=== PATIENT | male | born 1985 | race Caucasian/White ===

== ENCOUNTER 2023-03-02 11:20 | Emergency (ER) | payer OTHER ==
--- OUTSIDE RECORDS SUMMARY | 2023-03-02 11:34 | XMS REPORT | Continuity of Care Document ---
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 00:00: 00 prednisone 2022-0 No 1mg 20 mg 7-02 tablet 00:00: 00 methocarbam 2022-0 No 12mg ol 500 mg 7-02 tablet 00:00: 00 naproxen 2022-0 No 1mg 500 mg 7-02 tablet 00:00: 00 prednisone 2022-0 No 1mg 20 mg 7-02 tablet 00:00: 00 methocarbam 2022-0 No 12mg ol 500 mg 7-02 tablet 00:00: 00 naproxen 2022-0 No 1mg 500 mg 7-02 tablet 00:00: 00 bupropion 2022-0 No 1mg HCl SR 150 5-12 mg 00:00: tablet,12 00 hr sustained-r elease escitalopra 2022-0 No 1mg m 20 mg 5-12 tablet 00:00: 00 propranolol 2022-0 No 1mg 10 mg 5-12 tablet 00:00: 00 doxycycline 2022-0 No 1mg hyclate 100 5-12 mg capsule 00:00: 00 prazosin 2 2022-0 No 1mg mg capsule 5-12 00:00: 00 Dose 2022-0 No Unknown 5-12 00:00: 00 Dose 2022-0 No Unknown 5-12 00:00: 00 bupropion 2022-0 No 1mg HCl SR 150 5-12 mg 00:00: tablet,12 00 hr sustained-r elease escitalopra 2-0 No 1mg m 20 mg 5-12 tablet 00:00: 00 propranolol 2022-0 No 1mg 10 mg 5-12 tablet 00:00: 00 doxycycline 2022-0 No 1mg hyclate 100 5-12 mg capsule 00:00: 00 prazosin 2 2-0 No 1mg mg capsule 5-12 00:00: 00 Dose 2-0 No Unknown 5-12 00:00: 00 Dose 2-0 No Unknown 5-12 00:00: 00 bupropion 2022-0 No 1mg HCl SR 150 5-12 mg 00:00: tablet,12 00 hr sustained-r elease Dose 2-0 No Unknown 5-12 00:00: 00 Dose 2022-0 No Unknown 5-12 00:00: 00 doxycycline 2-0 No 1mg hyclate 100 5-12 mg capsule 00:00: 00 Dose 2022-0 No Unknown 5-12 00:00: 00 Dose 2-0 No Unknown 5-12 00:00: 00 Dose 2-0 No Unknown 5-12 00:00: 00 bupropion 2022-0 No 1mg HCl SR 150 5-12 mg 00:00: tablet,12 00 hr sustained-r elease Dose 2-0 No Unknown 5-12 00:00: 00 Dose 2022-0 No Unknown 5-12 00:00: 00 doxycycline 2022-0 No 1mg hyclate 100 5-12 mg capsule 00:00: 00 Dose 2022-0 No Unknown 5-12 00:00: 00 Dose 2022-0 No Unknown 5-12 00:00: 00 Dose 2022-0 No Unknown 5-12 00:00: 00 bupropion 2022-0 No 1mg HCl SR 150 5-12 mg 00:00: tablet,12 00 hr sustained-r elease escitalopra 2-0 No 1mg m 20 mg 5-12 tablet 00:00: 00 propranolol 2022-0 No 1mg 10 mg 5-12 tablet 00:00: 00 doxycycline 2022-0 No 1mg hyclate 100 5-12 mg capsule 00:00: 00 prazosin 2 2022-0 No 1mg mg capsule 5-12 00:00: 00 Dose 2022-0 No Unknown 5-12 00:00: 00 Dose 2022-0 No Unknown 5-12 00:00: 00 bupropion 2022-0 No 1mg HCl SR 150 5-12 mg 00:00: tablet,12 00 hr sustained-r elease escitalopra 2022-0 No 1mg m 20 mg 5-12 tablet 00:00: 00 propranolol 2022-0 No 1mg 10 mg 5-12 tablet 00:00: 00 doxycycline 2022-0 No 1mg hyclate 100 5-12 mg capsule 00:00: 00 prazosin 2 2022-0 No 1mg mg capsule 5-12 00:00: 00 Dose 2022-0 No Unknown 5-12 00:00: 00 Dose 2022-0 No Unknown 5-12 00:00: 00 bupropion 2022-0 No 1mg HCl SR 150 5-12 mg 00:00: tablet,12 00 hr sustained-r elease escitalopra 2022-0 No 1mg m 20 mg 5-12 tablet 00:00: 00 propranolol 2022-0 No 1mg 10 mg 5-12 tablet 00:00: 00 doxycycline 2022-0 No 1mg hyclate 100 5-12 mg capsule 00:00: 00 prazosin 2 2022-0 No 1mg mg capsule 5-12 00:00: 00 Dose 2022-0 No Unknown 5-12 00:00: 00 Dose 2022-0 No Unknown 5-12 00:00: 00 bupropion 2022-0 No 1mg HCl SR 150 5-12 mg 00:00: tablet,12 00 hr sustained-r elease escitalopra 2022-0 No 1mg m 20 mg 5-12 tablet 00:00: 00 propranolol 2022-0 No 1mg 10 mg 5-12 tablet 00:00: 00 doxycycline 2022-0 No 1mg hyclate 100 5-12 mg capsule 00:00: 00 prazosin 2 2022-0 No 1mg mg capsule 5-12 00:00: 00 Dose 2022-0 No Unknown 5-12 00:00: 00 Dose 2022-0 No Unknown 5-12 00:00: 00 bupropion 2022-0 No 1mg HCl SR 150 5-12 mg 00:00: tablet,12 00 hr sustained-r elease escitalopra 2022-0 No 1mg m 20 mg 5-12 tablet 00:00: 00 propranolol 2022-0 No 1mg 10 mg 5-12 tablet 00:00: 00 doxycycline 2022-0 No 1mg hyclate 100 5-12 mg capsule 00:00: 00 prazosin 2 2022-0 No 1mg mg capsule 5-12 00:00: 00 Dose 2022-0 No Unknown 5-12 00:00: 00 Dose 2022-0 No Unknown 5-12 00:00: 00 bupropion 2022-0 No 1mg HCl SR 150 5-12 mg 00:00: tablet,12 00 hr sustained-r elease escitalopra 2022-0 No 1mg m 20 mg 5-12 tablet 00:00: 00 propranolol 2022-0 No 1mg 10 mg 5-12 tablet 00:00: 00 doxycycline 2022-0 No 1mg hyclate 100 5-12 mg capsule 00:00: 00 prazosin 2 2022-0 No 1mg mg capsule 5-12 00:00: 00 Dose 2022-0 No Unknown 5-12 00:00: 00 Dose 2022-0 No Unknown 5-12 00:00: 00 bupropion 2022-0 No 1mg HCl SR 150 5-12 mg 00:00: tablet,12 00 hr sustained-r elease escitalopra 2022-0 No 1mg m 20 mg 5-12 tablet 00:00: 00 propranolol 2022-0 No 1mg 10 mg 5-12 tablet 00:00: 00 doxycycline 2022-0 No 1mg hyclate 100 5-12 mg capsule 00:00: 00 prazosin 2 2022-0 No 1mg mg capsule 5-12 00:00: 00 Dose 2022-0 No Unknown 5-12 00:00: 00 Dose 2022-0 No Unknown 5-12 00:00: 00 amoxicillin 2022-0 No mg 875 mg 5-09 tablet 00:00: 00 doxycycline 2022-0 No mg hyclate 100 5-09 mg tablet 00:00: 00 amoxicillin 2022-0 No mg 875 mg 5-09 tablet 00:00: 00 doxycycline 2022-0 No mg hyclate 100 5-09 mg tablet 00:00: 00 amoxicillin 2022-0 No mg 875 mg 5-09 tablet 00:00: 00 doxycycline 2022-0 No mg hyclate 100 5-09 mg tablet 00:00: 00 amoxicillin 2022-0 No mg 875 mg 5-09 tablet 00:00: 00 doxycycline 2022-0 No mg hyclate 100 5-09 mg tablet 00:00: 00 amoxicillin 2022-0 No mg 875 mg 5-09 tablet 00:00: 00 doxycycline 2022-0 No mg hyclate 100 5-09 mg tablet 00:00: 00 amoxicillin 2022-0 No mg 875 mg 5-09 tablet 00:00: 00 doxycycline 2022-0 No mg hyclate 100 5-09 mg tablet 00:00: 00 amoxicillin 2022-0 No mg 875 mg 5-09 tablet 00:00: 00 amoxicillin 2022-0 No mg 875 mg 5-09 tablet 00:00: 00 doxycycline 2022-0 No mg hyclate 100 5-09 mg tablet 00:00: 00 doxycycline 2022-0 No mg hyclate 100 5-09 mg tablet 00:00: 00 amoxicillin 2022-0 No mg 875 mg 5-09 tablet 00:00: 00 doxycycline 2022-0 No mg hyclate 100 5-09 mg tablet 00:00: 00 amoxicillin 2022-0 No mg 875 mg 5-09 tablet 00:00: 00 doxycycline 2022-0 No mg hyclate 100 5-09 mg tablet 00:00: 00 amoxicillin 2022-0 No mg 875 mg 5-09 tablet 00:00: 00 doxycycline 2022-0 No mg hyclate 100 5-09 mg tablet 00:00: 00 Dose 2022-0 No Unknown 5-02 00:00: 00 Dose 2022-0 No Unknown 5-02 00:00: 00 Dose 2022-0 No Unknown 5-02 00:00: 00 Dose 2022-0 No Unknown 5-02 00:00: 00 Dose 2022-0 No Unknown 5-02 00:00: 00 Dose 2022-0 No Unknown 5-02 00:00: 00 Dose 2022-0 No Unknown 5-02 00:00: 00 Dose 2022-0 No Unknown 5-02 00:00: 00 Dose 2022-0 No Unknown 5-02 00:00: 00 Dose 2022-0 No Unknown 5-02 00:00: 00 Dose 2022-0 No Unknown 5-02 00:00: 00 Dose 2022-0 No Unknown 5-02 00:00: 00 Dose 2022-0 No Unknown 5-02 00:00: 00 Dose 2022-0 No Unknown 5-02 00:00: 00 Dose 2022-0 No Unknown 5-02 00:00: 00 Dose 2022-0 No Unknown 5-02 00:00: 00 Dose 2022-0 No Unknown 5-02 00:00: 00 Dose 2022-0 No Unknown 5-02 00:00: 00 Dose 2022-0 No Unknown 5-02 00:00: 00 Dose 2022-0 No Unknown 5-02 00:00: 00 Dose 2022-0 No Unknown 5-02 00:00: 00 Dose 2022-0 No Unknown 5-02 00:00: 00 Dose 2022-0 No Unknown 5-01 00:00: 00 Dose 2022-0 No Unknown 5-01 00:00: 00 Dose 2022-0 No Unknown 5-01 00:00: 00 Dose 2022-0 No Unknown 5-01 00:00: 00 Dose 2022-0 No Unknown 5-01 00:00: 00 Dose 2022-0 No Unknown 5-01 00:00: 00 Dose 2022-0 No Unknown 5- 00:00: 00 Dose 2022-0 No Unknown 5-01 00:00: 00 Dose 2022-0 No Unknown 5-01 00:00: 00 Dose 2022-0 No Unknown 5-01 00:00: 00 Dose 2022-0 No Unknown 5-01 00:00: 00 Dose 2022-0 No Unknown 5-01 00:00: 00 Dose 2022-0 No Unknown 5-01 00:00: 00 Dose 2022-0 No Unknown 5-01 00:00: 00 Dose 2022-0 No Unknown 5-01 00:00: 00 Dose 2022-0 No Unknown 5- 00:00: 00 Dose 2022-0 No Unknown 5- 00:00: 00 Dose 2022-0 No Unknown 5-01 00:00: 00 Dose 2022-0 No Unknown 5-01 00:00: 00 Dose 2022-0 No Unknown 5-01 00:00: 00 Dose 2022-0 No Unknown 5-01 00:00: 00 Dose 2022-0 No Unknown 5-01 00:00: 00 Dose 2022-0 No Unknown 5-01 00:00: 00 Dose 2022-0 No Unknown 5- 00:00: 00 Dose 2022-0 No Unknown 5-01 00:00: 00 Dose 2022-0 No Unknown 5-01 00:00: 00 Dose 2022-0 No Unknown 5-01 00:00: 00 Dose 2022-0 No Unknown 5-01 00:00: 00 Dose 2022-0 No Unknown 5-01 00:00: 00 Dose 2022-0 No Unknown 5-01 00:00: 00 Dose 2022-0 No Unknown 5-01 00:00: 00 Dose 2022-0 No Unknown 5- 00:00: 00 Dose 2022-0 No Unknown 5-01 00:00: 00 Dose 2022-0 No Unknown 5-01 00:00: 00 Dose 2022-0 No Unknown 5-01 00:00: 00 Dose 2022-0 No Unknown 5-01 00:00: 00 Dose 2022-0 No Unknown 5-01 00:00: 00 Dose 2022-0 No Unknown 5-01 00:00: 00 Dose 2022-0 No Unknown 5-01 00:00: 00 Dose 2022-0 No Unknown 5- 00:00: 00 Dose 2022-0 No Unknown 5-01 00:00: 00 Dose 2022-0 No Unknown 5-01 00:00: 00 Dose 2022-0 No Unknown 5-01 00:00: 00 Dose 2022-0 No Unknown 5- 00:00: 00 Dose 2022-0 No Unknown 4- 00:00: 00 Dose 2022-0 No Unknown 4-29 00:00: 00 Dose 2022-0 No Unknown 4-29 00:00: 00 Dose 2022-0 No Unknown 4-29 00:00: 00 Dose 2022-0 No Unknown 4-29 00:00: 00 Dose 2022-0 No Unknown 4-29 00:00: 00 Dose 2022-0 No Unknown 4-29 00:00: 00 Dose 2022-0 No Unknown 4-29 00:00: 00 Dose 2022-0 No Unknown 4- 00:00: 00 Dose 2022-0 No Unknown 4- 00:00: 00 Dose 2022-0 No Unknown 4- 00:00: 00 Dose 2022-0 No Unknown 4- 00:00: 00 Dose 2022-0 No Unknown 4- 00:00: 00 Dose 2022-0 No Unknown 4- 00:00: 00 Dose 2022-0 No Unknown 4- 00:00: 00 Dose 2022-0 No Unknown 4- 00:00: 00 Dose 2022-0 No Unknown 4- 00:00: 00 Dose 2022-0 No Unknown 4- 00:00: 00 Dose 2022-0 No Unknown 4- 00:00: 00 Dose 2022-0 No Unknown 4- 00:00: 00 Dose 2022-0 No Unknown 4- 00:00: 00 Dose 2022-0 No Unknown 4- 00:00: 00 Dose 2022-0 No Unknown 4- 00:00: 00 Dose 2022-0 No Unknown 4- 00:00: 00 Dose 2022-0 No Unknown 4- 00:00: 00 Dose 2022-0 No Unknown 4- 00:00: 00 Dose 2022-0 No Unknown 4- 00:00: 00 Dose 2022-0 No Unknown 4- 00:00: 00 Dose 2022-0 No Unknown 4- 00:00: 00 Dose 2022-0 No Unknown 4- 00:00: 00 Dose 2022-0 No Unknown 4- 00:00: 00 Dose 2022-0 No Unknown 4- 00:00: 00 Dose 2022-0 No Unknown 4- 00:00: 00 Dose 2022-0 No Unknown 4- 00:00: 00 Dose 2022-0 No Unknown 4- 00:00: 00 Dose 2022-0 No Unknown 4-29 00:00: 00 Dose 2022-0 No Unknown 4- 00:00: 00 Dose 2022-0 No Unknown 4- 00:00: 00 Dose 2022-0 No Unknown 4- 00:00: 00 Dose 2022-0 No Unknown 4-29 00:00: 00 Dose 2022-0 No Unknown 4-29 00:00: 00 Dose 2022-0 No Unknown 4- 00:00: 00 Dose 2022-0 No Unknown 4- 00:00: 00 Dose 2022-0 No Unknown 4- 00:00: 00 Dose 2022-0 No Unknown 4- 00:00: 00 Dose 2022-0 No Unknown 4- 00:00: 00 Dose 2022-0 No Unknown 4- 00:00: 00 Dose 2022-0 No Unknown 4- 00:00: 00 Dose 2022-0 No Unknown 4- 00:00: 00 Dose 2022-0 No Unknown 4- 00:00: 00 Dose 2022-0 No Unknown 4- 00:00: 00 Dose 2022-0 No Unknown 4- 00:00: 00 Dose 2022-0 No Unknown 4- 00:00: 00 Dose 2022-0 No Unknown 4- 00:00: 00 Dose 2022-0 No Unknown 4- 00:00: 00 Bactrim DS 2022-0 No 1mg 800 mg-160 4-28 mg tablet 00:00: 00 Bactrim DS 2022-0 No 1mg 800 mg-160 4-28 mg tablet 00:00: 00 Bactrim DS 2022-0 No 1mg 800 mg-160 4-28 mg tablet 00:00: 00 Bactrim DS 2022-0 No 1mg 800 mg-160 4-28 mg tablet 00:00: 00 Bactrim DS 2022-0 No 1mg 800 mg-160 4-28 mg tablet 00:00: 00 Bactrim DS 2022-0 No 1mg 800 mg-160 4-28 mg tablet 00:00: 00 Bactrim DS 2022-0 No 1mg 800 mg-160 4-28 mg tablet 00:00: 00 Bactrim DS 2022-0 No 1mg 800 mg-160 4-28 mg tablet 00:00: 00 Bactrim DS 2022-0 No 1mg 800 mg-160 4-28 mg tablet 00:00: 00 Bactrim DS 2022-0 No 1mg 800 mg-160 4-28 mg tablet 00:00: 00 Bactrim DS 2022-0 No 1mg 800 mg-160 4-28 mg tablet 00:00: 00 Edurant 25 2022-0 No 1mg mg tablet 3-25 00:00: 00 Dose 2022-0 No Unknown 3-25 00:00: 00 Dose 2022-0 No Unknown 3-25 00:00: 00 Edurant 25 2022-0 No 1mg mg tablet 3-25 00:00: 00 Dose 2022-0 No Unknown 3-25 00:00: 00 Dose 2022-0 No Unknown 3-25 00:00: 00 Edurant 25 2022-0 No 1mg mg tablet 3-25 00:00: 00 Dose 2022-0 No Unknown 3-25 00:00: 00 Dose 2022-0 No Unknown 3-25 00:00: 00 Edurant 25 2022-0 No 1mg mg tablet 3-25 00:00: 00 Dose 2022-0 No Unknown 3-25 00:00: 00 Dose 2022-0 No Unknown 3-25 00:00: 00 Edurant 25 2022-0 No 1mg mg tablet 3-25 00:00: 00 Dose 2022-0 No Unknown 3-25 00:00: 00 Dose 2022-0 No Unknown 3-25 00:00: 00 Edurant 25 2022-0 No 1mg mg tablet 3-25 00:00: 00 Dose 2022-0 No Unknown 3-25 00:00: 00 Dose 2022-0 No Unknown 3-25 00:00: 00 Edurant 25 2022-0 No 1mg mg tablet 3-25 00:00: 00 Dose 2022-0 No Unknown 3-25 00:00: 00 Dose 2022-0 No Unknown 3-25 00:00: 00 Edurant 25 2022-0 No 1mg mg tablet 3-25 00:00: 00 Dose 2022-0 No Unknown 3-25 00:00: 00 Dose 2022-0 No Unknown 3-25 00:00: 00 Edurant 25 2022-0 No 1mg mg tablet 3-25 00:00: 00 Dose 2022-0 No Unknown 3-25 00:00: 00 Dose 2022-0 No Unknown 3-25 00:00: 00 Edurant 25 2022-0 No 1mg mg tablet 3-25 00:00: 00 Dose 2022-0 No Unknown 3-25 00:00: 00 Dose 2022-0 No Unknown 3-25 00:00: 00 Edurant 25 2022-0 No 1mg mg tablet 3-25 00:00: 00 Dose 2022-0 No Unknown 3-25 00:00: 00 Dose 2022-0 No Unknown 3-25 00:00: 00 TAKE 1 2022-0 No TABLET BY 3-24 MOUTH DAILY 00:00: 00 TAKE 1 2022-0 No TABLET BY 3-24 MOUTH DAILY 00:00: 00 Dose 2022-0 No Unknown 3-24 00:00: 00 Dose 2022-0 No Unknown 3-24 00:00: 00 Triumeq 600 2022-0 No 1mg mg-50 3-24 mg-300 mg 00:00: tablet 00 Triumeq 600 2022-0 No 1mg mg-50 3-24 mg-300 mg 00:00: tablet 00 Triumeq 600 2022-0 No 1mg mg-50 3-24 mg-300 mg 00:00: tablet 00 Triumeq 600 2022-0 No 1mg mg-50 3-24 mg-300 mg 00:00: tablet 00 Triumeq 600 2022-0 No 1mg mg-50 3-24 mg-300 mg 00:00: tablet 00 Triumeq 600 2022-0 No 1mg mg-50 3-24 mg-300 mg 00:00: tablet 00 TAKE 1 2022-0 No TABLET BY 3-24 MOUTH DAILY 00:00: 00 Dose 2022-0 No Unknown 3-04 00:00: 00 Dose 2022-0 No Unknown 3-04 00:00: 00 Dose 2022-0 No Unknown 3-04 00:00: 00 Dose 2022-0 No Unknown 3-04 00:00: 00 Dose 2022-0 No Unknown 3-04 00:00: 00 Dose 2022-0 No Unknown 3-04 00:00: 00 Dose 2022-0 No Unknown 3-04 00:00: 00 Dose 2022-0 No Unknown 3-04 00:00: 00 Dose 2022-0 No Unknown 3-04 00:00: 00 Dose 2022-0 No Unknown 3-04 00:00: 00 Dose 2022-0 No Unknown 3-04 00:00: 00 Dose 2022-0 No Unknown 3-04 00:00: 00 Dose 2022-0 No Unknown 3-04 00:00: 00 Dose 2022-0 No Unknown 3-04 00:00: 00 Dose 2022-0 No Unknown 3-04 00:00: 00 Dose 2022-0 No Unknown 3-04 00:00: 00 Dose 2022-0 No Unknown 3-04 00:00: 00 Dose 2022-0 No Unknown 3-04 00:00: 00 Dose 2022-0 No Unknown 3-04 00:00: 00 Dose 2022-0 No Unknown 3-04 00:00: 00 Dose 2022-0 No Unknown 3-04 00:00: 00 Dose 2022-0 No Unknown 3-04 00:00: 00 Dose 2022-0 No Unknown 3-04 00:00: 00 Dose 2022-0 No Unknown 3-04 00:00: 00 Dose 2022-0 No Unknown 3-04 00:00: 00 Dose 2022-0 No Unknown 3-04 00:00: 00 Dose 2022-0 No Unknown 3-04 00:00: 00 Dose 2022-0 No Unknown 3-04 00:00: 00 Dose 2022-0 No Unknown 3-04 00:00: 00 Dose 2022-0 No Unknown 3-04 00:00: 00 Dose 2022-0 No Unknown 3-04 00:00: 00 Dose 2022-0 No Unknown 3-04 00:00: 00 Dose 2022-0 No Unknown 3-04 00:00: 00 Dose 2022-0 No Unknown 3-04 00:00: 00 Dose 2022-0 No Unknown 3-04 00:00: 00 Dose 2022-0 No Unknown 3-04 00:00: 00 Dose 2022-0 No Unknown 3-04 00:00: 00 Dose 2022-0 No Unknown 3-04 00:00: 00 Dose 2022-0 No Unknown 3-04 00:00: 00 Dose 2022-0 No Unknown 3-04 00:00: 00 Dose 2022-0 No Unknown 3-04 00:00: 00 Dose 2022-0 No Unknown 3-04 00:00: 00 Dose 2022-0 No Unknown 3-04 00:00: 00 Dose 2022-0 No Unknown 3-04 00:00: 00 Dose 2021-1 No Unknown 2-15 00:00: 00 Dose 2021-1 No Unknown 2-15 00:00: 00 Dose 2021-1 No Unknown 2-15 00:00: 00 Dose 2021-1 No Unknown 2-15 00:00: 00 Dose 2020- No Unknown 2-15 00:00: 00 Dose 2020- No Unknown 2-15 00:00: 00 Dose 2020- No Unknown 2-15 00:00: 00 Dose 2020- No Unknown 2-15 00:00: 00 Dose 2020- No Unknown 2-15 00:00: 00 Dose 2020- No Unknown 2-15 00:00: 00 Dose 2020- No Unknown 2-15 00:00: 00 Dose 2020- No Unknown 1-29 00:00: 00 Dose 2020- No Unknown 1-29 00:00: 00 Dose 2020- No Unknown 1-29 00:00: 00 Dose 2020- No Unknown 1-29 00:00: 00 Dose 2020- No Unknown 1-29 00:00: 00 Dose 2020-07 No Unknown 1-29 00:00: 00 Dose 2020- No Unknown 1-29 00:00: 00 Dose 2020- No Unknown 1-29 00:00: 00 Dose 2020- No Unknown 1-29 00:00: 00 Dose 2020- No Unknown 1-29 00:00: 00 Dose 2020- No Unknown 1-29 00:00: 00 Dose 2020- No Unknown 1-29 00:00: 00 Dose 2020- No Unknown 1-29 00:00: 00 Dose 2020- No Unknown 1-29 00:00: 00 Dose 2020- No Unknown 1-29 00:00: 00 Dose 2020- No Unknown 1-29 00:00: 00 Dose 2020- No Unknown 1-29 00:00: 00 Dose 2020- No Unknown 1-29 00:00: 00 Dose 2020- No Unknown 1-29 00:00: 00 Dose 2020- No Unknown 1-29 00:00: 00 Dose 2020- No Unknown 1-29 00:00: 00 Dose 2020-07 No Unknown 1-29 00:00: 00 TRIUMEQ 2020-07 Yes Camila TAKE ONE [facility] (ABACAVIR-D 1-08 Earnest [place] TABLET BY Adult OLUTEGRAVIR 00:00: MOUTH Medic in -LAMIVUD) 00 EVERY DAY e 600-50-300 MG TABS Dose 2020- No Unknown 0-25 00:00: 00 Dose 2020-1 No Unknown 0-25 00:00: 00 Triumeq 600 2020-1 No 1mg mg-50 0-25 mg-300 mg 00:00: tablet 00 Dose 2020- No Unknown 0-25 00:00: 00 Dose 2020- No Unknown 0-25 00:00: 00 Dose 2020- No Unknown 0-25 00:00: 00 Dose 2020- No Unknown 0-25 00:00: 00 Dose 2020- No Unknown 0-25 00:00: 00 Triumeq 600 2020- No 1mg mg-50 0-25 mg-300 mg 00:00: tablet 00 Dose 2020- No Unknown 0-25 00:00: 00 Dose 2020- No Unknown 0-25 00:00: 00 Dose 2020- No Unknown 0-25 00:00: 00 Dose 2020- No Unknown 0-25 00:00: 00 Dose 2020- No Unknown 0-25 00:00: 00 Triumeq 600 2020- No 1mg mg-50 0-25 mg-300 mg 00:00: tablet 00 Dose 2020- No Unknown 0-25 00:00: 00 Dose 2020- No Unknown 0-25 00:00: 00 Dose 2020- No Unknown 0-25 00:00: 00 Dose 2020- No Unknown 0-25 00:00: 00 Dose 2020- No Unknown 0-25 00:00: 00 Dose 2020- No Unknown 0-25 00:00: 00 Triumeq 600 2020- No 1mg mg-50 0-25 mg-300 mg 00:00: tablet 00 Dose 2020- No Unknown 0-25 00:00: 00 Dose 2020- No Unknown 0-25 00:00: 00 Dose 2020-1 No Unknown 0-25 00:00: 00 Dose 2020- No Unknown 0-25 00:00: 00 Triumeq 600 2020- No 1mg mg-50 0-25 mg-300 mg 00:00: tablet 00 Dose 2020- No Unknown 0-25 00:00: 00 Dose 2020- No Unknown 0-25 00:00: 00 Dose 2020-1 No Unknown 0-25 00:00: 00 Dose 2020-1 No Unknown 0-25 00:00: 00 Triumeq 600 2020-1 No 1mg mg-50 0-25 mg-300 mg 00:00: tablet 00 Dose 2020-1 No Unknown 0-25 00:00: 00 Dose 2020-1 No Unknown 0-25 00:00: 00 Dose 2020-1 No Unknown 0-25 00:00: 00 Dose 2020-1 No Unknown 0-25 00:00: 00 Dose 2020-1 No Unknown 0-25 00:00: 00 Dose 2020-1 No Unknown 0-25 00:00: 00 Triumeq 600 2020-1 No 1mg mg-50 0-25 mg-300 mg 00:00: tablet 00 Dose 2020- No Unknown 0-25 00:00: 00 Dose 2020- No Unknown 0-25 00:00: 00 Dose 2020-1 No Unknown 0-25 00:00: 00 Dose 2020-1 No Unknown 0-25 00:00: 00 Dose 2020-1 No Unknown 0-25 00:00: 00 Triumeq 600 2020-1 No 1mg mg-50 0-25 mg-300 mg 00:00: tablet 00 Dose 2020-1 No Unknown 0-25 00:00: 00 Dose 2020-1 No Unknown 0-25 00:00: 00 Dose 2020-1 No Unknown 0-25 00:00: 00 Dose 2020-1 No Unknown 0-25 00:00: 00 Dose 2020-1 No Unknown 0-25 00:00: 00 Triumeq 600 2020-1 No 1mg mg-50 0-25 mg-300 mg 00:00: tablet 00 Dose 2020-1 No Unknown 0-25 00:00: 00 Dose 2020-1 No Unknown 0-25 00:00: 00 Dose 2020-1 No Unknown 0-25 00:00: 00 Dose 2020-1 No Unknown 0-25 00:00: 00 Dose 2020-1 No Unknown 0-25 00:00: 00 Triumeq 600 2020-1 No 1mg mg-50 0-25 mg-300 mg 00:00: tablet 00 Dose 2020-1 No Unknown 0-25 00:00: 00 Dose 2021-1 No Unknown 0-25 00:00: 00 Dose 2020-1 No Unknown 0-25 00:00: 00 Dose 2020-1 No Unknown 0-25 00:00: 00 Dose 2020-1 No Unknown 0-25 00:00: 00 Triumeq 600 1-1 No 1mg mg-50 0-25 mg-300 mg 00:00: tablet 00 Dose 1-1 No Unknown 0-25 00:00: 00 Dose 1-1 No Unknown 0-25 00:00: 00 Dose 1-1 No Unknown 0-25 00:00: 00 Bromfed DM 2020-1 No 10mg/5 2 mg-30 0-11 mL mg-10 mg/5 00:00: mL oral 00 syrup Bromfed DM 2020-1 No 10mg/5 2 mg-30 0-11 mL mg-10 mg/5 00:00: mL oral 00 syrup Bromfed DM 2020-1 No 10mg/5 2 mg-30 0-11 mL mg-10 mg/5 00:00: mL oral 00 syrup Bromfed DM 2020-1 No 10mg/5 2 mg-30 0-11 mL mg-10 mg/5 00:00: mL oral 00 syrup Bromfed DM 2020-1 No 10mg/5 2 mg-30 0-11 mL mg-10 mg/5 00:00: mL oral 00 syrup Bromfed DM 1-1 No 10mg/5 2 mg-30 0-11 mL mg-10 mg/5 00:00: mL oral 00 syrup Bromfed DM 1-1 No 10mg/5 2 mg-30 0-11 mL mg-10 mg/5 00:00: mL oral 00 syrup Bromfed DM 2020-1 No 10mg/5 2 mg-30 0-11 mL mg-10 mg/5 00:00: mL oral 00 syrup Bromfed DM 2020-1 No 10mg/5 2 mg-30 0-11 mL mg-10 mg/5 00:00: mL oral 00 syrup Bromfed DM 1-1 No 10mg/5 2 mg-30 0-11 mL mg-10 mg/5 00:00: mL oral 00 syrup Bromfed DM 1-1 No 10mg/5 2 mg-30 0-11 mL mg-10 mg/5 00:00: mL oral 00 syrup (ATORVASTAT 2020-1 Yes Camila TAKE ONE [facility] IN CALCIUM) 0-06 Earnest [place] TABLET BY Adult 20 MG TABS 00:00: MOUTH AT Med icin 00 BEDTIME e quetiapine 1-0 No 12mg 25 mg 8-18 tablet 00:00: 00 Dose 2021-0 No Unknown 03-15 00:00: 00 quetiapine 1-0 No 12mg 25 mg 8-18 tablet 00:00: 00 quetiapine 2021-0 No 12mg 25 mg 8-18 tablet 00:00: 00 Dose 2021-0 No Unknown 03-15 00:00: 00 Dose 1-0 No Unknown 03-15 00:00: 00 quetiapine 1-0 No 12mg 25 mg 8-18 tablet 00:00: 00 Dose 2021-0 No Unknown 03-15 00:00: 00 quetiapine 2021-0 No 12mg 25 mg 8-18 tablet 00:00: 00 Dose 2021-0 No Unknown 03-15 00:00: 00 quetiapine 2021-0 No 12mg 25 mg 8-18 tablet 00:00: 00 Dose 2021-0 No Unknown 03-15 00:00: 00 quetiapine 1-0 No 12mg 25 mg 8-18 tablet 00:00: 00 Dose 2021-0 No Unknown 03-15 00:00: 00 quetiapine 2021-0 No 12mg 25 mg 8-18 tablet 00:00: 00 Dose 2021-0 No Unknown 03-15 00:00: 00 quetiapine 1-0 No 12mg 25 mg 8-18 tablet 00:00: 00 Dose 2021-0 No Unknown 03-15 00:00: 00 quetiapine 2021-0 No 12mg 25 mg 8-18 tablet 00:00: 00 Dose 2021-0 No Unknown 03-15 00:00: 00 quetiapine 1-0 No 12mg 25 mg 8-18 tablet 00:00: 00 Dose 2021-0 No Unknown 03-15 00:00: 00 prazosin 2 1-0 No 1mg mg capsule 03-08 00:00: 00 escitalopra 1-0 No 1mg m 20 mg 8-11 tablet 00:00: 00 hydroxyzine 2021-0 No 12mg HCl 25 mg 8-11 tablet 00:00: 00 prazosin 2 2021-0 No 1mg mg capsule 03-08 00:00: 00 escitalopra 2021-0 No 1mg m 20 mg 8-11 tablet 00:00: 00 hydroxyzine 2021-0 No 12mg HCl 25 mg 8-11 tablet 00:00: 00 prazosin 2 2021-0 No 1mg mg capsule 03-08 00:00: 00 escitalopra 2021-0 No 1mg m 20 mg 8-11 tablet 00:00: 00 hydroxyzine 2021-0 No 12mg HCl 25 mg 8-11 tablet 00:00: 00 prazosin 2 1-0 No 1mg mg capsule 03-08 00:00: 00 escitalopra 2021-0 No 1mg m 20 mg 8-11 tablet 00:00: 00 hydroxyzine 2021-0 No 12mg HCl 25 mg 8-11 tablet 00:00: 00 prazosin 2 1-0 No 1mg mg capsule 03-08 00:00: 00 escitalopra 1-0 No 1mg m 20 mg 8-11 tablet 00:00: 00 hydroxyzine 1-0 No 12mg HCl 25 mg 8-11 tablet 00:00: 00 prazosin 2 1-0 No 1mg mg capsule 03-08 00:00: 00 escitalopra 2021-0 No 1mg m 20 mg 8-11 tablet 00:00: 00 hydroxyzine 2021-0 No 12mg HCl 25 mg 8-11 tablet 00:00: 00 prazosin 2 2021-0 No 1mg mg capsule 03-08 00:00: 00 escitalopra 2021-0 No 1mg m 20 mg 8-11 tablet 00:00: 00 hydroxyzine 2021-0 No 12mg HCl 25 mg 8-11 tablet 00:00: 00 prazosin 2 2021-0 No 1mg mg capsule 03-08 00:00: 00 escitalopra 2021-0 No 1mg m 20 mg 8-11 tablet 00:00: 00 hydroxyzine 2021-0 No 12mg HCl 25 mg 8-11 tablet 00:00: 00 prazosin 2 2021-0 No 1mg mg capsule 03-08 00:00: 00 escitalopra 2021-0 No 1mg m 20 mg 8-11 tablet 00:00: 00 hydroxyzine 1-0 No 12mg HCl 25 mg 8-11 tablet 00:00: 00 prazosin 2 1-0 No 1mg mg capsule 8-11 00:00: 00 escitalopra 1-0 No 1mg m 20 mg 8-11 tablet 00:00: 00 escitalopra 1-0 No 1mg m 20 mg 8-11 tablet 00:00: 00 hydroxyzine 1-0 No 12mg HCl 25 mg 8-11 tablet 00:00: 00 prazosin 2 1-0 No 1mg mg capsule 8-11 00:00: 00 hydroxyzine 1-0 No 12mg HCl 25 mg 8-11 tablet 00:00: 00 escitalopra 1-0 No 1mg m 10 mg 7-20 tablet 00:00: 00 hydroxyzine 1-0 No 1mg HCl 25 mg 7-20 tablet 00:00: 00 prazosin 1 1-0 No 1mg mg capsule 7-20 00:00: 00 escitalopra 1-0 No 1mg m 10 mg 7-20 tablet 00:00: 00 hydroxyzine 1-0 No 1mg HCl 25 mg 7-20 tablet 00:00: 00 prazosin 1 1-0 No 1mg mg capsule 7-20 00:00: 00 escitalopra 1-0 No 1mg m 10 mg 7-20 tablet 00:00: 00 hydroxyzine 1-0 No 1mg HCl 25 mg 7-20 tablet 00:00: 00 prazosin 1 1-0 No 1mg mg capsule 7-20 00:00: 00 escitalopra 1-0 No 1mg m 10 mg 7-20 tablet 00:00: 00 hydroxyzine 2021-0 No 1mg HCl 25 mg 7-20 tablet 00:00: 00 prazosin 1 1-0 No 1mg mg capsule 7-20 00:00: 00 escitalopra 2021-0 No 1mg m 10 mg 7-20 tablet 00:00: 00 hydroxyzine 2021-0 No 1mg HCl 25 mg 7-20 tablet 00:00: 00 prazosin 1 1-0 No 1mg mg capsule 7-20 00:00: 00 escitalopra 2021-0 No 1mg m 10 mg 7-20 tablet 00:00: 00 hydroxyzine 2021-0 No 1mg HCl 25 mg 7-20 tablet 00:00: 00 prazosin 1 1-0 No 1mg mg capsule 7-20 00:00: 00 escitalopra 2021-0 No 1mg m 10 mg 7-20 tablet 00:00: 00 hydroxyzine 2021-0 No 1mg HCl 25 mg 7-20 tablet 00:00: 00 prazosin 1 1-0 No 1mg mg capsule 7-20 00:00: 00 escitalopra 2021-0 No 1mg m 10 mg 7-20 tablet 00:00: 00 escitalopra 2021-0 No 1mg m 10 mg 7-20 tablet 00:00: 00 hydroxyzine 1-0 No 1mg HCl 25 mg 7-20 tablet 00:00: 00 prazosin 1 1-0 No 1mg mg capsule 7-20 00:00: 00 hydroxyzine 1-0 No 1mg HCl 25 mg 7-20 tablet 00:00: 00 escitalopra 1-0 No 1mg m 10 mg 7-20 tablet 00:00: 00 hydroxyzine 1-0 No 1mg HCl 25 mg 7-20 tablet 00:00: 00 prazosin 1 1-0 No 1mg mg capsule 7-20 00:00: 00 prazosin 1 1-0 No 1mg mg capsule 720 00:00: 00 escitalopra 1-0 No 1mg m 10 mg 7-20 tablet 00:00: 00 hydroxyzine 1-0 No 1mg HCl 25 mg 7-20 tablet 00:00: 00 prazosin 1 1-0 No 1mg mg capsule 7-20 00:00: 00 prazosin 1 1-0 No 1mg mg capsule 7 00:00: 00 escitalopra 2021-0 No 1mg m 10 mg 7-08 tablet 00:00: 00 prazosin 1 1-0 No 1mg mg capsule 02-02 00:00: 00 escitalopra 2021-0 No 1mg m 10 mg 7-08 tablet 00:00: 00 prazosin 1 1-0 No 1mg mg capsule 7 00:00: 00 escitalopra 2021-0 No 1mg m 10 mg 7-08 tablet 00:00: 00 prazosin 1 2020-0 No 1mg mg capsule 02-02 00:00: 00 escitalopra 2020-0 No 1mg m 10 mg 7-08 tablet 00:00: 00 prazosin 1 2020-0 No 1mg mg capsule 02-02 00:00: 00 escitalopra 2020-0 No 1mg m 10 mg 7-08 tablet 00:00: 00 prazosin 1 2020-0 No 1mg mg capsule 02-02 00:00: 00 escitalopra 2020-0 No 1mg m 10 mg 7-08 tablet 00:00: 00 escitalopra 2020-0 No 1mg m 10 mg 7-08 tablet 00:00: 00 prazosin 1 2020-0 No 1mg mg capsule 02-02 00:00: 00 prazosin 1 2020-0 No 1mg mg capsule 02-02 00:00: 00 escitalopra 2020-0 No 1mg m 10 mg 7-08 tablet 00:00: 00 prazosin 1 2020-0 No 1mg mg capsule 02-02 00:00: 00 escitalopra 2020-0 No 1mg m 10 mg 7-08 tablet 00:00: 00 prazosin 1 2020-0 No 1mg mg capsule 02-02 00:00: 00 escitalopra 2020-0 No 1mg m 10 mg 7-08 tablet 00:00: 00 prazosin 1 2020-0 No 1mg mg capsule 02-02 00:00: 00 escitalopra 1-0 No 1mg m 10 mg 7-08 tablet 00:00: 00 VIAGRA 2020-0 Yes Camila 1 By Mouth LM C (SILDENAFIL 11-11 Earnest [place] 30 mins A dult CITRATE) 50 00:00: prior to Me dicin MG TABS 00 sexual e activity. Do not exceed this dose in 24 hour period. LIPITOR 2020-0 2020- No Camila 1 1xD 1 tablet LM C (ATORVASTAT 11-11 Earnest by mouth Ad ult IN CALCIUM) 00:00: 00:00 at bedtime Medicin 20 MG TABS 00 :00 e VENTOLIN 2019- Yes Camila 1-2 puffs L MC HFA 08-13 Earnest [place] every 4-6 Adult (ALBUTEROL 00:00: hours Medici n SULFATE) 00 every 8 e 108 (90 hours Base) MCG/ACT AERS TRIUMEQ 2019-07- No Camila 1{Table 1xD 1 By Mouth [facility] (ABACAVIR-D 08-13 Earnest t} Every Day A dult OLUTEGRAVIR 00:00: 00:00 Medic in -LAMIVUD) 00 :00 e 600-50-300 MG TABS Immunizations Ordered Immunization Filled Immunization Date Status Commen ts Source Name Name Lanny (Smallpox, 2023-02-02 Completed [facility] Monkeypox) Subcut 13:54:00 Health Vaccine Inj 0.5 mL influenza, seasonal 2022-06-11 Completed vaccine, 00:00:00 quadrivalent, adjuvanted, .5mL dose, preservative-free influenza, seasonal 2022-06-11 Completed vaccine, 00:00:00 quadrivalent, adjuvanted, .5mL dose, preservative-free influenza, seasonal 2022-06-11 Completed vaccine, 00:00:00 quadrivalent, adjuvanted, .5mL dose, preservative-free MMR 2021 Completed 00:00:00 MMR 2021 Completed 00:00:00 MMR 2021 Completed 00:00:00 MMR 2021 Completed 00:00:00 MMR 2021 Completed 00:00:00 MMR 2021 Completed 00:00:00 MMR 2021 Completed 00:00:00 MMR 2021 Completed 00:00:00 MMR 2021 Completed 00:00:00 MMR 2021 Completed 00:00:00 MMR 2021 Completed 00:00:00 Pneumovax 23 IM/SQ 2020-06-13 Completed [facility]-[id number] 09:56:00 Health Menactra IM RIC 2020-06-13 Completed [facility] [id number] 09:55:00 Health Fluzone Quadrivalent 2020-06-13 Completed [facility] IM Prefilled Syringe 09:55:00 Heal th 0.5 mL (PF) [id number] Vital Signs Vital Name Observation Time Observation Value Comments Source temperature E&M 2023-02-02 12:43:56 98 [degF] [facility] Di[facility] blood 2023-02-02 12:43:56 81 mm[Hg] [facility] pressure Health Systolic blood 2023-02-02 12:43:56 129 mm[Hg] [facility] pressure Health respiratory rate E&M 2023-02-02 12:43:56 18 /min Counts Include [facility] pulse rate 2023-02-02 12:43:56 83 /min Counts include [facility] BMI (body mass 2023-02-02 12:43:56 n/a [facility] index) percentile Health Body Mass Index 2023-02-02 12:43:56 26.29 kg/m2 [facility] (Ratio[facility] Health weight E&M 2023-02-02 12:43:56 177.38 [lb_av] Counts Include [facility] weight in kilograms 2023-02-02 12:43:56 [facility] 2023-02-02 12:43:56 oral Lega [facility] height in 2023-02-02 12:43:56 175.26 cm [facility] centimeters [facility] BP Systolic 2022-08-16 17:33:00 BP Diastolic 2022-08-16 17:33:00 Weight Measured 2022-08-16 17:33:00 179.00 pounds Height Measured 2022-08-16 17:33:00 70.00 inches Body Temperature 2022-08-16 17:33:00 Heart Rate 2022-08-16 17:33:00 Respiratory Rate 2022-08-16 17:33:00 BP Systolic 2022-08-03 09:51:00 134 mm[Hg] BP Diastolic 2022-08-03 09:51:00 77 mm[Hg] Weight Measured 2022-08-03 09:51:00 179.00 pounds Height Measured 2022-08-03 09:51:00 70.00 inches Body Temperature 2022-08-03 09:51:00 97.90 degrees Heart Rate 2022-08-03 09:51:00 90.00 /min Respiratory Rate 2022-08-03 09:51:00 16.00 /min BP Systolic 2022-06-14 08:03:00 124 mm[Hg] BP Diastolic 2022-06-14 08:03:00 78 mm[Hg] Weight Measured 2022-06-14 08:03:00 179.80 pounds Height Measured 2022-06-14 08:03:00 70.00 inches Body Temperature 2022-06-14 08:03:00 98.40 degrees Heart Rate 2022-06-14 08:03:00 76.00 /min Respiratory Rate 2022-06-14 08:03:00 BP Systolic 2022-05-10 08:38:00 121 mm[Hg] BP Diastolic 2022-05-10 08:38:00 85 mm[Hg] Weight Measured 2022-05-10 08:38:00 177.00 pounds Height Measured 2022-05-10 08:38:00 70.00 inches Body Temperature 2022-05-10 08:38:00 98.70 degrees Heart Rate 2022-05-10 08:38:00 95.00 /min Respiratory Rate 2022-05-10 08:38:00 18.00 /min BP Systolic 2022-04-24 17:43:00 124 mm[Hg] BP Diastolic 2022-04-24 17:43:00 86 mm[Hg] Weight Measured 2022-04-24 17:43:00 176.00 pounds Height Measured 2022-04-24 17:43:00 70.00 inches Body Temperature 2022-04-24 17:43:00 98.90 degrees Heart Rate 2022-04-24 17:43:00 74.00 /min Respiratory Rate 2022-04-24 17:43:00 BP Systolic 2022-04-10 08:01:00 130 mm[Hg] BP Diastolic 2022-04-10 08:01:00 81 mm[Hg] Weight Measured 2022-04-10 08:01:00 178.60 pounds Height Measured 2022-04-10 08:01:00 70.00 inches Body Temperature 2022-04-10 08:01:00 Heart Rate 2022-04-10 08:01:00 79.00 /min Respiratory Rate 2022-04-10 08:01:00 BP Systolic 2022-02-27 16:37:00 146 mm[Hg] BP Diastolic 2022-02-27 16:37:00 73 mm[Hg] Weight Measured 2022-02-27 16:37:00 177.00 pounds Height Measured 2022-02-27 16:37:00 70.00 inches Body Temperature 2022-02-27 16:37:00 Heart Rate 2022-02-27 16:37:00 77.00 /min Respiratory Rate 2022-02-27 16:37:00 BP Systolic 2022-02-12 09:41:00 BP Diastolic 2022-02-12 09:41:00 Weight Measured 2022-02-12 09:41:00 175.00 pounds Height Measured 2022-02-12 09:41:00 70.00 inches Body Temperature 2022-02-12 09:41:00 Heart Rate 2022-02-12 09:41:00 Respiratory Rate 2022-02-12 09:41:00 BP Systolic 2022-02-01 11:31:00 142 mm[Hg] BP Diastolic 2022-02-01 11:31:00 95 mm[Hg] Weight Measured 2022-02-01 11:31:00 175.00 pounds Height Measured 2022-02-01 11:31:00 70.00 inches Body Temperature 2022-02-01 11:31:00 98.50 degrees Heart Rate 2022-02-01 11:31:00 74.00 /min Respiratory Rate 2022-02-01 11:31:00 BP Systolic 2021-12-14 11:21:00 133 mm[Hg] BP Diastolic 2021-12-14 11:21:00 88 mm[Hg] Weight Measured 2021-12-14 11:21:00 174.60 pounds Height Measured 2021-12-14 11:21:00 6.29 inches Body Temperature 2021-12-14 11:21:00 Heart Rate 2021-12-14 11:21:00 76.00 /min Respiratory Rate 2021-12-14 11:21:00 BP Systolic 2021-12-07 14:08:00 133 mm[Hg] BP Diastolic 2021-12-07 14:08:00 85 mm[Hg] Weight Measured 2021-12-07 14:08:00 175.40 pounds Height Measured 2021-12-07 14:08:00 62.29 inches Body Temperature 2021-12-07 14:08:00 98.10 degrees Heart Rate 2021-12-07 14:08:00 79.00 /min Respiratory Rate 2021-12-07 14:08:00 Height Measured 2021-12-07 08:03:00 62.29 inches Body Temperature 2021-12-07 08:03:00 98.60 degrees Heart Rate 2021-12-07 08:03:00 74.00 /min Respiratory Rate 2021-12-07 08:03:00 17.00 /min BP Systolic 2021-12-07 08:03:00 131 mm[Hg] BP Diastolic 2021-12-07 08:03:00 85 mm[Hg] Weight Measured 2021-12-07 08:03:00 174.80 pounds BP Systolic 2021-12-04 13:19:00 133 mm[Hg] BP Diastolic 2021-12-04 13:19:00 77 mm[Hg] Weight Measured 2021-12-04 13:19:00 178.90 pounds Height Measured 2021-12-04 13:19:00 62.29 inches Body Temperature 2021-12-04 13:19:00 Heart Rate 2021-12-04 13:19:00 98.00 /min Respiratory Rate 2021-12-04 13:19:00 BP Systolic 2021-11-24 08:07:00 BP Diastolic 2021-11-24 08:07:00 Weight Measured 2021-11-24 08:07:00 Height Measured 2021-11-24 08:07:00 Body Temperature 2021-11-24 08:07:00 Heart Rate 2021-11-24 08:07:00 Respiratory Rate 2021-11-24 08:07:00 BP Systolic 2021-11-22 18:00:00 123 mm[Hg] BP Diastolic 2021-11-22 18:00:00 82 mm[Hg] Weight Measured 2021-11-22 18:00:00 177.40 pounds Height Measured 2021-11-22 18:00:00 62.29 inches Body Temperature 2021-11-22 18:00:00 Heart Rate 2021-11-22 18:00:00 72.00 /min Respiratory Rate 2021-11-22 18:00:00 BP Systolic 2021-11-02 17:10:00 127 mm[Hg] BP Diastolic 2021-11-02 17:10:00 85 mm[Hg] Weight Measured 2021-11-02 17:10:00 180.20 pounds Height Measured 2021-11-02 17:10:00 62.29 inches Body Temperature 2021-11-02 17:10:00 97.90 degrees Heart Rate 2021-11-02 17:10:00 77.00 /min Respiratory Rate 2021-11-02 17:10:00 17.00 /min BP Systolic 2021-10-20 15:17:00 118 mm[Hg] BP Diastolic 2021-10-20 15:17:00 78 mm[Hg] Weight Measured 2021-10-20 15:17:00 Height Measured 2021-10-20 15:17:00 62.29 inches Body Temperature 2021-10-20 15:17:00 98.60 degrees Heart Rate 2021-10-20 15:17:00 71.00 /min Respiratory Rate 2021-10-20 15:17:00 16.00 /min BP Systolic 2021-08-01 17:31:00 139 mm[Hg] BP Diastolic 2021-08-01 17:31:00 76 mm[Hg] Weight Measured 2021-08-01 17:31:00 175.20 pounds Height Measured 2021-08-01 17:31:00 69.29 inches Body Temperature 2021-08-01 17:31:00 97.80 degrees Heart Rate 2021-08-01 17:31:00 73.00 /min Respiratory Rate 2021-08-01 17:31:00 17.00 /min height in 2020-11-11 15:18:22 175.26 cm [facility] centimeters [facility] blood pressure, 2020-06-13 08:25:54 82 mm[Hg] [facility] diastolic Health blood pressure, 2020-06-13 08:25:54 128 mm[Hg] [facility] systolic Health pulse rate 2020-06-13 08:25:54 76 /min [facility] Health oxygen saturation, 2020-06-13 08:25:54 98 /min Le lucas [facility] oximetry Health temperature E&M 2020-06-13 08:25:54 98.7 [degF] [facility] Health weight E&M 2020-06-13 08:25:54 166 [lb_av] [facility] weight in kilograms 2020-06-13 08:25:54 75.45 kg L [facility] height E&M 2020-06-13 08:25:54 69 [in_i] [facility] temperature site 2020-06-13 08:25:54 oral Lega [facility] Health BMI (body mass 2020-06-13 08:25:54 n/a [facility] index) [facility] Health Body Mass Index 2020-06-13 08:25:54 24.60 kg/m2 [facility] (Ratio) [facility] temperature site 2020-06-13 08:25:54 oral Lega [facility] Procedures Procedure Date / Time Performing Clinician Source Performed First Ix admin via ID IM 2023-02-02 13:54:17 [facility] or jet injects with Health counseling by physician for adult Jynneos Subcutaneous 2023-02-02 13:54:17 [facility] Suspension 0.5 ML Health Vaccines Ordered - Print 2023-02-02 13:19:55 [facility] Consent/Declination Health Forms 16140 Ekg W/ At Least 12 2021-12-07 00:00:00 Leads W/ I r [id number] 2021-11-27 00:00:00 FLOAD [facility] 13103 Incision drainage 2021-11-22 00:00:00 Abscess Complicated/multiple Behavioral Health - 2020-07-12 11:51:51 [facility] Psych[facility] Health IB Assessment - 2020-07-12 11:51:18 Jovanni Martinez [facility] [employer] [employer] Health Diagnostic evaluation 2020-07-12 11:49:49 Jovanni Martinez [facility] (no medical) - [id number] Health Addl Vx - Ix admin via 2020-06-13 09:55:06 Earnest, Camila [facility] ID IM or jet injects Health without counseling by physician Pneumovax 23 Injection 2020-06-13 09:55:06 Camila Tinoco [facility] Injectable 25 MCG/0.5ML Health Menactra Intramuscular 2020-06-13 09:55:06 Camila Tinoco [facility] Injectable Health First Vx - Ix admin via 2020-06-13 09:55:06 Camila Tinoco [facility] ID IM or jet injects Health without counseling by physician Fluzone Quadrivalent IM 2020-06-13 09:51:47 Camila Tinoco [facility] Prefilled Syringe 0.5 mL Health (PF) Integrated Behavioral 2020-06-13 09:43:49 Camila Tinoco [facility] Health Assessment (IBH) Health Vaccines Ordered - Print 2020-06-13 09:38:33 Camila Tinoco [facility] Consent/Declination Health Forms Health 2020-05-10 11:54:01 Provider, [facility] Zane blood Education/Supportive Health Services Health Counseling Venipuncture 2020-05-10 11:53:08 Camila Tinocou [facility] Health Plan of Care Planned Activity Planned Date Details Comments Source Goal Plan of Care Note [code = 64065-5] Goal Plan of Care Note [code = 40470-8] Goal Plan of Care Note [code = 92399-6] Goal Plan of Care Note [code = 99798-8] Goal Plan of Care Note [code = 01522-4] Goal Plan of Care Note [code = 72073-5] Goal Plan of Care Note [code = 63608-2] Goal Plan of Care Note [code = 59638-1] Goal Plan of Care Note [code = 24481-6] Goal Plan of Care Note [code = 42367-4] Goal Plan of Care Note [code = 12865-2] Goal Plan of Care Note [code = 49068-9] Goal Plan of Care Note [code = 69939-2] Goal Plan of Care Note [code = 89345-2] Goal Plan of Care Note [code = 87663-9] Goal Plan of Care Note [code = 72980-6] Goal Plan of Care Note [code = 86736-7] Goal Plan of Care Note [code = 03335-7] Goal Plan of Care Note [code = 47906-5] Goal Plan of Care Note [code = 28180-2] Goal Plan of Care Note [code = 11115-1] Goal Plan of Care Note [code = 72408-5] Goal Plan of Care Note [code = 84386-7] Goal Plan of Care Note [code = 95718-6] Goal Plan of Care Note [code = 53995-9] Goal Plan of Care Note [code = 61309-4] Goal Plan of Care Note [code = 98529-7] Goal Plan of Care Note [code = 04282-5] Goal Plan of Care Note [code = 65924-0] Goal Plan of Care Note [code = 62031-4] Goal Plan of Care Note [code = 90058-7] Goal Plan of Care Note [code = 74668-4] Goal Plan of Care Note [code = 90744-5] Goal Plan of Care Note [code = 27481-9] Goal Plan of Care Note [code = 15372-0] Goal Plan of Care Note [code = 96897-9] Goal Plan of Care Note [code = 95797-4] Goal Plan of Care Note [code = 91929-8] Goal Plan of Care Note [code = 26642-1] Goal Plan of Care Note [code = 36733-8] Goal Plan of Care Note [code = 10531-9] Goal Plan of Care Note [code = 16025-4] Goal Plan of Care Note [code = 89697-5] Goal Plan of Care Note [code = 14462-3] Goal Plan of Care Note [code = 28838-9] Goal Plan of Care Note [code = 30614-5] Goal Plan of Care Note [code = 05301-4] Goal Plan of Care Note [code = 20667-2] Goal Plan of Care Note [code = 17746-0] Goal Plan of Care Note [code = 62652-1] Goal Plan of Care Note [code = 17604-8] Goal Plan of Care Note [code = 94473-4] Goal Plan of Care Note [code = 85519-8] Goal Plan of Care Note [code = 54730-9] Goal Plan of Care Note [code = 03922-2] Goal Plan of Care Note [code = 59951-9] Goal Plan of Care Note [code = 27557-6] Goal Plan of Care Note [code = 93201-1] Goal Plan of Care Note [code = 67470-3] Goal Plan of Care Note [code = 53340-4] Goal Plan of Care Note [code = 10145-8] Goal Plan of Care Note [code = 23376-1] Goal Plan of Care Note [code = 10989-6] Goal Plan of Care Note [code = 37551-6] Goal Plan of Care Note [code = 03106-6] Goal Plan of Care Note [code = 19369-4] Goal Plan of Care Note [code = 34645-3] Goal Plan of Care Note [code = 04678-3] Goal Plan of Care Note [code = 64777-0] Goal Plan of Care Note [code = 33714-7] Goal Plan of Care Note [code = 80735-1] Goal Plan of Care Note [code = 05281-8] Goal Plan of Care Note [code = 57128-3] Goal Plan of Care Note [code = 86817-9] Goal Plan of Care Note [code = 48639-9] Goal Plan of Care Note [code = 35420-8] Goal Plan of Care Note [code = 93657-4] Goal Plan of Care Note [code = 33223-1] Goal Plan of Care Note [code = 67114-1] Goal Plan of Care Note [code = 03889-1] Goal Plan of Care Note [code = 20994-4] Goal Plan of Care Note [code = 28553-1] Goal Plan of Care Note [code = 87172-5] Goal Plan of Care Note [code = 84334-3] Goal Plan of Care Note [code = 34401-1] Goal Plan of Care Note [code = 70209-7] Goal Plan of Care Note [code = 64347-9] Goal Plan of Care Note [code = 30684-5] Goal Plan of Care Note [code = 31265-2] Goal Plan of Care Note [code = 95034-1] Goal Plan of Care Note [code = 45916-1] Goal Plan of Care Note [code = 16670-0] Goal Plan of Care Note [code = 97746-2] Goal Plan of Care Note [code = 43434-2] Goal Plan of Care Note [code = 47414-6] Goal Plan of Care Note [code = 64689-0] Goal Plan of Care Note [code = 64464-0] Goal Plan of Care Note [code = 20462-9] Goal Plan of Care Note [code = 39596-1] Goal Plan of Care Note [code = 26984-1] Goal Plan of Care Note [code = 24808-4] Goal Plan of Care Note [code = 03799-5] Goal Plan of Care Note [code = 36004-5] Goal Plan of Care Note [code = 28731-4] Goal Plan of Care Note [code = 18920-7] Goal Plan of Care Note [code = 89384-0] Goal Plan of Care Note [code = 36548-3] Goal Plan of Care Note [code = 34689-4] Goal Plan of Care Note [code = 79672-2] Goal Plan of Care Note [code = 07677-7] Goal Plan of Care Note [code = 39293-2] Goal Plan of Care Note [code = 85383-3] Goal Plan of Care Note [code = 41502-8] Goal Plan of Care Note [code = 95349-3] Goal Plan of Care Note [code = 94153-9] Goal Plan of Care Note [code = 35694-7] Goal Plan of Care Note [code = 99539-8] Goal Plan of Care Note [code = 91221-1] Goal Plan of Care Note [code = 37367-8] Goal Plan of Care Note [code = 45260-1] Goal Plan of Care Note [code = 41444-4] Goal Plan of Care Note [code = 30012-6] Goal Plan of Care Note [code = 02198-9] Goal Plan of Care Note [code = 22444-4] Goal Plan of Care Note [code = 26269-7] Goal Plan of Care Note [code = 68541-0] Goal Plan of Care Note [code = 78833-0] Goal Plan of Care Note [code = 72822-5] Goal Plan of Care Note [code = 76413-3] Goal Plan of Care Note [code = 74227-0] Goal Plan of Care Note [code = 06196-3] Goal Plan of Care Note [code = 22028-5] Goal Plan of Care Note [code = 08649-7] Goal Plan of Care Note [code = 99508-1] Goal Plan of Care Note [code = 77438-1] Goal Plan of Care Note [code = 42189-7] Goal Plan of Care Note [code = 71623-5] Goal Plan of Care Note [code = 46083-2] Goal Plan of Care Note [code = 15247-3] Goal Plan of Care Note [code = 04246-3] Goal Plan of Care Note [code = 00875-1] Goal Plan of Care Note [code = 78465-9] Goal Plan of Care Note [code = 85550-2] Goal Plan of Care Note [code = 87303-8] Goal Plan of Care Note [code = 47704-3] Goal Plan of Care Note [code = 57418-3] Goal Plan of Care Note [code = 16781-7] Goal Plan of Care Note [code = 93883-2] Goal Plan of Care Note [code = 99771-6] Goal Plan of Care Note [code = 69489-6] Goal Plan of Care Note [code = 57850-4] Goal Plan of Care Note [code = 69075-4] Goal Plan of Care Note [code = 00757-7] Goal Plan of Care Note [code = 06106-0] Goal Plan of Care Note [code = 19005-6] Goal Plan of Care Note [code = 17363-1] Goal Plan of Care Note [code = 95833-5] Goal Plan of Care Note [code = 17702-4] Goal Plan of Care Note [code = 33345-9] Goal Plan of Care Note [code = 57816-4] Goal Plan of Care Note [code = 25307-5] Goal Plan of Care Note [code = 40557-9] Goal Plan of Care Note [code = 23092-2] Goal Plan of Care Note [code = 00216-5] Goal Plan of Care Note [code = 55068-5] Goal Plan of Care Note [code = 65690-9] Goal Plan of Care Note [code = 53861-3] Goal Plan of Care Note [code = 71459-8] Goal Plan of Care Note [code = 47163-8] Goal Plan of Care Note [code = 93461-2] Goal Plan of Care Note [code = 22197-1] Goal Plan of Care Note [code = 22150-8] Goal Plan of Care Note [code = 51521-1] Goal Plan of Care Note [code = 57589-5] Goal Plan of Care Note [code = 24474-4] Goal Plan of Care Note [code = 69720-4] Goal Plan of Care Note [code = 42033-0] Goal Plan of Care Note [code = 99363-7] Goal Plan of Care Note [code = 19876-5] Goal Plan of Care Note [code = 05271-2] Goal Plan of Care Note [code = 41495-8] Goal Plan of Care Note [code = 40159-2] Goal Plan of Care Note [code = 83151-7] Goal Plan of Care Note [code = 36428-6] Goal Plan of Care Note [code = 70851-8] Goal Plan of Care Note [code = 50335-1] Goal Plan of Care Note [code = 88280-0] Goal Plan of Care Note [code = 19049-1] Goal Plan of Care Note [code = 86034-4] Goal Plan of Care Note [code = 67591-3] Goal Plan of Care Note [code = 61582-4] Goal Plan of Care Note [code = 25677-6] Goal Plan of Care Note [code = 18975-1] Goal Plan of Care Note [code = 43488-7] Goal Plan of Care Note [code = 06253-8] Goal Plan of Care Note [code = 91576-5] Goal Plan of Care Note [code = 80942-0] Goal Plan of Care Note [code = 09695-3] Goal Plan of Care Note [code = 50984-8] Goal Plan of Care Note [code = 58645-6] Goal Plan of Care Note [code = 32023-9] Goal Plan of Care Note [code = 68561-0] Goal Plan of Care Note [code = 99884-3] Goal Plan of Care Note [code = 36038-0] Goal Plan of Care Note [code = 85624-8] Goal Plan of Care Note [code = 30967-2] Goal Plan of Care Note [code = 71722-2] Goal Plan of Care Note [code = 22449-3] Goal Plan of Care Note [code = 51859-3] Goal Plan of Care Note [code = 33298-8] Goal Plan of Care Note [code = 31625-9] Goal Plan of Care Note [code = 41644-6] Goal Plan of Care Note [code = 01074-0] Goal Plan of Care Note [code = 15876-4] Goal Plan of Care Note [code = 45685-2] Goal Plan of Care Note [code = 63386-4] Goal Plan of Care Note [code = 25867-4] Goal Plan of Care Note [code = 19662-0] Goal Plan of Care Note [code = 68684-5] Goal Plan of Care Note [code = 85587-5] Goal Plan of Care Note [code = 70200-2] Goal Plan of Care Note [code = 34912-1] Goal Plan of Care Note [code = 08203-2] Goal Plan of Care Note [code = 15472-6] Goal Plan of Care Note [code = 09218-9] Goal Plan of Care Note [code = 49540-6] Goal Plan of Care Note [code = 97366-9] Goal Plan of Care Note [code = 05528-6] Goal Plan of Care Note [code = 85765-8] Goal Plan of Care Note [code = 96578-7] Encounters Start End Encounter Admission Attending Care Care Encounter Source Date/Time Date/Time Type Type Clinicians Facility Department ID 2023-03-01 Outpatient [email or web address] [facility] [id number] [facility] 20:07:39 [id number] [facility] 2023-02-27 Outpatient lckyle [facility] [id number] [facility] 14:07:02 [id number] [facility] 2023-01-31 Outpatient tres [facility] [id number] [facility] 09:31:03 [id number] [facility] 2021-05-14 Outpatient [facility] [id number] [facility] 12:00:13 [id number] [facility] 2021-05-11 Outpatient [facility] [id number] [facility] 21:16:14 [id number] [facility] 2021-05-11 Outpatient [facility] [id number] [facility] 19:49:31 [id number] [facility] 2023-02-06 2023-02-06 Outpatient [facility] [id number] [facility] 10:19:23 10:19:23 [id number] Tal Dorsey 2023-02-02 2023-02-03 In-person Quyen Segura [facility] A dult [id number] Legacy 00:00:00 00:00:00 encounter Mariola Robledo Medicine [address] [facility] 2023-02-02 2023-02-03 In-person Quyen Segura [facility] A dult Encounter/ Legacy 00:00:00 00:00:00 encounter Mariola Robledo Medicine [id number] [facility] 224363 [facility] 2023-02-01 2023-02-01 Emergency Eduardo Rodriguez HCAPM YO LA00 [id number] [facility] 13:21:00 17:35:00 10 [facility] 2023-01-28 2023-01-28 Outpatient SFA SFA [id number]- 202 Ramakrishna 17:03:09 17:03:09 [id number] [facility] [place] 2023-01-15 2023-01-15 Outpatient Georges Gorman HCACL LABO G00 [id number] [facility] 23:49:00 23:49:00 61 [facility] 2023-01-15 2023-01-15 Emergency Georges Thompson HCAPM YO LA00 [id number] [facility] 18:29:00 21:29:00 05 [facility] 2023-01-15 2023-01-15 Outpatient SFA SFA [id number]- 202 Ramakrishna 16:24:27 16:24:27 18233 [place] 2023-01-10 2023-01-10 Outpatient SFA SFA [id number]- 202 Ramakrishna 16:18:45 16:18:45 43549 [facility] [place] 2022-12-06 2022-12-06 Outpatient SFA SFA [id number]- 202 Ramakrishna 15:58:21 15:58:21 12605 [facility] [place] 2022-12-02 2022-12-03 Inpatient EM JAY GodoyPM MEDI.01 [id number] [facility] 20:18:00 13:47:00 Musaddiq 54 [facility] 2022-12-02 2022-12-02 Outpatient Jayne HCACL LABO [id number] [facility] 23:23:00 23:23:00 Musaddiq 61 [facility] 2022-10-09 2022-10-09 Outpatient SFA SFA [id number]- 202 Ram[facility]rishna 13:45:45 13:45:45 80866 F [place] 2022-08-27 2022-08-27 Outpatient SFA SFA [id number]- 202 Ram[facility]rishna 14:16:08 14:16:08 11427 [facility] [place] 2022-08-16 2022-08-16 Outpatient SFA SFA 193826- 202 Ram[facility]na 17:33:02 17:33:02 07630 F [place] 2022-08-16 2022-08-16 Outpatient i108ztp3- [id number] f3 25fol5-4 00:00:00 00:00:00 Visit 4adb-48be adb-48be-b -x81j-339 70d-3173be 3el5zi78y 7fb57f 2022-08-03 2022-08-03 Outpatient SFA SFA [id number]- 202 Ram[facility]na 09:36:45 09:36:45 18566 [facility] [place] 2022-08-03 2022-08-03 Outpatient m00b8drm- [id number] c0 5a1tcg-3 00:00:00 00:00:00 Visit 3f52-60ek t04-77zr-6 -5hy8-q8e ea1-f3a7e6 6l0s136bc b936fa 2022-06-14 2022-06-14 Outpatient SFA SFA [id number]- 202 Ram[facility]na 08:02:53 08:02:53 61502 [facility] [place] 2022-06-14 2022-06-14 Outpatient y794wwsw- [id number] f9 70fcba-4 00:00:00 00:00:00 Visit 9gy2-7248 bc8-4550-8 -26s9-y7c 5v7-i2bk69 h830s8g1w 2c0f6a 2022-05-10 2022-05-10 Outpatient SFA SFA [id number]- 202 Ramakrishna 08:34:29 08:34:29 81829 F [place] 2022-05-10 2022-05-10 Outpatient g927r9zj- [id number] d3 93u6pf-1 00:00:00 00:00:00 Visit 20w9-46sx 8q1-07jb-7 -938e-d9a 38e-y2w631 21039x2l2 46d8a5 2022-04-24 2022-04-24 Outpatient 81i91z3g- [id number] k55p3m-0 00:00:00 00:00:00 Visit 1344-489c 344-489c-8 -2y3s-4ki x0h-7ql6fc 5rs56629v 83775x 2022-04-10 2022-04-10 Outpatient wmda6lc9- [id number] fd dt3un7-j 00:00:00 00:00:00 Visit q5qv-82k3 5fe-42d2-9 -9006-3c3 006-2l4228 707n2n5xz e6a6af 2022-02-27 2022-02-27 Outpatient 2809oxm3- [id number] 69uzd6-g 00:00:00 00:00:00 Visit c102-446u 990-486a-a -xq11-v6c d90-b0n522 196m37vy2 e09fd9 2022-02-12 2022-02-12 Outpatient 60u4yj6b- [id number] m8ww6q-f 00:00:00 00:00:00 Visit i23v-5610 87f-4646-8 -2g31-7t3 y79-0v6380 4133i41go 0c42de 2022-02-07 2022-02-07 Outpatient 2oh0t5k6- [id number] 6b u4r0r3-2 00:00:00 00:00:00 Visit 8424-462f 424-462f-b -f3xv-5fk 0ba-9caf89 y811i2p65 0d3e45 2022-02-01 2022-02-01 Outpatient 8666r2d5- [id number] 22 54y0i8-1 00:00:00 00:00:00 Visit 2491-43b5 491-43b5-a -a2j5-21g 1z7-14g0zb 6cslsan0w ecff6e 2022-01-27 2022-01-27 Outpatient 2289a3r9- [id number] 97f7v9-7 00:00:00 00:00:00 Visit 8efd-4e16 efd-4e16-b -e88d-a9d 94d-a3e66e 15o62ym65 71ad26 2021-11-28 2021-11-28 Emergency EM Jadyn, HCAPM YO [id number] [facility] 00:25:00 02:32:00 Ravindra 43 [facility] 2021-11-28 2021-11-28 Emergency EM Jadyn, HCAPM HCAPM [id number]- 20 [facility] 00:25:00 02:32:00 Ravindra [id number] [facility] 2021-11-25 2021-11-27 Inpatient EM Manuela, HCAPM TELE [id number] [facility] 16:52:00 18:37:00 Shaji [id number] [facility] 2021-11-24 2021-11-27 Inpatient EM Manuela, HCAPM TELE [id number] [facility] 09:53:00 18:37:00 Shaji 20 [facility] 2021-11-24 2021-11-24 Outpatient Georges Gorman HCACL LABO G00 [id number] [facility] 11:47:00 11:47:00 26 [facility] 2020-11-11 2020-11-11 Office Camila Tinoco [facility] Enc ounter/ Legacy 00:00:00 00:00:00 Visit Nayla Cunningham [id number] Communi [id number] [facility] 2020-11-11 2020-11-11 In-person Camila Tinoco [facility] Adult [id number] Legacy 00:00:00 00:00:00 encounter Quyen Segura [facility] 54471 CommunNayla Miles [facility] 2020-09-16 2020-09-16 Office Stewart [facility] Encount er/ Legacy 00:00:00 00:00:00 Visit Daisy [id number] Com joao [id number] [facility] 2020-08-24 2020-08-24 [facility] / Legacy 00:00:00 00:00:00 Visit Ronnie [id number] Com joao [id number] [facility] 2020-07-31 2020-08-05 Inpatient E FITCH, MHSE MED 7505 MH 01:29[facility]00 [facility] 2020-08-02 2020-08-02 Office FRANCIE Tinoco Encounter/ Legacy 00:00:00 00:00:00 Visit Camila [id number] Com joao [id number] [facility] 2020-07-12 2020-07-12 Emergency E JEIMYElizabethNATALIE, MHSE MHSE 7504 MH 12:46:00 16:05:[address] 2020-07-12 2020-07-12 Office Jovanni Martinez [facility] Enco unter/ Legacy 00:00:00 00:00:00 Visit Jackeline Bernstein [id number] Communi 419123 Health 2020-07-12 2020-07-12 In-person Jovanni Martinez [facility] [id number] Legacy 00:00:00 00:00:00 encounter Jackeline Bernstein [facility] 012 15 [facility] 2020-07-11 2020-07-11 Emergency E BLANKA, MHSE MHSE 7503 MH 18:10:00 22:38:[address] 2020-06-13 2020-06-13 Office FRANCIE Tinoco [facility] Encounter/ Legacy 00:00:00 00:00:00 Visit Camila [id number] Com joao [id number] Health 2020-06-13 2020-06-13 Office FRANCIE Tinoco Encounter/ Legacy 00:00:00 00:00:00 Visit Camila [id number] Com joao [id number] Health 2020-06-13 2020-06-13 Office Camila Tinoco Inez [facility] Enc ounter/ Legacy 00:00:00 00:00:00 Visit Coleen Thakkar 1923 [id number] Mariola Sonw 160652 ty Piyush Knight [facility] 2020-06-13 2020-06-13 Office FRANCIE Tinoco Encounter/ Legacy 00:00:00 00:00:00 Visit Camila [id number] Com joao [id number] Health 2020-06-13 2020-06-13 In-person Camila Tinoco [facility] Adult [id number] Legacy 00:00:00 00:00:00 encounter Alexandrusarahjulio césarinezQuyen 36414 Communi Coleen Thakkar Mariola Phillips [facility] Piyush Knight 2020-05-19 2020-05-19 Office Earnest [facility] Encounter/ Legacy 00:00:00 00:00:00 Visit Camila [id number] Com joao [id number] [facility] 2020-05-10 2020-05-10 Office Provider, [facility] Encounter/ Legacy 00:00:00 00:00:00 Visit Eduard Doshi [id number] Communi 824351 [facility] 2020-05-10 2020-05-10 Office Camila Tinoco [facility] Enc ounter/ Legacy 00:00:00 00:00:00 Visit Fernando, Sherry [id number] Communi 089199 [facility] 2020-05-10 2020-05-10 Office Earnest [facility] Encounter/ Legacy 00:00:00 00:00:00 Visit Camila [id number] Com joao [id number] Health 2020-05-09 2020-05-09 Office Charlie [facility] Encounter/ Legacy 00:00:00 00:00:00 Visit Stephanie [id number] Co mmuni [id number] Health 2020-04-17 2020-04-21 Inpatient E TAMMI, MHSE MED 7501 MH 18:15:00 17:00:[address] [facility] 2020-04-13 2020-04-13 Emergency E BLANKA SE MHSE 7500 MH 09:50:00 12:58:[address] [facility] Results Test Description Test Time Test Comments Results Result [facility] e Comments - CT ABD PELVIS 2023-02-01 W/CONT 17:02:00 [facility] 1985 Sex: M Name: MIHIR HURD : 1985 Age/S: 37 / M [address] Unit #: [id number] Loc: [place] [address] Phys: LashayNayla lariosP Acct: [id number] Dis Date: Status: REG ER PHONE #: [phone] Exam Date: 02/01/2023 1621 FAX #: Reason: diarrhea EXAMS: CPT: [id number] CT ABD PELVIS W/CONT 33576 Location Code: S17 EXAMINATION: - CT ABD PELVIS W/CONT CLINICAL INDICATION: Male, 37 years old with diarrhea TECHNIQUE: Thin section axial post-contrast contiguous images were obtained through the abdomen and pelvis followed by coronal and sagittal multiplanar reformations. One or more of the following dose reduction techniques were used: Automated exposure control, adjustment of the mA and/or kV according to patient size, and/or iterative reconstruction. Unless otherwise specified, incidental findings do not require dedicated imaging follow-up. COMPARISON: None FINDINGS: Lower Chest: Probable bibasilar atelectasis. Liver: Normal in size and contour. No focal lesions. Bile ducts are of normal caliber. Gallbladder: No radiodense gallstones. Pancreas: No evidence of focal pancreatic mass or peripancreatic fluid collection. Spleen: Normal in size and contour. Adrenals: Normal configuration. Kidneys and ureters: No evidence of obstructive uropathy. Contrast is present within the collecting systems, portions of the ureter, and urinary bladder. Subcentimeter left renal hypodensity is too small to accurately characterize but probably represents a cyst. Bladder/Reproductive Organs: Unremarkable urinary bladder. Prostate is not enlarged. Bowel: No evidence of bowel obstruction. Normal appendix. No evidence PAGE 1 Signed Report (CONTINUED) Name: MIHIR HURD : 1985 Age/S: 37 / M [id number] Unit #: [id number] Loc: [place] [address] Phys: Nayla Metz Acct: [id number] Dis Date: Status: REG ER PHONE #: [phone] Exam Date: 02/01/2023 1621 FAX #: Reason: diarrhea EXAMS: CPT: [id number] CT ABD PELVIS W/CONT 25486 (Continued) of free air or fluid. Lymph nodes: There are no pathologically enlarged abdominopelvic lymph nodes. Retroperitoneum: No mass or hemorrhage. Normal caliber abdominal aorta. Abdominal wall: No hernia or mass. Bones: No evidence of acute osseous abnormality. Vacuum disc changes at L4-5 and L5-S1. IMPRESSION: No evidence of acute intra-abdominal process. at 1702 Reported and signed by: Niall Allen M.D. CC: Eduardo Smith MD; Nayla Metz; Carol Reyes MD Technologist:Melanie Glasgow, RT(R) CTDI: DLP: Trnscb Date/Time: 02/01/2023 (1701) [email or web address] Orig Print D/T: S: 02/01/2023 (0175) PAGE 2 Signed Report - CT MAXIFAC 2023-02-01 W/CONTRAST 16:49:00 [facility] 1985 Sex: M Name: MIHIR HURD [facility] : 1985 Age/S: 37 / M [id number] [address] Unit #: [id number] Loc: [place] [address] Phys: Nayla Metz Acct: [id number] Dis Date: Status: REG ER PHONE #: [phone] Exam Date: 02/01/2023 1616 FAX #: Reason: left jaw abscess EXAMS: CPT: [id number] CT MAXIFAC W/CONTRAST 61641 Dictation location: U19. CT FACE WITH IV CONTRAST; CORONAL AND SAGITTAL REFORMATTED VIEWS HISTORY:Left jaw abscess COMPARISON:CT face 01/15/23 TECHNIQUE: Axial CT images of the face were obtained with coronal and sagittal reformatted views. Automated exposure control, iterative reconstruction technique, and/or adjustment of mA and/or kV according to patient's size was utilized for radiation dose reduction. IV CONTRAST: 100 mL Isovue-300 FINDINGS: Subcutaneous stranding and skin thickening seen along the left submandibular region. No fluid collection. The packing material is foreign body in the left submandibular region has been removed. The orbits appear intact. No retrobulbar hemorrhage or mass. No CT evidence of extraocular The frontal sinuses are hypoplastic. Mild thickening of the ethmoid sinuses. Kacie bullosa along the right middle nasal terminate. The mastoid air cells are clear. No facial fracture. The mandible is intact. The temporomandibular joints are maintained. IMPRESSION: Left submandibular cellulitis without evidence of abscess, slightly improved since 01/15/23 at 1649 Reported and signed by: Marlee Simmons M.D. CC: Eduardo Smith MD; Nayla Metz; Carol Reyes MD Technologist:RT Tobias(R) CTDI: DLP: Trnscb Date/Time: 02/01/2023 (1649) [email or web address] Orig Print D/T: S: 02/01/2023 (9774) PAGE 1 Signed Report BASIC METABOLIC PANEL 2023-02-01 15:40:00 Test Item Value Reference Range Interpretation Comme nts SODIUM (test code = NA) 136 mmol/L 134-147 N POTASSIUM (test code = 4.0 mmol/L 3.4-5.0 N K) CHLORIDE (test code = 107 mmol/L 100-108 N CL) CARBON DIOXIDE (test 26 mmol/L 21-32 N code = CO2) ANION GAP (test code = 3.0 GAP calc 4.0-15.0 L GAP) GLUCOSE (test code = 90 MG/DL 70-110 N GLU) BLOOD UREA NITROGEN 13 MG/DL 7-18 N (test code = BUN) GLOMERULAR FILTRATION >=60 max estimate >60 T he Glomerular Filtration RATE (test code = GFR) estGFR Rate is a calculated parameterbased on serum Creatinine, pat ient age and sex. GFR values less than 60 mL/min/1.73 squ are meters are indicative ofChronic Kidney Disease. Values less than 15 mL/min/ 1.73square meters indicate Kidney failure. The ca lculation forGFR is based on the CKD-EPI (2020) calculation. This formulais race indifferent and is the recommended for feroz for GFRby the [facility] Kidney Foundation for Adults.The GFR will not ca lculate if the sex is unkn own or if thepatient's ag e is <18 years. CREATININE (test code = 0.7 MG/DL 0.8-1.3 L CREAT) CALCIUM (test code = CA) 9.2 MG/DL 8.5-10.1 N HEPATIC FUNCTION [id number] 15:40:00 Test Item Value Reference Range Interpretation Comments TOTAL PROTEIN (test code = PROT) 8.1 G/DL 6.4-8.2 N ALBUMIN (test code = ALB) 3.8 G/DL 3.4-5.0 N BILIRUBIN TOTAL (test code = 0.70 MG/DL 0.2-1.2 N BILT) BILIRUBIN DIRECT (test code = < 0.10 MG/DL 0.00-0.30 N BILD) BILIRUBIN INDIRECT (test code = 0.60 MG/DL 0.2-1.2 N BILIND) SGOT/AST (test code = AST) 25 Unit/L 15-37 N SGPT/ALT (test code = ALT) 28 Unit/L 12-78 N ALKALINE PHOSPHATASE TOTAL (test 86 Unit/L 50-136 N code = ALKP) [id number] 15:40:00 Test Item Value Reference Range Interpretation Comments LIPASE (test code = LIP) 113 Unit/L 114-286 L CBC W/AUTO [id number] 14:58:00 Test Item Value Reference Range Interpretation Comments WHITE BLOOD CELL (test code = 7.5 K/mm3 3.5-11.0 N WBC) RED BLOOD CELL (test code = 4.44 M/mm3 4.70-6.10 L RBC) HEMOGLOBIN (test code = HGB) 14.0 G/DL 12.3-15.9 N HEMATOCRIT (test code = HCT) 40.7 % 35.8-46.7 N MEAN CELL VOLUME (test code = 91.7 Fl 86.3-98.9 N MCV) MEAN CELL HGB (test code = MCH) 31.5 pg 28.9-34.4 N MEAN CELL HGB CONCETRATION 34.4 G/DL 32.1-34.5 N (test code = MCHC) RED CELL DISTRIBUTION WIDTH 13.7 SD 11.5-14.5 N (test code = RDW) PLATELET COUNT (test code = 319 K/mm3 150-450 N PLT) MEAN PLATELET VOLUME (test code 10.00 fL 7.0-9.6 H = MPV) NEUTROPHIL % (test code = NT%) 67.1 % 40-76 N IMMATURE GRANULOCYTE % (test 0.4 % 0.0-5.0 N code = IG%) LYMPHOCYTE % (test code = LY%) 21.7 % 20.5-51.1 N MONOCYTE % (test code = MO%) 7.2 % 1.7-9.3 N EOSINOPHIL % (test code = EO%) 2.9 % 0.0-6.0 N BASOPHIL % (test code = BA%) 0.7 % 0.0-2.0 N NUCLEATED RBC % (test code = 0.0 /100WBC% 0.0-1.0 N NRBC%) NEUTROPHIL # (test code = NT#) 5.0 K/mm3 1.8-7.6 N IMMATURE GRANULOCYTE # (test 0.03 x10 3/uL 0.00-0.03 N code = IG#) LYMPHOCYTE # (test code = LY#) 1.6 K/mm3 0.6-3.0 N MONOCYTE # (test code = MO#) 0.5 K/mm3 0.2-1.5 N EOSINOPHIL # (test code = EO#) 0.2 K/mm3 0.0-0.4 N BASOPHIL # (test code = BA#) 0.1 K/mm3 0.0-0.2 N NUCLEATED RBC # (test code = 0.0 K/mm3 0.00-0.01 N NRBC#) MANUAL DIFF REQUIRED (test code NO DIFF/SCN CRITERIA = MDIFF) UA RFLX MICR CULT IF [id number] 14:54:00 Test Item Value Reference Range Interpretation Comments UA COLOR (test code = COLU) STRAW discript YEL/STRAW UA APPEARANCE (test code = CLEAR discript CLEAR APPU) UA GLUCOSE DIPSTICK (test NEGATIVE mg/dL NEG code = DGLUU) UA BILIRUBIN DIPSTICK (test NEGATIVE mg/dL NEG code = BILU) UA KETONE DIPSTICK (test NEGATIVE mg/dL NEG code = KETU) UA SPECIFIC GRAVITY (test 1.010 SG 1.005-1.030 code = SGU) UA BLOOD DIPSTICK (test NEGATIVE mg/DL NEG code = ROBYN) UA PH DIPSTICK (test code = 7.0 pH UNITS 5.0-7.0 JUAN DAVID) UA PROTEIN DIPSTICK (test NEGATIVE mg/dL NEG code = PROU) UA UROBILINIOGEN DIPSTICK 0.2 mg/dL <2.0 (test code = URO) UA NITRITE DIPSTICK (test NEGATIVE SCREEN NEG code = ELIOT) UA LEUKOCYTE ESTERASE NEGATIVE Leuk/mcL NEGATIVE DIPSTICK (test code = LEUU) Indication for culture: RiskForSepsis-no oth srcSOURCE OF URINE: CLEAN CATCH- CT MAXIFAC [id number] 21:03:00 [facility] 1985 Sex: M Name: Aria JOEMIHIR ANDRADE [facility] : 1985 Age/S: 37 / M [address] Unit #: [id number] Loc: [place] [address] Phys: Daylin Alvarado Acct: [id number] Dis Date: Status: REG ER PHONE #: [phone] Exam Date: 01/15/20232024 FAX #: Reason: left mandibular (SQ) abscess EXAMS: CPT: [id number] MAXIFAC W/CONTRAST 33733 LOCATION: B2 EXAM: - CT MAXIFAC W/CONTRAST HISTORY: left mandibular(SQ) abscess TECHNIQUE: Axial images were obtained through the facial bones and orbits after intravenous contrast. Sagittal and coronal reconstructions were created from the data. One or more of the following dose reduction techniques were used: Automated exposure control, adjustment of the mA and/or kV according to patient size, and/or iterative reconstruction. COMPARISON: None FINDINGS: A 1.3 mm focal area of subcutaneous fat stranding is noted in the left mandibular region. Multiple bilateral submandibular lymph nodes measure up to 1.3 cm. The facial bones, including the mandible, are within normal limits. Specifically, there is no evidence of fracture, dislocation, or aggressive osseous lesions. The globes are normal in size, contour, and position. The course and caliber of the optic nerve sheath complex is within normal limits. The extraocular muscles, intraconal fat, and extraconal fat are within normal limits. The lacrimal glands appear normal. The orbital chi and optic canals are normal. The visualized intracranial structures appear normal. No lesion of the visualized skull base or calvarium is present. The paranasal sinuses and tympanomastoid cavities are unopacified. IMPRESSION: Small subcutaneous phlegmon in the left submandibular region. Reactive lymphadenopathy. at 2103 Reported and signed by: Jer aMlone M.D. PAGE 1 Signed Report (CONTINUED) Name: MIHIR HURD : 1985 Age/S: 37 / M [address] Unit #: [id number] Loc: [place] [address] Phys: Daylin Alvarado Acct: [id number] Dis Date: Status: REG ER PHONE #: [phone] Exam Date: 01/15/20232024 FAX #: Reason: leftmandibular (SQ) abscess EXAMS: CPT: [id number] CT MAXIFAC W/CONTRAST 61297 (Continued) CC: Daylin RICHARDSON; Georges Gorman DO; Carol Reyes MD Technologist:Terry Casillas, RT(R) CTDI: DLP: Trnscb Date/Time: 01/15/2023 (2102) [email or web address] Orig Print D/T: S: 01/15/2023 (2105) PAGE 2 Signed ReportCBC W/AUTO [id number] 20:35:00 Test Item Value Reference Range Interpretation Comments WHITE BLOOD CELL (test code = 8.6 K/mm3 3.5-11.0 N WBC) RED BLOOD CELL (test code = 4.35 M/mm3 4.70-6.10 L RBC) HEMOGLOBIN (test code = HGB) 13.9 G/DL 12.3-15.9 N HEMATOCRIT (test code = HCT) 40.8 % 35.8-46.7 N MEAN CELL VOLUME (test code = 93.8 Fl 86.3-98.9 N MCV) MEAN CELL HGB (test code = MCH) 32.0 pg 28.9-34.4 N MEAN CELL HGB CONCETRATION 34.1 G/DL 32.1-34.5 N (test code = MCHC) RED CELL DISTRIBUTION WIDTH 13.4 SD 11.5-14.5 N (test code = RDW) PLATELET COUNT (test code = 342 K/mm3 150-450 N PLT) MEAN PLATELET VOLUME (test code 9.90 fL 7.0-9.6 H = MPV) NEUTROPHIL % (test code = NT%) 60.6 % 40-76 N IMMATURE GRANULOCYTE % (test 0.6 % 0.0-5.0 N code = IG%) LYMPHOCYTE % (test code = LY%) 26.1 % 20.5-51.1 N MONOCYTE % (test code = MO%) 8.2 % 1.7-9.3 N EOSINOPHIL % (test code = EO%) 3.9 % 0.0-6.0 N BASOPHIL % (test code = BA%) 0.6 % 0.0-2.0 N NUCLEATED RBC % (test code = 0.0 /100WBC% 0.0-1.0 N NRBC%) NEUTROPHIL # (test code = NT#) 5.2 K/mm3 1.8-7.6 N IMMATURE GRANULOCYTE # (test 0.05 x10 3/uL 0.00-0.03 H code = IG#) LYMPHOCYTE # (test code = LY#) 2.2 K/mm3 0.6-3.0 N MONOCYTE # (test code = MO#) 0.7 K/mm3 0.2-1.5 N EOSINOPHIL # (test code = EO#) 0.3 K/mm3 0.0-0.4 N BASOPHIL # (test code = BA#) 0.1 K/mm3 0.0-0.2 N NUCLEATED RBC # (test code = 0.0 K/mm3 0.00-0.01 N NRBC#) MANUAL DIFF REQUIRED (test code NO DIFF/SCN CRITERIA = MDIFF) COMPREHENSIVE METABOLIC [id number] 20:31:00 Test Item Value Reference Range Interpretation Comments SODIUM (test code 140 mmol/L 134-147 N = NA) POTASSIUM (test 4.0 mmol/L 3.4-5.0 N code = K) CHLORIDE (test 109 mmol/L 100-108 H code = CL) CARBON DIOXIDE 25 mmol/L 21-32 N (test code = CO2) ANION GAP (test 6.0 GAP calc 4.0-15.0 N code = GAP) GLUCOSE (test code 95 MG/DL 70-110 N = GLU) BLOOD UREA 16 MG/DL 7-18 N NITROGEN (test code = BUN) GLOMERULAR >=60 max >60 The Glomerular FILTRATION RATE estimate estGFR Filtratio n Rate is a (test code = GFR) calculated parameterbased on serum Creatinin e, patient age and sex. GFR valuesless than 60 mL/min/1.73 square meters are jean paul cative ofChronic Kidne y Disease. Values less than 15 mL/min/1.73squa re meters indicate Kidney failure. The calculation for GFR is based on the CK D-EPI (2020) calculat ion. This formulais race indifferent and is the recommended formula for GFR by the National Kidney Foundation for Adults.The GFR will not calculate i f the sex is unknown or if thepatient's ag e is <18 years. CREATININE (test 0.9 MG/DL 0.8-1.3 N code = CREAT) TOTAL PROTEIN 7.5 G/DL 6.4-8.2 N (test code = PROT) ALBUMIN (test code 3.5 G/DL 3.4-5.0 N = ALB) GLOBULIN (test 4.0 GM/dL code = GLOB) ALBUMIN/GLOBULIN 0.9 RATIO 1.2-2.2 L RATIO (test code = A/G) CALCIUM (test code 8.9 MG/DL 8.5-10.1 N = CA) BILIRUBIN TOTAL 0.40 MG/DL 0.2-1.2 N (test code = BILT) SGOT/AST (test 15 Unit/L 15-37 N code = AST) SGPT/ALT (test 24 Unit/L 12-78 N code = ALT) ALKALINE 78 Unit/L 50-136 N PHOSPHATASE TOTAL (test code = ALKP) CD4 HELPER T-CELL [id number] 15:14:00 Test Item Value Reference Range Interpretation Comments NEUTROPHIL % (test 1.0 % Not Estab. code = NT%) NEUTROPHIL # (test 0.1 x10E3/uL 0.0-0.1 Performed At: HD code = NT#) [facility] [address] [id number] Sachin Hernandez MD Ph:[phone] WBC (test code = 7.8 x10E3/uL 3.4-10.8 WBCLC) RBC (test code = 4.00 x10E6/uL 4.14-5.80 A RBCLC) HGB (test code = 10.2 g/dL 13.0-17.7 A HGBLC) HCT (test code = 32.7 % 37.5-51.0 A HCTLC) MCV (test code = 82 fL 79-97 MCVLC) MCH (test code = 25.5 pg 26.6-33.0 A MCHLC) MCHC (test code = 31.2 g/dL 31.5-35.7 A MCHCLC) RDW (test code = 15.9 % 11.6-15.4 A RDWLC) PLT (test code = 219 x10E3/uL 150-450 PLTLC) NEUT % (test code = 62 % Not Estab. NT%LC) LYMPH % (test code = 20 % Not Estab. LY%LC) MONO % (test code = 12 % Not Estab. MO%LC) EOS % (test code = 4 % Not Estab. EO%LC) BASO % (test code = 1 % Not Estab. BA%LC) NEUT # (test code = 4.9 x10E3/uL 1.4-7.0 NT#LC) LYMPH # (test code = 1.5 x10E3/uL 0.7-3.1 LY#LC) MONO # (test code = 0.9 x10E3/uL 0.1-0.9 MO#LC) EOS # (test code = 0.3 x10E3/uL 0.0-0.4 EO#LC) BASO # (test code = 0.1 x10E3/uL 0.0-0.2 BA#LC) PERCENT CD4 HELPER 19.7 % 30.8-58.5 A CELLS (test code = CD4P) ABSOLUTE CD4+ CELLS 296 /uL [phone] A (test code = CD4A) COMPREHENSIVE METABOLIC [id number] 07:47:00 Test Item Value Reference Range Interpretation Comments SODIUM (test code 138 mmol/L 134-147 N = NA) POTASSIUM (test 3.4 mmol/L 3.4-5.0 N code = K) CHLORIDE (test 110 mmol/L 100-108 H code = CL) CARBON DIOXIDE 25 mmol/L 21-32 N (test code = CO2) ANION GAP (test 3.0 GAP calc 4.0-15.0 L code = GAP) GLUCOSE (test code 103 MG/DL 70-110 N = GLU) BLOOD UREA 14 MG/DL 7-18 N NITROGEN (test code = BUN) GLOMERULAR >=60 max >60 The Glomerular FILTRATION RATE estimate estGFR Filtratio n Rate is a (test code = GFR) calculated parameterbased on serum Creatinin e, patient age and sex. GFR valuesless than 60 mL/min/1.73 square meters are jean paul cative ofChronic Kidne y Disease. Values less than 15 mL/min/1.73squa re meters indicate Kidney failure. The calculation for GFR is based on the CK D-EPI (2020) calculat ion. This formulais race indifferent and is the recommended formula for GFR by the National Kidney Foundation for Adults.The GFR will not calculate i f the sex is unknown or if thepatient's ag e is <18 years. CREATININE (test 0.7 MG/DL 0.8-1.3 L code = CREAT) TOTAL PROTEIN 6.7 G/DL 6.4-8.2 N (test code = PROT) ALBUMIN (test code 3.0 G/DL 3.4-5.0 L = ALB) GLOBULIN (test 3.7 GM/dL code = GLOB) ALBUMIN/GLOBULIN 0.8 RATIO 1.2-2.2 L RATIO (test code = A/G) CALCIUM (test code 8.4 MG/DL 8.5-10.1 L = CA) BILIRUBIN TOTAL 0.60 MG/DL 0.2-1.2 N (test code = BILT) SGOT/AST (test 17 Unit/L 15-37 N code = AST) SGPT/ALT (test 24 Unit/L 12-78 N code = ALT) ALKALINE 74 Unit/L 50-136 N PHOSPHATASE TOTAL (test code = ALKP) LIPID PROFILE (CORONARY RISK)2022-12-03 07:47:00 Test Item Value Reference Range Interpretation Comments TRIGLYCERIDES (test 140 MG/DL 0-150 N code = TRIG) CHOLESTEROL (test 146 MG/DL 133-200 N code = CHOL) CHOLESTEROL/HDL 5.21 RATIO See_Comment RISK ASSOCIA JOHN WITH RATIO (test code = CHOL/HDL RATIOS: RISK CHOLHDL) MALE FEMALE1/2 AVERAGE 3.43 3.27AVERAG E 4.97 4.442X AVERAGE 9.55 7.053X AVERAGE 23.39 11.04 NOTE THAT THE REFERENCE VALUE IS RELATED TO RISK LEVELS ASRECOMMENDED B Y THE [facility] . [Automated mess age] The system which ge nerated this result tra nsmitted reference range : 0-. The reference range was not used to interpr et this result as normal/abnormal . HDL CHOLESTEROL 28 MG/DL 40-59 L (test code = HDL) NON-HDL CHOLESTEROL 118 mg/dL <130 (test code = NHDL) LIPOPROTEIN LDL 103 MG/DL 0-129 N <100 OPTIMAL 100 - 129 (test code = LDL) NEAR OPTIM AL/ABOVE [id number] - 15 9 [id number] - 189 HIGH>OR= 190 VE RY HIGHNOTE THAT G UIDELINES ARE PROVIDED BY NATIONAL CHOLESTEROLEDUC ATION PROGRAM ADULT T REATMENT PANEL III LDL/HDL (test code 3.67 Ratio See_Comment H [Automat ed message] The = LDL/HDL) system which ge nerated this result tra nsmitted reference range : 1.48-3.22 Avg. The reference range was not used to interpr et this result as normal/abnormal . [id number] 07:47:00 Test Item Value Reference Range Interpretation Comments MAGNESIUM (test code = MAG) 2.1 MG/DL 1.8-2.4 N PROTHROMBIN [id number] 06:26:00 Test Item Value Reference Range Interpretation Comments PT PATIENT (test 12.7 SECONDS 9.3-12.9 N code = PTP) INTERNATIONAL NORMAL 1.14 INR Unit 0.8-1.2 N TARGE T INR BY RATIO (test code = INDICATIO N Indication INR) INR1. Prophylax is of venous thrombos is 2.0 - 3.0 (orthoped ic surgery), Proph ylaxis of venous throm bosis (other than hig h-risk surgery), Treat ment of Deep Vein Thrombosis/Pulm onary Embolism, Preve ntion of systemic emb olism - Tissue heart va lves, Acute Myocardia l Infarction (to prevent systemic emboli sm), Valvular heart disease, Acute Myocardial Infa rction (to prevent sys temic embolism), Valv ular heart disease, Atrial Fibrillation, Bileaflet mecha nical valve in aortic position.2. Mec hanical prosthetic valv es (high risk), 2. 5 - 3.5 Presence of Cat pus Anticoagulant o r Antiphospholipi d Antibodies, Pre vention of systemic emb olism - Acute Myocardia l Infarction (to prevent recurrent infar ct). THROMBOPLASTIN TIME [id number] 06:26:00 Test Item Value Reference Range Interpretation Comments THROMBOPLASTIN TIME PARTIAL 28.6 SECONDS 26-35 N (test code = PTT) [id number] 06:26:00 Test Item Value Reference Range Interpretation Comments FIBRINOGEN (test code = FIB) 386 mg/dL 185-453 N PLATELET COUNT W/ [id number] 06:20:00 Test Item Value Reference Range Interpretation Comments PLATELET COUNT (test code = PLT) 268 K/mm3 150-450 N MEAN PLATELET VOLUME (test code = 10.30 fL 7.0-9.6 H MPV) CBC W/AUTO [id number] 06:20:00 Test Item Value Reference Range Interpretation Comments WHITE BLOOD CELL (test code = 5.5 K/mm3 3.5-11.0 N WBC) RED BLOOD CELL (test code = 4.18 M/mm3 4.70-6.10 L RBC) HEMOGLOBIN (test code = HGB) 13.5 G/DL 12.3-15.9 N HEMATOCRIT (test code = HCT) 38.7 % 35.8-46.7 N MEAN CELL VOLUME (test code = 92.6 Fl 86.3-98.9 N MCV) MEAN CELL HGB (test code = MCH) 32.3 pg 28.9-34.4 N MEAN CELL HGB CONCETRATION 34.9 G/DL 32.1-34.5 H (test code = MCHC) RED CELL DISTRIBUTION WIDTH 12.4 SD 11.5-14.5 N (test code = RDW) PLATELET COUNT (test code = 265 K/mm3 150-450 N PLT) MEAN PLATELET VOLUME (test code 10.20 fL 7.0-9.6 H = MPV) NEUTROPHIL % (test code = NT%) 57.9 % 40-76 N IMMATURE GRANULOCYTE % (test 0.2 % 0.0-5.0 N code = IG%) LYMPHOCYTE % (test code = LY%) 22.4 % 20.5-51.1 N MONOCYTE % (test code = MO%) 12.6 % 1.7-9.3 H EOSINOPHIL % (test code = EO%) 6.2 % 0.0-6.0 H BASOPHIL % (test code = BA%) 0.7 % 0.0-2.0 N NUCLEATED RBC % (test code = 0.0 /100WBC% 0.0-1.0 N NRBC%) NEUTROPHIL # (test code = NT#) 3.2 K/mm3 1.8-7.6 N IMMATURE GRANULOCYTE # (test 0.01 x10 3/uL 0.00-0.03 N code = IG#) LYMPHOCYTE # (test code = LY#) 1.2 K/mm3 0.6-3.0 N MONOCYTE # (test code = MO#) 0.7 K/mm3 0.2-1.5 N EOSINOPHIL # (test code = EO#) 0.3 K/mm3 0.0-0.4 N BASOPHIL # (test code = BA#) 0.0 K/mm3 0.0-0.2 N NUCLEATED RBC # (test code = 0.0 K/mm3 0.00-0.01 N NRBC#) MANUAL DIFF REQUIRED (test code NO DIFF/SCN CRITERIA = MDIFF) BASIC METABOLIC [id number] 22:19:00 Test Item Value Reference Range Interpretation Comments SODIUM (test code 135 mmol/L 134-147 N = NA) POTASSIUM (test 3.0 mmol/L 3.4-5.0 L code = K) CHLORIDE (test 102 mmol/L 100-108 N code = CL) CARBON DIOXIDE 27 mmol/L 21-32 N (test code = CO2) ANION GAP (test 6.0 GAP calc 4.0-15.0 N code = GAP) GLUCOSE (test code 113 MG/DL 70-110 H = GLU) BLOOD UREA 21 MG/DL 7-18 H NITROGEN (test code = BUN) GLOMERULAR >=60 max >60 The Glomerular FILTRATION RATE estimate estGFR Filtratio n Rate is a (test code = GFR) calculated parameterbased on serum Creatinin e, patient age and sex. GFR valuesless than 60 mL/min/1.73 square meters are jean paul cative ofChronic Kidne y Disease. Values less than 15 mL/min/1.73squa re meters indicate Kidney failure. The calculation for GFR is based on the CK D-EPI (2020) calculat ion. This formulais race indifferent and is the recommended formula for GFR by the National Kidney Foundation for Adults.The GFR will not calculate i f the sex is unknown or if thepatient's ag e is <18 years. CREATININE (test 0.9 MG/DL 0.8-1.3 N code = CREAT) CALCIUM (test code 9.0 MG/DL 8.5-10.1 N = CA) Completed by Nursing: NOHEPATIC FUNCTION [id number] 22:19:00 Test Item Value Reference Range Interpretation Comments TOTAL PROTEIN (test code = PROT) 7.8 G/DL 6.4-8.2 N ALBUMIN (test code = ALB) 3.4 G/DL 3.4-5.0 N BILIRUBIN TOTAL (test code = BILT) 0.40 MG/DL 0.2-1.2 N BILIRUBIN DIRECT (test code = 0.10 MG/DL 0.00-0.30 N BILD) BILIRUBIN INDIRECT (test code = 0.30 MG/DL 0.2-1.2 N BILIND) SGOT/AST (test code = AST) 25 Unit/L 15-37 N SGPT/ALT (test code = ALT) 34 Unit/L 12-78 N ALKALINE PHOSPHATASE TOTAL (test 96 Unit/L 50-136 N code = ALKP) Completed by Nursing: NOTROP-I HIGH [id number] 22:19:00 Test Item Value Reference Range Interpretation Comments TROP-I HIGH < 3.0 ng/L 0-78 N CAUTION: Units of the SENSITIVITY (test current te st methodology code = TROPIHS) (ng/L) diffe rfrom the prior test meth odology (ng/mL) by a fa ctor of 1000. 9 9th Percentile Uppe r Reference Limit (URL):Females: 54 ng/LMales: 79 n g/L In order to distin guish acute elevation s of high sensitivitytrop onin from other clinical conditions, the FourthUniversal Definition of M yocardial Infarction stressesclinica l assessment and the demonstration o f a rise and/orfall in s erial troponin result s above the URL. Result s from different metho dologies should not be c omparedto one another as quantitative re sults and URLs may varyby method. Completed by Nursing: NOLACTIC [id number] 22:19:00 Test Item Value Reference Range Interpretation Comments LACTIC ACID (test code = LACT) 1.4 mmol/L 0.4-2.0 N CBC W/AUTO [id number] 22:02:00 Test Item Value Reference Range Interpretation Comments WHITE BLOOD CELL (test code = 8.3 K/mm3 3.5-11.0 N WBC) RED BLOOD CELL (test code = 4.44 M/mm3 4.70-6.10 L RBC) HEMOGLOBIN (test code = HGB) 14.6 G/DL 12.3-15.9 N HEMATOCRIT (test code = HCT) 42.2 % 35.8-46.7 N MEAN CELL VOLUME (test code = 95.0 Fl 86.3-98.9 N MCV) MEAN CELL HGB (test code = MCH) 32.9 pg 28.9-34.4 N MEAN CELL HGB CONCETRATION 34.6 G/DL 32.1-34.5 H (test code = MCHC) RED CELL DISTRIBUTION WIDTH 12.3 SD 11.5-14.5 N (test code = RDW) PLATELET COUNT (test code = 298 K/mm3 150-450 N PLT) MEAN PLATELET VOLUME (test code 10.10 fL 7.0-9.6 H = MPV) NEUTROPHIL % (test code = NT%) 62.1 % 40-76 N IMMATURE GRANULOCYTE % (test 0.4 % 0.0-5.0 N code = IG%) LYMPHOCYTE % (test code = LY%) 21.3 % 20.5-51.1 N MONOCYTE % (test code = MO%) 10.2 % 1.7-9.3 H EOSINOPHIL % (test code = EO%) 5.3 % 0.0-6.0 N BASOPHIL % (test code = BA%) 0.7 % 0.0-2.0 N NUCLEATED RBC % (test code = 0.0 /100WBC% 0.0-1.0 N NRBC%) NEUTROPHIL # (test code = NT#) 5.2 K/mm3 1.8-7.6 N IMMATURE GRANULOCYTE # (test 0.03 x10 3/uL 0.00-0.03 N code = IG#) LYMPHOCYTE # (test code = LY#) 1.8 K/mm3 0.6-3.0 N MONOCYTE # (test code = MO#) 0.9 K/mm3 0.2-1.5 N EOSINOPHIL # (test code = EO#) 0.4 K/mm3 0.0-0.4 N BASOPHIL # (test code = BA#) 0.1 K/mm3 0.0-0.2 N NUCLEATED RBC # (test code = 0.0 K/mm3 0.00-0.01 N NRBC#) MANUAL DIFF REQUIRED (test code NO DIFF/SCN CRITERIA = MDIFF) UA RFLX MICR CULT IF [id number] 22:01:00 Test Item Value Reference Range Interpretation Comments UA COLOR (test code = COLU) YELLOW discript YEL/STRAW UA APPEARANCE (test code = CLEAR discript CLEAR APPU) UA GLUCOSE DIPSTICK (test NEGATIVE mg/dL NEG code = DGLUU) UA BILIRUBIN DIPSTICK (test 1+ mg/dL NEG A code = BILU) UA KETONE DIPSTICK (test 1+ mg/dL NEG code = KETU) UA SPECIFIC GRAVITY (test 1.025 SG 1.005-1.030 code = SGU) UA BLOOD DIPSTICK (test TRACE mg/DL NEG code = ROBYN) UA PH DIPSTICK (test code = 6.0 pH UNITS 5.0-7.0 JUAN DAVID) UA PROTEIN DIPSTICK (test TRACE mg/dL NEG A code = PROU) UA UROBILINIOGEN DIPSTICK 1.0 mg/dL <2.0 (test code = URO) UA NITRITE DIPSTICK (test NEGATIVE SCREEN NEG code = ELIOT) UA LEUKOCYTE ESTERASE NEGATIVE Leuk/mcL NEGATIVE DIPSTICK (test code = LEUU) Indication for culture: RiskForSepsis-no oth srcSOURCE OF URINE: CLEAN CATCH- XR CHEST 1 [id number] 20:45:00 [facility] 1985 Sex: M Name: MIHIR W[place] [facility] : 1985 Age/S: 37 / M [address] Unit #: [id number] Loc: [place] [address] Phys: Ravindra Salamanca MD Acct: [id number] Dis Date: Status: PRE ER PHONE #: [phone] Exam Date: 12/02/20222042 FAX #: Reason: Code Sepsis EXAMS: CPT: [id number] XR CHEST 1 V 17307 Fluoro Time: DAP (Gy m2): Air Kerma (mGy): EXAM: - XR CHEST 1 V COMPARISON: 11/24/2021 LOCATION: 7 HISTORY: Code Sepsis FINDINGS: Single view of the chest. No indwelling lines or tubes. No pneumothorax. Platelike atelectasis in the left lung base. No consolidation or effusions. The mediastinal contours are unremarkable/unchanged. No acute osseous findings are present. Bilateral nipple jewelry is present. IMPRESSION: No acute cardiopulmonary abnormality. at 2044 Reported and signed by: BHAVNA BYERS M.D. CC: PAGE 1 Signed Report Name: MIHIR HURD [facility] : 1985 Age/S: 37 / M [id number] [address] Unit #: [id number] Loc: [place] [address] Phys: Ravindar Salamanca MD Acct: [id number] Dis Date: Status: PRE ER PHONE #: [phone] Exam Date: 12/02/20222042 FAX #: Reason: Code Sepsis EXAMS: CPT: [id number] XR CHEST 1 V 61068 Fluoro Time: DAP (Gy m2): Air Kerma (mGy): (Continued) Technologist: Adeola Glasgow, RT(R)(CT) Trnscb Date/Time: 12/02/2022 (2044) [id number] Orig Print D/T: S: 12/02/2022 (2047) PAGE 2 Signed ReportHIV-1 DRUG RESISTANCE BY [id number] 10:07:21 Test Item Value Reference Interpretation Comments Range ABACAVIR (ABC) SEE NOTE A Low-level res istance (test code = 20043) ZIDOVUDINE (AZT) Susceptible (test code = 71794) STAVUDINE (D4T) Susceptible (test code = 74584) DIDANOSINE (DDI) SEE NOTE A Potential l ow-level (test code = resistance 87873) EMTRICITABINE SEE NOTE A High-level res istance (FTC) (test code = 27304) LAMIVUDINE (3TC) SEE NOTE A High-level resistance (test code = 15856) TENOFOVIR (TDF) Susceptible (test code = 39236) DORAVIRINE (RAUL) Susceptible (test code = 84335) EFAVIRENZ (EFV) Susceptible (test code = 95187) ETRAVIRINE (ETR) Susceptible (test code = 339619) NEVIRAPINE (NVP) Susceptible (test code = 137696) RILPIVIRINE (RPV) Susceptible (test code = 420526) ATAZANAVIR (ATV) Susceptible (test code = 521998) DARUNAVIR (DRV) Susceptible (test code = 993068) FOSAMPRENAVIR Susceptible (FPV) (test code = 119412) INDINAVIR (IDV) Susceptible (test code = 639961) LOPINAVIR (LPV) Susceptible (test code = 033380) NELFINAVIR (NFV) Susceptible (test code = 369641) SAQUINAVIR (SQV) Susceptible (test code = 970560) TIPRANAVIR (TPV) Susceptible (test code = 702717) BICTEGRAVIR (BIC) SEE NOTE A Intermedia te resistance (test code = 334908) CABOTEGRAVIR SEE NOTE A Intermediate re sistance (CAB) (test code = 359607) DOLUTEGRAVIR SEE NOTE A Intermediate re sistance (DTG) (test code = 896062) ELVITEGRAVIR SEE NOTE A Intermediate re sistance (EVG) (test code = 111700) RALTEGRAVIR (RAL) SEE NOTE A Low-level resistance (test code = 151335) NRTI MAJOR (test M184MV code = 680519) NNRTI MAJOR (test None code = 189509) PI MAJOR (test None code = 440801) INSTI MAJOR (test R263RK code = 909076) RT ACC (test code None = 015548) PI ACC (test code None = 486835) INSTI ACC (test None code = 077756) RT OTHER (test SEE BELOW code = 026185) PI OTHER (test SEE NOTE L10I, I15V, E 35D, N37A, code = 255535) P39PS, L63P, I93L INSTI OTHER (test SEE BELOW code = 150519) HIV-1 SUBTYPE B (test code = 509765) ALGORITHM VERSION HIVDB_9.4 Other Muta tions (RT): S48T, (test code = V60I, K122E, G1 41GW, S162A, 485317) V179VI, R211Q, V245K, A272P, I293IT, P294PS, T377N, K390R, A400I, K 451R, L452A, V467I, S468H, K 512R, S519N, V531I, Q547K Ot her Mutations (INSTI): E11D, V31I, M50L, A91E, L101I, K1 11Q, S119R, T206S, D232DE N ote: Drug-resistance position RT Y318 not sequen damon or aligned. Mutati on Comments: Drug Resistance Mutations Nucleoside Reve rse Transcriptase I nhibitors (NRTI): M184V/I cause high-level in v itro resistance to 3 TC and FTC and low/interme diate resistance to A BC (3-fold reduced suscept ibility). M184V/I are not contraindicatio ns to continued treat ment with 3TC or FTC because they increase susceptibility to AZT and TDF and are ass ociated with clinically sign ificant reductions in H IV-1 replication. In tegrase Strand Transfer Inhibitor (INSTI): R263K is a nonpolymorphic mutation selected in vit ro by EVG, DTG, BIC, and C AB. It occurs in a high propo rtion of persons who dev elop VF and emergent HIVDR while receiving DTG. Alone, it reduces DTG, BI C, and CAB susceptibility about 2-fold. Other Mutations Reverse Transcriptase ( RT): V179I is a polymorphic m utation that is frequently s elected in persons receivi ng ETR and RPV. However, i t has little, if any, direct effect on NNRTI susceptib ility. Protease Inhibi tor (PI): L10I/V are poly morphic, PI-selected acc essory mutations that increase the replication of viruses with other PI-resist ance mutations. Inte grase Strand Transfer Inhibi tor (INSTI): S119R is a poly morphic mutation that i s weakly selected by INS TIs usually in combination with several major INSTI-ass ociated DRMs. Alone, it has l ittle, if any effect, on INST I susceptibility. Resistance Definitions: Anderson sceptible: no evidence of red uced antiretroviral (ARV)susceptibi lity compared to a wild-type virus. Potential low-l evel resistance: lik miky to be fully susceptib le;however, contains mutati ons that may indicate previo us ARV exposure. Low-l evel resistance: red uced ARV susceptibility in vitro and/orpatients may have a suboptimal viro logical response to helga atmentwith the ARV. Interm ediate resistance: a l evel of ARV resistance in b etween low-and high-le jin resistance. An ARV with intermediate resistanceshoul d generally be used only if the ARV has a high genetic barrierto resistance (e.g . some ritonavir-boost ed inhibitors) or if fewother active drugs ar e available. High-level resi stance: highest levels of in vitro drug resistance and/or little or no virologic al response to treatment wi th the ARV. Testing methodo logy is reverse transcr iption polymerase mary nreaction (RT-PCR) and ne xt-generation sequencing (NGS ) of the reversetranscri ptase (RT), protease (VA) a nd integrase (IN) regions of theHIV-1 polymerase (dulce ) gene. HIV-1 drug resistance mutations andassociated s usceptibility interpretations are assigned relative tothe HIV-1 subtype B consensus seq uence utilizing the genotypicresist ance interpretation algorithm of the [facility] V DrugResistance Database (HIVDB). This t est detects HIV-1 drug resi stance mutations at a frequencyas low as 10%, whi ch may account for dif ferences in resistanceinter pretations between methods . Test results should be used andinterpreted in the context of clin ical findings and other labor atorytest results. This t est was developed and i ts performance characteristics determined by [facility] ([facility]). It has n ot beencleared or approved by the U.S. Food a nd Drug Administration (FDA).The FDA has determined that such clearance or ap proval is notnecessary. T his test is used for clinic al purposes and should not beregarded as investigational or for research. [facility] i s qualified toperform high complexity testing under t he Clinical LaboratoryImpro vement Amendments (CLI A). Electronically Signed by Joon Stubbs. TESTING PERFORMED AT [facility] [address], [address], [address] [place], [place] [address] CLIA NO: [id number] [facility] has important patho logy staff changes effecti ve 09/26/2022. New pathology staff will provide uninterrupted, excellent patient care an d clinical consultation. S ee URL: [email or web address] UNLESS OTHE RWISE INDICATED, ALL TESTING PERFORMED AT [facility] [address] [place] [address] LABORATOR Y DIRECTOR: NELSY CLARK M.D. CLIA NUMBER [id number] CAP ACCREDITATION N O. [id number] HIV-1 GENOTYPE RT-PCR/[id number] 08:37:57 Test Item Value Reference Range Interpretation Comments NRTI (test code = TEST NOT Test not 198115) PERFORMED performed due t o duplicate entry.Charges adjusted as applicable. ABACAVIR (ABC) (test TEST NOT code = 187077) PERFORMED ZIDOVUDINE (AZT) TEST NOT (test code = 611504) PERFORMED STAVUDINE (D4T) (test TEST NOT code = 357287) PERFORMED DIDANOSINE (DDI) TEST NOT (test code = 079106) PERFORMED EMTRICITABINE (FTC) TEST NOT (test code = 592396) PERFORMED LAMIVUDINE (3TC) TEST NOT (test code = 638326) PERFORMED TENOFOVIR (TDF) (test TEST NOT code = 007785) PERFORMED NNRTI (test code = TEST NOT 630687) PERFORMED DORAVIRINE (RAUL) TEST NOT (test code = 592788) PERFORMED EFAVIRENZ (EFV) (test TEST NOT code = 863459) PERFORMED ETRAVIRINE (ETR) TEST NOT (test code = 533004) PERFORMED NEVIRAPINE (NVP) TEST NOT (test code = 518940) PERFORMED RILPIVIRINE (RPV) TEST NOT (test code = 359807) PERFORMED PROTEASE INHIBITOR TEST NOT (PI) (test code = PERFORMED 182415) ATAZANAVIR (ATV) TEST NOT (test code = 409547) PERFORMED DARUNAVIR (DRV) (test TEST NOT code = 740272) PERFORMED FOSAMPRENAVIR (FPV) TEST NOT (test code = 714836) PERFORMED INDINAVIR (IDV) (test TEST NOT code = 235148) PERFORMED LOPINAVIR (LPV) (test TEST NOT code = 080531) PERFORMED NELFINAVIR (NFV) TEST NOT (test code = 589919) PERFORMED SAQUINAVIR (SQV) TEST NOT (test code = 167224) PERFORMED TIPRANAVIR (TPV) TEST NOT (test code = 672538) PERFORMED DRUG RESIST MUTATIONS TEST NOT (test code = 733463) PERFORMED NRTI (test code = TEST NOT 586933) PERFORMED NNRTI (test code = TEST NOT 036089) PERFORMED PI (test code = TEST NOT 083470) PERFORMED ACC RESIST MUTATIONS TEST NOT (test code = 210417) PERFORMED RT (test code = TEST NOT 295820) PERFORMED PI (test code = TEST NOT 874142) PERFORMED OTHER MUTATIONS (test TEST NOT code = 451464) PERFORMED RT (test code = TEST NOT 266508) PERFORMED PI (test code = TEST NOT 069249) PERFORMED HIV-1 SUBTYPE (test TEST NOT code = 037229) PERFORMED ANCHORAGE HIVDB JD TEST NOT TESTING (test code = 689782) PERFORMED PERFORM ED AT [facility] . [address] [place] [address], [address], [address] [address] CLIA NO: [id number] CD4/CD8 LYMPHOCYTE [id number] 15:38:58 Test Item Value Reference Range Interpretation Comments ABSOLUTE LYMPHOCYTES (test code = 1684 PER UL [id number] 54155) PERCENT CD4 (test code = 85785) 16.4 % 34.0-65.0 L ABSOLUTE CD4 (test code = 44029) 276 PER UL 520-1470 L PERCENT CD8 (test code = 63012) 59.1 % 13.0-38.0 H ABSOLUTE CD8 (test code = 96735) 995 PER UL 205-920 H CD4/CD8 RATIO (test code = 94224) 0.28 0.92-3.41 L HIV-1 QUANT, [id number] 15:15:41 Test Item Value Reference Range Interpretation Comments HIV-1 VIRAL 106 COPIES/ML H COPY (test code = 4141) HIV-1 VIRAL LOG 2.025 LOG H Range of qu antitation (test code = COPIES/ML is 20-10,000,00 0 82839) Copies/mL, (1.301-7.000log Copies/mL). Hakan ples with HIV RNA detecte d below the limit ofqua ntitation are reported as <20 Copies/mL. Assa y methodology isp olymerase chain reaction (PCR) using the Franki Shivani 6800/8800system . The expected result is NOT DETECTED. For d iagnostic use,please refe r to laboratory test compendium. UNL ESS OTHERWISE INDIC ATED, ALL TESTING PERFORM ED ATCLINICAL PATH [facility], [facility]. [address] [place] [address] LABORATORY DIRE CTOR: JASPREET FAY M.D. CLIA NUMBER [id number] [place] [id number] CD4/CD8 LYMPHOCYTE [id number] 00:00:00 Test Item Value Reference Range Interpretation Comments ABSOLUTE LYMPHOCYTES (test code = 1684 PERUL 95050) PERCENT CD4 (test code = 31207) 16.4 % ABSOLUTE CD4 (test code = 00636) 276 PERUL PERCENT CD8 (test code = 73692) 59.1 % ABSOLUTE CD8 (test code = 86065) 995 PERUL CD4/CD8 RATIO (test code = 49856) 0.28 CD4/CD8 LYMPHOCYTE [id number] 00:00:00 Test Item Value Reference Range Interpretation Comments ABSOLUTE LYMPHOCYTES (test code = 1684 PERUL 11649) PERCENT CD4 (test code = 71363) 16.4 % ABSOLUTE CD4 (test code = 52093) 276 PERUL PERCENT CD8 (test code = 69175) 59.1 % ABSOLUTE CD8 (test code = 32226) 995 PERUL CD4/CD8 RATIO (test code = 36333) 0.28 HIV-1 QUANT, [id number] 00:00:00 Test Item Value Reference Range Interpretation Comments HIV-1 VIRAL COPY (test 106 COPIES/ML code = 4141) HIV-1 VIRAL LOG (test code 2.025 LOGCOPIES/ML = 30062) HIV-1 QUANT, [id number] 00:00:00 Test Item Value Reference Range Interpretation Comments HIV-1 VIRAL COPY (test 106 COPIES/ML code = 4141) HIV-1 VIRAL LOG (test code 2.025 LOGCOPIES/ML = 01575) CD4/CD8 LYMPHOCYTE [id number] 00:00:00 Test Item Value Reference Range Interpretation Comments ABSOLUTE LYMPHOCYTES (test code = 1684 PERUL 17624) PERCENT CD4 (test code = 16208) 16.4 % ABSOLUTE CD4 (test code = 19789) 276 PERUL PERCENT CD8 (test code = 74150) 59.1 % ABSOLUTE CD8 (test code = 03350) 995 PERUL CD4/CD8 RATIO (test code = 79171) 0.28 CD4/CD8 LYMPHOCYTE [id number] 00:00:00 Test Item Value Reference Range Interpretation Comments ABSOLUTE LYMPHOCYTES (test code = 1684 PERUL 09613) PERCENT CD4 (test code = 54935) 16.4 % ABSOLUTE CD4 (test code = 14395) 276 PERUL PERCENT CD8 (test code = 94196) 59.1 % ABSOLUTE CD8 (test code = 78552) 995 PERUL CD4/CD8 RATIO (test code = 88964) 0.28 HIV-1 QUANT, [id number] 00:00:00 Test Item Value Reference Range Interpretation Comments HIV-1 VIRAL COPY (test 106 COPIES/ML code = 4141) HIV-1 VIRAL LOG (test code 2.025 LOGCOPIES/ML = 07295) HIV-1 QUANT, [id number] 00:00:00 Test Item Value Reference Range Interpretation Comments HIV-1 VIRAL COPY (test 106 COPIES/ML code = 4141) HIV-1 VIRAL LOG (test code 2.025 LOGCOPIES/ML = 24311) CD4/CD8 LYMPHOCYTE [id number] 00:00:00 Test Item Value Reference Range Interpretation Comments ABSOLUTE LYMPHOCYTES (test code = 1684 PERUL 88707) PERCENT CD4 (test code = 40756) 16.4 % ABSOLUTE CD4 (test code = 65880) 276 PERUL PERCENT CD8 (test code = 77035) 59.1 % ABSOLUTE CD8 (test code = 66851) 995 PERUL CD4/CD8 RATIO (test code = 59476) 0.28 CD4/CD8 LYMPHOCYTE [id number] 00:00:00 Test Item Value Reference Range Interpretation Comments ABSOLUTE LYMPHOCYTES (test code = 1684 PERUL 11129) PERCENT CD4 (test code = 46998) 16.4 % ABSOLUTE CD4 (test code = 29678) 276 PERUL PERCENT CD8 (test code = 68874) 59.1 % ABSOLUTE CD8 (test code = 70421) 995 PERUL CD4/CD8 RATIO (test code = 75292) 0.28 HIV-1 QUANT, [id number] 00:00:00 Test Item Value Reference Range Interpretation Comments HIV-1 VIRAL COPY (test 106 COPIES/ML code = 4141) HIV-1 VIRAL LOG (test code 2.025 LOGCOPIES/ML = 06762) HIV-1 QUANT, [id number] 00:00:00 Test Item Value Reference Range Interpretation Comments HIV-1 VIRAL COPY (test 106 COPIES/ML code = 4141) HIV-1 VIRAL LOG (test code 2.025 LOGCOPIES/ML = 62554) CD4/CD8 LYMPHOCYTE [id number] 00:00:00 Test Item Value Reference Range Interpretation Comments ABSOLUTE LYMPHOCYTES (test code = 1684 PERUL 54490) PERCENT CD4 (test code = 91652) 16.4 % ABSOLUTE CD4 (test code = 43399) 276 PERUL PERCENT CD8 (test code = 68965) 59.1 % ABSOLUTE CD8 (test code = 13555) 995 PERUL CD4/CD8 RATIO (test code = 98442) 0.28 CD4/CD8 LYMPHOCYTE [id number] 00:00:00 Test Item Value Reference Range Interpretation Comments ABSOLUTE LYMPHOCYTES (test code = 1684 PERUL 43773) PERCENT CD4 (test code = 24326) 16.4 % ABSOLUTE CD4 (test code = 10625) 276 PERUL PERCENT CD8 (test code = 02460) 59.1 % ABSOLUTE CD8 (test code = 10456) 995 PERUL CD4/CD8 RATIO (test code = 89594) 0.28 HIV-1 QUANT, [id number] 00:00:00 Test Item Value Reference Range Interpretation Comments HIV-1 VIRAL COPY (test 106 COPIES/ML code = 4141) HIV-1 VIRAL LOG (test code 2.025 LOGCOPIES/ML = 29089) HIV-1 QUANT, [id number] 00:00:00 Test Item Value Reference Range Interpretation Comments HIV-1 VIRAL COPY (test 106 COPIES/ML code = 4141) HIV-1 VIRAL LOG (test code 2.025 LOGCOPIES/ML = 88254) CD4/CD8 LYMPHOCYTE [id number] 00:00:00 Test Item Value Reference Range Interpretation Comments ABSOLUTE LYMPHOCYTES (test code = 1684 PERUL 15312) PERCENT CD4 (test code = 74534) 16.4 % ABSOLUTE CD4 (test code = 82428) 276 PERUL PERCENT CD8 (test code = 72408) 59.1 % ABSOLUTE CD8 (test code = 72010) 995 PERUL CD4/CD8 RATIO (test code = 87805) 0.28 CD4/CD8 LYMPHOCYTE [id number] 00:00:00 Test Item Value Reference Range Interpretation Comments ABSOLUTE LYMPHOCYTES (test code = 1684 PERUL 30495) PERCENT CD4 (test code = 34982) 16.4 % ABSOLUTE CD4 (test code = 04230) 276 PERUL PERCENT CD8 (test code = 28626) 59.1 % ABSOLUTE CD8 (test code = 61457) 995 PERUL CD4/CD8 RATIO (test code = 49278) 0.28 HIV-1 QUANT, [id number] 00:00:00 Test Item Value Reference Range Interpretation Comments HIV-1 VIRAL COPY (test 106 COPIES/ML code = 4141) HIV-1 VIRAL LOG (test code 2.025 LOGCOPIES/ML = 23970) HIV-1 QUANT, [id number] 00:00:00 Test Item Value Reference Range Interpretation Comments HIV-1 VIRAL COPY (test 106 COPIES/ML code = 4141) HIV-1 VIRAL LOG (test code 2.025 LOGCOPIES/ML = 08704) CD4/CD8 LYMPHOCYTE [id number] 00:00:00 Test Item Value Reference Range Interpretation Comments ABSOLUTE LYMPHOCYTES (test code = 1684 PERUL 39144) PERCENT CD4 (test code = 61592) 16.4 % ABSOLUTE CD4 (test code = 26023) 276 PERUL PERCENT CD8 (test code = 43103) 59.1 % ABSOLUTE CD8 (test code = 68647) 995 PERUL CD4/CD8 RATIO (test code = 33744) 0.28 CD4/CD8 LYMPHOCYTE [id number] 00:00:00 Test Item Value Reference Range Interpretation Comments ABSOLUTE LYMPHOCYTES (test code = 1684 PERUL 06055) PERCENT CD4 (test code = 42079) 16.4 % ABSOLUTE CD4 (test code = 63084) 276 PERUL PERCENT CD8 (test code = 19373) 59.1 % ABSOLUTE CD8 (test code = 89092) 995 PERUL CD4/CD8 RATIO (test code = 75258) 0.28 HIV-1 QUANT, [id number] 00:00:00 Test Item Value Reference Range Interpretation Comments HIV-1 VIRAL COPY (test 106 COPIES/ML code = 4141) HIV-1 VIRAL LOG (test code 2.025 LOGCOPIES/ML = 82519) HIV-1 QUANT, [id number] 00:00:00 Test Item Value Reference Range Interpretation Comments HIV-1 VIRAL COPY (test 106 COPIES/ML code = 4141) HIV-1 VIRAL LOG (test code 2.025 LOGCOPIES/ML = 08041) CD4/CD8 LYMPHOCYTE [id number] 00:00:00 Test Item Value Reference Range Interpretation Comments ABSOLUTE LYMPHOCYTES (test code = 1684 PERUL 94226) PERCENT CD4 (test code = 03659) 16.4 % ABSOLUTE CD4 (test code = 85760) 276 PERUL PERCENT CD8 (test code = 88164) 59.1 % ABSOLUTE CD8 (test code = 73553) 995 PERUL CD4/CD8 RATIO (test code = 28375) 0.28 CD4/CD8 LYMPHOCYTE [id number] 00:00:00 Test Item Value Reference Range Interpretation Comments ABSOLUTE LYMPHOCYTES (test code = 1684 PERUL 81526) PERCENT CD4 (test code = 76210) 16.4 % ABSOLUTE CD4 (test code = 66455) 276 PERUL PERCENT CD8 (test code = 80335) 59.1 % ABSOLUTE CD8 (test code = 22951) 995 PERUL CD4/CD8 RATIO (test code = 39724) 0.28 HIV-1 QUANT, [id number] 00:00:00 Test Item Value Reference Range Interpretation Comments HIV-1 VIRAL COPY (test 106 COPIES/ML code = 4141) HIV-1 VIRAL LOG (test code 2.025 LOGCOPIES/ML = 36158) HIV-1 QUANT, [id number] 00:00:00 Test Item Value Reference Range Interpretation Comments HIV-1 VIRAL COPY (test 106 COPIES/ML code = 4141) HIV-1 VIRAL LOG (test code 2.025 LOGCOPIES/ML = 56735) CD4/CD8 LYMPHOCYTE [id number] 00:00:00 Test Item Value Reference Range Interpretation Comments ABSOLUTE LYMPHOCYTES (test code = 1684 PERUL 38522) PERCENT CD4 (test code = 73900) 16.4 % ABSOLUTE CD4 (test code = 03846) 276 PERUL PERCENT CD8 (test code = 39588) 59.1 % ABSOLUTE CD8 (test code = 10223) 995 PERUL CD4/CD8 RATIO (test code = 53506) 0.28 CD4/CD8 LYMPHOCYTE [id number] 00:00:00 Test Item Value Reference Range Interpretation Comments ABSOLUTE LYMPHOCYTES (test code = 1684 PERUL 78239) PERCENT CD4 (test code = 69428) 16.4 % ABSOLUTE CD4 (test code = 88833) 276 PERUL PERCENT CD8 (test code = 41788) 59.1 % ABSOLUTE CD8 (test code = 75681) 995 PERUL CD4/CD8 RATIO (test code = 10948) 0.28 HIV-1 QUANT, [id number] 00:00:00 Test Item Value Reference Range Interpretation Comments HIV-1 VIRAL COPY (test 106 COPIES/ML code = 4141) HIV-1 VIRAL LOG (test code 2.025 LOGCOPIES/ML = 24518) HIV-1 QUANT, [id number] 00:00:00 Test Item Value Reference Range Interpretation Comments HIV-1 VIRAL COPY (test 106 COPIES/ML code = 4141) HIV-1 VIRAL LOG (test code 2.025 LOGCOPIES/ML = 98507) AEROBIC AND ANAEROBIC CULTURE [id number] 00:00:00 Test Item Value Reference Range Interpretation Comments CULTURE, ANAEROBIC SPECIMEN NUMBER: (test code = 36292) [id number] AEROBIC AND ANAEROBIC CULTURE [id number] 00:00:00 Test Item Value Reference Range Interpretation Comments CULTURE, ANAEROBIC SPECIMEN NUMBER: (test code = 84288) [id number] AEROBIC AND ANAEROBIC CULTURE [id number] 00:00:00 Test Item Value Reference Range Interpretation Comments CULTURE, ANAEROBIC SPECIMEN NUMBER: (test code = 61272) [id number] AEROBIC AND ANAEROBIC CULTURE [id number] 00:00:00 Test Item Value Reference Range Interpretation Comments CULTURE, ANAEROBIC SPECIMEN NUMBER: (test code = 66401) [id number] AEROBIC AND ANAEROBIC CULTURE [id number] 00:00:00 Test Item Value Reference Range Interpretation Comments CULTURE, ANAEROBIC SPECIMEN NUMBER: (test code = 02584) [id number] AEROBIC AND ANAEROBIC CULTURE [id number] 00:00:00 Test Item Value Reference Range Interpretation Comments CULTURE, ANAEROBIC SPECIMEN NUMBER: (test code = 51258) [id number] AEROBIC AND ANAEROBIC CULTURE [id number] 00:00:00 Test Item Value Reference Range Interpretation Comments CULTURE, ANAEROBIC SPECIMEN NUMBER: (test code = 37363) [id number] AEROBIC AND ANAEROBIC CULTURE [id number] 00:00:00 Test Item Value Reference Range Interpretation Comments CULTURE, ANAEROBIC SPECIMEN NUMBER: (test code = 65286) [id number] AEROBIC AND ANAEROBIC CULTURE [id number] 00:00:00 Test Item Value Reference Range Interpretation Comments CULTURE, ANAEROBIC SPECIMEN NUMBER: (test code = 71562) [id number] AEROBIC AND ANAEROBIC CULTURE [id number] 00:00:00 Test Item Value Reference Range Interpretation Comments CULTURE, ANAEROBIC SPECIMEN NUMBER: (test code = 28396) [id number] AEROBIC AND ANAEROBIC CULTURE [id number] 00:00:00 Test Item Value Reference Range Interpretation Comments CULTURE, ANAEROBIC SPECIMEN NUMBER: (test code = 90506) [id number] AEROBIC AND ANAEROBIC CULTURE [id number] 00:00:00 Test Item Value Reference Range Interpretation Comments CULTURE, ANAEROBIC SPECIMEN NUMBER: (test code = 82576) [id number] AEROBIC AND ANAEROBIC CULTURE [id number] 00:00:00 Test Item Value Reference Range Interpretation Comments CULTURE, ANAEROBIC SPECIMEN NUMBER: (test code = 61193) [id number] AEROBIC AND ANAEROBIC CULTURE [id number] 00:00:00 Test Item Value Reference Range Interpretation Comments CULTURE, ANAEROBIC SPECIMEN NUMBER: (test code = 18274) [id number] AEROBIC AND ANAEROBIC CULTURE [id number] 00:00:00 Test Item Value Reference Range Interpretation Comments CULTURE, ANAEROBIC SPECIMEN NUMBER: (test code = 55728) [id number] AEROBIC AND ANAEROBIC CULTURE [id number] 00:00:00 Test Item Value Reference Range Interpretation Comments CULTURE, ANAEROBIC SPECIMEN NUMBER: (test code = 09537) [id number] AEROBIC AND ANAEROBIC CULTURE [id number] 00:00:00 Test Item Value Reference Range Interpretation Comments CULTURE, ANAEROBIC SPECIMEN NUMBER: (test code = 33638) [id number] AEROBIC AND ANAEROBIC CULTURE [id number] 00:00:00 Test Item Value Reference Range Interpretation Comments CULTURE, ANAEROBIC SPECIMEN NUMBER: (test code = 11216) [id number] AEROBIC AND ANAEROBIC CULTURE [id number] 00:00:00 Test Item Value Reference Range Interpretation Comments CULTURE, ANAEROBIC SPECIMEN NUMBER: (test code = 20342) [id number] AEROBIC AND ANAEROBIC CULTURE [id number] 00:00:00 Test Item Value Reference Range Interpretation Comments CULTURE, ANAEROBIC SPECIMEN NUMBER: (test code = 96590) [id number] AEROBIC AND ANAEROBIC CULTURE [id number] 00:00:00 Test Item Value Reference Range Interpretation Comments CULTURE, ANAEROBIC SPECIMEN NUMBER: (test code = 02098) [id number] AEROBIC AND ANAEROBIC CULTURE [id number] 00:00:00 Test Item Value Reference Range Interpretation Comments CULTURE, ANAEROBIC SPECIMEN NUMBER: (test code = 64375) [id number] AEROBIC AND ANAEROBIC CULTURE [id number] 00:00:00 Test Item Value Reference Range Interpretation Comments CULTURE, ANAEROBIC SPECIMEN NUMBER: (test code = 98872) [id number] AEROBIC AND ANAEROBIC CULTURE [id number] 00:00:00 Test Item Value Reference Range Interpretation Comments CULTURE, ANAEROBIC SPECIMEN NUMBER: (test code = 90108) [id number] AEROBIC AND ANAEROBIC CULTURE [id number] 00:00:00 Test Item Value Reference Range Interpretation Comments CULTURE, ANAEROBIC SPECIMEN NUMBER: (test code = 28503) [id number] AEROBIC AND ANAEROBIC CULTURE [id number] 00:00:00 Test Item Value Reference Range Interpretation Comments CULTURE, ANAEROBIC SPECIMEN NUMBER: (test code = 32388) [id number] AEROBIC AND ANAEROBIC CULTURE [id number] 00:00:00 Test Item Value Reference Range Interpretation Comments CULTURE, ANAEROBIC SPECIMEN NUMBER: (test code = 42737) [id number] AEROBIC AND ANAEROBIC CULTURE [id number] 00:00:00 Test Item Value Reference Range Interpretation Comments CULTURE, ANAEROBIC SPECIMEN NUMBER: (test code = 92387) [id number] AEROBIC AND ANAEROBIC CULTURE [id number] 00:00:00 Test Item Value Reference Range Interpretation Comments CULTURE, ANAEROBIC SPECIMEN NUMBER: (test code = 63122) [id number] AEROBIC AND ANAEROBIC CULTURE [id number] 00:00:00 Test Item Value Reference Range Interpretation Comments CULTURE, ANAEROBIC SPECIMEN NUMBER: (test code = 06598) [id number] AEROBIC AND ANAEROBIC CULTURE [id number] 11:27:12 Test Item Value Reference Range Interpretation Comments CULTURE, ROUTINE SPECIMEN NUMBER: Gloria CULTUR E, ROUTINE (test code = [id number] SPECIMEN NUMBER : [id number]) [id number] SPECI MEN COMMENT: ABS R THIGH SOURCE: THIGH R EPORT STATUS: FINAL D IRECT GRAM STAIN: NO WBCs SEEN FEW GRAM POSITIVE COCCI ISOLATE NUMBER 1: ORGANISM: 12/09 ABUNDANT STAPHYLOCOCCUS SPECIES IDENTIFICATION: 12/10/2021 METHICILLIN RES ISTANT STAPHYLOCOCCUS AUREUS (MRSA) MRSA -CLIND AMYCIN RESISTAN T >4ERYTHROMYCIN RESISTANT >4OXA CILLIN RESISTANT >2RIF AMPIN SENSITIVE <=1TETRACYCLINE RESISTANT >8TRIMETH/SULFA RESISTANT >2/38VANCOMYCIN SENSITIVE 1 NOT E: NUMBERS DISPLAY ED REPRESENT MINIM UM INHIBITORY CONCENTRATION ( MARTHA) WHICH IS EXPRES SED IN MCG/ML. CULTURE, SPECIMEN NUMBER: HOANG, A NAEROBIC ANAEROBIC (test [id number] SPECIMEN NUM HUDSON: code = 81832) [id number] SPEC IMEN COMMENT: ABS R THIGH SOURCE: THIGH R EPORT STATUS: FINAL F INAL REPORT: 022 NO ANAEROBES RECOV ERED AFTER 5 DAYS PRELIMINARY REP ORT #2: 12/12/2021 NO ANAEROBES ISOLA JOHN AT 4 DAYS PRELIMIN SOO ANAEROBE REPORT : 12/10/2021 NO ANAEROBES RECOV ERED AFTER 48 HOURS UNLESS OTHERWISE INDIC ATED, ALL TESTING PER FORMED [facility] PATH [facility], [facility] [place] [place] [address] [facility] DIRECTOR: JASPREET WHALEN M.D. [place] NUMBER [id number] CAP ACCREDITATION N O. [id number] CD4/CD8 LYMPHOCYTE [id number] 16:30:01 Test Item Value Reference Range Interpretation Comments ABSOLUTE LYMPHOCYTES 1915 PER UL 3789-3718 (test code = 67640) PERCENT CD4 (test 15.6 % 34.0-65.0 L code = 81090) ABSOLUTE CD4 (test 298 PER UL 520-1470 L code = 40397) PERCENT CD8 (test 58.0 % 13.0-38.0 H code = 01480) ABSOLUTE CD8 (test 1110 PER UL 205-920 H code = 18033) CD4/CD8 RATIO (test 0.27 0.92-3.41 L UNLESS OTHERWISE code = 19398) INDICATED, ALL TESTING PERFORMED [facility], [facility]. [address] [place] [id number] [place] [address] DIRECTOR: JASPREET WHALEN M.D. CLIA NUMBER [id number] CAP ACCREDITATION N O. [id number] HIV-1 QUANT, [id number] 13:46:03 Test Item Value Reference Range Interpretation Comments HIV-1 VIRAL 186 COPIES/ML H COPY (test code = 4141) HIV-1 VIRAL LOG 2.270 LOG H Range of qu antitation (test code = COPIES/ML is 20-10,000,00 0 19948) Copies/mL, (1.301-7.000log Copies/mL). Hakan ples with HIV RNA detecte d below the limit ofqua ntitation are reported as <20 Copies/mL. Assa y methodology isp olymerase chain reaction (PCR) using the Franki Shivani 6800/8800system . The expected result is NOT DETECTED. For d iagnostic use,please refe r to laboratory test compendium. HIV-1 QUANT, [id number] 00:00:00 Test Item Value Reference Range Interpretation Comments HIV-1 VIRAL COPY (test 186 COPIES/ML code = 4141) HIV-1 VIRAL LOG (test code 2.270 LOGCOPIES/ML = 06519) HIV-1 QUANT, [id number] 00:00:00 Test Item Value Reference Range Interpretation Comments HIV-1 VIRAL COPY (test 186 COPIES/ML code = 4141) HIV-1 VIRAL LOG (test code 2.270 LOGCOPIES/ML = 67928) CD4/CD8 LYMPHOCYTE [id number] 00:00:00 Test Item Value Reference Range Interpretation Comments ABSOLUTE LYMPHOCYTES (test code = 1915 PERUL 86938) PERCENT CD4 (test code = 25477) 15.6 % ABSOLUTE CD4 (test code = 88147) 298 PERUL PERCENT CD8 (test code = 43071) 58.0 % ABSOLUTE CD8 (test code = 36473) 1110 PERUL CD4/CD8 RATIO (test code = 55711) 0.27 HIV-1 QUANT, [id number] 00:00:00 Test Item Value Reference Range Interpretation Comments HIV-1 VIRAL COPY (test 186 COPIES/ML code = 4141) HIV-1 VIRAL LOG (test code 2.270 LOGCOPIES/ML = 97200) CD4/CD8 LYMPHOCYTE [id number] 00:00:00 Test Item Value Reference Range Interpretation Comments ABSOLUTE LYMPHOCYTES (test code = 1915 PERUL 91924) PERCENT CD4 (test code = 42944) 15.6 % ABSOLUTE CD4 (test code = 58679) 298 PERUL PERCENT CD8 (test code = 19384) 58.0 % ABSOLUTE CD8 (test code = 55601) 1110 PERUL CD4/CD8 RATIO (test code = 73198) 0.27 HIV-1 QUANT, [id number] 00:00:00 Test Item Value Reference Range Interpretation Comments HIV-1 VIRAL COPY (test 186 COPIES/ML code = 4141) HIV-1 VIRAL LOG (test code 2.270 LOGCOPIES/ML = 22553) CD4/CD8 LYMPHOCYTE [id number] 00:00:00 Test Item Value Reference Range Interpretation Comments ABSOLUTE LYMPHOCYTES (test code = 1915 PERUL 44007) PERCENT CD4 (test code = 84328) 15.6 % ABSOLUTE CD4 (test code = 50453) 298 PERUL PERCENT CD8 (test code = 02768) 58.0 % ABSOLUTE CD8 (test code = 90242) 1110 PERUL CD4/CD8 RATIO (test code = 52069) 0.27 CD4/CD8 LYMPHOCYTE [id number] 00:00:00 Test Item Value Reference Range Interpretation Comments ABSOLUTE LYMPHOCYTES (test code = 1915 PERUL 45274) PERCENT CD4 (test code = 23728) 15.6 % ABSOLUTE CD4 (test code = 97657) 298 PERUL PERCENT CD8 (test code = 56382) 58.0 % ABSOLUTE CD8 (test code = 15530) 1110 PERUL CD4/CD8 RATIO (test code = 30169) 0.27 HIV-1 QUANT, [id number] 00:00:00 Test Item Value Reference Range Interpretation Comments HIV-1 VIRAL COPY (test 186 COPIES/ML code = 4141) HIV-1 VIRAL LOG (test code 2.270 LOGCOPIES/ML = 13639) HIV-1 QUANT, [id number] 00:00:00 Test Item Value Reference Range Interpretation Comments HIV-1 VIRAL COPY (test 186 COPIES/ML code = 4141) HIV-1 VIRAL LOG (test code 2.270 LOGCOPIES/ML = 85078) CD4/CD8 LYMPHOCYTE [id number] 00:00:00 Test Item Value Reference Range Interpretation Comments ABSOLUTE LYMPHOCYTES (test code = 1915 MUKILTEOL 38276) PERCENT CD4 (test code = 10009) 15.6 % ABSOLUTE CD4 (test code = 61768) 298 PERUL PERCENT CD8 (test code = 56190) 58.0 % ABSOLUTE CD8 (test code = 96615) 1110 PERUL CD4/CD8 RATIO (test code = 76220) 0.27 CD4/CD8 LYMPHOCYTE [id number] 00:00:00 Test Item Value Reference Range Interpretation Comments ABSOLUTE LYMPHOCYTES (test code = 1915 PERUL 33203) PERCENT CD4 (test code = 09787) 15.6 % ABSOLUTE CD4 (test code = 21031) 298 PERUL PERCENT CD8 (test code = 43439) 58.0 % ABSOLUTE CD8 (test code = 82473) 1110 PERUL CD4/CD8 RATIO (test code = 48447) 0.27 CD4/CD8 LYMPHOCYTE [id number] 00:00:00 Test Item Value Reference Range Interpretation Comments ABSOLUTE LYMPHOCYTES (test code = 1915 PERUL 96154) PERCENT CD4 (test code = 18487) 15.6 % ABSOLUTE CD4 (test code = 58881) 298 PERUL PERCENT CD8 (test code = 68053) 58.0 % ABSOLUTE CD8 (test code = 14063) 1110 PERUL CD4/CD8 RATIO (test code = 83022) 0.27 HIV-1 QUANT, [id number] 00:00:00 Test Item Value Reference Range Interpretation Comments HIV-1 VIRAL COPY (test 186 COPIES/ML code = 4141) HIV-1 VIRAL LOG (test code 2.270 LOGCOPIES/ML = 21305) HIV-1 QUANT, [id number] 00:00:00 Test Item Value Reference Range Interpretation Comments HIV-1 VIRAL COPY (test 186 COPIES/ML code = 4141) HIV-1 VIRAL LOG (test code 2.270 LOGCOPIES/ML = 76342) HIV-1 QUANT, [id number] 00:00:00 Test Item Value Reference Range Interpretation Comments HIV-1 VIRAL COPY (test 186 COPIES/ML code = 4141) HIV-1 VIRAL LOG (test code 2.270 LOGCOPIES/ML = 34928) CD4/CD8 LYMPHOCYTE [id number] 00:00:00 Test Item Value Reference Range Interpretation Comments ABSOLUTE LYMPHOCYTES (test code = 1915 PERUL 63151) PERCENT CD4 (test code = 33151) 15.6 % ABSOLUTE CD4 (test code = 13793) 298 PERUL PERCENT CD8 (test code = 56066) 58.0 % ABSOLUTE CD8 (test code = 95004) 1110 PERUL CD4/CD8 RATIO (test code = 59302) 0.27 CD4/CD8 LYMPHOCYTE [id number] 00:00:00 Test Item Value Reference Range Interpretation Comments ABSOLUTE LYMPHOCYTES (test code = 1915 PERUL 05549) PERCENT CD4 (test code = 87593) 15.6 % ABSOLUTE CD4 (test code = 69231) 298 PERUL PERCENT CD8 (test code = 85876) 58.0 % ABSOLUTE CD8 (test code = 64582) 1110 PERUL CD4/CD8 RATIO (test code = 86008) 0.27 HIV-1 QUANT, [id number] 00:00:00 Test Item Value Reference Range Interpretation Comments HIV-1 VIRAL COPY (test 186 COPIES/ML code = 4141) HIV-1 VIRAL LOG (test code 2.270 LOGCOPIES/ML = 76277) HIV-1 QUANT, [id number] 00:00:00 Test Item Value Reference Range Interpretation Comments HIV-1 VIRAL COPY (test 186 COPIES/ML code = 4141) HIV-1 VIRAL LOG (test code 2.270 LOGCOPIES/ML = 51769) CD4/CD8 LYMPHOCYTE [id number] 00:00:00 Test Item Value Reference Range Interpretation Comments ABSOLUTE LYMPHOCYTES (test code = 1915 PERUL 65030) PERCENT CD4 (test code = 99860) 15.6 % ABSOLUTE CD4 (test code = 00135) 298 PERUL PERCENT CD8 (test code = 00660) 58.0 % ABSOLUTE CD8 (test code = 57056) 1110 PERUL CD4/CD8 RATIO (test code = 30998) 0.27 CD4/CD8 LYMPHOCYTE [id number] 00:00:00 Test Item Value Reference Range Interpretation Comments ABSOLUTE LYMPHOCYTES (test code = 1915 PERUL 58400) PERCENT CD4 (test code = 68710) 15.6 % ABSOLUTE CD4 (test code = 91325) 298 PERUL PERCENT CD8 (test code = 00957) 58.0 % ABSOLUTE CD8 (test code = 77177) 1110 PERUL CD4/CD8 RATIO (test code = 70888) 0.27 HIV-1 QUANT, [id number] 00:00:00 Test Item Value Reference Range Interpretation Comments HIV-1 VIRAL COPY (test 186 COPIES/ML code = 4141) HIV-1 VIRAL LOG (test code 2.270 LOGCOPIES/ML = 08426) HIV-1 QUANT, [id number] 00:00:00 Test Item Value Reference Range Interpretation Comments HIV-1 VIRAL COPY (test 186 COPIES/ML code = 4141) HIV-1 VIRAL LOG (test code 2.270 LOGCOPIES/ML = 64831) CD4/CD8 LYMPHOCYTE [id number] 00:00:00 Test Item Value Reference Range Interpretation Comments ABSOLUTE LYMPHOCYTES (test code = 1915 [facility] 07903) PERCENT CD4 (test code = 48193) 15.6 % ABSOLUTE CD4 (test code = 94603) 298 [facility] PERCENT CD8 (test code = 66060) 58.0 % ABSOLUTE CD8 (test code = 57541) 1110 [facility] CD4/CD8 RATIO (test code = 06379) 0.27 CD4/CD8 LYMPHOCYTE [id number] 00:00:00 Test Item Value Reference Range Interpretation Comments ABSOLUTE LYMPHOCYTES (test code = 1915 [facility] 68199) PERCENT CD4 (test code = 97950) 15.6 % ABSOLUTE CD4 (test code = 60100) 298 [facility] PERCENT CD8 (test code = 41992) 58.0 % ABSOLUTE CD8 (test code = 53781) 1110 [facility] CD4/CD8 RATIO (test code = 66897) 0.27 HIV-1 QUANT, [id number] 00:00:00 Test Item Value Reference Range Interpretation Comments HIV-1 VIRAL COPY (test 186 COPIES/ML code = 4141) HIV-1 VIRAL LOG (test code 2.270 LOGCOPIES/ML = 76534) HIV-1 QUANT, [id number] 00:00:00 Test Item Value Reference Range Interpretation Comments HIV-1 VIRAL COPY (test 186 COPIES/ML code = 4141) HIV-1 VIRAL LOG (test code 2.270 LOGCOPIES/ML = 51321) CD4/CD8 LYMPHOCYTE [id number] 00:00:00 Test Item Value Reference Range Interpretation Comments ABSOLUTE LYMPHOCYTES (test code = 1915 [facility] 66505) PERCENT CD4 (test code = 51992) 15.6 % ABSOLUTE CD4 (test code = 17311) 298 [facility] PERCENT CD8 (test code = 38855) 58.0 % ABSOLUTE CD8 (test code = 40076) 1110 [facility] CD4/CD8 RATIO (test code = 82896) 0.27 CD4/CD8 LYMPHOCYTE [id number] 00:00:00 Test Item Value Reference Range Interpretation Comments ABSOLUTE LYMPHOCYTES (test code = 1915 [facility] 47399) PERCENT CD4 (test code = 24062) 15.6 % ABSOLUTE CD4 (test code = 92489) 298 [facility] PERCENT CD8 (test code = 20536) 58.0 % ABSOLUTE CD8 (test code = 59199) 1110 [facility] CD4/CD8 RATIO (test code = 81341) 0.27 HIV-1 QUANT, [id number] 00:00:00 Test Item Value Reference Range Interpretation Comments HIV-1 VIRAL COPY (test 186 COPIES/ML code = 4141) HIV-1 VIRAL LOG (test code 2.270 LOGCOPIES/ML = 78855) HIV-1 QUANT, [id number] 00:00:00 Test Item Value Reference Range Interpretation Comments HIV-1 VIRAL COPY (test 186 COPIES/ML code = 4141) HIV-1 VIRAL LOG (test code 2.270 LOGCOPIES/ML = 16872) CD4/CD8 LYMPHOCYTE [id number] 00:00:00 Test Item Value Reference Range Interpretation Comments ABSOLUTE LYMPHOCYTES (test code = 1915 [facility] 87370) PERCENT CD4 (test code = 44987) 15.6 % ABSOLUTE CD4 (test code = 67759) 298 PERUL PERCENT CD8 (test code = 44355) 58.0 % ABSOLUTE CD8 (test code = 42935) 1110 PERUL CD4/CD8 RATIO (test code = 27852) 0.27 CD4/CD8 LYMPHOCYTE [id number] 00:00:00 Test Item Value Reference Range Interpretation Comments ABSOLUTE LYMPHOCYTES (test code = 1915 PERUL 84228) PERCENT CD4 (test code = 08914) 15.6 % ABSOLUTE CD4 (test code = 15962) 298 PERUL PERCENT CD8 (test code = 26126) 58.0 % ABSOLUTE CD8 (test code = 40246) 1110 PERUL CD4/CD8 RATIO (test code = 01443) 0.27 HIV-1 QUANT, [id number] 00:00:00 Test Item Value Reference Range Interpretation Comments HIV-1 VIRAL COPY (test 186 COPIES/ML code = 4141) HIV-1 VIRAL LOG (test code 2.270 LOGCOPIES/ML = 57402) HIV-1 QUANT, [id number] 00:00:00 Test Item Value Reference Range Interpretation Comments HIV-1 VIRAL COPY (test 186 COPIES/ML code = 4141) HIV-1 VIRAL LOG (test code 2.270 LOGCOPIES/ML = 52956) CD4/CD8 LYMPHOCYTE [id number] 00:00:00 Test Item Value Reference Range Interpretation Comments ABSOLUTE LYMPHOCYTES (test code = 1915 PERUL 03351) PERCENT CD4 (test code = 00617) 15.6 % ABSOLUTE CD4 (test code = 32500) 298 PERUL PERCENT CD8 (test code = 07082) 58.0 % ABSOLUTE CD8 (test code = 75041) 1110 PERUL CD4/CD8 RATIO (test code = 89342) 0.27 CD4/CD8 LYMPHOCYTE [id number] 00:00:00 Test Item Value Reference Range Interpretation Comments ABSOLUTE LYMPHOCYTES (test code = 1915 PERUL 77594) PERCENT CD4 (test code = 94628) 15.6 % ABSOLUTE CD4 (test code = 10141) 298 PERUL PERCENT CD8 (test code = 53473) 58.0 % ABSOLUTE CD8 (test code = 99883) 1110 PERUL CD4/CD8 RATIO (test code = 48414) 0.27 HIV 1 RNA PCR [id number] 19:09:00 Test Item Value Reference Range Interpretation Comments HIV 1 RNA PCR (LOG 2.041 See_Comment INFCE Res ult Units: 10) (test code = [id number] LPerformed At: [id number]) [facility] [address] [id number] Gian Knapp MD Ph:[phone] [Automated mess age] The system which ge nerated this result transmit john reference range : (). The reference range was not used to interpr et this result as antwan l/abnormal. HIV-1 RNA BY PCR, 110 See_Comment INFCE Resu lt Units: QUANT (test code = copies/mL The reportable HIVRNAPCRT) range for this assay is 20 to 10,000,000co pies HIV-1 RNA/mL. [Automa john message] The system [employer] generated this result tra nsmitted reference range : (). The reference range was not used to interpr et this result as antwan l/abnormal. Patient HIV Status: PositiveCD4 HELPER T-CELL [id number] 16:11:00 Test Item Value Reference Range Interpretation Comments NEUTROPHIL % (test 0.0 % Not Estab. code = NT%) NEUTROPHIL # (test 0.0 x10E3/uL 0.0-0.1 Performed At: HD code = NT#) [facility] [address] [id number] Kyle L MD Ph:[phone] WBC (test code = 5.5 x10E3/uL 3.4-10.8 WBCLC) RBC (test code = 4.04 x10E6/uL 4.14-5.80 A RBCLC) HGB (test code = 12.7 g/dL 13.0-17.7 A HGBLC) HCT (test code = 38.2 % 37.5-51.0 HCTLC) MCV (test code = 95 fL 79-97 MCVLC) MCH (test code = 31.4 pg 26.6-33.0 MCHLC) MCHC (test code = 33.2 g/dL 31.5-35.7 MCHCLC) RDW (test code = 13.1 % 11.6-15.4 RDWLC) PLT (test code = 300 x10E3/uL 150-450 PLTLC) NEUT % (test code = 56 % Not Estab. NT%LC) LYMPH % (test code = 29 % Not Estab. LY%LC) MONO % (test code = 10 % Not Estab. MO%LC) EOS % (test code = 4 % Not Estab. EO%LC) BASO % (test code = 1 % Not Estab. BA%LC) NEUT # (test code = 3.1 x10E3/uL 1.4-7.0 NT#LC) LYMPH # (test code = 1.6 x10E3/uL 0.7-3.1 LY#LC) MONO # (test code = 0.6 x10E3/uL 0.1-0.9 MO#LC) EOS # (test code = 0.2 x10E3/uL 0.0-0.4 EO#LC) BASO # (test code = 0.0 x10E3/uL 0.0-0.2 BA#LC) PERCENT CD4 HELPER 18.0 % 30.8-58.5 A CELLS (test code = CD4P) ABSOLUTE CD4+ CELLS 288 /uL 359-1519 A (test code = CD4A) CBC W/AUTO [id number] 09:30:00 Test Item Value Reference Range Interpretation Comments WHITE BLOOD CELL (test code = 5.6 K/mm3 3.5-11.0 N WBC) RED BLOOD CELL (test code = 4.21 M/mm3 4.70-6.10 L RBC) HEMOGLOBIN (test code = HGB) 13.5 G/DL 12.3-15.9 N HEMATOCRIT (test code = HCT) 39.8 % 35.8-46.7 N MEAN CELL VOLUME (test code = 94.5 Fl 86.3-98.9 N MCV) MEAN CELL HGB (test code = MCH) 32.1 pg 28.9-34.4 N MEAN CELL HGB CONCETRATION 33.9 G/DL 32.1-34.5 N (test code = MCHC) RED CELL DISTRIBUTION WIDTH 13.7 SD 11.5-14.5 N (test code = RDW) PLATELET COUNT (test code = 297 K/mm3 150-450 N PLT) MEAN PLATELET VOLUME (test code 10.00 fL 7.0-9.6 H = MPV) NEUTROPHIL % (test code = NT%) 59.1 % 40-76 IMMATURE GRANULOCYTE % (test 0.5 % 0.0-5.0 N code = IG%) LYMPHOCYTE % (test code = LY%) 26.4 % 20.5-51.1 N MONOCYTE % (test code = MO%) 6.7 % 1.7-9.3 N EOSINOPHIL % (test code = EO%) 6.4 % 0.0-6.0 H BASOPHIL % (test code = BA%) 0.9 % 0.0-2.0 N NUCLEATED RBC % (test code = 0.0 /100WBC% 0.0-1.0 N NRBC%) NEUTROPHIL # (test code = NT#) 3.3 K/mm3 1.8-7.6 N IMMATURE GRANULOCYTE # (test 0.03 x10 3/uL 0.00-0.03 N code = IG#) LYMPHOCYTE # (test code = LY#) 1.5 K/mm3 0.6-3.0 N MONOCYTE # (test code = MO#) 0.4 K/mm3 0.2-1.5 N EOSINOPHIL # (test code = EO#) 0.4 K/mm3 0.0-0.4 N BASOPHIL # (test code = BA#) 0.1 K/mm3 0.0-0.2 N NUCLEATED RBC # (test code = 0.0 K/mm3 0.00-0.01 N NRBC#) MANUAL DIFF REQUIRED (test code NO DIFF/SCN CRITERIA = MDIFF) TROP-I HIGH [id number] 06:11:00 Test Item Value Reference Range Interpretation Comments TROP-I HIGH 3.6 ng/L 0-54 N CAUTION: Units of the SENSITIVITY (test current te st methodology code = TROPIHS) (ng/L) diffe rfrom the prior test meth odology (ng/mL) by a fa ctor of 1000. 99t h Percentile Uppe r Reference Limit (URL):Fem ales: 34 ng/LMales: 54 n g/L In order to distin [facility] acute elevations of h igh sensitivitytrop onin from other clinical conditions, the FourthUnive rsal Definition of M yocardial Infarction stressesclinica l assessment and the demonstration o f a rise and/orfall in s erial troponin result s above the URL. Results fr om different metho dologies should not be c omparedto one another as quantitative re sults and URLs may varyby method. Completed by Nursing: [id number] 06:10:00 Test Item Value Reference Range Interpretation Comments VANCOMYCIN (test code = VANCO) 15.4 mcG/ML 5-40 N TROP-I HIGH [id number] 14:17:00 Test Item Value Reference Range Interpretation Comments TROP-I HIGH 3.1 ng/L 0-54 N CAUTION: Units of the SENSITIVITY (test current te st methodology code = TROPIHS) (ng/L) diffe rfrom the prior test meth odology (ng/mL) by a fa ctor of 1000. 99t h Percentile Uppe r Reference Limit (URL):Fem ales: 34 ng/LMales: 54 n g/L In order to distin [facility] acute elevations of h igh sensitivitytrop onin from other clinical conditions, the FourthUnive rsal Definition of M yocardial Infarction stressesclinica l assessment and the demonstration o f a rise and/orfall in s erial troponin result s above the URL. Results fr om different metho dologies should not be c omparedto one another as quantitative re sults and URLs may varyby method. Completed by Nursing: NODRUGS OF ABUSE SCREEN [id number] 14:17:00 Test Item Value Reference Range Interpretation Comments URN COCAINE (test NEGATIVE See_Comment [Automate d code = COCAURN) SCcutoff message] The system which generated this result transmit john reference range : <300 NG/ML. The reference range was not used to interpret this result as normal/abnormal . URN CANNABINOIDS NEGATIVE See_Comment [Automated (test code = SCcutoff message] The CANNABURN) system which generated this result transmit john reference range : <50 NG/ML. The reference range was not used to interpret this result as normal/abnormal . URN AMPHETAMINE (test NEGATIVE See_Comment [Auto mated code = AMPHETURN) SCcutoff message] T he system which generated this result transmit john reference range : <1000 NG/ML. Th e reference range was not used to interpret this result as normal/abnormal . URN BARBITURATE (test NEGATIVE See_Comment [Auto mated code = BARBITURN) SCcutoff message] T he system which generated this result transmit john reference range : <200 NG/ML. The reference range was not used to interpret this result as normal/abnormal . URN BENZODIAZEPINE NEGATIVE See_Comment [Automat ed (test code = SCcutoff message] The BENZOURN) system which generated this result transmit john reference range : <200 NG/ML. The reference range was not used to interpret this result as normal/abnormal . URN OPIATES (test NEGATIVE See_Comment [Automate d code = OPIATURN) SCcutoff message] Th e system which generated this result transmit john reference range : <300 NG/ML. The reference range was not used to interpret this result as normal/abnormal . URN PHENCYCLIDINE NEGATIVE See_Comment [Automate d (PCP) (test code = SCcutoff message] The PHENCURN) system which generated this result transmit john reference range : <25 NG/ML. The reference range was not used to interpret this result as normal/abnormal . URN METHADONE (test NEGATIVE See_Comment UNCONFIR MED code = METHAURN) SCcutoff SCREENING R ESULTS SHOULD NOT BE U SED FORNON-MEDICAL PURPOSES. [Automated message] The system which generated this result transmit john reference range : <300 NG/ML. The reference range was not used to interpret this result as normal/abnormal . - US EXTREM NON VASC [id number] 12:26:00 [facility] 1985 Sex: M Name: MIHIR WASHINGTON [facility] : 1985 Age/S: 36 / M [address] Unit #: [id number] Loc: [place] [address] Phys: Georges Gorman DO Acct: [id number] Dis Date: Status: ADM IN PHONE #: [phone] Exam Date: 11/24/2021 1124 FAX #: Reason: r/o abscess EXAMS: CPT: [id number] US EXTREM NON VASC COMP [id number] EXAM: - US EXTREM NON VASC COMP. LOCATION: S17. HISTORY: Right upper thigh infection, clinical concern for abscess. COMPARISON: None FINDINGS/ IMPRESSION: Targeted high resolution real-time ultrasonographic evaluation of right upper medial thigh was performed for clinical indication of abscess/infection. No sonographically evident focal drainable collection appreciated in the region. Focalskin defect is appreciated in the region with echogenic foci/air. at 1226 Reported and signed by: Katrin Allen M.D. CC: Sushma RICHARDSON; Georges Gorman DO Technologist: Alexandra Mckeon RDMS Trnscb Date/Time: 11/24/2021 (1226) ApANS4 PAGE 1 Signed Report Name: MIHIR HURD [facility] : 1985 Age/S: 36/ M [address] Unit #: [id number] Loc: [place] [address] Phys: Georges Gorman DO Acct: [id number] Dis Date: Status: ADM IN PHONE #: [phone] Exam Date: 11/24/2021 1122 FAX #: Reason: r/o abscess EXAMS: CPT: [id number] US EXTREM NON VASC COMP [id number] (Continued) Orig Print D/T: S: 11/24/2021 (1231) Probe: PAGE 2 Signed ReportCBC W/AUTO [id number] 11:21:00 Test Item Value Reference Range Interpretation Comments WHITE BLOOD CELL (test code = 10.7 K/mm3 3.5-11.0 N WBC) RED BLOOD CELL (test code = 4.61 M/mm3 4.70-6.10 L RBC) HEMOGLOBIN (test code = HGB) 14.9 G/DL 12.3-15.9 N HEMATOCRIT (test code = HCT) 43.5 % 35.8-46.7 N MEAN CELL VOLUME (test code = 94.4 Fl 86.3-98.9 N MCV) MEAN CELL HGB (test code = MCH) 32.3 pg 28.9-34.4 N MEAN CELL HGB CONCETRATION 34.3 G/DL 32.1-34.5 N (test code = MCHC) RED CELL DISTRIBUTION WIDTH 13.6 SD 11.5-14.5 N (test code = RDW) PLATELET COUNT (test code = 352 K/mm3 150-450 N PLT) MEAN PLATELET VOLUME (test code 9.90 fL 7.0-9.6 H = MPV) NEUTROPHIL % (test code = NT%) 67.6 % 40-76 N IMMATURE GRANULOCYTE % (test 0.5 % 0.0-5.0 N code = IG%) LYMPHOCYTE % (test code = LY%) 20.9 % 20.5-51.1 N MONOCYTE % (test code = MO%) 8.3 % 1.7-9.3 N EOSINOPHIL % (test code = EO%) 2.2 % 0.0-6.0 N BASOPHIL % (test code = BA%) 0.5 % 0.0-2.0 N NUCLEATED RBC % (test code = 0.0 /100WBC% 0.0-1.0 N NRBC%) NEUTROPHIL # (test code = NT#) 7.2 K/mm3 1.8-7.6 N IMMATURE GRANULOCYTE # (test 0.05 x10 3/uL 0.00-0.03 H code = IG#) LYMPHOCYTE # (test code = LY#) 2.2 K/mm3 0.6-3.0 N MONOCYTE # (test code = MO#) 0.9 K/mm3 0.2-1.5 N EOSINOPHIL # (test code = EO#) 0.2 K/mm3 0.0-0.4 N BASOPHIL # (test code = BA#) 0.1 K/mm3 0.0-0.2 N NUCLEATED RBC # (test code = 0.0 K/mm3 0.00-0.01 N NRBC#) MANUAL DIFF REQUIRED (test code NO DIFF/SCN CRITERIA = MDIFF) HEPATIC FUNCTION [id number] 11:20:00 Test Item Value Reference Range Interpretation Comments TOTAL PROTEIN (test code = PROT) 7.8 G/DL 6.4-8.2 N ALBUMIN (test code = ALB) 3.8 G/DL 3.4-5.0 N BILIRUBIN TOTAL (test code = 0.40 MG/DL 0.2-1.2 N BILT) BILIRUBIN DIRECT (test code = < 0.10 MG/DL 0.00-0.30 N BILD) BILIRUBIN INDIRECT (test code = 0.30 MG/DL 0.2-1.2 N BILIND) SGOT/AST (test code = AST) 13 Unit/L 15-37 L SGPT/ALT (test code = ALT) 22 Unit/L 12-78 N ALKALINE PHOSPHATASE TOTAL (test 106 Unit/L 50-136 N code = ALKP) Completed by Nursing: NOTROP-I HIGH [id number] 11:20:00 Test Item Value Reference Range Interpretation Comments TROP-I HIGH < 3.0 ng/L 0-54 N CAUTION: Units of the SENSITIVITY (test current te st methodology code = TROPIHS) (ng/L) diffe rfrom the prior test meth odology (ng/mL) by a fa ctor of 1000. 9 9th Percentile Uppe r Reference Limit (URL):Females: 34 ng/LMales: 54 n g/L In order to distin guish acute elevation s of high sensitivitytrop onin from other clinical conditions, the FourthUniversal Definition of M yocardial Infarction stressesclinica l assessment and the demonstration o f a rise and/orfall in s erial troponin result s above the URL. Result s from different metho dologies should not be c omparedto one another as quantitative re sults and URLs may varyby method. Completed by Nursing: NOBASIC METABOLIC [id number] 11:20:00 Test Item Value Reference Range Interpretation Comments SODIUM (test code = NA) 138 mmol/L 134-147 N POTASSIUM (test code = 3.9 mmol/L 3.4-5.0 N K) CHLORIDE (test code = 108 mmol/L 100-108 N CL) CARBON DIOXIDE (test 25 mmol/L 21-32 N code = CO2) ANION GAP (test code = 5.0 GAP calc 4.0-15.0 N GAP) GLUCOSE (test code = 105 MG/DL 70-110 N GLU) BLOOD UREA NITROGEN 16 MG/DL 7-18 N (test code = BUN) GLOMERULAR FILTRATION >=60 max estimate >60 RATE (test code = GFR) estGFR CREATININE (test code = 0.9 MG/DL 0.8-1.3 N CREAT) CALCIUM (test code = CA) 9.4 MG/DL 8.5-10.1 N Completed by Nursing: MATTIE RFLX MICR CULT IF [id number] 11:13:00 Test Item Value Reference Range Interpretation Comments UA COLOR (test code = COLU) YELLOW discript YEL/STRAW UA APPEARANCE (test code = CLEAR discript CLEAR APPU) UA GLUCOSE DIPSTICK (test NEGATIVE mg/dL NEG code = DGLUU) UA BILIRUBIN DIPSTICK (test NEGATIVE mg/dL NEG code = BILU) UA KETONE DIPSTICK (test NEGATIVE mg/dL NEG code = KETU) UA SPECIFIC GRAVITY (test >=1.030 SG 1.005-1.030 A code = SGU) UA BLOOD DIPSTICK (test TRACE mg/DL NEG code = ROBYN) UA PH DIPSTICK (test code = 6.0 pH UNITS 5.0-7.0 JUAN DAVID) UA PROTEIN DIPSTICK (test NEGATIVE mg/dL NEG code = PROU) UA UROBILINIOGEN DIPSTICK 0.2 mg/dL <2.0 (test code = URO) UA NITRITE DIPSTICK (test NEGATIVE SCREEN NEG code = ELIOT) UA LEUKOCYTE ESTERASE NEGATIVE Leuk/mcL NEGATIVE DIPSTICK (test code = LEUU) UA CULTURE NEEDED? (test Criteria Culture CHK code = UACULT) Indication for culture: Dysuria/FrequencyCOVID 19 INHOUSE [id number] 11:00:00 Test Item Value Reference Range Interpretation Comments COVID 19 INHOUSE AG NEGATIVE Negative Per manu facturer, (test code = negative result s should [id number]) be treated aspr esumptive and, if inconsi stent with clinical signs andsymptoms or necessary for patient man agement, should betested with an alternative mol ecular assay. Negative resultsdo not preclude SA RS-CoV-2 infection and s hould not be usedas the s ole basis for patient man agement decisions. Nega tive results should be considered in t he context of apatient's r ecent exposures, hist ory, presence of cli nicalsigns and symptoms co nsistent with COVID-19. LACTIC [id number] 11:00:00 Test Item Value Reference Range Interpretation Comments LACTIC ACID (test code = LACT) 0.7 mmol/L 0.4-2.0 N - XR CHEST 1 [id number] 10:33:00 [facility] 1985 Sex: M Name: MIHIR WASHINGTON [facility] : 1985 Age/S: 36 / M [address] Unit #: [id number] Loc:[place] [address] Phys: Georges Gorman DO Acct: [id number] Dis Date: Status: PRE ER PHONE #: [phone] Exam Date: 11/24/2021 1024 FAX #: Reason: Code Sepsis EXAMS: CPT: [id number] XR CHEST 1 V 63043 Fluoro Time: DAP (Gy m2): Air Kerma (mGy): Site ID: [id number] HISTORY: Code sepsis FINDINGS: The lungs are clear and normally expanded. The heart and pulmonary vasculature is normal. Osseous structures areunremarkable. IMPRESSION: Negative chest x-ray at 1033 Reported and signed by: Collin Canada M.D. CC: Sushma RICHARDSON; Georges Gorman DO PAGE 1 Signed Report Name: MIHIR HURD [facility] : 1985 Age/S: 36 / M [address] [facility] Unit #: [id number] Loc: [place] [address] Phys: Georges Gorman DO Acct: [id number] Dis Date: Status: PRE ER PHONE #: [phone] Exam Date: 11/24/2021 1024 FAX #: Reason: Code Sepsis EXAMS: CPT: [id number] XR CHEST 1 V 02674 Fluoro Time: DAP (Gy m2): Air Kerma (mGy): (Continued) Technologist: Xi Miller RT (R)(CT) Trnscb Date/Time: 11/24/2021 (1033) [id number] Orig Print D/T: S: 11/24/2021 (1037) PAGE 2 Signed Report CD4/CD8 LYMPHOCYTE [id number] 18:28:46 Test Item Value Reference Range Interpretation Comments ABSOLUTE LYMPHOCYTES 1853 PER UL 4977-0097 (test code = 28381) PERCENT CD4 (test 15.0 % 34.0-65.0 L code = 16531) ABSOLUTE CD4 (test 277 PER UL 520-1470 L code = 60129) PERCENT CD8 (test 57.9 % 13.0-38.0 H code = 58660) ABSOLUTE CD8 (test 1073 PER UL 205-920 H code = 84244) CD4/CD8 RATIO (test 0.26 0.92-3.41 L UNLESS OTHERWISE code = 62965) INDICATED, ALL TESTING PERFORMED [facility], [place]. [address] [place] [address] [facility] DIRECTOR: JASPREET WHALEN M.D. IA NUMBER [id number] CAP ACCREDITATION N O. [id number] HIV-1 QUANT, [id number] 15:08:38 Test Item Value Reference Range Interpretation Comments HIV-1 VIRAL 85558 COPIES/ML H COPY (test code = 4141) HIV-1 VIRAL LOG 4.158 LOG H Range of qu antitation (test code = COPIES/ML is 20-10,000,00 0 24188) Copies/mL, (1.301-7.000log Copies/mL). Hakan ples with HIV RNA detecte d below the limit ofqua ntitation are reported as <20 Copies/mL. Assa y methodology isp olymerase chain reaction (PCR) using the Franki Shivani 6800/8800system . The expected result is NOT DETECTED. For d iagnostic use,please refe r to laboratory test compendium. CD4/CD8 LYMPHOCYTE [id number] 00:00:00 Test Item Value Reference Range Interpretation Comments ABSOLUTE LYMPHOCYTES (test code = 1853 PERUL 17202) PERCENT CD4 (test code = 47817) 15.0 % ABSOLUTE CD4 (test code = 06945) 277 PERUL PERCENT CD8 (test code = 67566) 57.9 % ABSOLUTE CD8 (test code = 76193) 1073 PERUL CD4/CD8 RATIO (test code = 49385) 0.26 HIV-1 QUANT, [id number] 00:00:00 Test Item Value Reference Range Interpretation Comments HIV-1 VIRAL COPY (test 99509 COPIES/ML code = 4141) HIV-1 VIRAL LOG (test code 4.158 LOGCOPIES/ML = 75692) CD4/CD8 LYMPHOCYTE [id number] 00:00:00 Test Item Value Reference Range Interpretation Comments ABSOLUTE LYMPHOCYTES (test code = 1853 PERUL 77161) PERCENT CD4 (test code = 54893) 15.0 % ABSOLUTE CD4 (test code = 92748) 277 PERUL PERCENT CD8 (test code = 51034) 57.9 % ABSOLUTE CD8 (test code = 23059) 1073 PERUL CD4/CD8 RATIO (test code = 81707) 0.26 HIV-1 QUANT, [id number] 00:00:00 Test Item Value Reference Range Interpretation Comments HIV-1 VIRAL COPY (test 70771 COPIES/ML code = 4141) HIV-1 VIRAL LOG (test code 4.158 LOGCOPIES/ML = 79313) CD4/CD8 LYMPHOCYTE [id number] 00:00:00 Test Item Value Reference Range Interpretation Comments ABSOLUTE LYMPHOCYTES (test code = 1853 PERUL 52130) PERCENT CD4 (test code = 22926) 15.0 % ABSOLUTE CD4 (test code = 83108) 277 PERUL PERCENT CD8 (test code = 24995) 57.9 % ABSOLUTE CD8 (test code = 53825) 1073 PERUL CD4/CD8 RATIO (test code = 99670) 0.26 HIV-1 QUANT, [id number] 00:00:00 Test Item Value Reference Range Interpretation Comments HIV-1 VIRAL COPY (test 96822 COPIES/ML code = 4141) HIV-1 VIRAL LOG (test code 4.158 LOGCOPIES/ML = 79284) HIV-1 QUANT, [id number] 00:00:00 Test Item Value Reference Range Interpretation Comments HIV-1 VIRAL COPY (test 41662 COPIES/ML code = 4141) HIV-1 VIRAL LOG (test code 4.158 LOGCOPIES/ML = 33448) CD4/CD8 LYMPHOCYTE [id number] 00:00:00 Test Item Value Reference Range Interpretation Comments ABSOLUTE LYMPHOCYTES (test code = 1853 PERUL 59176) PERCENT CD4 (test code = 04116) 15.0 % ABSOLUTE CD4 (test code = 23023) 277 PERUL PERCENT CD8 (test code = 38489) 57.9 % ABSOLUTE CD8 (test code = 19143) 1073 PERUL CD4/CD8 RATIO (test code = 89303) 0.26 CD4/CD8 LYMPHOCYTE [id number] 00:00:00 Test Item Value Reference Range Interpretation Comments ABSOLUTE LYMPHOCYTES (test code = 1853 PERUL 27012) PERCENT CD4 (test code = 00680) 15.0 % ABSOLUTE CD4 (test code = 15174) 277 PERUL PERCENT CD8 (test code = 99661) 57.9 % ABSOLUTE CD8 (test code = 83879) 1073 PERUL CD4/CD8 RATIO (test code = 24251) 0.26 HIV-1 QUANT, [id number] 00:00:00 Test Item Value Reference Range Interpretation Comments HIV-1 VIRAL COPY (test 08020 COPIES/ML code = 4141) HIV-1 VIRAL LOG (test code 4.158 LOGCOPIES/ML = 10464) HIV-1 QUANT, [id number] 00:00:00 Test Item Value Reference Range Interpretation Comments HIV-1 VIRAL COPY (test 38920 COPIES/ML code = 4141) HIV-1 VIRAL LOG (test code 4.158 LOGCOPIES/ML = 20315) HIV-1 QUANT, [id number] 00:00:00 Test Item Value Reference Range Interpretation Comments HIV-1 VIRAL COPY (test 67651 COPIES/ML code = 4141) HIV-1 VIRAL LOG (test code 4.158 LOGCOPIES/ML = 14947) CD4/CD8 LYMPHOCYTE [id number] 00:00:00 Test Item Value Reference Range Interpretation Comments ABSOLUTE LYMPHOCYTES (test code = 1853 [facility] 62641) PERCENT CD4 (test code = 63431) 15.0 % ABSOLUTE CD4 (test code = 95044) 277 PERUL PERCENT CD8 (test code = 55456) 57.9 % ABSOLUTE CD8 (test code = 12095) 1073 [facility] CD4/CD8 RATIO (test code = 70892) 0.26 CD4/CD8 LYMPHOCYTE [id number] 00:00:00 Test Item Value Reference Range Interpretation Comments ABSOLUTE LYMPHOCYTES (test code = 1853 [facility] 27216) PERCENT CD4 (test code = 43404) 15.0 % ABSOLUTE CD4 (test code = 42312) 277 [facility] PERCENT CD8 (test code = 96842) 57.9 % ABSOLUTE CD8 (test code = 43731) 1073 [facility] CD4/CD8 RATIO (test code = 61918) 0.26 CD4/CD8 LYMPHOCYTE [id number] 00:00:00 Test Item Value Reference Range Interpretation Comments ABSOLUTE LYMPHOCYTES (test code = 1853 [facility] 41786) PERCENT CD4 (test code = 58760) 15.0 % ABSOLUTE CD4 (test code = 03513) 277 [facility] PERCENT CD8 (test code = 97725) 57.9 % ABSOLUTE CD8 (test code = 80208) 1073 [facility] CD4/CD8 RATIO (test code = 97074) 0.26 HIV-1 QUANT, [id number] 00:00:00 Test Item Value Reference Range Interpretation Comments HIV-1 VIRAL COPY (test 41673 COPIES/ML code = 4141) HIV-1 VIRAL LOG (test code 4.158 LOGCOPIES/ML = 69422) HIV-1 QUANT, [id number] 00:00:00 Test Item Value Reference Range Interpretation Comments HIV-1 VIRAL COPY (test 04960 COPIES/ML code = 4141) HIV-1 VIRAL LOG (test code 4.158 LOGCOPIES/ML = 12704) CD4/CD8 LYMPHOCYTE [id number] 00:00:00 Test Item Value Reference Range Interpretation Comments ABSOLUTE LYMPHOCYTES (test code = 1853 [facility] 70425) PERCENT CD4 (test code = 69811) 15.0 % ABSOLUTE CD4 (test code = 02531) 277 [facility] PERCENT CD8 (test code = 96658) 57.9 % ABSOLUTE CD8 (test code = 03162) 1073 [facility] CD4/CD8 RATIO (test code = 22760) 0.26 CD4/CD8 LYMPHOCYTE [id number] 00:00:00 Test Item Value Reference Range Interpretation Comments ABSOLUTE LYMPHOCYTES (test code = 1853 [facility] 77537) PERCENT CD4 (test code = 65407) 15.0 % ABSOLUTE CD4 (test code = 04136) 277 PERUL PERCENT CD8 (test code = 09535) 57.9 % ABSOLUTE CD8 (test code = 73583) 1073 [facility] CD4/CD8 RATIO (test code = 29547) 0.26 HIV-1 QUANT, [id number] 00:00:00 Test Item Value Reference Range Interpretation Comments HIV-1 VIRAL COPY (test 02630 COPIES/ML code = 4141) HIV-1 VIRAL LOG (test code 4.158 LOGCOPIES/ML = 41052) HIV-1 QUANT, [id number] 00:00:00 Test Item Value Reference Range Interpretation Comments HIV-1 VIRAL COPY (test 41596 COPIES/ML code = 4141) HIV-1 VIRAL LOG (test code 4.158 LOGCOPIES/ML = 79275) CD4/CD8 LYMPHOCYTE [id number] 00:00:00 Test Item Value Reference Range Interpretation Comments ABSOLUTE LYMPHOCYTES (test code = 1853 PERUL 21327) PERCENT CD4 (test code = 21054) 15.0 % ABSOLUTE CD4 (test code = 41064) 277 PERUL PERCENT CD8 (test code = 67591) 57.9 % ABSOLUTE CD8 (test code = 41831) 1073 PERUL CD4/CD8 RATIO (test code = 16523) 0.26 CD4/CD8 LYMPHOCYTE [id number] 00:00:00 Test Item Value Reference Range Interpretation Comments ABSOLUTE LYMPHOCYTES (test code = 1853 [facility] 97643) PERCENT CD4 (test code = 34486) 15.0 % ABSOLUTE CD4 (test code = 33259) 277 PERUL PERCENT CD8 (test code = 79071) 57.9 % ABSOLUTE CD8 (test code = 48256) 1073 PERUL CD4/CD8 RATIO (test code = 05286) 0.26 HIV-1 QUANT, [id number] 00:00:00 Test Item Value Reference Range Interpretation Comments HIV-1 VIRAL COPY (test 89381 COPIES/ML code = 4141) HIV-1 VIRAL LOG (test code 4.158 LOGCOPIES/ML = 45285) HIV-1 QUANT, [id number] 00:00:00 Test Item Value Reference Range Interpretation Comments HIV-1 VIRAL COPY (test 13629 COPIES/ML code = 4141) HIV-1 VIRAL LOG (test code 4.158 LOGCOPIES/ML = 83636) CD4/CD8 LYMPHOCYTE [id number] 00:00:00 Test Item Value Reference Range Interpretation Comments ABSOLUTE LYMPHOCYTES (test code = 1853 PERUL 79772) PERCENT CD4 (test code = 65595) 15.0 % ABSOLUTE CD4 (test code = 66547) 277 PERUL PERCENT CD8 (test code = 78784) 57.9 % ABSOLUTE CD8 (test code = 87246) 1073 PERUL CD4/CD8 RATIO (test code = 81449) 0.26 CD4/CD8 LYMPHOCYTE [id number] 00:00:00 Test Item Value Reference Range Interpretation Comments ABSOLUTE LYMPHOCYTES (test code = 1853 [facility] 43993) PERCENT CD4 (test code = 76692) 15.0 % ABSOLUTE CD4 (test code = 25132) 277 PERUL PERCENT CD8 (test code = 06924) 57.9 % ABSOLUTE CD8 (test code = 64067) 1073 PERUL CD4/CD8 RATIO (test code = 83345) 0.26 HIV-1 QUANT, [id number] 00:00:00 Test Item Value Reference Range Interpretation Comments HIV-1 VIRAL COPY (test 23751 COPIES/ML code = 4141) HIV-1 VIRAL LOG (test code 4.158 LOGCOPIES/ML = 70422) HIV-1 QUANT, [id number] 00:00:00 Test Item Value Reference Range Interpretation Comments HIV-1 VIRAL COPY (test 36186 COPIES/ML code = 4141) HIV-1 VIRAL LOG (test code 4.158 LOGCOPIES/ML = 96633) CD4/CD8 LYMPHOCYTE [id number] 00:00:00 Test Item Value Reference Range Interpretation Comments ABSOLUTE LYMPHOCYTES (test code = 1853 [facility] 33327) PERCENT CD4 (test code = 63437) 15.0 % ABSOLUTE CD4 (test code = 67294) 277 PERUL PERCENT CD8 (test code = 47643) 57.9 % ABSOLUTE CD8 (test code = 15165) 1073 [facility] CD4/CD8 RATIO (test code = 59452) 0.26 CD4/CD8 LYMPHOCYTE [id number] 00:00:00 Test Item Value Reference Range Interpretation Comments ABSOLUTE LYMPHOCYTES (test code = 1853 [facility] 76412) PERCENT CD4 (test code = 03697) 15.0 % ABSOLUTE CD4 (test code = 85727) 277 PERUL PERCENT CD8 (test code = 29286) 57.9 % ABSOLUTE CD8 (test code = 85892) 1073 [facility] CD4/CD8 RATIO (test code = 67249) 0.26 HIV-1 QUANT, [id number] 00:00:00 Test Item Value Reference Range Interpretation Comments HIV-1 VIRAL COPY (test 07364 COPIES/ML code = 4141) HIV-1 VIRAL LOG (test code 4.158 LOGCOPIES/ML = 60872) HIV-1 QUANT, [id number] 00:00:00 Test Item Value Reference Range Interpretation Comments HIV-1 VIRAL COPY (test 46826 COPIES/ML code = 4141) HIV-1 VIRAL LOG (test code 4.158 LOGCOPIES/ML = 93041) CD4/CD8 LYMPHOCYTE [id number] 00:00:00 Test Item Value Reference Range Interpretation Comments ABSOLUTE LYMPHOCYTES (test code = 1853 [facility] 91030) PERCENT CD4 (test code = 59222) 15.0 % ABSOLUTE CD4 (test code = 03871) 277 PERUL PERCENT CD8 (test code = 62931) 57.9 % ABSOLUTE CD8 (test code = 04435) 1073 [facility] CD4/CD8 RATIO (test code = 17704) 0.26 CD4/CD8 LYMPHOCYTE [id number] 00:00:00 Test Item Value Reference Range Interpretation Comments ABSOLUTE LYMPHOCYTES (test code = 1853 [facility] 77073) PERCENT CD4 (test code = 15088) 15.0 % ABSOLUTE CD4 (test code = 16848) 277 PERUL PERCENT CD8 (test code = 13793) 57.9 % ABSOLUTE CD8 (test code = 19419) 1073 [facility] CD4/CD8 RATIO (test code = 04553) 0.26 HIV-1 QUANT, [id number] 00:00:00 Test Item Value Reference Range Interpretation Comments HIV-1 VIRAL COPY (test 93324 COPIES/ML code = 4141) HIV-1 VIRAL LOG (test code 4.158 LOGCOPIES/ML = 43376) HIV-1 QUANT, [id number] 00:00:00 Test Item Value Reference Range Interpretation Comments HIV-1 VIRAL COPY (test 28553 COPIES/ML code = 4141) HIV-1 VIRAL LOG (test code 4.158 LOGCOPIES/ML = 75168) CD4/CD8 LYMPHOCYTE [id number] 00:00:00 Test Item Value Reference Range Interpretation Comments ABSOLUTE LYMPHOCYTES (test code = 1853 [facility] 58633) PERCENT CD4 (test code = 14869) 15.0 % ABSOLUTE CD4 (test code = 05521) 277 PERUL PERCENT CD8 (test code = 39807) 57.9 % ABSOLUTE CD8 (test code = 88574) 1073 [facility] CD4/CD8 RATIO (test code = 02632) 0.26 HIV-1 QUANT, [id number] 08:15:59 Test Item Value Reference Range Interpretation Comments HIV-1 VIRAL TEST NOT Unable to perfo rm COPY (test PERFORMED testing, quanti ty of code = 4141) COPIES/ML specimen is insufficientfor testing. Charge s adjusted as cintia licable. HIV-1 VIRAL TEST NOT Range of quant itation LOG (test code PERFORMED LOG is 20-10,000 ,000 = 83699) COPIES/ML Copies/mL, (1.301-7.000log Copies/mL). Hakan ples with HIV RNA de tected below the limit ofquantitation are reported as <20 Copies/mL. Assa y methodology ispolymerase ch ain reaction (PCR) using the Franki Shivani 6800/8800system . The expected result is NOT DETECTED. For diagnostic use, please refer to [facility] test compendium . UNLESS OTHERWISE INDIC ATED, ALL TESTING PER FORMED ATCLINICAL PATH [facility], [facility]. [address] [place] [id number] LABORATOR Y DIRECTOR: JASPREET WHALEN M.D. IA NUMBER [id number] CAP ACCREDITATION N O. [id number] HIV-1 QUANT, [id number] 00:00:00 Test Item Value Reference Range Interpretation Comments HIV-1 VIRAL COPY TEST NOT PERFORMED (test code = 4141) COPIES/ML HIV-1 VIRAL LOG (test TEST NOT PERFORMED code = 22500) LOGCOPIES/ML HIV-1 QUANT, [id number] 00:00:00 Test Item Value Reference Range Interpretation Comments HIV-1 VIRAL COPY TEST NOT PERFORMED (test code = 4141) COPIES/ML HIV-1 VIRAL LOG (test TEST NOT PERFORMED code = 84624) LOGCOPIES/ML HIV-1 QUANT, [id number] 00:00:00 Test Item Value Reference Range Interpretation Comments HIV-1 VIRAL COPY TEST NOT PERFORMED (test code = 4141) COPIES/ML HIV-1 VIRAL LOG (test TEST NOT PERFORMED code = 65830) LOGCOPIES/ML HIV-1 QUANT, [id number] 00:00:00 Test Item Value Reference Range Interpretation Comments HIV-1 VIRAL COPY TEST NOT PERFORMED (test code = 4141) COPIES/ML HIV-1 VIRAL LOG (test TEST NOT PERFORMED code = 86594) LOGCOPIES/ML HIV-1 QUANT, [id number] 00:00:00 Test Item Value Reference Range Interpretation Comments HIV-1 VIRAL COPY TEST NOT PERFORMED (test code = 4141) COPIES/ML HIV-1 VIRAL LOG (test TEST NOT PERFORMED code = 69952) LOGCOPIES/ML HIV-1 QUANT, [id number] 00:00:00 Test Item Value Reference Range Interpretation Comments HIV-1 VIRAL COPY TEST NOT PERFORMED (test code = 4141) COPIES/ML HIV-1 VIRAL LOG (test TEST NOT PERFORMED code = 64896) LOGCOPIES/ML HIV-1 QUANT, [id number] 00:00:00 Test Item Value Reference Range Interpretation Comments HIV-1 VIRAL COPY TEST NOT PERFORMED (test code = 4141) COPIES/ML HIV-1 VIRAL LOG (test TEST NOT PERFORMED code = 46172) LOGCOPIES/ML HIV-1 QUANT, [id number] 00:00:00 Test Item Value Reference Range Interpretation Comments HIV-1 VIRAL COPY TEST NOT PERFORMED (test code = 4141) COPIES/ML HIV-1 VIRAL LOG (test TEST NOT PERFORMED code = 71509) LOGCOPIES/ML HIV-1 QUANT, [id number] 00:00:00 Test Item Value Reference Range Interpretation Comments HIV-1 VIRAL COPY TEST NOT PERFORMED (test code = 4141) COPIES/ML HIV-1 VIRAL LOG (test TEST NOT PERFORMED code = 49236) LOGCOPIES/ML HIV-1 QUANT, [id number] 00:00:00 Test Item Value Reference Range Interpretation Comments HIV-1 VIRAL COPY TEST NOT PERFORMED (test code = 4141) COPIES/ML HIV-1 VIRAL LOG (test TEST NOT PERFORMED code = 59872) LOGCOPIES/ML HIV-1 QUANT, [id number] 00:00:00 Test Item Value Reference Range Interpretation Comments HIV-1 VIRAL COPY TEST NOT PERFORMED (test code = 4141) COPIES/ML HIV-1 VIRAL LOG (test TEST NOT PERFORMED code = 44641) LOGCOPIES/ML HIV-1 QUANT, [id number] 00:00:00 Test Item Value Reference Range Interpretation Comments HIV-1 VIRAL COPY TEST NOT PERFORMED (test code = 4141) COPIES/ML HIV-1 VIRAL LOG (test TEST NOT PERFORMED code = 93506) LOGCOPIES/ML HIV-1 QUANT, [id number] 00:00:00 Test Item Value Reference Range Interpretation Comments HIV-1 VIRAL COPY TEST NOT PERFORMED (test code = 4141) COPIES/ML HIV-1 VIRAL LOG (test TEST NOT PERFORMED code = 80624) LOGCOPIES/ML HIV-1 QUANT, [id number] 00:00:00 Test Item Value Reference Range Interpretation Comments HIV-1 VIRAL COPY TEST NOT PERFORMED (test code = 4141) COPIES/ML HIV-1 VIRAL LOG (test TEST NOT PERFORMED code = 82537) LOGCOPIES/ML HIV-1 QUANT, [id number] 00:00:00 Test Item Value Reference Range Interpretation Comments HIV-1 VIRAL COPY TEST NOT PERFORMED (test code = 4141) COPIES/ML HIV-1 VIRAL LOG (test TEST NOT PERFORMED code = 61188) LOGCOPIES/ML HIV-1 QUANT, [id number] 00:00:00 Test Item Value Reference Range Interpretation Comments HIV-1 VIRAL COPY TEST NOT PERFORMED (test code = 4141) COPIES/ML HIV-1 VIRAL LOG (test TEST NOT PERFORMED code = 11807) LOGCOPIES/ML HIV-1 QUANT, [id number] 00:00:00 Test Item Value Reference Range Interpretation Comments HIV-1 VIRAL COPY TEST NOT PERFORMED (test code = 4141) COPIES/ML HIV-1 VIRAL LOG (test TEST NOT PERFORMED code = 24346) LOGCOPIES/ML HIV-1 QUANT, [id number] 00:00:00 Test Item Value Reference Range Interpretation Comments HIV-1 VIRAL COPY TEST NOT PERFORMED (test code = 4141) COPIES/ML HIV-1 VIRAL LOG (test TEST NOT PERFORMED code = 25997) LOGCOPIES/ML HIV-1 QUANT, [id number] 00:00:00 Test Item Value Reference Range Interpretation Comments HIV-1 VIRAL COPY TEST NOT PERFORMED (test code = 4141) COPIES/ML HIV-1 VIRAL LOG (test TEST NOT PERFORMED code = 51100) LOGCOPIES/ML CD4/CD8 LYMPHOCYTE [id number] 16:42:17 Test Item Value Reference Range Interpretation Comments ABSOLUTE LYMPHOCYTES (test code = 1877 PER UL 5824-3522 78588) PERCENT CD4 (test code = 80686) 15.6 % 34.0-65.0 L ABSOLUTE CD4 (test code = 71707) 294 PER UL 520-1470 L PERCENT CD8 (test code = 45001) 53.8 % 13.0-38.0 H ABSOLUTE CD8 (test code = 58616) 1011 PER UL 205-920 H CD4/CD8 RATIO (test code = 94618) 0.29 0.92-3.41 L LIPID [id number] 05:27:42 Test Item Value Reference Range Interpretation Comments CHOLESTEROL (test 261 MG/DL <200 H code = 2210) TRIGLYCERIDES (test 586 MG/DL <150 H code = 2232) HDL CHOLESTEROL 34 MG/DL >39 L (test code = 2220) CALC LDL CHOL (test (NOTE) MG/DL <100 UNABLE T O CALCULATE A code = 2237) VALID LDL VALERIANO STEROL WHEN THE TRIGLYCERIDEVAL UE IS GREATER THAN 40 0 MG/DL. NOTE: CALCULATE D LDL IS BASED ON CIARA -SILVERMAN METHOD WHICHINC LUDES ADJUSTABLE TRIGLYCERIDE:VL DL CHOLESTEROL RAT IO.THIS FACTOR VARIES B Y MEASURED TRIGLY CERIDE AND NON-HDLCHOL ESTEROL CONCENTRATIONS WITH INCREASED CALCU LATED LDL SEENIN HIGH ER TRIGLYCERIDE OR LOWER NON-HDL SPECIME NS. FOR MOREINFORMATION , SEE CLIENT ANNOUNCE MENT AT [email or web address] CalcLDL-C RISK RATIO LDL/HDL 4.12 RATIO <3.55 H UNABLE T O CALCULATE (test code = 223) COMPREHENSIVE METABOLIC [id number] 05:27:42 Test Item Value Reference Range Interpretation Comments GLUCOSE (test code = 100 MG/DL 70-99 H 2216) BUN (test code = 17 MG/DL 6-20 2207) CREATININE (test 0.67 MG/DL 0.80-1.40 L EFFECTIVE code = 2214) 07/10/2021, [facility] HAS IMPLEMENTED THE NKF-ASN RECOMME NDED KD-EPI EGF R REFIT CALCULATI ON THAT DOES NOT INCLUDE A COEFFICIENT FOR RACE. FOR MORE INFORMATION, SE E ANNOUNCEMENT [email or web address] (2020 CKD-EPI) 123 >60 (test code = 72307) ML/MIN/1.73 CALC BUN/CREAT (test 25 RATIO 6-28 code = 2235) SODIUM (test code = 140 MEQ/L 585-200 7482) POTASSIUM (test code 4.0 MEQ/L 3.5-5.4 = 2228) CHLORIDE (test code 103 MEQ/L 95-107 = 2215) CARBON DIOXIDE (test 23 MEQ/L 19-31 code = 220) CALCIUM (test code = 9.4 MG/DL 8.5-10.5 2208) PROTEIN, TOTAL (test 7.7 G/DL 6.1-8.3 code = 2229) ALBUMIN (test code = 4.6 G/DL 3.5-5.2 2200) CALC GLOBULIN (test 3.1 G/DL 1.9-3.7 code = 2240) CALC A/G RATIO (test 1.5 RATIO 1.0-2.6 code = 2234) BILIRUBIN, TOTAL <0.2 MG/DL See_Comment [Automated message] (test code = 2206) The syste m which generated this result transmit john reference range : <=1.2. The refe rence range was not u sed to interpret th is result as normal/abnormal . ALKALINE PHOSPHATASE 98 U/L 40-117 (test code = 2203) AST (test code = 14 U/L 9-50 2217) ALT (test code = 9 U/L 5-50 2218) CBC W/AUTO DIFF WITH [id number] 01:44:35 Test Item Value Reference Range Interpretation Comments WBC (test code = 5.9 K/UL 3.5-11.0 1001) RBC (test code = 4.39 M/UL 4.50-6.10 L 1002) HEMOGLOBIN (test code 14.3 G/DL 13.5-17.0 = 1003) HEMATOCRIT (test code 40.4 % 40.0-51.0 = 1004) MCV (test code = 92.0 fL 80.0-99.0 1005) MCH (test code = 32.6 PG 25.0-33.0 1006) MCHC (test code = 35.4 G/DL 31.0-36.0 1007) RDW (test code = 12.0 % 11.5-15.0 1038) NEUTROPHILS (test 53.4 % code = 1008) LYMPHOCYTES (test 33.4 % code = 1010) MONOCYTES (test code 7.8 % = 1011) EOSINOPHILS (test 4.6 % code = 1012) BASOPHILS (test code 0.5 % = 1013) IMMATURE GRANYLOCYTES 0.3 % (test code = 1036) NUCLEATED RBCS (test 0.0 /100 WBC'S See_Comment [Aut omated code = 1065) message] The sy stem which generated this result transmitted reference range : 0.0. The refere nce range was not u sed to interpret th is result as normal/abnormal . PLATELET COUNT (test 285 K/UL 130-400 code = 1015) ABSOLUTE NEUTROPHILS 3.15 K/UL 1.50-7.50 (test code = 1066) ABSOLUTE LYMPHOCYTES 1.97 K/UL 1.00-4.00 (test code = 1067) ABSOLUTE MONOCYTES 0.46 K/UL 0.20-1.00 (test code = 1068) ABSOLUTE EOSINOPHILS 0.27 K/UL 0.00-0.50 (test code = 1040) ABSOLUTE BASOPHILS 0.03 K/UL 0.00-0.20 (test code = 1069) ABS IMMATURE 0.02 K/UL 0.00-0.10 GRANULOCYTES (test code = 1020) ABS NUCLEATED RBCS 0.00 K/UL 0.00-0.11 (test code = 15916) LIPID [id number] 00:00:00 Test Item Value Reference Range Interpretation Comments CHOLESTEROL (test code = 2210) 261 MG/DL TRIGLYCERIDES (test code = 2232) 586 MG/DL HDL CHOLESTEROL (test code = 34 MG/DL 2220) CALC LDL CHOL (test code = 2237) (NOTE) MG/DL RISK RATIO LDL/HDL (test code = 4.12 RATIO 2238) LIPID [id number] 00:00:00 Test Item Value Reference Range Interpretation Comments CHOLESTEROL (test code = 2210) 261 MG/DL TRIGLYCERIDES (test code = 2232) 586 MG/DL HDL CHOLESTEROL (test code = 34 MG/DL 2220) CALC LDL CHOL (test code = 2237) (NOTE) MG/DL RISK RATIO LDL/HDL (test code = 4.12 RATIO 2238) COMPREHENSIVE METABOLIC [id number] 00:00:00 Test Item Value Reference Range Interpretation Comments GLUCOSE (test code = 2217) 100 MG/DL BUN (test code = 2208) 17 MG/DL CREATININE (test code = 2214) 0.67 MG/DL eGFR (2020 CKD-EPI) (test 123 ML/MIN/1.73 code = 84250) CALC BUN/CREAT (test code = 25 RATIO 2235) SODIUM (test code = 2231) 140 MEQ/L POTASSIUM (test code = 2228) 4.0 MEQ/L CHLORIDE (test code = 2215) 103 MEQ/L CARBON DIOXIDE (test code = 23 MEQ/L 2206) CALCIUM (test code = 2209) 9.4 MG/DL PROTEIN, TOTAL (test code = 7.7 G/DL 222) ALBUMIN (test code = 2201) 4.6 G/DL CALC GLOBULIN (test code = 3.1 G/DL 2240) CALC A/G RATIO (test code = 1.5 RATIO 2234) BILIRUBIN, TOTAL (test code = <0.2 MG/DL 2206) ALKALINE PHOSPHATASE (test 98 U/L code = 2204) AST (test code = 2218) 14 U/L ALT (test code = 2219) 9 U/L COMPREHENSIVE METABOLIC [id number] 00:00:00 Test Item Value Reference Range Interpretation Comments GLUCOSE (test code = 2217) 100 MG/DL BUN (test code = 2208) 17 MG/DL CREATININE (test code = 2214) 0.67 MG/DL eGFR (2020 CKD-EPI) (test 123 ML/MIN/1.73 code = 55095) CALC BUN/CREAT (test code = 25 RATIO 2235) SODIUM (test code = 2231) 140 MEQ/L POTASSIUM (test code = 2228) 4.0 MEQ/L CHLORIDE (test code = 2215) 103 MEQ/L CARBON DIOXIDE (test code = 23 MEQ/L 220) CALCIUM (test code = 2209) 9.4 MG/DL PROTEIN, TOTAL (test code = 7.7 G/DL 222) ALBUMIN (test code = 2201) 4.6 G/DL CALC GLOBULIN (test code = 3.1 G/DL 2240) CALC A/G RATIO (test code = 1.5 RATIO 2234) BILIRUBIN, TOTAL (test code = <0.2 MG/DL 2206) ALKALINE PHOSPHATASE (test 98 U/L code = 2204) AST (test code = 2218) 14 U/L ALT (test code = 2219) 9 U/L CD4/CD8 LYMPHOCYTE [id number] 00:00:00 Test Item Value Reference Range Interpretation Comments ABSOLUTE LYMPHOCYTES (test code = 1877 PERUL 98870) PERCENT CD4 (test code = 24124) 15.6 % ABSOLUTE CD4 (test code = 62680) 294 PERUL PERCENT CD8 (test code = 50519) 53.8 % ABSOLUTE CD8 (test code = 61295) 1011 PERUL CD4/CD8 RATIO (test code = 72848) 0.29 CD4/CD8 LYMPHOCYTE [id number] 00:00:00 Test Item Value Reference Range Interpretation Comments ABSOLUTE LYMPHOCYTES (test code = 1877 PERUL 21784) PERCENT CD4 (test code = 30198) 15.6 % ABSOLUTE CD4 (test code = 47106) 294 PERUL PERCENT CD8 (test code = 56993) 53.8 % ABSOLUTE CD8 (test code = 99659) 1011 PERUL CD4/CD8 RATIO (test code = 89514) 0.29 CBC W/AUTO [id number] 00:00:00 Test Item Value Reference Range Interpretation Comments WBC (test code = 1001) 5.9 K/UL RBC (test code = 1002) 4.39 M/UL HEMOGLOBIN (test code = 1003) 14.3 G/DL HEMATOCRIT (test code = 1004) 40.4 % MCV (test code = 1005) 92.0 fL MCH (test code = 1006) 32.6 PG MCHC (test code = 1007) 35.4 G/DL RDW (test code = 1038) 12.0 % NEUTROPHILS (test code = 1008) 53.4 % LYMPHOCYTES (test code = 1010) 33.4 % MONOCYTES (test code = 1011) 7.8 % EOSINOPHILS (test code = 1012) 4.6 % BASOPHILS (test code = 1013) 0.5 % IMMATURE GRANYLOCYTES (test 0.3 % code = 1036) NUCLEATED RBCS (test code = 0.0 /100WBC'S 1065) PLATELET COUNT (test code = 285 K/UL 1015) ABSOLUTE NEUTROPHILS (test code 3.15 K/UL = 1066) ABSOLUTE LYMPHOCYTES (test code 1.97 K/UL = 1067) ABSOLUTE MONOCYTES (test code = 0.46 K/UL 1068) ABSOLUTE EOSINOPHILS (test code 0.27 K/UL = 1040) ABSOLUTE BASOPHILS (test code = 0.03 K/UL 1069) ABS IMMATURE GRANULOCYTES (test 0.02 K/UL code = 1020) ABS NUCLEATED RBCS (test code = 0.00 K/UL 66957) CBC W/AUTO [id number] 00:00:00 Test Item Value Reference Range Interpretation Comments WBC (test code = 1001) 5.9 K/UL RBC (test code = 1002) 4.39 M/UL HEMOGLOBIN (test code = 1003) 14.3 G/DL HEMATOCRIT (test code = 1004) 40.4 % MCV (test code = 1005) 92.0 fL MCH (test code = 1006) 32.6 PG MCHC (test code = 1007) 35.4 G/DL RDW (test code = 1038) 12.0 % NEUTROPHILS (test code = 1008) 53.4 % LYMPHOCYTES (test code = 1010) 33.4 % MONOCYTES (test code = 1011) 7.8 % EOSINOPHILS (test code = 1012) 4.6 % BASOPHILS (test code = 1013) 0.5 % IMMATURE GRANYLOCYTES (test 0.3 % code = 1036) NUCLEATED RBCS (test code = 0.0 /100WBC'S 1065) PLATELET COUNT (test code = 285 K/UL 1015) ABSOLUTE NEUTROPHILS (test code 3.15 K/UL = 1066) ABSOLUTE LYMPHOCYTES (test code 1.97 K/UL = 1067) ABSOLUTE MONOCYTES (test code = 0.46 K/UL 1068) ABSOLUTE EOSINOPHILS (test code 0.27 K/UL = 1040) ABSOLUTE BASOPHILS (test code = 0.03 K/UL 1069) ABS IMMATURE GRANULOCYTES (test 0.02 K/UL code = 1020) ABS NUCLEATED RBCS (test code = 0.00 K/UL 78657) LIPID [id number] 00:00:00 Test Item Value Reference Range Interpretation Comments CHOLESTEROL (test code = 2210) 261 MG/DL TRIGLYCERIDES (test code = 2232) 586 MG/DL HDL CHOLESTEROL (test code = 34 MG/DL 2220) CALC LDL CHOL (test code = 2237) (NOTE) MG/DL RISK RATIO LDL/HDL (test code = 4.12 RATIO 2238) COMPREHENSIVE METABOLIC [id number] 00:00:00 Test Item Value Reference Range Interpretation Comments GLUCOSE (test code = 2217) 100 MG/DL BUN (test code = 2208) 17 MG/DL CREATININE (test code = 2214) 0.67 MG/DL eGFR (2020 CKD-EPI) (test 123 ML/MIN/1.73 code = 58175) CALC BUN/CREAT (test code = 25 RATIO 223) SODIUM (test code = 2231) 140 MEQ/L POTASSIUM (test code = 2228) 4.0 MEQ/L CHLORIDE (test code = 2215) 103 MEQ/L CARBON DIOXIDE (test code = 23 MEQ/L 2205) CALCIUM (test code = 2209) 9.4 MG/DL PROTEIN, TOTAL (test code = 7.7 G/DL 2228) ALBUMIN (test code = 220) 4.6 G/DL CALC GLOBULIN (test code = 3.1 G/DL 2239) CALC A/G RATIO (test code = 1.5 RATIO 2233) BILIRUBIN, TOTAL (test code = <0.2 MG/DL 2206) ALKALINE PHOSPHATASE (test 98 U/L code = 220) AST (test code = 2218) 14 U/L ALT (test code = 2219) 9 U/L CD4/CD8 LYMPHOCYTE [id number] 00:00:00 Test Item Value Reference Range Interpretation Comments ABSOLUTE LYMPHOCYTES (test code = 1877 PERUL 66458) PERCENT CD4 (test code = 84559) 15.6 % ABSOLUTE CD4 (test code = 74712) 294 PERUL PERCENT CD8 (test code = 87981) 53.8 % ABSOLUTE CD8 (test code = 06216) 1011 PERUL CD4/CD8 RATIO (test code = 11050) 0.29 CBC W/AUTO [id number] 00:00:00 Test Item Value Reference Range Interpretation Comments WBC (test code = 1001) 5.9 K/UL RBC (test code = 1002) 4.39 M/UL HEMOGLOBIN (test code = 1003) 14.3 G/DL HEMATOCRIT (test code = 1004) 40.4 % MCV (test code = 1005) 92.0 fL MCH (test code = 1006) 32.6 PG MCHC (test code = 1007) 35.4 G/DL RDW (test code = 1038) 12.0 % NEUTROPHILS (test code = 1008) 53.4 % LYMPHOCYTES (test code = 1010) 33.4 % MONOCYTES (test code = 1011) 7.8 % EOSINOPHILS (test code = 1012) 4.6 % BASOPHILS (test code = 1013) 0.5 % IMMATURE GRANYLOCYTES (test 0.3 % code = 1036) NUCLEATED RBCS (test code = 0.0 /100WBC'S 1065) PLATELET COUNT (test code = 285 K/UL 1015) ABSOLUTE NEUTROPHILS (test code 3.15 K/UL = 1066) ABSOLUTE LYMPHOCYTES (test code 1.97 K/UL = 1067) ABSOLUTE MONOCYTES (test code = 0.46 K/UL 1068) ABSOLUTE EOSINOPHILS (test code 0.27 K/UL = 1040) ABSOLUTE BASOPHILS (test code = 0.03 K/UL 1069) ABS IMMATURE GRANULOCYTES (test 0.02 K/UL code = 1020) ABS NUCLEATED RBCS (test code = 0.00 K/UL 75276) CBC W/AUTO [id number] 00:00:00 Test Item Value Reference Range Interpretation Comments WBC (test code = 1001) 5.9 K/UL RBC (test code = 1002) 4.39 M/UL HEMOGLOBIN (test code = 1003) 14.3 G/DL HEMATOCRIT (test code = 1004) 40.4 % MCV (test code = 1005) 92.0 fL MCH (test code = 1006) 32.6 PG MCHC (test code = 1007) 35.4 G/DL RDW (test code = 1038) 12.0 % NEUTROPHILS (test code = 1008) 53.4 % LYMPHOCYTES (test code = 1010) 33.4 % MONOCYTES (test code = 1011) 7.8 % EOSINOPHILS (test code = 1012) 4.6 % BASOPHILS (test code = 1013) 0.5 % IMMATURE GRANYLOCYTES (test 0.3 % code = 1036) NUCLEATED RBCS (test code = 0.0 /100WBC'S 1065) PLATELET COUNT (test code = 285 K/UL 1015) ABSOLUTE NEUTROPHILS (test code 3.15 K/UL = 1066) ABSOLUTE LYMPHOCYTES (test code 1.97 K/UL = 1067) ABSOLUTE MONOCYTES (test code = 0.46 K/UL 1068) ABSOLUTE EOSINOPHILS (test code 0.27 K/UL = 1040) ABSOLUTE BASOPHILS (test code = 0.03 K/UL 1069) ABS IMMATURE GRANULOCYTES (test 0.02 K/UL code = 1020) ABS NUCLEATED RBCS (test code = 0.00 K/UL 10419) LIPID [id number] 00:00:00 Test Item Value Reference Range Interpretation Comments CHOLESTEROL (test code = 2210) 261 MG/DL TRIGLYCERIDES (test code = 2232) 586 MG/DL HDL CHOLESTEROL (test code = 34 MG/DL 2220) CALC LDL CHOL (test code = 2237) (NOTE) MG/DL RISK RATIO LDL/HDL (test code = 4.12 RATIO 2238) COMPREHENSIVE METABOLIC [id number] 00:00:00 Test Item Value Reference Range Interpretation Comments GLUCOSE (test code = 2217) 100 MG/DL BUN (test code = 2208) 17 MG/DL CREATININE (test code = 2214) 0.67 MG/DL eGFR (2020 CKD-EPI) (test 123 ML/MIN/1.73 code = 69949) CALC BUN/CREAT (test code = 25 RATIO 2235) SODIUM (test code = 2231) 140 MEQ/L POTASSIUM (test code = 2228) 4.0 MEQ/L CHLORIDE (test code = 2215) 103 MEQ/L CARBON DIOXIDE (test code = 23 MEQ/L 2205) CALCIUM (test code = 2209) 9.4 MG/DL PROTEIN, TOTAL (test code = 7.7 G/DL 2228) ALBUMIN (test code = 2201) 4.6 G/DL CALC GLOBULIN (test code = 3.1 G/DL 0) CALC A/G RATIO (test code = 1.5 RATIO 2234) BILIRUBIN, TOTAL (test code = <0.2 MG/DL 2206) ALKALINE PHOSPHATASE (test 98 U/L code = 2204) AST (test code = 2218) 14 U/L ALT (test code = 2219) 9 U/L CD4/CD8 LYMPHOCYTE [id number] 00:00:00 Test Item Value Reference Range Interpretation Comments ABSOLUTE LYMPHOCYTES (test code = 1877 PERUL 54838) PERCENT CD4 (test code = 86540) 15.6 % ABSOLUTE CD4 (test code = 02567) 294 PERUL PERCENT CD8 (test code = 51215) 53.8 % ABSOLUTE CD8 (test code = 51226) 1011 PERUL CD4/CD8 RATIO (test code = 29746) 0.29 CBC W/AUTO [id number] 00:00:00 Test Item Value Reference Range Interpretation Comments WBC (test code = 1001) 5.9 K/UL RBC (test code = 1002) 4.39 M/UL HEMOGLOBIN (test code = 1003) 14.3 G/DL HEMATOCRIT (test code = 1004) 40.4 % MCV (test code = 1005) 92.0 fL MCH (test code = 1006) 32.6 PG MCHC (test code = 1007) 35.4 G/DL RDW (test code = 1038) 12.0 % NEUTROPHILS (test code = 1008) 53.4 % LYMPHOCYTES (test code = 1010) 33.4 % MONOCYTES (test code = 1011) 7.8 % EOSINOPHILS (test code = 1012) 4.6 % BASOPHILS (test code = 1013) 0.5 % IMMATURE GRANYLOCYTES (test 0.3 % code = 1036) NUCLEATED RBCS (test code = 0.0 /100WBC'S 1065) PLATELET COUNT (test code = 285 K/UL 1015) ABSOLUTE NEUTROPHILS (test code 3.15 K/UL = 1066) ABSOLUTE LYMPHOCYTES (test code 1.97 K/UL = 1067) ABSOLUTE MONOCYTES (test code = 0.46 K/UL 1068) ABSOLUTE EOSINOPHILS (test code 0.27 K/UL = 1040) ABSOLUTE BASOPHILS (test code = 0.03 K/UL 1069) ABS IMMATURE GRANULOCYTES (test 0.02 K/UL code = 1020) ABS NUCLEATED RBCS (test code = 0.00 K/UL 13052) CBC W/AUTO [id number] 00:00:00 Test Item Value Reference Range Interpretation Comments WBC (test code = 1001) 5.9 K/UL RBC (test code = 1002) 4.39 M/UL HEMOGLOBIN (test code = 1003) 14.3 G/DL HEMATOCRIT (test code = 1004) 40.4 % MCV (test code = 1005) 92.0 fL MCH (test code = 1006) 32.6 PG MCHC (test code = 1007) 35.4 G/DL RDW (test code = 1038) 12.0 % NEUTROPHILS (test code = 1008) 53.4 % LYMPHOCYTES (test code = 1010) 33.4 % MONOCYTES (test code = 1011) 7.8 % EOSINOPHILS (test code = 1012) 4.6 % BASOPHILS (test code = 1013) 0.5 % IMMATURE GRANYLOCYTES (test 0.3 % code = 1036) NUCLEATED RBCS (test code = 0.0 /100WBC'S 1065) PLATELET COUNT (test code = 285 K/UL 1015) ABSOLUTE NEUTROPHILS (test code 3.15 K/UL = 1066) ABSOLUTE LYMPHOCYTES (test code 1.97 K/UL = 1067) ABSOLUTE MONOCYTES (test code = 0.46 K/UL 1068) ABSOLUTE EOSINOPHILS (test code 0.27 K/UL = 1040) ABSOLUTE BASOPHILS (test code = 0.03 K/UL 1069) ABS IMMATURE GRANULOCYTES (test 0.02 K/UL code = 1020) ABS NUCLEATED RBCS (test code = 0.00 K/UL 04221) CBC W/AUTO [id number] 00:00:00 Test Item Value Reference Range Interpretation Comments WBC (test code = 1001) 5.9 K/UL RBC (test code = 1002) 4.39 M/UL HEMOGLOBIN (test code = 1003) 14.3 G/DL HEMATOCRIT (test code = 1004) 40.4 % MCV (test code = 1005) 92.0 fL MCH (test code = 1006) 32.6 PG MCHC (test code = 1007) 35.4 G/DL RDW (test code = 1038) 12.0 % NEUTROPHILS (test code = 1008) 53.4 % LYMPHOCYTES (test code = 1010) 33.4 % MONOCYTES (test code = 1011) 7.8 % EOSINOPHILS (test code = 1012) 4.6 % BASOPHILS (test code = 1013) 0.5 % IMMATURE GRANYLOCYTES (test 0.3 % code = 1036) NUCLEATED RBCS (test code = 0.0 /100WBC'S 1065) PLATELET COUNT (test code = 285 K/UL 1015) ABSOLUTE NEUTROPHILS (test code 3.15 K/UL = 1066) ABSOLUTE LYMPHOCYTES (test code 1.97 K/UL = 1067) ABSOLUTE MONOCYTES (test code = 0.46 K/UL 1068) ABSOLUTE EOSINOPHILS (test code 0.27 K/UL = 1040) ABSOLUTE BASOPHILS (test code = 0.03 K/UL 1069) ABS IMMATURE GRANULOCYTES (test 0.02 K/UL code = 1020) ABS NUCLEATED RBCS (test code = 0.00 K/UL 87592) LIPID [id number] 00:00:00 Test Item Value Reference Range Interpretation Comments CHOLESTEROL (test code = 2210) 261 MG/DL TRIGLYCERIDES (test code = 2232) 586 MG/DL HDL CHOLESTEROL (test code = 34 MG/DL 2220) CALC LDL CHOL (test code = 2237) (NOTE) MG/DL RISK RATIO LDL/HDL (test code = 4.12 RATIO 2238) LIPID [id number] 00:00:00 Test Item Value Reference Range Interpretation Comments CHOLESTEROL (test code = 2210) 261 MG/DL TRIGLYCERIDES (test code = 2232) 586 MG/DL HDL CHOLESTEROL (test code = 34 MG/DL 2220) CALC LDL CHOL (test code = 2237) (NOTE) MG/DL RISK RATIO LDL/HDL (test code = 4.12 RATIO 2238) COMPREHENSIVE METABOLIC [id number] 00:00:00 Test Item Value Reference Range Interpretation Comments GLUCOSE (test code = 2217) 100 MG/DL BUN (test code = 2208) 17 MG/DL CREATININE (test code = 2214) 0.67 MG/DL eGFR (2020 CKD-EPI) (test 123 ML/MIN/1.73 code = 96281) CALC BUN/CREAT (test code = 25 RATIO 2235) SODIUM (test code = 2231) 140 MEQ/L POTASSIUM (test code = 2228) 4.0 MEQ/L CHLORIDE (test code = 2215) 103 MEQ/L CARBON DIOXIDE (test code = 23 MEQ/L 2205) CALCIUM (test code = 2209) 9.4 MG/DL PROTEIN, TOTAL (test code = 7.7 G/DL 2228) ALBUMIN (test code = 2201) 4.6 G/DL CALC GLOBULIN (test code = 3.1 G/DL 2240) CALC A/G RATIO (test code = 1.5 RATIO 2234) BILIRUBIN, TOTAL (test code = <0.2 MG/DL 2206) ALKALINE PHOSPHATASE (test 98 U/L code = 2204) AST (test code = 2218) 14 U/L ALT (test code = 2219) 9 U/L COMPREHENSIVE METABOLIC [id number] 00:00:00 Test Item Value Reference Range Interpretation Comments GLUCOSE (test code = 2217) 100 MG/DL BUN (test code = 2208) 17 MG/DL CREATININE (test code = 2214) 0.67 MG/DL eGFR (2020 CKD-EPI) (test 123 ML/MIN/1.73 code = 34045) CALC BUN/CREAT (test code = 25 RATIO 223) SODIUM (test code = 2231) 140 MEQ/L POTASSIUM (test code = 2228) 4.0 MEQ/L CHLORIDE (test code = 2215) 103 MEQ/L CARBON DIOXIDE (test code = 23 MEQ/L 2205) CALCIUM (test code = 220) 9.4 MG/DL PROTEIN, TOTAL (test code = 7.7 G/DL 2228) ALBUMIN (test code = 220) 4.6 G/DL CALC GLOBULIN (test code = 3.1 G/DL 2239) CALC A/G RATIO (test code = 1.5 RATIO 2233) BILIRUBIN, TOTAL (test code = <0.2 MG/DL 2206) ALKALINE PHOSPHATASE (test 98 U/L code = 220) AST (test code = 2218) 14 U/L ALT (test code = 2219) 9 U/L CD4/CD8 LYMPHOCYTE [id number] 00:00:00 Test Item Value Reference Range Interpretation Comments ABSOLUTE LYMPHOCYTES (test code = 1877 PERUL 82543) PERCENT CD4 (test code = 48959) 15.6 % ABSOLUTE CD4 (test code = 35737) 294 PERUL PERCENT CD8 (test code = 97227) 53.8 % ABSOLUTE CD8 (test code = 42415) 1011 PERUL CD4/CD8 RATIO (test code = 31960) 0.29 CD4/CD8 LYMPHOCYTE [id number] 00:00:00 Test Item Value Reference Range Interpretation Comments ABSOLUTE LYMPHOCYTES (test code = 1877 PERUL 53778) PERCENT CD4 (test code = 77200) 15.6 % ABSOLUTE CD4 (test code = 07041) 294 PERUL PERCENT CD8 (test code = 94208) 53.8 % ABSOLUTE CD8 (test code = 90113) 1011 PERUL CD4/CD8 RATIO (test code = 90759) 0.29 CBC W/AUTO [id number] 00:00:00 Test Item Value Reference Range Interpretation Comments WBC (test code = 1001) 5.9 K/UL RBC (test code = 1002) 4.39 M/UL HEMOGLOBIN (test code = 1003) 14.3 G/DL HEMATOCRIT (test code = 1004) 40.4 % MCV (test code = 1005) 92.0 fL MCH (test code = 1006) 32.6 PG MCHC (test code = 1007) 35.4 G/DL RDW (test code = 1038) 12.0 % NEUTROPHILS (test code = 1008) 53.4 % LYMPHOCYTES (test code = 1010) 33.4 % MONOCYTES (test code = 1011) 7.8 % EOSINOPHILS (test code = 1012) 4.6 % BASOPHILS (test code = 1013) 0.5 % IMMATURE GRANYLOCYTES (test 0.3 % code = 1036) NUCLEATED RBCS (test code = 0.0 /100WBC'S 1065) PLATELET COUNT (test code = 285 K/UL 1015) ABSOLUTE NEUTROPHILS (test code 3.15 K/UL = 1066) ABSOLUTE LYMPHOCYTES (test code 1.97 K/UL = 1067) ABSOLUTE MONOCYTES (test code = 0.46 K/UL 1068) ABSOLUTE EOSINOPHILS (test code 0.27 K/UL = 1040) ABSOLUTE BASOPHILS (test code = 0.03 K/UL 1069) ABS IMMATURE GRANULOCYTES (test 0.02 K/UL code = 1020) ABS NUCLEATED RBCS (test code = 0.00 K/UL 81858) CBC W/AUTO [id number] 00:00:00 Test Item Value Reference Range Interpretation Comments WBC (test code = 1001) 5.9 K/UL RBC (test code = 1002) 4.39 M/UL HEMOGLOBIN (test code = 1003) 14.3 G/DL HEMATOCRIT (test code = 1004) 40.4 % MCV (test code = 1005) 92.0 fL MCH (test code = 1006) 32.6 PG MCHC (test code = 1007) 35.4 G/DL RDW (test code = 1038) 12.0 % NEUTROPHILS (test code = 1008) 53.4 % LYMPHOCYTES (test code = 1010) 33.4 % MONOCYTES (test code = 1011) 7.8 % EOSINOPHILS (test code = 1012) 4.6 % BASOPHILS (test code = 1013) 0.5 % IMMATURE GRANYLOCYTES (test 0.3 % code = 1036) NUCLEATED RBCS (test code = 0.0 /100WBC'S 1065) PLATELET COUNT (test code = 285 K/UL 1015) ABSOLUTE NEUTROPHILS (test code 3.15 K/UL = 1066) ABSOLUTE LYMPHOCYTES (test code 1.97 K/UL = 1067) ABSOLUTE MONOCYTES (test code = 0.46 K/UL 1068) ABSOLUTE EOSINOPHILS (test code 0.27 K/UL = 1040) ABSOLUTE BASOPHILS (test code = 0.03 K/UL 1069) ABS IMMATURE GRANULOCYTES (test 0.02 K/UL code = 1020) ABS NUCLEATED RBCS (test code = 0.00 K/UL 40464) CBC W/AUTO [id number] 00:00:00 Test Item Value Reference Range Interpretation Comments WBC (test code = 1001) 5.9 K/UL RBC (test code = 1002) 4.39 M/UL HEMOGLOBIN (test code = 1003) 14.3 G/DL HEMATOCRIT (test code = 1004) 40.4 % MCV (test code = 1005) 92.0 fL MCH (test code = 1006) 32.6 PG MCHC (test code = 1007) 35.4 G/DL RDW (test code = 1038) 12.0 % NEUTROPHILS (test code = 1008) 53.4 % LYMPHOCYTES (test code = 1010) 33.4 % MONOCYTES (test code = 1011) 7.8 % EOSINOPHILS (test code = 1012) 4.6 % BASOPHILS (test code = 1013) 0.5 % IMMATURE GRANYLOCYTES (test 0.3 % code = 1036) NUCLEATED RBCS (test code = 0.0 /100WBC'S 1065) PLATELET COUNT (test code = 285 K/UL 1015) ABSOLUTE NEUTROPHILS (test code 3.15 K/UL = 1066) ABSOLUTE LYMPHOCYTES (test code 1.97 K/UL = 1067) ABSOLUTE MONOCYTES (test code = 0.46 K/UL 1068) ABSOLUTE EOSINOPHILS (test code 0.27 K/UL = 1040) ABSOLUTE BASOPHILS (test code = 0.03 K/UL 1069) ABS IMMATURE GRANULOCYTES (test 0.02 K/UL code = 1020) ABS NUCLEATED RBCS (test code = 0.00 K/UL 62696) CBC W/AUTO [id number] 00:00:00 Test Item Value Reference Range Interpretation Comments WBC (test code = 1001) 5.9 K/UL RBC (test code = 1002) 4.39 M/UL HEMOGLOBIN (test code = 1003) 14.3 G/DL HEMATOCRIT (test code = 1004) 40.4 % MCV (test code = 1005) 92.0 fL MCH (test code = 1006) 32.6 PG MCHC (test code = 1007) 35.4 G/DL RDW (test code = 1038) 12.0 % NEUTROPHILS (test code = 1008) 53.4 % LYMPHOCYTES (test code = 1010) 33.4 % MONOCYTES (test code = 1011) 7.8 % EOSINOPHILS (test code = 1012) 4.6 % BASOPHILS (test code = 1013) 0.5 % IMMATURE GRANYLOCYTES (test 0.3 % code = 1036) NUCLEATED RBCS (test code = 0.0 /100WBC'S 1065) PLATELET COUNT (test code = 285 K/UL 1015) ABSOLUTE NEUTROPHILS (test code 3.15 K/UL = 1066) ABSOLUTE LYMPHOCYTES (test code 1.97 K/UL = 1067) ABSOLUTE MONOCYTES (test code = 0.46 K/UL 1068) ABSOLUTE EOSINOPHILS (test code 0.27 K/UL = 1040) ABSOLUTE BASOPHILS (test code = 0.03 K/UL 1069) ABS IMMATURE GRANULOCYTES (test 0.02 K/UL code = 1020) ABS NUCLEATED RBCS (test code = 0.00 K/UL 40261) CBC W/AUTO [id number] 00:00:00 Test Item Value Reference Range Interpretation Comments WBC (test code = 1001) 5.9 K/UL RBC (test code = 1002) 4.39 M/UL HEMOGLOBIN (test code = 1003) 14.3 G/DL HEMATOCRIT (test code = 1004) 40.4 % MCV (test code = 1005) 92.0 fL MCH (test code = 1006) 32.6 PG MCHC (test code = 1007) 35.4 G/DL RDW (test code = 1038) 12.0 % NEUTROPHILS (test code = 1008) 53.4 % LYMPHOCYTES (test code = 1010) 33.4 % MONOCYTES (test code = 1011) 7.8 % EOSINOPHILS (test code = 1012) 4.6 % BASOPHILS (test code = 1013) 0.5 % IMMATURE GRANYLOCYTES (test 0.3 % code = 1036) NUCLEATED RBCS (test code = 0.0 /100WBC'S 1065) PLATELET COUNT (test code = 285 K/UL 1015) ABSOLUTE NEUTROPHILS (test code 3.15 K/UL = 1066) ABSOLUTE LYMPHOCYTES (test code 1.97 K/UL = 1067) ABSOLUTE MONOCYTES (test code = 0.46 K/UL 1068) ABSOLUTE EOSINOPHILS (test code 0.27 K/UL = 1040) ABSOLUTE BASOPHILS (test code = 0.03 K/UL 1069) ABS IMMATURE GRANULOCYTES (test 0.02 K/UL code = 1020) ABS NUCLEATED RBCS (test code = 0.00 K/UL 18096) LIPID [id number] 00:00:00 Test Item Value Reference Range Interpretation Comments CHOLESTEROL (test code = 2210) 261 MG/DL TRIGLYCERIDES (test code = 2232) 586 MG/DL HDL CHOLESTEROL (test code = 34 MG/DL 2220) CALC LDL CHOL (test code = 2237) (NOTE) MG/DL RISK RATIO LDL/HDL (test code = 4.12 RATIO 2238) LIPID [id number] 00:00:00 Test Item Value Reference Range Interpretation Comments CHOLESTEROL (test code = 2210) 261 MG/DL TRIGLYCERIDES (test code = 2232) 586 MG/DL HDL CHOLESTEROL (test code = 34 MG/DL 2220) CALC LDL CHOL (test code = 2237) (NOTE) MG/DL RISK RATIO LDL/HDL (test code = 4.12 RATIO 2238) LIPID [id number] 00:00:00 Test Item Value Reference Range Interpretation Comments CHOLESTEROL (test code = 2210) 261 MG/DL TRIGLYCERIDES (test code = 2232) 586 MG/DL HDL CHOLESTEROL (test code = 34 MG/DL 2220) CALC LDL CHOL (test code = 2237) (NOTE) MG/DL RISK RATIO LDL/HDL (test code = 4.12 RATIO 2238) COMPREHENSIVE METABOLIC [id number] 00:00:00 Test Item Value Reference Range Interpretation Comments GLUCOSE (test code = 2217) 100 MG/DL BUN (test code = 2208) 17 MG/DL CREATININE (test code = 2214) 0.67 MG/DL eGFR (2020 CKD-EPI) (test 123 ML/MIN/1.73 code = 26545) CALC BUN/CREAT (test code = 25 RATIO 2235) SODIUM (test code = 2231) 140 MEQ/L POTASSIUM (test code = 2228) 4.0 MEQ/L CHLORIDE (test code = 2215) 103 MEQ/L CARBON DIOXIDE (test code = 23 MEQ/L 2206) CALCIUM (test code = 2209) 9.4 MG/DL PROTEIN, TOTAL (test code = 7.7 G/DL 2228) ALBUMIN (test code = 2201) 4.6 G/DL CALC GLOBULIN (test code = 3.1 G/DL 2240) CALC A/G RATIO (test code = 1.5 RATIO 2234) BILIRUBIN, TOTAL (test code = <0.2 MG/DL 2206) ALKALINE PHOSPHATASE (test 98 U/L code = 2204) AST (test code = 2218) 14 U/L ALT (test code = 2219) 9 U/L COMPREHENSIVE METABOLIC [id number] 00:00:00 Test Item Value Reference Range Interpretation Comments GLUCOSE (test code = 2217) 100 MG/DL BUN (test code = 2208) 17 MG/DL CREATININE (test code = 2214) 0.67 MG/DL eGFR (2020 CKD-EPI) (test 123 ML/MIN/1.73 code = 86616) CALC BUN/CREAT (test code = 25 RATIO 2235) SODIUM (test code = 2231) 140 MEQ/L POTASSIUM (test code = 2228) 4.0 MEQ/L CHLORIDE (test code = 2215) 103 MEQ/L CARBON DIOXIDE (test code = 23 MEQ/L 2205) CALCIUM (test code = 2209) 9.4 MG/DL PROTEIN, TOTAL (test code = 7.7 G/DL 2228) ALBUMIN (test code = 2201) 4.6 G/DL CALC GLOBULIN (test code = 3.1 G/DL 2240) CALC A/G RATIO (test code = 1.5 RATIO 2234) BILIRUBIN, TOTAL (test code = <0.2 MG/DL 2206) ALKALINE PHOSPHATASE (test 98 U/L code = 2204) AST (test code = 2218) 14 U/L ALT (test code = 2219) 9 U/L CD4/CD8 LYMPHOCYTE [id number] 00:00:00 Test Item Value Reference Range Interpretation Comments ABSOLUTE LYMPHOCYTES (test code = 1877 PERUL 15836) PERCENT CD4 (test code = 69746) 15.6 % ABSOLUTE CD4 (test code = 30214) 294 PERUL PERCENT CD8 (test code = 02322) 53.8 % ABSOLUTE CD8 (test code = 72388) 1011 PERUL CD4/CD8 RATIO (test code = 33608) 0.29 CD4/CD8 LYMPHOCYTE [id number] 00:00:00 Test Item Value Reference Range Interpretation Comments ABSOLUTE LYMPHOCYTES (test code = 1877 PERUL 30200) PERCENT CD4 (test code = 77110) 15.6 % ABSOLUTE CD4 (test code = 56473) 294 PERUL PERCENT CD8 (test code = 74816) 53.8 % ABSOLUTE CD8 (test code = 83659) 1011 PERUL CD4/CD8 RATIO (test code = 07844) 0.29 COMPREHENSIVE METABOLIC [id number] 00:00:00 Test Item Value Reference Range Interpretation Comments GLUCOSE (test code = 2217) 100 MG/DL BUN (test code = 2208) 17 MG/DL CREATININE (test code = 2214) 0.67 MG/DL eGFR (2020 CKD-EPI) (test 123 ML/MIN/1.73 code = 73437) CALC BUN/CREAT (test code = 25 RATIO 2235) SODIUM (test code = 2231) 140 MEQ/L POTASSIUM (test code = 2228) 4.0 MEQ/L CHLORIDE (test code = 2215) 103 MEQ/L CARBON DIOXIDE (test code = 23 MEQ/L 2205) CALCIUM (test code = 2209) 9.4 MG/DL PROTEIN, TOTAL (test code = 7.7 G/DL 2228) ALBUMIN (test code = 2201) 4.6 G/DL CALC GLOBULIN (test code = 3.1 G/DL 0) CALC A/G RATIO (test code = 1.5 RATIO 223) BILIRUBIN, TOTAL (test code = <0.2 MG/DL 2206) ALKALINE PHOSPHATASE (test 98 U/L code = 2204) AST (test code = 2218) 14 U/L ALT (test code = 2219) 9 U/L CD4/CD8 LYMPHOCYTE [id number] 00:00:00 Test Item Value Reference Range Interpretation Comments ABSOLUTE LYMPHOCYTES (test code = 1877 PERUL 22660) PERCENT CD4 (test code = 20999) 15.6 % ABSOLUTE CD4 (test code = 68670) 294 PERUL PERCENT CD8 (test code = 07404) 53.8 % ABSOLUTE CD8 (test code = 63958) 1011 PERUL CD4/CD8 RATIO (test code = 30116) 0.29 CBC W/AUTO [id number] 00:00:00 Test Item Value Reference Range Interpretation Comments WBC (test code = 1001) 5.9 K/UL RBC (test code = 1002) 4.39 M/UL HEMOGLOBIN (test code = 1003) 14.3 G/DL HEMATOCRIT (test code = 1004) 40.4 % MCV (test code = 1005) 92.0 fL MCH (test code = 1006) 32.6 PG MCHC (test code = 1007) 35.4 G/DL RDW (test code = 1038) 12.0 % NEUTROPHILS (test code = 1008) 53.4 % LYMPHOCYTES (test code = 1010) 33.4 % MONOCYTES (test code = 1011) 7.8 % EOSINOPHILS (test code = 1012) 4.6 % BASOPHILS (test code = 1013) 0.5 % IMMATURE GRANYLOCYTES (test 0.3 % code = 1036) NUCLEATED RBCS (test code = 0.0 /100WBC'S 1065) PLATELET COUNT (test code = 285 K/UL 1015) ABSOLUTE NEUTROPHILS (test code 3.15 K/UL = 1066) ABSOLUTE LYMPHOCYTES (test code 1.97 K/UL = 1067) ABSOLUTE MONOCYTES (test code = 0.46 K/UL 1068) ABSOLUTE EOSINOPHILS (test code 0.27 K/UL = 1040) ABSOLUTE BASOPHILS (test code = 0.03 K/UL 1069) ABS IMMATURE GRANULOCYTES (test 0.02 K/UL code = 1020) ABS NUCLEATED RBCS (test code = 0.00 K/UL 97079) CBC W/AUTO [id number] 00:00:00 Test Item Value Reference Range Interpretation Comments WBC (test code = 1001) 5.9 K/UL RBC (test code = 1002) 4.39 M/UL HEMOGLOBIN (test code = 1003) 14.3 G/DL HEMATOCRIT (test code = 1004) 40.4 % MCV (test code = 1005) 92.0 fL MCH (test code = 1006) 32.6 PG MCHC (test code = 1007) 35.4 G/DL RDW (test code = 1038) 12.0 % NEUTROPHILS (test code = 1008) 53.4 % LYMPHOCYTES (test code = 1010) 33.4 % MONOCYTES (test code = 1011) 7.8 % EOSINOPHILS (test code = 1012) 4.6 % BASOPHILS (test code = 1013) 0.5 % IMMATURE GRANYLOCYTES (test 0.3 % code = 1036) NUCLEATED RBCS (test code = 0.0 /100WBC'S 1065) PLATELET COUNT (test code = 285 K/UL 1015) ABSOLUTE NEUTROPHILS (test code 3.15 K/UL = 1066) ABSOLUTE LYMPHOCYTES (test code 1.97 K/UL = 1067) ABSOLUTE MONOCYTES (test code = 0.46 K/UL 1068) ABSOLUTE EOSINOPHILS (test code 0.27 K/UL = 1040) ABSOLUTE BASOPHILS (test code = 0.03 K/UL 1069) ABS IMMATURE GRANULOCYTES (test 0.02 K/UL code = 1020) ABS NUCLEATED RBCS (test code = 0.00 K/UL 31587) CBC W/AUTO [id number] 00:00:00 Test Item Value Reference Range Interpretation Comments WBC (test code = 1001) 5.9 K/UL RBC (test code = 1002) 4.39 M/UL HEMOGLOBIN (test code = 1003) 14.3 G/DL HEMATOCRIT (test code = 1004) 40.4 % MCV (test code = 1005) 92.0 fL MCH (test code = 1006) 32.6 PG MCHC (test code = 1007) 35.4 G/DL RDW (test code = 1038) 12.0 % NEUTROPHILS (test code = 1008) 53.4 % LYMPHOCYTES (test code = 1010) 33.4 % MONOCYTES (test code = 1011) 7.8 % EOSINOPHILS (test code = 1012) 4.6 % BASOPHILS (test code = 1013) 0.5 % IMMATURE GRANYLOCYTES (test 0.3 % code = 1036) NUCLEATED RBCS (test code = 0.0 /100WBC'S 1065) PLATELET COUNT (test code = 285 K/UL 1015) ABSOLUTE NEUTROPHILS (test code 3.15 K/UL = 1066) ABSOLUTE LYMPHOCYTES (test code 1.97 K/UL = 1067) ABSOLUTE MONOCYTES (test code = 0.46 K/UL 1068) ABSOLUTE EOSINOPHILS (test code 0.27 K/UL = 1040) ABSOLUTE BASOPHILS (test code = 0.03 K/UL 1069) ABS IMMATURE GRANULOCYTES (test 0.02 K/UL code = 1020) ABS NUCLEATED RBCS (test code = 0.00 K/UL 72105) LIPID [id number] 00:00:00 Test Item Value Reference Range Interpretation Comments CHOLESTEROL (test code = 2210) 261 MG/DL TRIGLYCERIDES (test code = 2232) 586 MG/DL HDL CHOLESTEROL (test code = 34 MG/DL 2220) CALC LDL CHOL (test code = 2237) (NOTE) MG/DL RISK RATIO LDL/HDL (test code = 4.12 RATIO 2238) LIPID [id number] 00:00:00 Test Item Value Reference Range Interpretation Comments CHOLESTEROL (test code = 2210) 261 MG/DL TRIGLYCERIDES (test code = 2232) 586 MG/DL HDL CHOLESTEROL (test code = 34 MG/DL 2220) CALC LDL CHOL (test code = 2237) (NOTE) MG/DL RISK RATIO LDL/HDL (test code = 4.12 RATIO 2238) COMPREHENSIVE METABOLIC [id number] 00:00:00 Test Item Value Reference Range Interpretation Comments GLUCOSE (test code = 2217) 100 MG/DL BUN (test code = 2208) 17 MG/DL CREATININE (test code = 2214) 0.67 MG/DL eGFR (2020 CKD-EPI) (test 123 ML/MIN/1.73 code = 38816) CALC BUN/CREAT (test code = 25 RATIO 2235) SODIUM (test code = 2231) 140 MEQ/L POTASSIUM (test code = 2228) 4.0 MEQ/L CHLORIDE (test code = 2215) 103 MEQ/L CARBON DIOXIDE (test code = 23 MEQ/L 2205) CALCIUM (test code = 2209) 9.4 MG/DL PROTEIN, TOTAL (test code = 7.7 G/DL 2228) ALBUMIN (test code = 2201) 4.6 G/DL CALC GLOBULIN (test code = 3.1 G/DL 2239) CALC A/G RATIO (test code = 1.5 RATIO 2234) BILIRUBIN, TOTAL (test code = <0.2 MG/DL 2206) ALKALINE PHOSPHATASE (test 98 U/L code = 2204) AST (test code = 2218) 14 U/L ALT (test code = 2219) 9 U/L COMPREHENSIVE METABOLIC [id number] 00:00:00 Test Item Value Reference Range Interpretation Comments GLUCOSE (test code = 2217) 100 MG/DL BUN (test code = 2208) 17 MG/DL CREATININE (test code = 2214) 0.67 MG/DL eGFR (2020 CKD-EPI) (test 123 ML/MIN/1.73 code = 21482) CALC BUN/CREAT (test code = 25 RATIO 2235) SODIUM (test code = 2231) 140 MEQ/L POTASSIUM (test code = 2228) 4.0 MEQ/L CHLORIDE (test code = 2215) 103 MEQ/L CARBON DIOXIDE (test code = 23 MEQ/L 2205) CALCIUM (test code = 2209) 9.4 MG/DL PROTEIN, TOTAL (test code = 7.7 G/DL 2228) ALBUMIN (test code = 2201) 4.6 G/DL CALC GLOBULIN (test code = 3.1 G/DL 2240) CALC A/G RATIO (test code = 1.5 RATIO 2234) BILIRUBIN, TOTAL (test code = <0.2 MG/DL 2206) ALKALINE PHOSPHATASE (test 98 U/L code = 2204) AST (test code = 2218) 14 U/L ALT (test code = 2219) 9 U/L CD4/CD8 LYMPHOCYTE [id number] 00:00:00 Test Item Value Reference Range Interpretation Comments ABSOLUTE LYMPHOCYTES (test code = 1877 PERUL 25890) PERCENT CD4 (test code = 34740) 15.6 % ABSOLUTE CD4 (test code = 69974) 294 PERUL PERCENT CD8 (test code = 08264) 53.8 % ABSOLUTE CD8 (test code = 14006) 1011 PERUL CD4/CD8 RATIO (test code = 79525) 0.29 CD4/CD8 LYMPHOCYTE [id number] 00:00:00 Test Item Value Reference Range Interpretation Comments ABSOLUTE LYMPHOCYTES (test code = 1877 PERUL 98609) PERCENT CD4 (test code = 84594) 15.6 % ABSOLUTE CD4 (test code = 26987) 294 PERUL PERCENT CD8 (test code = 57759) 53.8 % ABSOLUTE CD8 (test code = 07761) 1011 PERUL CD4/CD8 RATIO (test code = 29654) 0.29 CBC W/AUTO [id number] 00:00:00 Test Item Value Reference Range Interpretation Comments WBC (test code = 1001) 5.9 K/UL RBC (test code = 1002) 4.39 M/UL HEMOGLOBIN (test code = 1003) 14.3 G/DL HEMATOCRIT (test code = 1004) 40.4 % MCV (test code = 1005) 92.0 fL MCH (test code = 1006) 32.6 PG MCHC (test code = 1007) 35.4 G/DL RDW (test code = 1038) 12.0 % NEUTROPHILS (test code = 1008) 53.4 % LYMPHOCYTES (test code = 1010) 33.4 % MONOCYTES (test code = 1011) 7.8 % EOSINOPHILS (test code = 1012) 4.6 % BASOPHILS (test code = 1013) 0.5 % IMMATURE GRANYLOCYTES (test 0.3 % code = 1036) NUCLEATED RBCS (test code = 0.0 /100WBC'S 1065) PLATELET COUNT (test code = 285 K/UL 1015) ABSOLUTE NEUTROPHILS (test code 3.15 K/UL = 1066) ABSOLUTE LYMPHOCYTES (test code 1.97 K/UL = 1067) ABSOLUTE MONOCYTES (test code = 0.46 K/UL 1068) ABSOLUTE EOSINOPHILS (test code 0.27 K/UL = 1040) ABSOLUTE BASOPHILS (test code = 0.03 K/UL 1069) ABS IMMATURE GRANULOCYTES (test 0.02 K/UL code = 1020) ABS NUCLEATED RBCS (test code = 0.00 K/UL 09719) CBC W/AUTO [id number] 00:00:00 Test Item Value Reference Range Interpretation Comments WBC (test code = 1001) 5.9 K/UL RBC (test code = 1002) 4.39 M/UL HEMOGLOBIN (test code = 1003) 14.3 G/DL HEMATOCRIT (test code = 1004) 40.4 % MCV (test code = 1005) 92.0 fL MCH (test code = 1006) 32.6 PG MCHC (test code = 1007) 35.4 G/DL RDW (test code = 1038) 12.0 % NEUTROPHILS (test code = 1008) 53.4 % LYMPHOCYTES (test code = 1010) 33.4 % MONOCYTES (test code = 1011) 7.8 % EOSINOPHILS (test code = 1012) 4.6 % BASOPHILS (test code = 1013) 0.5 % IMMATURE GRANYLOCYTES (test 0.3 % code = 1036) NUCLEATED RBCS (test code = 0.0 /100WBC'S 1065) PLATELET COUNT (test code = 285 K/UL 1015) ABSOLUTE NEUTROPHILS (test code 3.15 K/UL = 1066) ABSOLUTE LYMPHOCYTES (test code 1.97 K/UL = 1067) ABSOLUTE MONOCYTES (test code = 0.46 K/UL 1068) ABSOLUTE EOSINOPHILS (test code 0.27 K/UL = 1040) ABSOLUTE BASOPHILS (test code = 0.03 K/UL 1069) ABS IMMATURE GRANULOCYTES (test 0.02 K/UL code = 1020) ABS NUCLEATED RBCS (test code = 0.00 K/UL 44149) CBC W/AUTO [id number] 00:00:00 Test Item Value Reference Range Interpretation Comments WBC (test code = 1001) 5.9 K/UL RBC (test code = 1002) 4.39 M/UL HEMOGLOBIN (test code = 1003) 14.3 G/DL HEMATOCRIT (test code = 1004) 40.4 % MCV (test code = 1005) 92.0 fL MCH (test code = 1006) 32.6 PG MCHC (test code = 1007) 35.4 G/DL RDW (test code = 1038) 12.0 % NEUTROPHILS (test code = 1008) 53.4 % LYMPHOCYTES (test code = 1010) 33.4 % MONOCYTES (test code = 1011) 7.8 % EOSINOPHILS (test code = 1012) 4.6 % BASOPHILS (test code = 1013) 0.5 % IMMATURE GRANYLOCYTES (test 0.3 % code = 1036) NUCLEATED RBCS (test code = 0.0 /100WBC'S 1065) PLATELET COUNT (test code = 285 K/UL 1015) ABSOLUTE NEUTROPHILS (test code 3.15 K/UL = 1066) ABSOLUTE LYMPHOCYTES (test code 1.97 K/UL = 1067) ABSOLUTE MONOCYTES (test code = 0.46 K/UL 1068) ABSOLUTE EOSINOPHILS (test code 0.27 K/UL = 1040) ABSOLUTE BASOPHILS (test code = 0.03 K/UL 1069) ABS IMMATURE GRANULOCYTES (test 0.02 K/UL code = 1020) ABS NUCLEATED RBCS (test code = 0.00 K/UL 12904) LIPID [id number] 00:00:00 Test Item Value Reference Range Interpretation Comments CHOLESTEROL (test code = 2210) 261 MG/DL TRIGLYCERIDES (test code = 2232) 586 MG/DL HDL CHOLESTEROL (test code = 34 MG/DL 2220) CALC LDL CHOL (test code = 2237) (NOTE) MG/DL RISK RATIO LDL/HDL (test code = 4.12 RATIO 2238) LIPID [id number] 00:00:00 Test Item Value Reference Range Interpretation Comments CHOLESTEROL (test code = 2210) 261 MG/DL TRIGLYCERIDES (test code = 2232) 586 MG/DL HDL CHOLESTEROL (test code = 34 MG/DL 2220) CALC LDL CHOL (test code = 2237) (NOTE) MG/DL RISK RATIO LDL/HDL (test code = 4.12 RATIO 2238) COMPREHENSIVE METABOLIC [id number] 00:00:00 Test Item Value Reference Range Interpretation Comments GLUCOSE (test code = 2217) 100 MG/DL BUN (test code = 2208) 17 MG/DL CREATININE (test code = 2214) 0.67 MG/DL eGFR (2020 CKD-EPI) (test 123 ML/MIN/1.73 code = 27237) CALC BUN/CREAT (test code = 25 RATIO 2235) SODIUM (test code = 2231) 140 MEQ/L POTASSIUM (test code = 2228) 4.0 MEQ/L CHLORIDE (test code = 2215) 103 MEQ/L CARBON DIOXIDE (test code = 23 MEQ/L 2205) CALCIUM (test code = 2209) 9.4 MG/DL PROTEIN, TOTAL (test code = 7.7 G/DL 2228) ALBUMIN (test code = 2201) 4.6 G/DL CALC GLOBULIN (test code = 3.1 G/DL 2239) CALC A/G RATIO (test code = 1.5 RATIO 2234) BILIRUBIN, TOTAL (test code = <0.2 MG/DL 2206) ALKALINE PHOSPHATASE (test 98 U/L code = 2204) AST (test code = 2218) 14 U/L ALT (test code = 2219) 9 U/L COMPREHENSIVE METABOLIC [id number] 00:00:00 Test Item Value Reference Range Interpretation Comments GLUCOSE (test code = 2217) 100 MG/DL BUN (test code = 2208) 17 MG/DL CREATININE (test code = 2214) 0.67 MG/DL eGFR (2020 CKD-EPI) (test 123 ML/MIN/1.73 code = 67103) CALC BUN/CREAT (test code = 25 RATIO 2235) SODIUM (test code = 2231) 140 MEQ/L POTASSIUM (test code = 2228) 4.0 MEQ/L CHLORIDE (test code = 2215) 103 MEQ/L CARBON DIOXIDE (test code = 23 MEQ/L 2205) CALCIUM (test code = 2209) 9.4 MG/DL PROTEIN, TOTAL (test code = 7.7 G/DL 2228) ALBUMIN (test code = 2201) 4.6 G/DL CALC GLOBULIN (test code = 3.1 G/DL 2239) CALC A/G RATIO (test code = 1.5 RATIO 2233) BILIRUBIN, TOTAL (test code = <0.2 MG/DL 2206) ALKALINE PHOSPHATASE (test 98 U/L code = 2204) AST (test code = 2218) 14 U/L ALT (test code = 2219) 9 U/L CD4/CD8 LYMPHOCYTE [id number] 00:00:00 Test Item Value Reference Range Interpretation Comments ABSOLUTE LYMPHOCYTES (test code = 1877 PERUL 58860) PERCENT CD4 (test code = 71983) 15.6 % ABSOLUTE CD4 (test code = 52889) 294 PERUL PERCENT CD8 (test code = 05954) 53.8 % ABSOLUTE CD8 (test code = 88802) 1011 PERUL CD4/CD8 RATIO (test code = 86476) 0.29 CD4/CD8 LYMPHOCYTE [id number] 00:00:00 Test Item Value Reference Range Interpretation Comments ABSOLUTE LYMPHOCYTES (test code = 1877 PERUL 75286) PERCENT CD4 (test code = 60347) 15.6 % ABSOLUTE CD4 (test code = 23972) 294 PERUL PERCENT CD8 (test code = 76325) 53.8 % ABSOLUTE CD8 (test code = 20363) 1011 PERUL CD4/CD8 RATIO (test code = 63455) 0.29 CBC W/AUTO [id number] 00:00:00 Test Item Value Reference Range Interpretation Comments WBC (test code = 1001) 5.9 K/UL RBC (test code = 1002) 4.39 M/UL HEMOGLOBIN (test code = 1003) 14.3 G/DL HEMATOCRIT (test code = 1004) 40.4 % MCV (test code = 1005) 92.0 fL MCH (test code = 1006) 32.6 PG MCHC (test code = 1007) 35.4 G/DL RDW (test code = 1038) 12.0 % NEUTROPHILS (test code = 1008) 53.4 % LYMPHOCYTES (test code = 1010) 33.4 % MONOCYTES (test code = 1011) 7.8 % EOSINOPHILS (test code = 1012) 4.6 % BASOPHILS (test code = 1013) 0.5 % IMMATURE GRANYLOCYTES (test 0.3 % code = 1036) NUCLEATED RBCS (test code = 0.0 /100WBC'S 1065) PLATELET COUNT (test code = 285 K/UL 1015) ABSOLUTE NEUTROPHILS (test code 3.15 K/UL = 1066) ABSOLUTE LYMPHOCYTES (test code 1.97 K/UL = 1067) ABSOLUTE MONOCYTES (test code = 0.46 K/UL 1068) ABSOLUTE EOSINOPHILS (test code 0.27 K/UL = 1040) ABSOLUTE BASOPHILS (test code = 0.03 K/UL 1069) ABS IMMATURE GRANULOCYTES (test 0.02 K/UL code = 1020) ABS NUCLEATED RBCS (test code = 0.00 K/UL 82162) CBC W/AUTO [id number] 00:00:00 Test Item Value Reference Range Interpretation Comments WBC (test code = 1001) 5.9 K/UL RBC (test code = 1002) 4.39 M/UL HEMOGLOBIN (test code = 1003) 14.3 G/DL HEMATOCRIT (test code = 1004) 40.4 % MCV (test code = 1005) 92.0 fL MCH (test code = 1006) 32.6 PG MCHC (test code = 1007) 35.4 G/DL RDW (test code = 1038) 12.0 % NEUTROPHILS (test code = 1008) 53.4 % LYMPHOCYTES (test code = 1010) 33.4 % MONOCYTES (test code = 1011) 7.8 % EOSINOPHILS (test code = 1012) 4.6 % BASOPHILS (test code = 1013) 0.5 % IMMATURE GRANYLOCYTES (test 0.3 % code = 1036) NUCLEATED RBCS (test code = 0.0 /100WBC'S 1065) PLATELET COUNT (test code = 285 K/UL 1015) ABSOLUTE NEUTROPHILS (test code 3.15 K/UL = 1066) ABSOLUTE LYMPHOCYTES (test code 1.97 K/UL = 1067) ABSOLUTE MONOCYTES (test code = 0.46 K/UL 1068) ABSOLUTE EOSINOPHILS (test code 0.27 K/UL = 1040) ABSOLUTE BASOPHILS (test code = 0.03 K/UL 1069) ABS IMMATURE GRANULOCYTES (test 0.02 K/UL code = 1020) ABS NUCLEATED RBCS (test code = 0.00 K/UL 21313) CBC W/AUTO [id number] 00:00:00 Test Item Value Reference Range Interpretation Comments WBC (test code = 1001) 5.9 K/UL RBC (test code = 1002) 4.39 M/UL HEMOGLOBIN (test code = 1003) 14.3 G/DL HEMATOCRIT (test code = 1004) 40.4 % MCV (test code = 1005) 92.0 fL MCH (test code = 1006) 32.6 PG MCHC (test code = 1007) 35.4 G/DL RDW (test code = 1038) 12.0 % NEUTROPHILS (test code = 1008) 53.4 % LYMPHOCYTES (test code = 1010) 33.4 % MONOCYTES (test code = 1011) 7.8 % EOSINOPHILS (test code = 1012) 4.6 % BASOPHILS (test code = 1013) 0.5 % IMMATURE GRANYLOCYTES (test 0.3 % code = 1036) NUCLEATED RBCS (test code = 0.0 /100WBC'S 1065) PLATELET COUNT (test code = 285 K/UL 1015) ABSOLUTE NEUTROPHILS (test code 3.15 K/UL = 1066) ABSOLUTE LYMPHOCYTES (test code 1.97 K/UL = 1067) ABSOLUTE MONOCYTES (test code = 0.46 K/UL 1068) ABSOLUTE EOSINOPHILS (test code 0.27 K/UL = 1040) ABSOLUTE BASOPHILS (test code = 0.03 K/UL 1069) ABS IMMATURE GRANULOCYTES (test 0.02 K/UL code = 1020) ABS NUCLEATED RBCS (test code = 0.00 K/UL 22432) LIPID [id number] 00:00:00 Test Item Value Reference Range Interpretation Comments CHOLESTEROL (test code = 2210) 261 MG/DL TRIGLYCERIDES (test code = 2232) 586 MG/DL HDL CHOLESTEROL (test code = 34 MG/DL 2220) CALC LDL CHOL (test code = 2237) (NOTE) MG/DL RISK RATIO LDL/HDL (test code = 4.12 RATIO 2238) LIPID [id number] 00:00:00 Test Item Value Reference Range Interpretation Comments CHOLESTEROL (test code = 2210) 261 MG/DL TRIGLYCERIDES (test code = 2232) 586 MG/DL HDL CHOLESTEROL (test code = 34 MG/DL 2220) CALC LDL CHOL (test code = 2237) (NOTE) MG/DL RISK RATIO LDL/HDL (test code = 4.12 RATIO 2238) COMPREHENSIVE METABOLIC [id number] 00:00:00 Test Item Value Reference Range Interpretation Comments GLUCOSE (test code = 2217) 100 MG/DL BUN (test code = 2208) 17 MG/DL CREATININE (test code = 2214) 0.67 MG/DL eGFR (2020 CKD-EPI) (test 123 ML/MIN/1.73 code = 85305) CALC BUN/CREAT (test code = 25 RATIO 2235) SODIUM (test code = 2231) 140 MEQ/L POTASSIUM (test code = 2228) 4.0 MEQ/L CHLORIDE (test code = 2215) 103 MEQ/L CARBON DIOXIDE (test code = 23 MEQ/L 2205) CALCIUM (test code = 2209) 9.4 MG/DL PROTEIN, TOTAL (test code = 7.7 G/DL 2228) ALBUMIN (test code = 2201) 4.6 G/DL CALC GLOBULIN (test code = 3.1 G/DL 2240) CALC A/G RATIO (test code = 1.5 RATIO 2234) BILIRUBIN, TOTAL (test code = <0.2 MG/DL 2206) ALKALINE PHOSPHATASE (test 98 U/L code = 2204) AST (test code = 2218) 14 U/L ALT (test code = 2219) 9 U/L COMPREHENSIVE METABOLIC [id number] 00:00:00 Test Item Value Reference Range Interpretation Comments GLUCOSE (test code = 2217) 100 MG/DL BUN (test code = 2208) 17 MG/DL CREATININE (test code = 2214) 0.67 MG/DL eGFR (2020 CKD-EPI) (test 123 ML/MIN/1.73 code = 81955) CALC BUN/CREAT (test code = 25 RATIO 223) SODIUM (test code = 2231) 140 MEQ/L POTASSIUM (test code = 2228) 4.0 MEQ/L CHLORIDE (test code = 2215) 103 MEQ/L CARBON DIOXIDE (test code = 23 MEQ/L 2205) CALCIUM (test code = 220) 9.4 MG/DL PROTEIN, TOTAL (test code = 7.7 G/DL 2228) ALBUMIN (test code = 220) 4.6 G/DL CALC GLOBULIN (test code = 3.1 G/DL 2239) CALC A/G RATIO (test code = 1.5 RATIO 2233) BILIRUBIN, TOTAL (test code = <0.2 MG/DL 2206) ALKALINE PHOSPHATASE (test 98 U/L code = 220) AST (test code = 2218) 14 U/L ALT (test code = 2219) 9 U/L CD4/CD8 LYMPHOCYTE [id number] 00:00:00 Test Item Value Reference Range Interpretation Comments ABSOLUTE LYMPHOCYTES (test code = 1877 PERUL 23630) PERCENT CD4 (test code = 58089) 15.6 % ABSOLUTE CD4 (test code = 81884) 294 PERUL PERCENT CD8 (test code = 53241) 53.8 % ABSOLUTE CD8 (test code = 81007) 1011 PERUL CD4/CD8 RATIO (test code = 24307) 0.29 CD4/CD8 LYMPHOCYTE [id number] 00:00:00 Test Item Value Reference Range Interpretation Comments ABSOLUTE LYMPHOCYTES (test code = 1877 PERUL 77854) PERCENT CD4 (test code = 42454) 15.6 % ABSOLUTE CD4 (test code = 12568) 294 PERUL PERCENT CD8 (test code = 54893) 53.8 % ABSOLUTE CD8 (test code = 55775) 1011 PERUL CD4/CD8 RATIO (test code = 72078) 0.29 CBC W/AUTO [id number] 00:00:00 Test Item Value Reference Range Interpretation Comments WBC (test code = 1001) 5.9 K/UL RBC (test code = 1002) 4.39 M/UL HEMOGLOBIN (test code = 1003) 14.3 G/DL HEMATOCRIT (test code = 1004) 40.4 % MCV (test code = 1005) 92.0 fL MCH (test code = 1006) 32.6 PG MCHC (test code = 1007) 35.4 G/DL RDW (test code = 1038) 12.0 % NEUTROPHILS (test code = 1008) 53.4 % LYMPHOCYTES (test code = 1010) 33.4 % MONOCYTES (test code = 1011) 7.8 % EOSINOPHILS (test code = 1012) 4.6 % BASOPHILS (test code = 1013) 0.5 % IMMATURE GRANYLOCYTES (test 0.3 % code = 1036) NUCLEATED RBCS (test code = 0.0 /100WBC'S 1065) PLATELET COUNT (test code = 285 K/UL 1015) ABSOLUTE NEUTROPHILS (test code 3.15 K/UL = 1066) ABSOLUTE LYMPHOCYTES (test code 1.97 K/UL = 1067) ABSOLUTE MONOCYTES (test code = 0.46 K/UL 1068) ABSOLUTE EOSINOPHILS (test code 0.27 K/UL = 1040) ABSOLUTE BASOPHILS (test code = 0.03 K/UL 1069) ABS IMMATURE GRANULOCYTES (test 0.02 K/UL code = 1020) ABS NUCLEATED RBCS (test code = 0.00 K/UL 48905) CBC W/AUTO [id number] 00:00:00 Test Item Value Reference Range Interpretation Comments WBC (test code = 1001) 5.9 K/UL RBC (test code = 1002) 4.39 M/UL HEMOGLOBIN (test code = 1003) 14.3 G/DL HEMATOCRIT (test code = 1004) 40.4 % MCV (test code = 1005) 92.0 fL MCH (test code = 1006) 32.6 PG MCHC (test code = 1007) 35.4 G/DL RDW (test code = 1038) 12.0 % NEUTROPHILS (test code = 1008) 53.4 % LYMPHOCYTES (test code = 1010) 33.4 % MONOCYTES (test code = 1011) 7.8 % EOSINOPHILS (test code = 1012) 4.6 % BASOPHILS (test code = 1013) 0.5 % IMMATURE GRANYLOCYTES (test 0.3 % code = 1036) NUCLEATED RBCS (test code = 0.0 /100WBC'S 1065) PLATELET COUNT (test code = 285 K/UL 1015) ABSOLUTE NEUTROPHILS (test code 3.15 K/UL = 1066) ABSOLUTE LYMPHOCYTES (test code 1.97 K/UL = 1067) ABSOLUTE MONOCYTES (test code = 0.46 K/UL 1068) ABSOLUTE EOSINOPHILS (test code 0.27 K/UL = 1040) ABSOLUTE BASOPHILS (test code = 0.03 K/UL 1069) ABS IMMATURE GRANULOCYTES (test 0.02 K/UL code = 1020) ABS NUCLEATED RBCS (test code = 0.00 K/UL 57568) CBC W/AUTO [id number] 00:00:00 Test Item Value Reference Range Interpretation Comments WBC (test code = 1001) 5.9 K/UL RBC (test code = 1002) 4.39 M/UL HEMOGLOBIN (test code = 1003) 14.3 G/DL HEMATOCRIT (test code = 1004) 40.4 % MCV (test code = 1005) 92.0 fL MCH (test code = 1006) 32.6 PG MCHC (test code = 1007) 35.4 G/DL RDW (test code = 1038) 12.0 % NEUTROPHILS (test code = 1008) 53.4 % LYMPHOCYTES (test code = 1010) 33.4 % MONOCYTES (test code = 1011) 7.8 % EOSINOPHILS (test code = 1012) 4.6 % BASOPHILS (test code = 1013) 0.5 % IMMATURE GRANYLOCYTES (test 0.3 % code = 1036) NUCLEATED RBCS (test code = 0.0 /100WBC'S 1065) PLATELET COUNT (test code = 285 K/UL 1015) ABSOLUTE NEUTROPHILS (test code 3.15 K/UL = 1066) ABSOLUTE LYMPHOCYTES (test code 1.97 K/UL = 1067) ABSOLUTE MONOCYTES (test code = 0.46 K/UL 1068) ABSOLUTE EOSINOPHILS (test code 0.27 K/UL = 1040) ABSOLUTE BASOPHILS (test code = 0.03 K/UL 1069) ABS IMMATURE GRANULOCYTES (test 0.02 K/UL code = 1020) ABS NUCLEATED RBCS (test code = 0.00 K/UL 77068) LIPID [id number] 00:00:00 Test Item Value Reference Range Interpretation Comments CHOLESTEROL (test code = 2210) 261 MG/DL TRIGLYCERIDES (test code = 2232) 586 MG/DL HDL CHOLESTEROL (test code = 34 MG/DL 2220) CALC LDL CHOL (test code = 2237) (NOTE) MG/DL RISK RATIO LDL/HDL (test code = 4.12 RATIO 2238) LIPID [id number] 00:00:00 Test Item Value Reference Range Interpretation Comments CHOLESTEROL (test code = 2210) 261 MG/DL TRIGLYCERIDES (test code = 2232) 586 MG/DL HDL CHOLESTEROL (test code = 34 MG/DL 2220) CALC LDL CHOL (test code = 2237) (NOTE) MG/DL RISK RATIO LDL/HDL (test code = 4.12 RATIO 2238) COMPREHENSIVE METABOLIC [id number] 00:00:00 Test Item Value Reference Range Interpretation Comments GLUCOSE (test code = 2217) 100 MG/DL BUN (test code = 2208) 17 MG/DL CREATININE (test code = 2214) 0.67 MG/DL eGFR (2020 CKD-EPI) (test 123 ML/MIN/1.73 code = 81362) CALC BUN/CREAT (test code = 25 RATIO 2235) SODIUM (test code = 2231) 140 MEQ/L POTASSIUM (test code = 2228) 4.0 MEQ/L CHLORIDE (test code = 2215) 103 MEQ/L CARBON DIOXIDE (test code = 23 MEQ/L 2205) CALCIUM (test code = 2209) 9.4 MG/DL PROTEIN, TOTAL (test code = 7.7 G/DL 2228) ALBUMIN (test code = 2201) 4.6 G/DL CALC GLOBULIN (test code = 3.1 G/DL 2240) CALC A/G RATIO (test code = 1.5 RATIO 2234) BILIRUBIN, TOTAL (test code = <0.2 MG/DL 2206) ALKALINE PHOSPHATASE (test 98 U/L code = 2204) AST (test code = 2218) 14 U/L ALT (test code = 2219) 9 U/L COMPREHENSIVE METABOLIC [id number] 00:00:00 Test Item Value Reference Range Interpretation Comments GLUCOSE (test code = 2217) 100 MG/DL BUN (test code = 2208) 17 MG/DL CREATININE (test code = 2214) 0.67 MG/DL eGFR (2020 CKD-EPI) (test 123 ML/MIN/1.73 code = 95129) CALC BUN/CREAT (test code = 25 RATIO 2234) SODIUM (test code = 2231) 140 MEQ/L POTASSIUM (test code = 2228) 4.0 MEQ/L CHLORIDE (test code = 2215) 103 MEQ/L CARBON DIOXIDE (test code = 23 MEQ/L 2205) CALCIUM (test code = 2209) 9.4 MG/DL PROTEIN, TOTAL (test code = 7.7 G/DL 2228) ALBUMIN (test code = 220) 4.6 G/DL CALC GLOBULIN (test code = 3.1 G/DL 2239) CALC A/G RATIO (test code = 1.5 RATIO 2233) BILIRUBIN, TOTAL (test code = <0.2 MG/DL 2206) ALKALINE PHOSPHATASE (test 98 U/L code = 220) AST (test code = 2218) 14 U/L ALT (test code = 2219) 9 U/L CD4/CD8 LYMPHOCYTE [id number] 00:00:00 Test Item Value Reference Range Interpretation Comments ABSOLUTE LYMPHOCYTES (test code = 1877 PERUL 35489) PERCENT CD4 (test code = 60671) 15.6 % ABSOLUTE CD4 (test code = 31431) 294 PERUL PERCENT CD8 (test code = 11184) 53.8 % ABSOLUTE CD8 (test code = 39699) 1011 PERUL CD4/CD8 RATIO (test code = 03387) 0.29 CD4/CD8 LYMPHOCYTE [id number] 00:00:00 Test Item Value Reference Range Interpretation Comments ABSOLUTE LYMPHOCYTES (test code = 1877 PERUL 22971) PERCENT CD4 (test code = 18411) 15.6 % ABSOLUTE CD4 (test code = 72998) 294 PERUL PERCENT CD8 (test code = 46638) 53.8 % ABSOLUTE CD8 (test code = 19061) 1011 PERUL CD4/CD8 RATIO (test code = 46718) 0.29 CBC W/AUTO [id number] 00:00:00 Test Item Value Reference Range Interpretation Comments WBC (test code = 1001) 5.9 K/UL RBC (test code = 1002) 4.39 M/UL HEMOGLOBIN (test code = 1003) 14.3 G/DL HEMATOCRIT (test code = 1004) 40.4 % MCV (test code = 1005) 92.0 fL MCH (test code = 1006) 32.6 PG MCHC (test code = 1007) 35.4 G/DL RDW (test code = 1038) 12.0 % NEUTROPHILS (test code = 1008) 53.4 % LYMPHOCYTES (test code = 1010) 33.4 % MONOCYTES (test code = 1011) 7.8 % EOSINOPHILS (test code = 1012) 4.6 % BASOPHILS (test code = 1013) 0.5 % IMMATURE GRANYLOCYTES (test 0.3 % code = 1036) NUCLEATED RBCS (test code = 0.0 /100WBC'S 1065) PLATELET COUNT (test code = 285 K/UL 1015) ABSOLUTE NEUTROPHILS (test code 3.15 K/UL = 1066) ABSOLUTE LYMPHOCYTES (test code 1.97 K/UL = 1067) ABSOLUTE MONOCYTES (test code = 0.46 K/UL 1068) ABSOLUTE EOSINOPHILS (test code 0.27 K/UL = 1040) ABSOLUTE BASOPHILS (test code = 0.03 K/UL 1069) ABS IMMATURE GRANULOCYTES (test 0.02 K/UL code = 1020) ABS NUCLEATED RBCS (test code = 0.00 K/UL 44885) CBC W/AUTO [id number] 00:00:00 Test Item Value Reference Range Interpretation Comments WBC (test code = 1001) 5.9 K/UL RBC (test code = 1002) 4.39 M/UL HEMOGLOBIN (test code = 1003) 14.3 G/DL HEMATOCRIT (test code = 1004) 40.4 % MCV (test code = 1005) 92.0 fL MCH (test code = 1006) 32.6 PG MCHC (test code = 1007) 35.4 G/DL RDW (test code = 1038) 12.0 % NEUTROPHILS (test code = 1008) 53.4 % LYMPHOCYTES (test code = 1010) 33.4 % MONOCYTES (test code = 1011) 7.8 % EOSINOPHILS (test code = 1012) 4.6 % BASOPHILS (test code = 1013) 0.5 % IMMATURE GRANYLOCYTES (test 0.3 % code = 1036) NUCLEATED RBCS (test code = 0.0 /100WBC'S 1065) PLATELET COUNT (test code = 285 K/UL 1015) ABSOLUTE NEUTROPHILS (test code 3.15 K/UL = 1066) ABSOLUTE LYMPHOCYTES (test code 1.97 K/UL = 1067) ABSOLUTE MONOCYTES (test code = 0.46 K/UL 1068) ABSOLUTE EOSINOPHILS (test code 0.27 K/UL = 1040) ABSOLUTE BASOPHILS (test code = 0.03 K/UL 1069) ABS IMMATURE GRANULOCYTES (test 0.02 K/UL code = 1020) ABS NUCLEATED RBCS (test code = 0.00 K/UL 27017) CBC W/AUTO [id number] 00:00:00 Test Item Value Reference Range Interpretation Comments WBC (test code = 1001) 5.9 K/UL RBC (test code = 1002) 4.39 M/UL HEMOGLOBIN (test code = 1003) 14.3 G/DL HEMATOCRIT (test code = 1004) 40.4 % MCV (test code = 1005) 92.0 fL MCH (test code = 1006) 32.6 PG MCHC (test code = 1007) 35.4 G/DL RDW (test code = 1038) 12.0 % NEUTROPHILS (test code = 1008) 53.4 % LYMPHOCYTES (test code = 1010) 33.4 % MONOCYTES (test code = 1011) 7.8 % EOSINOPHILS (test code = 1012) 4.6 % BASOPHILS (test code = 1013) 0.5 % IMMATURE GRANYLOCYTES (test 0.3 % code = 1036) NUCLEATED RBCS (test code = 0.0 /100WBC'S 1065) PLATELET COUNT (test code = 285 K/UL 1015) ABSOLUTE NEUTROPHILS (test code 3.15 K/UL = 1066) ABSOLUTE LYMPHOCYTES (test code 1.97 K/UL = 1067) ABSOLUTE MONOCYTES (test code = 0.46 K/UL 1068) ABSOLUTE EOSINOPHILS (test code 0.27 K/UL = 1040) ABSOLUTE BASOPHILS (test code = 0.03 K/UL 1069) ABS IMMATURE GRANULOCYTES (test 0.02 K/UL code = 1020) ABS NUCLEATED RBCS (test code = 0.00 K/UL 26494) LIPID [id number] 00:00:00 Test Item Value Reference Range Interpretation Comments CHOLESTEROL (test code = 2210) 261 MG/DL TRIGLYCERIDES (test code = 2232) 586 MG/DL HDL CHOLESTEROL (test code = 34 MG/DL 2220) CALC LDL CHOL (test code = 2237) (NOTE) MG/DL RISK RATIO LDL/HDL (test code = 4.12 RATIO 2238) LIPID [id number] 00:00:00 Test Item Value Reference Range Interpretation Comments CHOLESTEROL (test code = 2210) 261 MG/DL TRIGLYCERIDES (test code = 2232) 586 MG/DL HDL CHOLESTEROL (test code = 34 MG/DL 2220) CALC LDL CHOL (test code = 2237) (NOTE) MG/DL RISK RATIO LDL/HDL (test code = 4.12 RATIO 2238) COMPREHENSIVE METABOLIC [id number] 00:00:00 Test Item Value Reference Range Interpretation Comments GLUCOSE (test code = 2217) 100 MG/DL BUN (test code = 2208) 17 MG/DL CREATININE (test code = 2214) 0.67 MG/DL eGFR (2020 CKD-EPI) (test 123 ML/MIN/1.73 code = 65373) CALC BUN/CREAT (test code = 25 RATIO 2235) SODIUM (test code = 2231) 140 MEQ/L POTASSIUM (test code = 2228) 4.0 MEQ/L CHLORIDE (test code = 2215) 103 MEQ/L CARBON DIOXIDE (test code = 23 MEQ/L 2205) CALCIUM (test code = 2209) 9.4 MG/DL PROTEIN, TOTAL (test code = 7.7 G/DL 2228) ALBUMIN (test code = 2201) 4.6 G/DL CALC GLOBULIN (test code = 3.1 G/DL 2240) CALC A/G RATIO (test code = 1.5 RATIO 2234) BILIRUBIN, TOTAL (test code = <0.2 MG/DL 2206) ALKALINE PHOSPHATASE (test 98 U/L code = 2204) AST (test code = 2218) 14 U/L ALT (test code = 2219) 9 U/L COMPREHENSIVE METABOLIC [id number] 00:00:00 Test Item Value Reference Range Interpretation Comments GLUCOSE (test code = 2217) 100 MG/DL BUN (test code = 2208) 17 MG/DL CREATININE (test code = 2214) 0.67 MG/DL eGFR (2020 CKD-EPI) (test 123 ML/MIN/1.73 code = 71254) CALC BUN/CREAT (test code = 25 RATIO 2235) SODIUM (test code = 2231) 140 MEQ/L POTASSIUM (test code = 2228) 4.0 MEQ/L CHLORIDE (test code = 2215) 103 MEQ/L CARBON DIOXIDE (test code = 23 MEQ/L 2205) CALCIUM (test code = 2209) 9.4 MG/DL PROTEIN, TOTAL (test code = 7.7 G/DL 2228) ALBUMIN (test code = 2201) 4.6 G/DL CALC GLOBULIN (test code = 3.1 G/DL 2239) CALC A/G RATIO (test code = 1.5 RATIO 2233) BILIRUBIN, TOTAL (test code = <0.2 MG/DL 2206) ALKALINE PHOSPHATASE (test 98 U/L code = 220) AST (test code = 2218) 14 U/L ALT (test code = 2219) 9 U/L CD4/CD8 LYMPHOCYTE [id number] 00:00:00 Test Item Value Reference Range Interpretation Comments ABSOLUTE LYMPHOCYTES (test code = 1877 PERUL 60131) PERCENT CD4 (test code = 36230) 15.6 % ABSOLUTE CD4 (test code = 52822) 294 PERUL PERCENT CD8 (test code = 24126) 53.8 % ABSOLUTE CD8 (test code = 68438) 1011 PERUL CD4/CD8 RATIO (test code = 93823) 0.29 CD4/CD8 LYMPHOCYTE [id number] 00:00:00 Test Item Value Reference Range Interpretation Comments ABSOLUTE LYMPHOCYTES (test code = 1877 PERUL 97924) PERCENT CD4 (test code = 61732) 15.6 % ABSOLUTE CD4 (test code = 52820) 294 PERUL PERCENT CD8 (test code = 71766) 53.8 % ABSOLUTE CD8 (test code = 24046) 1011 PERUL CD4/CD8 RATIO (test code = 14728) 0.29 CBC W/AUTO [id number] 00:00:00 Test Item Value Reference Range Interpretation Comments WBC (test code = 1001) 5.9 K/UL RBC (test code = 1002) 4.39 M/UL HEMOGLOBIN (test code = 1003) 14.3 G/DL HEMATOCRIT (test code = 1004) 40.4 % MCV (test code = 1005) 92.0 fL MCH (test code = 1006) 32.6 PG MCHC (test code = 1007) 35.4 G/DL RDW (test code = 1038) 12.0 % NEUTROPHILS (test code = 1008) 53.4 % LYMPHOCYTES (test code = 1010) 33.4 % MONOCYTES (test code = 1011) 7.8 % EOSINOPHILS (test code = 1012) 4.6 % BASOPHILS (test code = 1013) 0.5 % IMMATURE GRANYLOCYTES (test 0.3 % code = 1036) NUCLEATED RBCS (test code = 0.0 /100WBC'S 1065) PLATELET COUNT (test code = 285 K/UL 1015) ABSOLUTE NEUTROPHILS (test code 3.15 K/UL = 1066) ABSOLUTE LYMPHOCYTES (test code 1.97 K/UL = 1067) ABSOLUTE MONOCYTES (test code = 0.46 K/UL 1068) ABSOLUTE EOSINOPHILS (test code 0.27 K/UL = 1040) ABSOLUTE BASOPHILS (test code = 0.03 K/UL 1069) ABS IMMATURE GRANULOCYTES (test 0.02 K/UL code = 1020) ABS NUCLEATED RBCS (test code = 0.00 K/UL 74063) CBC W/AUTO [id number] 00:00:00 Test Item Value Reference Range Interpretation Comments WBC (test code = 1001) 5.9 K/UL RBC (test code = 1002) 4.39 M/UL HEMOGLOBIN (test code = 1003) 14.3 G/DL HEMATOCRIT (test code = 1004) 40.4 % MCV (test code = 1005) 92.0 fL MCH (test code = 1006) 32.6 PG MCHC (test code = 1007) 35.4 G/DL RDW (test code = 1038) 12.0 % NEUTROPHILS (test code = 1008) 53.4 % LYMPHOCYTES (test code = 1010) 33.4 % MONOCYTES (test code = 1011) 7.8 % EOSINOPHILS (test code = 1012) 4.6 % BASOPHILS (test code = 1013) 0.5 % IMMATURE GRANYLOCYTES (test 0.3 % code = 1036) NUCLEATED RBCS (test code = 0.0 /100WBC'S 1065) PLATELET COUNT (test code = 285 K/UL 1015) ABSOLUTE NEUTROPHILS (test code 3.15 K/UL = 1066) ABSOLUTE LYMPHOCYTES (test code 1.97 K/UL = 1067) ABSOLUTE MONOCYTES (test code = 0.46 K/UL 1068) ABSOLUTE EOSINOPHILS (test code 0.27 K/UL = 1040) ABSOLUTE BASOPHILS (test code = 0.03 K/UL 1069) ABS IMMATURE GRANULOCYTES (test 0.02 K/UL code = 1020) ABS NUCLEATED RBCS (test code = 0.00 K/UL 04194) CBC W/AUTO [id number] 00:00:00 Test Item Value Reference Range Interpretation Comments WBC (test code = 1001) 5.9 K/UL RBC (test code = 1002) 4.39 M/UL HEMOGLOBIN (test code = 1003) 14.3 G/DL HEMATOCRIT (test code = 1004) 40.4 % MCV (test code = 1005) 92.0 fL MCH (test code = 1006) 32.6 PG MCHC (test code = 1007) 35.4 G/DL RDW (test code = 1038) 12.0 % NEUTROPHILS (test code = 1008) 53.4 % LYMPHOCYTES (test code = 1010) 33.4 % MONOCYTES (test code = 1011) 7.8 % EOSINOPHILS (test code = 1012) 4.6 % BASOPHILS (test code = 1013) 0.5 % IMMATURE GRANYLOCYTES (test 0.3 % code = 1036) NUCLEATED RBCS (test code = 0.0 /100WBC'S 1065) PLATELET COUNT (test code = 285 K/UL 1015) ABSOLUTE NEUTROPHILS (test code 3.15 K/UL = 1066) ABSOLUTE LYMPHOCYTES (test code 1.97 K/UL = 1067) ABSOLUTE MONOCYTES (test code = 0.46 K/UL 1068) ABSOLUTE EOSINOPHILS (test code 0.27 K/UL = 1040) ABSOLUTE BASOPHILS (test code = 0.03 K/UL 1069) ABS IMMATURE GRANULOCYTES (test 0.02 K/UL code = 1020) ABS NUCLEATED RBCS (test code = 0.00 K/UL 80191) rapid plasma reagin antibody, [id number] 08:06:00 Test Item Value Reference Range Interpretation Comments rapid plasma reagin antibody, Non Reactive Non Reactive serum (test code = 5291-0) [facility], serum, by PCR, [id number] 08:06:00 Test Item Value Reference Range Interpretation Comments HIV-1RNA, serum, by PCR, <20 copies/mL quantitative (test code = 05927) Counts [facility] HospitalLDL cholesterol, [id number] 08:06:00 Test Item Value Reference Range Interpretation Comments LDL cholesterol, serum (test code = 66 mg/dL 0-99 2088-1) [facility] Hospitalvery low density sudyungkyobr8205-94-20 08:06:00 Test Item Value Reference Range Interpretation Comments very low density lipoproteins (test 22 mg/dL 5-40 code = 2091-7) [facility]HDL cholesterol, [id number] 08:06:00 Test Item Value Reference Range Interpretation Comments HDL cholesterol, serum (test code = 41 mg/dL >39 2084-9) [facility] Hospitaltriglyceride, serum, [id number] 08:06:00 Test Item Value Reference Range Interpretation Comments triglyceride, serum, fasting (test 119 mg/dL 0-149 code = 2571-8) [facility] Hospitalcholesterol, [id number] 08:06:00 Test Item Value Reference Range Interpretation Comments cholesterol, serum (test code = 129 mg/dL 086-589 1345-3) Counts [facility] Hospitalalanine aminotransferase (SGPT), [id number] 08:06:00 Test Item Value Reference Range Interpretation Comments alanine aminotransferase (SGPT), serum 14 1/L 0-44 (test code = 1742-6) Counts [facility] Hospitalaspartate aminotransferase (SGOT), [id number] 08:06:00 Test Item Value Reference Range Interpretation Comments aspartate aminotransferase (SGOT), 16 1/L 0-40 serum (test code = 1920-8) Counts [facility] Hospitalalkaline phosphatase, [id number] 08:06:00 Test Item Value Reference Range Interpretation Comments alkaline phosphatase, serum (test 102 1/L 48-121 code = 1783-0) Counts [facility] Hospitalbilirubin, serum, [id number] 08:06:00 Test Item Value Reference Range Interpretation Comments bilirubin, serum, total (test code 0.2 mg/dL 0.0-1.2 = 1974-2) Counts [facility] Hospitalalbumin/globulin ratio, [id number] 08:06:00 Test Item Value Reference Range Interpretation Comments albumin/globulin ratio, 1.5 (unknown unit) 1.2-2.2 serum (test code = 1759-0) [facility] Healthglobulin, [id number] 08:06:00 Test Item Value Reference Range Interpretation Comments globulin, serum (test code 3.0 (unknown unit) 1.5-4.5 = 2336-6) [facility] Healthalbumin, [id number] 08:06:00 Test Item Value Reference Range Interpretation Comments albumin, serum (test code = 1751-7) 4.4 g/dL 4.0-5.0 [facility] Healthprotein, total, iciuy1487-92-31 08:06:00 Test Item Value Reference Range Interpretation Comments protein, total, serum (test code = 7.4 g/dL 6.0-8.5 2885-2) Counts [facility] Hospitalcalcium, [id number] 08:06:00 Test Item Value Reference Range Interpretation Comments calcium, serum (test code = 1999-8) 9.7 mg/dL 8.7-10.2 Counts Include [facility] Hospitalcarbon dioxide, venous [id number] 08:06:00 Test Item Value Reference Range Interpretation Comments carbon dioxide, venous blood (test 23 mmol/L 20-29 code = 2027-1) Counts [facility] Hospitalchloride, [id number] 08:06:00 Test Item Value Reference Range Interpretation Comments chloride, serum (test code = 103 mmol/L 96-106 5-0) Counts [facility] Hospitalpotassium, [id number] 08:06:00 Test Item Value Reference Range Interpretation Comments potassium, serum (test code = 4.6 mmol/L 3.5-5.2 2823-3) [facility] Healthsodium, [id number] 08:06:00 Test Item Value Reference Range Interpretation Comments sodium, serum (test code = 2951-2) 140 mmol/L 134-144 Counts Include [facility] Hospitalurea nitrogen/creatinine ratio, [id number] 08:06:00 Test Item Value Reference Range Interpretation Comments urea nitrogen/creatinine 17 (unknown unit) 9-20 ratio, serum (test code = 3097-3) [facility] HealtheGFR if [id number] 08:06:00 Test Item Value Reference Range Interpretation Comments eGFR if 117 mL/min/{1.73 m2} >59 (test code = 39350-8) Counts Include [facility] HospitalEstimated Glomerular Filtration Rate (calc)2021-02-24 08:06:00 Test Item Value Reference Range Interpretation Comments Estimated Glomerular 101 mL/min/{1.73 m2} >59 Filtration Rate (calc) (test code = 52930-3) Counts [facility] Hospitalcreatinine, [id number] 08:06:00 Test Item Value Reference Range Interpretation Comments creatinine, serum (test code = 0.95 mg/dL 0.76-1.27 2160-0) Counts Include [facility] Hospitalurea nitrogen, [id number] 08:06:00 Test Item Value Reference Range Interpretation Comments urea nitrogen, blood (test code = 16 mg/dL 6-20 3094-0) Counts [facility] Hospitalblood glucose, [id number] 08:06:00 Test Item Value Reference Range Interpretation Comments blood glucose, random (test code = 95 mg/dL 65-99 2339-0) Counts Include [facility] Hospitalimmature granulocytes, percentage of total cells, blood 2021-02-24 08:06:00 Test Item Value Reference Range Interpretation Comments immature granulocytes, percentage of 1 % total cells, blood (test code = 02720-4) Counts [facility] Hospitalbasophil count, wswxjvqf5980-25-59 08:06:00 Test Item Value Reference Range Interpretation Comments basophil count, absolute (test 0.0 x10E3/uL 0.0-0.2 code = 66674-4) Counts [facility] HospitalEosinophil Absolute [id number] 08:06:00 Test Item Value Reference Range Interpretation Comments Eosinophil Absolute Count (test 0.2 X10E3/UL 0.0-0.4 code = 46608-8) Counts [facility] Hospitalmonocyte count, blood, qpobhlhrk4590-70-69 08:06:00 Test Item Value Reference Range Interpretation Comments monocyte count, blood, automated 0.8 X10E3/UL 0.1-0.9 (test code = 742-7) Counts [facility] Hospitallymphocyte count, blood, bznjcafpm0648-80-54 08:06:00 Test Item Value Reference Range Interpretation Comments lymphocyte count, blood, 1.5 X10E3/UL 0.7-3.1 automated (test code = 731-0) Counts [facility] HospitalAbsolute Zokronqseif5763-04-67 08:06:00 Test Item Value Reference Range Interpretation Comments Absolute Neutrophils (test code 7.5 X10E3/UL 1.4-7.0 H = 57258-1) Counts Include [facility] Hospitalbasophils as percent of blood zybnrrvawi1586-12-93 08:06:00 Test Item Value Reference Range Interpretation Comments basophils as percent of blood 0 % leukocytes (test code = 707-0) Counts Include [facility] Hospitaleosinophils as percent of blood poixrybwsh2043-17-40 08:06:00 Test Item Value Reference Range Interpretation Comments eosinophils as percent of blood 2 % leukocytes (test code = 713-8) [facility] Healthmonocytes as percent of blood expbkknjro0670-07-74 08:06:00 Test Item Value Reference Range Interpretation Comments monocytes as percent of blood 8 % leukocytes (test code = 5905-5) Counts Include [facility] Hospitallymphocytes as percent of blood vmckkuhphk8603-94-60 08:06:00 Test Item Value Reference Range Interpretation Comments lymphocytes as percent of blood 15 % leukocytes (test code = 736-9) Counts Include [facility] Hospitalneutrophils as percent of blood xxfubkjxdo6193-35-08 08:06:00 Test Item Value Reference Range Interpretation Comments neutrophils as percent of blood 74 % leukocytes (test code = 770-8) Counts [facility] Hospitalplatelet hmkvv5501-07-05 08:06:00 Test Item Value Reference Range Interpretation Comments platelet count (test code = 311 X10E3/UL 150-450 777-3) Counts [facility] Hospitalred blood cell distribution [id number] 08:06:00 Test Item Value Reference Range Interpretation Comments red blood cell distribution width 13.5 % 11.6-15.4 (test code = 788-0) [facility] hemoglobin concentration, [id number] 08:06:00 Test Item Value Reference Range Interpretation Comments mean corpuscular hemoglobin 33.4 G/DL 31.5-35.7 concentration, RBC (test code = 786-4) [facility] hemoglobin, [id number] 08:06:00 Test Item Value Reference Range Interpretation Comments mean corpuscular hemoglobin, RBC 31.7 pg 26.6-33.0 (test code = 785-6) Counts Include [facility] Hospitalmean corpuscular volume, [id number] 08:06:00 Test Item Value Reference Range Interpretation Comments mean corpuscular volume, RBC (test code 95 fL 79-97 = 787-2) Counts Include [facility] Hospitalhematocrit, [id number] 08:06:00 Test Item Value Reference Range Interpretation Comments hematocrit, blood (test code = 4544-3) 41.0 % 37.5-51.0 Counts Include [facility] Hospitalhemoglobin, [id number] 08:06:00 Test Item Value Reference Range Interpretation Comments hemoglobin, blood (test code = 13.7 g/dL 13.0-17.7 718-7) Counts [facility] Hospitalerythrocyte (RBC) [id number] 08:06:00 Test Item Value Reference Range Interpretation Comments erythrocyte (RBC) count (test 4.32 X10E6/UL 4.14-5.80 code = 789-8) Counts Include [facility] Hospitalleukocyte count, ktmoz3082-67-64 08:06:00 Test Item Value Reference Range Interpretation Comments leukocyte count, blood (test 10.1 X10E3/UL 3.4-10.8 code = 6690-2) Counts Include [facility] HospitalCD4/CD8 bujeb0344-93-92 08:06:00 Test Item Value Reference Range Interpretation Comments CD4/CD8 ratio (test code 0.28 (unknown unit) 0.92-3.72 L = 78622) Counts Include [facility] HospitalT-suppressor cells (CD8) as percent of blood lymphocytes 2021-02-24 08:06:00 Test Item Value Reference Range Interpretation Comments T-suppressor cells (CD8) as percent of 58.8 % 12.0-35.5 H blood lymphocytes (test code = 3517) Counts Include [facility] Hospitalabsolute [id number] 08:06:00 Test Item Value Reference Range Interpretation Comments absolute CD8 (test code = 882 (unknown unit) 109-180 00449) Counts [facility] HospitalT-helper cells (CD4) as percent of blood lymphocytes 2021-02-24 08:06:00 Test Item Value Reference Range Interpretation Comments T-helper cells (CD4) as percent of 16.2 % 30.8-58.5 L blood lymphocytes (test code = 8123-2) Counts [facility] HospitalT-helper cells (CD4) [id number] 08:06:00 Test Item Value Reference Range Interpretation Comments T-helper cells (CD4) count (test code 243 /UL 359-1519 L = 86171-4) Counts Include [facility] HospitalHIV-1RNA, serum, by PCR, oluzdqyvzcsk5990-81-71 08:06:00 Test Item Value Reference Range Interpretation Comments HIV-1RNA, serum, by PCR, <20 copies/mL quantitative (test code = 56297-0) Counts Include [facility] HospitalCD4/CD8 [id number] 08:06:00 Test Item Value Reference Range Interpretation Comments CD4/CD8 ratio (test code 0.28 (unknown unit) 0.92-3.72 L = 30026) Counts [facility] HospitalT-suppressor cells (CD8) as percent of blood lymphocytes 2021-02-24 08:06:00 Test Item Value Reference Range Interpretation Comments T-suppressor cells (CD8) as percent of 58.8 % 12.0-35.5 H blood lymphocytes (test code = 3517) Counts [facility] Hospitalabsolute [id number] 08:06:00 Test Item Value Reference Range Interpretation Comments absolute CD8 (test code = 882 (unknown unit) 844-651 39867) Counts Include [facility] HospitalMUMPS IgG AND [id number] 00:00:00 Test Item Value Reference Range Interpretation Comments MUMPS VIRUS IgG (test code = <5.0 AU/mL 66644) MUMPS VIRUS IgM (test code = 4587) 0.45 IV MUMPS IgG AND [id number] 00:00:00 Test Item Value Reference Range Interpretation Comments MUMPS VIRUS IgG (test code = <5.0 AU/mL 97277) MUMPS VIRUS IgM (test code = 4587) 0.45 IV MUMPS IgG AND [id number] 00:00:00 Test Item Value Reference Range Interpretation Comments MUMPS VIRUS IgG (test code = <5.0 AU/mL 84535) MUMPS VIRUS IgM (test code = 4587) 0.45 IV MUMPS IgG AND [id number] 00:00:00 Test Item Value Reference Range Interpretation Comments MUMPS VIRUS IgG (test code = <5.0 AU/mL 29419) MUMPS VIRUS IgM (test code = 4587) 0.45 IV MUMPS IgG AND [id number] 00:00:00 Test Item Value Reference Range Interpretation Comments MUMPS VIRUS IgG (test code = <5.0 AU/mL 42063) MUMPS VIRUS IgM (test code = 4587) 0.45 IV MUMPS IgG AND [id number] 00:00:00 Test Item Value Reference Range Interpretation Comments MUMPS VIRUS IgG (test code = <5.0 AU/mL 33999) MUMPS VIRUS IgM (test code = 4587) 0.45 IV MUMPS IgG AND [id number] 00:00:00 Test Item Value Reference Range Interpretation Comments MUMPS VIRUS IgG (test code = <5.0 AU/mL 91486) MUMPS VIRUS IgM (test code = 4587) 0.45 IV MUMPS IgG AND [id number] 00:00:00 Test Item Value Reference Range Interpretation Comments MUMPS VIRUS IgG (test code = <5.0 AU/mL 23167) MUMPS VIRUS IgM (test code = 4587) 0.45 IV MUMPS IgG AND [id number] 00:00:00 Test Item Value Reference Range Interpretation Comments MUMPS VIRUS IgG (test code = <5.0 AU/mL 13620) MUMPS VIRUS IgM (test code = 4587) 0.45 IV MUMPS IgG AND [id number] 00:00:00 Test Item Value Reference Range Interpretation Comments MUMPS VIRUS IgG (test code = <5.0 AU/mL 45271) MUMPS VIRUS IgM (test code = 4587) 0.45 IV MUMPS IgG AND [id number] 00:00:00 Test Item Value Reference Range Interpretation Comments MUMPS VIRUS IgG (test code = <5.0 AU/mL 39008) MUMPS VIRUS IgM (test code = 4587) 0.45 IV MUMPS IgG AND [id number] 00:00:00 Test Item Value Reference Range Interpretation Comments MUMPS VIRUS IgG (test code = <5.0 AU/mL 71182) MUMPS VIRUS IgM (test code = 4587) 0.45 IV MUMPS IgG AND [id number] 00:00:00 Test Item Value Reference Range Interpretation Comments MUMPS VIRUS IgG (test code = <5.0 AU/mL 06065) MUMPS VIRUS IgM (test code = 4587) 0.45 IV MUMPS IgG AND [id number] 00:00:00 Test Item Value Reference Range Interpretation Comments MUMPS VIRUS IgG (test code = <5.0 AU/mL 87351) MUMPS VIRUS IgM (test code = 4587) 0.45 IV MUMPS IgG AND [id number] 00:00:00 Test Item Value Reference Range Interpretation Comments MUMPS VIRUS IgG (test code = <5.0 AU/mL 94786) MUMPS VIRUS IgM (test code = 4587) 0.45 IV MUMPS IgG AND [id number] 00:00:00 Test Item Value Reference Range Interpretation Comments MUMPS VIRUS IgG (test code = <5.0 AU/mL 04291) MUMPS VIRUS IgM (test code = 4587) 0.45 IV MUMPS IgG AND [id number] 00:00:00 Test Item Value Reference Range Interpretation Comments MUMPS VIRUS IgG (test code = <5.0 AU/mL 70598) MUMPS VIRUS IgM (test code = 4587) 0.45 IV MUMPS IgG AND [id number] 00:00:00 Test Item Value Reference Range Interpretation Comments MUMPS VIRUS IgG (test code = <5.0 AU/mL 67652) MUMPS VIRUS IgM (test code = 4587) 0.45 IV MUMPS IgG AND [id number] 00:00:00 Test Item Value Reference Range Interpretation Comments MUMPS VIRUS IgG (test code = <5.0 AU/mL 28196) MUMPS VIRUS IgM (test code = 4587) 0.45 IV RUBELLA ANTIBODY [id number] 00:00:00 Test Item Value Reference Range Interpretation Comments RUBELLA ANTIBODY SCREEN (test code = 16 IU/ML 4600) [facility] IgG INTERP (test code = REACTIVE 87835) [facility] ANTIBODY [id number] 00:00:00 Test Item Value Reference Range Interpretation Comments RUBELLA ANTIBODY SCREEN (test code = 16 IU/ML 4600) [facility] IgG INTERP (test code = REACTIVE 74248) VARICELLA ZOSTER [id number] 00:00:00 Test Item Value Reference Range Interpretation Comments VARICELLA ZOSTER IgG (test code = 1483 INDEX 47755) VAR[facility] ZOSTER [id number] 00:00:00 Test Item Value Reference Range Interpretation Comments VARICELLA ZOSTER IgG (test code = 1483 INDEX 31327) HEPATITIS Bs AB [id number] 00:00:00 Test Item Value Reference Range Interpretation Comments HEPATITIS Bs AB INTERP (test REACTIVE code = 2738) HEPATITIS Bs AB QUANT (test code 48.90 MIU/ML = 40497) HEPATITIS Bs AB [id number] 00:00:00 Test Item Value Reference Range Interpretation Comments HEPATITIS Bs AB INTERP (test REACTIVE code = 2738) HEPATITIS Bs AB QUANT (test code 48.90 MIU/ML = 87486) HEPATITIS Bs AB [id number] 00:00:00 Test Item Value Reference Range Interpretation Comments HEPATITIS Bs AB INTERP (test REACTIVE code = 2738) HEPATITIS Bs AB QUANT (test code 48.90 MIU/ML = 76379) [facility] IgG [id number] 00:00:00 Test Item Value Reference Range Interpretation Comments RU[facility]OLA IgG ANTIBODY (test code = 41.3 AU/ML 92593) RU[facility] ANTIBODY [id number] 00:00:00 Test Item Value Reference Range Interpretation Comments RUBELLA ANTIBODY SCREEN (test code = 16 IU/ML 4600) RUBELLA IgG INTERP (test code = REACTIVE 72222) VAR[facility] ZOSTER [id number] 00:00:00 Test Item Value Reference Range Interpretation Comments VARICELLA ZOSTER IgG (test code = 1483 INDEX 13131) HEPATITIS Bs AB [id number] 00:00:00 Test Item Value Reference Range Interpretation Comments HEPATITIS Bs AB INTERP (test REACTIVE code = 2738) HEPATITIS Bs AB QUANT (test code 48.90 MIU/ML = 27014) HEPATITIS Bs AB [id number] 00:00:00 Test Item Value Reference Range Interpretation Comments HEPATITIS Bs AB INTERP (test REACTIVE code = 2738) HEPATITIS Bs AB QUANT (test code 48.90 MIU/ML = 24831) [facility] IgG [id number] 00:00:00 Test Item Value Reference Range Interpretation Comments RUBEOLA IgG ANTIBODY (test code = 41.3 AU/ML 92165) RU[facility]LLA ANTIBODY [id number] 00:00:00 Test Item Value Reference Range Interpretation Comments RUBELLA ANTIBODY SCREEN (test code = 16 IU/ML 4600) RUBELLA IgG INTERP (test code = REACTIVE 51002) VAR[facility]LLA ZOSTER [id number] 00:00:00 Test Item Value Reference Range Interpretation Comments VARICELLA ZOSTER IgG (test code = 1483 INDEX 10505) HEPATITIS Bs AB [id number] 00:00:00 Test Item Value Reference Range Interpretation Comments HEPATITIS Bs AB INTERP (test REACTIVE code = 2738) HEPATITIS Bs AB QUANT (test code 48.90 MIU/ML = 96601) HEPATITIS Bs AB [id number] 00:00:00 Test Item Value Reference Range Interpretation Comments HEPATITIS Bs AB INTERP (test REACTIVE code = 2738) HEPATITIS Bs AB QUANT (test code 48.90 MIU/ML = 06103) [facility] IgG [id number] 00:00:00 Test Item Value Reference Range Interpretation Comments RUBE[facility]A IgG ANTIBODY (test code = 41.3 AU/ML 66582) [facility] IgG [id number] 00:00:00 Test Item Value Reference Range Interpretation Comments RU[facility]A IgG ANTIBODY (test code = 41.3 AU/ML 96945) RU[facility]LL[facility] ANTIBODY [id number] 00:00:00 Test Item Value Reference Range Interpretation Comments RUBELLA ANTIBODY SCREEN (test code = 16 IU/ML 4600) RUBELLA IgG INTERP (test code = REACTIVE 28372) RU[facility]A ANTIBODY [id number] 00:00:00 Test Item Value Reference Range Interpretation Comments RUBELLA ANTIBODY SCREEN (test code = 16 IU/ML 4600) RUBELLA IgG INTERP (test code = REACTIVE 70067) VARICELLA ZOSTER [id number] 00:00:00 Test Item Value Reference Range Interpretation Comments VARICELLA ZOSTER IgG (test code = 1483 INDEX 94263) VAR[facility]LLA ZOSTER [id number] 00:00:00 Test Item Value Reference Range Interpretation Comments VARICELLA ZOSTER IgG (test code = 1483 INDEX 22776) HEPATITIS Bs AB [id number] 00:00:00 Test Item Value Reference Range Interpretation Comments HEPATITIS Bs AB INTERP (test REACTIVE code = 2738) HEPATITIS Bs AB QUANT (test code 48.90 MIU/ML = 49950) HEPATITIS Bs AB [id number] 00:00:00 Test Item Value Reference Range Interpretation Comments HEPATITIS Bs AB INTERP (test REACTIVE code = 2738) HEPATITIS Bs AB QUANT (test code 48.90 MIU/ML = 36059) HEPATITIS Bs AB [id number] 00:00:00 Test Item Value Reference Range Interpretation Comments HEPATITIS Bs AB INTERP (test REACTIVE code = 2738) HEPATITIS Bs AB QUANT (test code 48.90 MIU/ML = 44736) RU[facility] IgG [id number] 00:00:00 Test Item Value Reference Range Interpretation Comments RU[facility]A IgG ANTIBODY (test code = 41.3 AU/ML 72627) [facility] IgG [id number] 00:00:00 Test Item Value Reference Range Interpretation Comments RU[facility]A IgG ANTIBODY (test code = 41.3 AU/ML 34592) [facility] IgG [id number] 00:00:00 Test Item Value Reference Range Interpretation Comments RUBEOLA IgG ANTIBODY (test code = 41.3 AU/ML 66641) RUBELLA ANTIBODY [id number] 00:00:00 Test Item Value Reference Range Interpretation Comments RUBELLA ANTIBODY SCREEN (test code = 16 IU/ML 4600) RUBELLA IgG INTERP (test code = REACTIVE 54309) RUBELLA ANTIBODY [id number] 00:00:00 Test Item Value Reference Range Interpretation Comments RUBELLA ANTIBODY SCREEN (test code = 16 IU/ML 4600) RUBELLA IgG INTERP (test code = REACTIVE 37626) VAR[facility]LLA ZOSTER [id number] 00:00:00 Test Item Value Reference Range Interpretation Comments VARICELLA ZOSTER IgG (test code = 1483 INDEX 41849) VARICELLA ZOSTER [id number] 00:00:00 Test Item Value Reference Range Interpretation Comments VARICELLA ZOSTER IgG (test code = 1483 INDEX 26883) HEPATITIS Bs AB [id number] 00:00:00 Test Item Value Reference Range Interpretation Comments HEPATITIS Bs AB INTERP (test REACTIVE code = 2738) HEPATITIS Bs AB QUANT (test code 48.90 MIU/ML = 30566) HEPATITIS Bs AB [id number] 00:00:00 Test Item Value Reference Range Interpretation Comments HEPATITIS Bs AB INTERP (test REACTIVE code = 2738) HEPATITIS Bs AB QUANT (test code 48.90 MIU/ML = 35886) HEPATITIS Bs AB [id number] 00:00:00 Test Item Value Reference Range Interpretation Comments HEPATITIS Bs AB INTERP (test REACTIVE code = 2738) HEPATITIS Bs AB QUANT (test code 48.90 MIU/ML = 38789) RUBELLA ANTIBODY [id number] 00:00:00 Test Item Value Reference Range Interpretation Comments RUBELLA ANTIBODY SCREEN (test code = 16 IU/ML 4600) RUBELLA IgG INTERP (test code = REACTIVE 77221) VARICELLA ZOSTER [id number] 00:00:00 Test Item Value Reference Range Interpretation Comments VARICELLA ZOSTER IgG (test code = 1483 INDEX 73829) HEPATITIS Bs AB [id number] 00:00:00 Test Item Value Reference Range Interpretation Comments HEPATITIS Bs AB INTERP (test REACTIVE code = 2738) HEPATITIS Bs AB QUANT (test code 48.90 MIU/ML = 29148) HEPATITIS Bs AB [id number] 00:00:00 Test Item Value Reference Range Interpretation Comments HEPATITIS Bs AB INTERP (test REACTIVE code = 2738) HEPATITIS Bs AB QUANT (test code 48.90 MIU/ML = 85581) RUBEOLA IgG [id number] 00:00:00 Test Item Value Reference Range Interpretation Comments RUBEOLA IgG ANTIBODY (test code = 41.3 AU/ML 82733) RUBEOLA IgG [id number] 00:00:00 Test Item Value Reference Range Interpretation Comments RUBEOLA IgG ANTIBODY (test code = 41.3 AU/ML 32662) RUBELLA ANTIBODY [id number] 00:00:00 Test Item Value Reference Range Interpretation Comments RUBELLA ANTIBODY SCREEN (test code = 16 IU/ML 4600) RUBELLA IgG INTERP (test code = REACTIVE 70386) RUBELLA ANTIBODY [id number] 00:00:00 Test Item Value Reference Range Interpretation Comments RUBELLA ANTIBODY SCREEN (test code = 16 IU/ML 4600) RUBELLA IgG INTERP (test code = REACTIVE 92625) VARICELLA ZOSTER [id number] 00:00:00 Test Item Value Reference Range Interpretation Comments VARICELLA ZOSTER IgG (test code = 1483 INDEX 37962) VARICELLA ZOSTER [id number] 00:00:00 Test Item Value Reference Range Interpretation Comments VARICELLA ZOSTER IgG (test code = 1483 INDEX 36083) HEPATITIS Bs AB [id number] 00:00:00 Test Item Value Reference Range Interpretation Comments HEPATITIS Bs AB INTERP (test REACTIVE code = 2738) HEPATITIS Bs AB QUANT (test code 48.90 MIU/ML = 03825) HEPATITIS Bs AB [id number] 00:00:00 Test Item Value Reference Range Interpretation Comments HEPATITIS Bs AB INTERP (test REACTIVE code = 2738) HEPATITIS Bs AB QUANT (test code 48.90 MIU/ML = 09487) HEPATITIS Bs AB [id number] 00:00:00 Test Item Value Reference Range Interpretation Comments HEPATITIS Bs AB INTERP (test REACTIVE code = 2738) HEPATITIS Bs AB QUANT (test code 48.90 MIU/ML = 18494) RUBEOLA IgG [id number] 00:00:00 Test Item Value Reference Range Interpretation Comments RUBEOLA IgG ANTIBODY (test code = 41.3 AU/ML 27220) RUBEOLA IgG [id number] 00:00:00 Test Item Value Reference Range Interpretation Comments RUBEOLA IgG ANTIBODY (test code = 41.3 AU/ML 04876) RUBELLA ANTIBODY [id number] 00:00:00 Test Item Value Reference Range Interpretation Comments RUBELLA ANTIBODY SCREEN (test code = 16 IU/ML 4600) RUBELLA IgG INTERP (test code = REACTIVE 98863) RUBELLA ANTIBODY [id number] 00:00:00 Test Item Value Reference Range Interpretation Comments RUBELLA ANTIBODY SCREEN (test code = 16 IU/ML 4600) RUBELLA IgG INTERP (test code = REACTIVE 12328) VARICELLA ZOSTER [id number] 00:00:00 Test Item Value Reference Range Interpretation Comments VARICELLA ZOSTER IgG (test code = 1483 INDEX 52297) VARICELLA ZOSTER [id number] 00:00:00 Test Item Value Reference Range Interpretation Comments VARICELLA ZOSTER IgG (test code = 1483 INDEX 66457) HEPATITIS Bs AB [id number] 00:00:00 Test Item Value Reference Range Interpretation Comments HEPATITIS Bs AB INTERP (test REACTIVE code = 2738) HEPATITIS Bs AB QUANT (test code 48.90 MIU/ML = 60839) HEPATITIS Bs AB [id number] 00:00:00 Test Item Value Reference Range Interpretation Comments HEPATITIS Bs AB INTERP (test REACTIVE code = 2738) HEPATITIS Bs AB QUANT (test code 48.90 MIU/ML = 01846) HEPATITIS Bs AB [id number] 00:00:00 Test Item Value Reference Range Interpretation Comments HEPATITIS Bs AB INTERP (test REACTIVE code = 2738) HEPATITIS Bs AB QUANT (test code 48.90 MIU/ML = 17552) RUBEOLA IgG [id number] 00:00:00 Test Item Value Reference Range Interpretation Comments RUBEOLA IgG ANTIBODY (test code = 41.3 AU/ML 75592) RUBEOLA IgG [id number] 00:00:00 Test Item Value Reference Range Interpretation Comments RUBEOLA IgG ANTIBODY (test code = 41.3 AU/ML 34958) RUBELLA ANTIBODY [id number] 00:00:00 Test Item Value Reference Range Interpretation Comments RUBELLA ANTIBODY SCREEN (test code = 16 IU/ML 4600) RUBELLA IgG INTERP (test code = REACTIVE 57790) RUBELLA ANTIBODY [id number] 00:00:00 Test Item Value Reference Range Interpretation Comments RUBELLA ANTIBODY SCREEN (test code = 16 IU/ML 4600) RUBELLA IgG INTERP (test code = REACTIVE 28341) VARICELLA ZOSTER [id number] 00:00:00 Test Item Value Reference Range Interpretation Comments VARICELLA ZOSTER IgG (test code = 1483 INDEX 23663) VARICELLA ZOSTER [id number] 00:00:00 Test Item Value Reference Range Interpretation Comments VARICELLA ZOSTER IgG (test code = 1483 INDEX 11492) HEPATITIS Bs AB [id number] 00:00:00 Test Item Value Reference Range Interpretation Comments HEPATITIS Bs AB INTERP (test REACTIVE code = 2738) HEPATITIS Bs AB QUANT (test code 48.90 MIU/ML = 23319) HEPATITIS Bs AB [id number] 00:00:00 Test Item Value Reference Range Interpretation Comments HEPATITIS Bs AB INTERP (test REACTIVE code = 2738) HEPATITIS Bs AB QUANT (test code 48.90 MIU/ML = 71707) HEPATITIS Bs AB [id number] 00:00:00 Test Item Value Reference Range Interpretation Comments HEPATITIS Bs AB INTERP (test REACTIVE code = 2738) HEPATITIS Bs AB QUANT (test code 48.90 MIU/ML = 93858) RUBEOLA IgG [id number] 00:00:00 Test Item Value Reference Range Interpretation Comments RUBEOLA IgG ANTIBODY (test code = 41.3 AU/ML 17623) RUBEOLA IgG [id number] 00:00:00 Test Item Value Reference Range Interpretation Comments RUBEOLA IgG ANTIBODY (test code = 41.3 AU/ML 09957) RUBELLA ANTIBODY [id number] 00:00:00 Test Item Value Reference Range Interpretation Comments RUBELLA ANTIBODY SCREEN (test code = 16 IU/ML 4600) RUBELLA IgG INTERP (test code = REACTIVE 57446) RUBELLA ANTIBODY [id number] 00:00:00 Test Item Value Reference Range Interpretation Comments RUBELLA ANTIBODY SCREEN (test code = 16 IU/ML 4600) RUBELLA IgG INTERP (test code = REACTIVE 03708) VARICELLA ZOSTER [id number] 00:00:00 Test Item Value Reference Range Interpretation Comments VARICELLA ZOSTER IgG (test code = 1483 INDEX 27024) VARICELLA ZOSTER [id number] 00:00:00 Test Item Value Reference Range Interpretation Comments VARICELLA ZOSTER IgG (test code = 1483 INDEX 43615) HEPATITIS Bs AB [id number] 00:00:00 Test Item Value Reference Range Interpretation Comments HEPATITIS Bs AB INTERP (test REACTIVE code = 2738) HEPATITIS Bs AB QUANT (test code 48.90 MIU/ML = 41193) HEPATITIS Bs AB [id number] 00:00:00 Test Item Value Reference Range Interpretation Comments HEPATITIS Bs AB INTERP (test REACTIVE code = 2738) HEPATITIS Bs AB QUANT (test code 48.90 MIU/ML = 54100) HEPATITIS Bs AB [id number] 00:00:00 Test Item Value Reference Range Interpretation Comments HEPATITIS Bs AB INTERP (test REACTIVE code = 2738) HEPATITIS Bs AB QUANT (test code 48.90 MIU/ML = 82966) RUBEOLA IgG [id number] 00:00:00 Test Item Value Reference Range Interpretation Comments RUBEOLA IgG ANTIBODY (test code = 41.3 AU/ML 84699) RUBEOLA IgG [id number] 00:00:00 Test Item Value Reference Range Interpretation Comments RUBEOLA IgG ANTIBODY (test code = 41.3 AU/ML 28515) RUBELLA ANTIBODY [id number] 00:00:00 Test Item Value Reference Range Interpretation Comments RUBELLA ANTIBODY SCREEN (test code = 16 IU/ML 4600) RUBELLA IgG INTERP (test code = REACTIVE 45284) RUBELLA ANTIBODY [id number] 00:00:00 Test Item Value Reference Range Interpretation Comments RUBELLA ANTIBODY SCREEN (test code = 16 IU/ML 4600) RUBELLA IgG INTERP (test code = REACTIVE 32823) VARICELLA ZOSTER [id number] 00:00:00 Test Item Value Reference Range Interpretation Comments VARICELLA ZOSTER IgG (test code = 1483 INDEX 38505) VARICELLA ZOSTER [id number] 00:00:00 Test Item Value Reference Range Interpretation Comments VARICELLA ZOSTER IgG (test code = 1483 INDEX 58571) HEPATITIS Bs AB [id number] 00:00:00 Test Item Value Reference Range Interpretation Comments HEPATITIS Bs AB INTERP (test REACTIVE code = 2738) HEPATITIS Bs AB QUANT (test code 48.90 MIU/ML = 52875) HEPATITIS Bs AB [id number] 00:00:00 Test Item Value Reference Range Interpretation Comments HEPATITIS Bs AB INTERP (test REACTIVE code = 2738) HEPATITIS Bs AB QUANT (test code 48.90 MIU/ML = 58535) HEPATITIS Bs AB [id number] 00:00:00 Test Item Value Reference Range Interpretation Comments HEPATITIS Bs AB INTERP (test REACTIVE code = 2738) HEPATITIS Bs AB QUANT (test code 48.90 MIU/ML = 79247) RUBEOLA IgG [id number] 00:00:00 Test Item Value Reference Range Interpretation Comments RUBEOLA IgG ANTIBODY (test code = 41.3 AU/ML 80008) RUBEOLA IgG [id number] 00:00:00 Test Item Value Reference Range Interpretation Comments RUBEOLA IgG ANTIBODY (test code = 41.3 AU/ML 95282) rapid plasma reagin antibody, [id number] 11:34:00 Test Item Value Reference Range Interpretation Comments rapid plasma reagin antibody, Non Reactive Non Reactive serum (test code = 5291-0) [facility], serum, by PCR, [id number] 11:34:00 Test Item Value Reference Range Interpretation Comments HIV-1RNA, serum, by PCR, 6300 /mL quantitative (test code = 22255) [facility] ([facility], PCR, [id number] 11:34:00 Test Item Value Reference Range Interpretation Comments Hepatitis C virus (HCV) HCV Not Detected RNA, PCR, quantitative IU/mL (test code = 66710) Counts [facility] HospitalLDL cholesterol, [id number] 11:34:00 Test Item Value Reference Range Interpretation Comments LDL cholesterol, serum (test code = 169 mg/dL 0-99 H 2088-07) [facility] Hospitalvery low density rlrubrqjgukp2031-42-65 11:34:00 Test Item Value Reference Range Interpretation Comments very low density lipoproteins (test 38 mg/dL 5-40 code = 2091-7) [facility]HDL cholesterol, [id number] 11:34:00 Test Item Value Reference Range Interpretation Comments HDL cholesterol, serum (test code = 42 mg/dL >39 2085-03) [facility] Hospitaltriglyceride, serum, [id number] 11:34:00 Test Item Value Reference Range Interpretation Comments triglyceride, serum, fasting (test 202 mg/dL 0-149 H code = 2571-8) [facility] Hospitalcholesterol, [id number] 11:34:00 Test Item Value Reference Range Interpretation Comments cholesterol, serum (test code = 249 mg/dL 100-199 H 2092-09) Counts [facility] Hospitalalanine aminotransferase (SGPT), [id number] 11:34:00 Test Item Value Reference Range Interpretation Comments alanine aminotransferase (SGPT), serum 13 1/L 0-44 (test code = 1742-6) [facility] Hospitalaspartate aminotransferase (SGOT), onurh9483-07-06 11:34:00 Test Item Value Reference Range Interpretation Comments aspartate aminotransferase (SGOT), 19 1/L 0-40 serum (test code = 1920-8) [facility] Hospitalalkaline phosphatase, [id number] 11:34:00 Test Item Value Reference Range Interpretation Comments alkaline phosphatase, serum (test 103 1/L 39-117 code = 1783-0) [facility] Hospitalbilirubin, serum, [id number] 11:34:00 Test Item Value Reference Range Interpretation Comments bilirubin, serum, total (test code 0.4 mg/dL 0.0-1.2 = 1974-08) [facility] Hospitalalbumin/globulin ratio, [id number] 11:34:00 Test Item Value Reference Range Interpretation Comments albumin/globulin ratio, 1.3 (unknown unit) 1.2-2.2 serum (test code = 1759-0) [facility] Hospitalglobulin, [id number] 11:34:00 Test Item Value Reference Range Interpretation Comments globulin, serum (test code 3.6 (unknown unit) 1.5-4.5 = 2336-6) [facility] Healthalbumin, [id number] 11:34:00 Test Item Value Reference Range Interpretation Comments albumin, serum (test code = 1751-7) 4.8 g/dL 4.0-5.0 [facility] Healthprotein, total, [id number] 11:34:00 Test Item Value Reference Range Interpretation Comments protein, total, serum (test code = 8.4 g/dL 6.0-8.5 2885-2) Counts [facility] Hospitalcalcium, [id number] 11:34:00 Test Item Value Reference Range Interpretation Comments calcium, serum (test code = 10.0 mg/dL 8.7-10.2 1999-) Counts [facility] Hospitalcarbon dioxide, venous [id number] 11:34:00 Test Item Value Reference Range Interpretation Comments carbon dioxide, venous blood (test 24 mmol/L code = 2027-1) [facility] Hospitalchloride, [id number] 11:34:00 Test Item Value Reference Range Interpretation Comments chloride, serum (test code = 101 mmol/L 96-106 5-0) Counts [facility] Hospitalpotassium, [id number] 11:34:00 Test Item Value Reference Range Interpretation Comments potassium, serum (test code = 4.8 mmol/L 3.5-5.2 2823-3) Counts [facility] Hospitalsodium, [id number] 11:34:00 Test Item Value Reference Range Interpretation Comments sodium, serum (test code = 2951-2) 140 mmol/L 134-144 Counts Include [facility] Hospitalurea nitrogen/creatinine ratio, [id number] 11:34:00 Test Item Value Reference Range Interpretation Comments urea nitrogen/creatinine 19 (unknown unit) 9-20 ratio, serum (test code = 3097-3) [facility] HealtheGFR if Tcmkxruk4803-64-22 11:34:00 Test Item Value Reference Range Interpretation Comments eGFR if 119 mL/min/{1.73 m2} >59 (test code = 33716-2) Counts Include [facility] HospitalEstimated Glomerular Filtration Rate (calc)2020-10-25 11:34:00 Test Item Value Reference Range Interpretation Comments Estimated Glomerular 103 mL/min/{1.73 m2} >59 Filtration Rate (calc) (test code = 44402-4) Counts [facility] Hospitalcreatinine, [id number] 11:34:00 Test Item Value Reference Range Interpretation Comments creatinine, serum (test code = 0.94 mg/dL 0.76-1.27 2160-0) Counts Include [facility] Hospitalurea nitrogen, [id number] 11:34:00 Test Item Value Reference Range Interpretation Comments urea nitrogen, blood (test code = 18 mg/dL 6-20 3094-0) [facility] Hospitalblood glucose, [id number] 11:34:00 Test Item Value Reference Range Interpretation Comments blood glucose, random (test code = 89 mg/dL 65-99 2339-0) Counts Include [facility] Hospitalimmature granulocytes, percentage of total cells, blood 2020-10-25 11:34:00 Test Item Value Reference Range Interpretation Comments immature granulocytes, percentage of 1 % total cells, blood (test code = 53067-7) Counts [facility] Hospitalbasophil count, sqcuknta6456-56-39 11:34:00 Test Item Value Reference Range Interpretation Comments basophil count, absolute (test 0.1 x10E3/uL 0.0-0.2 code = 85154-4) Counts Include [facility] HospitalEosinophil Absolute [id number] 11:34:00 Test Item Value Reference Range Interpretation Comments Eosinophil Absolute Count (test 0.2 X10E3/UL 0.0-0.4 code = 03210-8) Counts [facility] Hospitalmonocyte count, blood, zpxrqofoc4507-10-27 11:34:00 Test Item Value Reference Range Interpretation Comments monocyte count, blood, automated 0.7 X10E3/UL 0.1-0.9 (test code = 742-7) Counts Include [facility] Hospitallymphocyte count, blood, mlorslcgm3276-71-63 11:34:00 Test Item Value Reference Range Interpretation Comments lymphocyte count, blood, 1.6 X10E3/UL 0.7-3.1 automated (test code = 731-0) Counts [facility] HospitalAbsolute Titnbjeoulr0061-96-80 11:34:00 Test Item Value Reference Range Interpretation Comments Absolute Neutrophils (test code 3.7 X10E3/UL 1.4-7.0 = 26168-4) Counts [facility] Hospitalbasophils as percent of blood dsglwvjzjf2976-53-44 11:34:00 Test Item Value Reference Range Interpretation Comments basophils as percent of blood 1 % leukocytes (test code = 707-0) Counts [facility] Hospitaleosinophils as percent of blood bnxfheiezc1687-05-83 11:34:00 Test Item Value Reference Range Interpretation Comments eosinophils as percent of blood 3 % leukocytes (test code = 713-8) [facility] Healthmonocytes as percent of blood exmodcidlt6733-31-17 11:34:00 Test Item Value Reference Range Interpretation Comments monocytes as percent of blood 11 % leukocytes (test code = 5905-5) Counts [facility] Hospitallymphocytes as percent of blood edohegjrhz7652-17-83 11:34:00 Test Item Value Reference Range Interpretation Comments lymphocytes as percent of blood 26 % leukocytes (test code = 736-9) Counts [facility] Hospitalneutrophils as percent of blood bnszfaohdq0337-69-61 11:34:00 Test Item Value Reference Range Interpretation Comments neutrophils as percent of blood 58 % leukocytes (test code = 770-8) Counts [facility] Hospitalplatelet [id number] 11:34:00 Test Item Value Reference Range Interpretation Comments platelet count (test code = 315 X10E3/UL 150-450 777-3) Counts [facility] Hospitalred blood cell distribution mbyaz9453-70-56 11:34:00 Test Item Value Reference Range Interpretation Comments red blood cell distribution width 15.6 % 11.6-15.4 H (test code = 788-0) [facility] corpuscular hemoglobin concentration, [id number] 11:34:00 Test Item Value Reference Range Interpretation Comments mean corpuscular hemoglobin 34.5 G/DL 31.5-35.7 concentration, RBC (test code = 786-4) [facility] corpuscular hemoglobin, [id number] 11:34:00 Test Item Value Reference Range Interpretation Comments mean corpuscular hemoglobin, RBC 31.8 pg 26.6-33.0 (test code = 785-6) [facility]mean [facility] volume, [id number] 11:34:00 Test Item Value Reference Range Interpretation Comments mean corpuscular volume, RBC (test code 92 fL 79-97 = 787-2) Counts [facility] Hospitalhematocrit, cwwfe8000-38-79 11:34:00 Test Item Value Reference Range Interpretation Comments hematocrit, blood (test code = 4544-3) 41.7 % 37.5-51.0 Counts Include [facility] Hospitalhemoglobin, [id number] 11:34:00 Test Item Value Reference Range Interpretation Comments hemoglobin, blood (test code = 14.4 g/dL 13.0-17.7 718-7) Counts [facility] Hospitalerythrocyte (RBC) ffgoh8614-08-92 11:34:00 Test Item Value Reference Range Interpretation Comments erythrocyte (RBC) count (test 4.53 X10E6/UL 4.14-5.80 code = 789-8) Counts [facility] Hospitalleukocyte count, kjodi9513-40-04 11:34:00 Test Item Value Reference Range Interpretation Comments leukocyte count, blood (test 6.2 X10E3/UL 3.4-10.8 code = 6690-2) Counts Include [facility] HospitalCD4/CD8 vavlf9353-04-58 11:34:00 Test Item Value Reference Range Interpretation Comments CD4/CD8 ratio (test code 0.24 (unknown unit) 0.92-3.72 L = 20579) Counts Include [facility] HospitalT-suppressor cells (CD8) as percent of blood lymphocytes 2020-10-25 11:34:00 Test Item Value Reference Range Interpretation Comments T-suppressor cells (CD8) as percent of 60.9 % 12.0-35.5 H blood lymphocytes (test code = 3517) Counts [facility] Hospitalabsolute [id number] 11:34:00 Test Item Value Reference Range Interpretation Comments absolute CD8 (test code = 974 (unknown unit) 109-897 H 11338) Counts [facility] HospitalT-helper cells (CD4) as percent of blood lymphocytes 2020-10-25 11:34:00 Test Item Value Reference Range Interpretation Comments T-helper cells (CD4) as percent of 14.5 % 30.8-58.5 L blood lymphocytes (test code = 8123-2) Counts [facility] HospitalT-helper cells (CD4) [id number] 11:34:00 Test Item Value Reference Range Interpretation Comments T-helper cells (CD4) count (test code 232 /UL 359-1519 L = 12055-8) Counts Include [facility] HospitalHIV-1RNA, serum, by PCR, wxbfppxgokou4838-12-97 11:34:00 Test Item Value Reference Range Interpretation Comments HIV-1RNA, serum, by PCR, 6300 /mL quantitative (test code = 32820-2) [facility], PCR, covfvgdwhxuh4299-29-09 11:34:00 Test Item Value Reference Range Interpretation Comments Hepatitis C virus (HCV) HCV Not Detected RNA, PCR, quantitative IU/mL (test code = 72927-4) Counts [facility] HospitalCD4/CD8 [id number] 11:34:00 Test Item Value Reference Range Interpretation Comments CD4/CD8 ratio (test code 0.24 (unknown unit) 0.92-3.72 L = 40346) Counts [facility] HospitalT-suppressor cells (CD8) as percent of blood lymphocytes 2020-10-25 11:34:00 Test Item Value Reference Range Interpretation Comments T-suppressor cells (CD8) as percent of 60.9 % 12.0-35.5 H blood lymphocytes (test code = 3517) Counts Include [facility] Hospitalabsolute [id number] 11:34:00 Test Item Value Reference Range Interpretation Comments absolute CD8 (test code = 974 (unknown unit) 109-897 H 47824) Counts Include [facility] HospitalHIV-1RNA, serum, by PCR, jhmucilqgdno2817-86-12 11:07:00 Test Item Value Reference Range Interpretation Comments HIV-1RNA, serum, by PCR, quantitative 60 /mL (test code = 33177-7) Counts [facility] HospitalHepatitis C virus (HCV) RNA, PCR, gbuhidgrppkw8924-57-81 11:07:00 Test Item Value Reference Range Interpretation Comments Hepatitis C virus (HCV) HCV Not Detected RNA, PCR, quantitative IU/mL (test code = 61793-7) Counts Include [facility] HospitalCD4/CD8 oeucw6602-77-22 11:07:00 Test Item Value Reference Range Interpretation Comments CD4/CD8 ratio (test code 0.25 (unknown unit) 0.92-3.72 L = 54520) Counts [facility] HospitalT-suppressor cells (CD8) as percent of blood lymphocytes 2020-09-19 11:07:00 Test Item Value Reference Range Interpretation Comments T-suppressor cells (CD8) as percent of 60.7 % 12.0-35.5 H blood lymphocytes (test code = 3517) Counts [facility] Hospitalabsolute [id number] 11:07:00 Test Item Value Reference Range Interpretation Comments absolute CD8 (test code = 1153 (unknown unit) 109-897 H 18057) Counts Include [facility] Hospitalrapid plasma reagin antibody, ewrwh0696-17-53 11:07:00 Test Item Value Reference Range Interpretation Comments rapid plasma reagin antibody, Non Reactive Non Reactive serum (test code = 5291-0) Counts Include [facility] HospitalHIV-1RNA, serum, by PCR, caonqkqwqpjp6972-35-21 11:07:00 Test Item Value Reference Range Interpretation Comments HIV-1RNA, serum, by PCR, quantitative 60 /mL (test code = 80606) Counts [facility] HospitalHepatitis C virus (HCV) RNA, PCR, hrvwvakocftq1313-44-72 11:07:00 Test Item Value Reference Range Interpretation Comments Hepatitis C virus (HCV) HCV Not Detected RNA, PCR, quantitative IU/mL (test code = 45058) [facility]LDL cholesterol, glonk6550-17-05 11:07:00 Test Item Value Reference Range Interpretation Comments LDL cholesterol, serum (test code = 179 mg/dL 0-99 H 2088-1) [facility] Hospitalvery low density klzgikalcaon0318-80-12 11:07:00 Test Item Value Reference Range Interpretation Comments very low density lipoproteins (test 52 mg/dL 5-40 H code = 2091-7) [facility]HDL cholesterol, [id number] 11:07:00 Test Item Value Reference Range Interpretation Comments HDL cholesterol, serum (test code = 42 mg/dL >39 2084-9) [facility] Hospitaltriglyceride, serum, [id number] 11:07:00 Test Item Value Reference Range Interpretation Comments triglyceride, serum, fasting (test 273 mg/dL 0-149 H code = 2571-8) [facility] Hospitalcholesterol, [id number] 11:07:00 Test Item Value Reference Range Interpretation Comments cholesterol, serum (test code = 273 mg/dL 100-199 H 2093-3) [facility] Healthalanine aminotransferase (SGPT), xzkaz1391-33-00 11:07:00 Test Item Value Reference Range Interpretation Comments alanine aminotransferase (SGPT), serum 10 1/L 0-44 (test code = 1742-6) [facility] Hospitalaspartate aminotransferase (SGOT), [id number] 11:07:00 Test Item Value Reference Range Interpretation Comments aspartate aminotransferase (SGOT), 15 1/L 0-40 serum (test code = 1920-8) [facility] Hospitalalkaline phosphatase, [id number] 11:07:00 Test Item Value Reference Range Interpretation Comments alkaline phosphatase, serum (test code 95 1/L 39-117 = 1783-0) [facility] Hospitalbilirubin, serum, [id number] 11:07:00 Test Item Value Reference Range Interpretation Comments bilirubin, serum, total (test code 0.2 mg/dL 0.0-1.2 = 1975-2) [facility] Healthalbumin/globulin ratio, [id number] 11:07:00 Test Item Value Reference Range Interpretation Comments albumin/globulin ratio, 1.3 (unknown unit) 1.2-2.2 serum (test code = 1759-0) [facility] Healthglobulin, [id number] 11:07:00 Test Item Value Reference Range Interpretation Comments globulin, serum (test code 3.7 (unknown unit) 1.5-4.5 = 2336-6) [facility] Healthalbumin, [id number] 11:07:00 Test Item Value Reference Range Interpretation Comments albumin, serum (test code = 1751-7) 4.8 g/dL 4.0-5.0 [facility] Healthprotein, total, [id number] 11:07:00 Test Item Value Reference Range Interpretation Comments protein, total, serum (test code = 8.5 g/dL 6.0-8.5 2885-2) [facility] Healthcalcium, rifbw5468-28-11 11:07:00 Test Item Value Reference Range Interpretation Comments calcium, serum (test code = 10.0 mg/dL 8.7-10.2 1999-8) [facility] Hospitalcarbon dioxide, venous qfiio5436-17-49 11:07:00 Test Item Value Reference Range Interpretation Comments carbon dioxide, venous blood (test 23 mmol/L 20-29 code = 2027-1) [facility] Hospitalchloride, [id number] 11:07:00 Test Item Value Reference Range Interpretation Comments chloride, serum (test code = 102 mmol/L 96-106 2075-0) [facility] Hospitalpotassium, vmmkq1525-00-03 11:07:00 Test Item Value Reference Range Interpretation Comments potassium, serum (test code = 4.5 mmol/L 3.5-5.2 2823-3) [facility] Hospitalsodium, aujdj4453-76-62 11:07:00 Test Item Value Reference Range Interpretation Comments sodium, serum (test code = 2951-2) 138 mmol/L 134-144 Counts Include [facility] Hospitalurea nitrogen/creatinine ratio, cgbiu2815-18-59 11:07:00 Test Item Value Reference Range Interpretation Comments urea nitrogen/creatinine 15 (unknown unit) 9-20 ratio, serum (test code = 3097-3) [facility] HealtheGFR if Ppnbynvx1928-43-69 11:07:00 Test Item Value Reference Range Interpretation Comments eGFR if 115 mL/min/{1.73 m2} >59 (test code = 98033-1) Counts [facility] HospitalEstimated Glomerular Filtration Rate (calc)2020-09-19 11:07:00 Test Item Value Reference Range Interpretation Comments Estimated Glomerular 99 mL/min/{1.73 m2} >59 Filtration Rate (calc) (test code = 43516-6) Counts [facility] Hospitalcreatinine, [id number] 11:07:00 Test Item Value Reference Range Interpretation Comments creatinine, serum (test code = 0.97 mg/dL 0.76-1.27 2160-0) Counts [facility] Hospitalurea nitrogen, [id number] 11:07:00 Test Item Value Reference Range Interpretation Comments urea nitrogen, blood (test code = 15 mg/dL 6-20 3094-0) Counts [facility] Hospitalblood glucose, agipbf3715-47-50 11:07:00 Test Item Value Reference Range Interpretation Comments blood glucose, random (test code = 92 mg/dL 65-99 2339-0) Counts [facility] Hospitalimmature granulocytes, percentage of total cells, blood 2020-09-19 11:07:00 Test Item Value Reference Range Interpretation Comments immature granulocytes, percentage of 0 % total cells, blood (test code = 03851-1) [facility] Healthbasophil count, [id number] 11:07:00 Test Item Value Reference Range Interpretation Comments basophil count, absolute (test 0.1 x10E3/uL 0.0-0.2 code = 85017-0) [facility] HealthEosinophil Absolute Pvkly4129-85-45 11:07:00 Test Item Value Reference Range Interpretation Comments Eosinophil Absolute Count (test 0.2 X10E3/UL 0.0-0.4 code = 56312-0) Counts [facility] Hospitalmonocyte count, blood, djqlbcicg8324-56-13 11:07:00 Test Item Value Reference Range Interpretation Comments monocyte count, blood, automated 0.6 X10E3/UL 0.1-0.9 (test code = 742-7) Counts Include [facility] Hospitallymphocyte count, blood, uluqzfudh7270-80-38 11:07:00 Test Item Value Reference Range Interpretation Comments lymphocyte count, blood, 1.9 X10E3/UL 0.7-3.1 automated (test code = 731-0) Counts [facility] HospitalAbsolute Fzbmogfrsnk3493-10-59 11:07:00 Test Item Value Reference Range Interpretation Comments Absolute Neutrophils (test code 4.4 X10E3/UL 1.4-7.0 = 37173-2) Counts Include [facility] Hospitalbasophils as percent of blood cvvswbzuai3522-94-74 11:07:00 Test Item Value Reference Range Interpretation Comments basophils as percent of blood 1 % leukocytes (test code = 707-0) [facility] Healtheosinophils as percent of blood suvawpkqre3614-05-86 11:07:00 Test Item Value Reference Range Interpretation Comments eosinophils as percent of blood 3 % leukocytes (test code = 713-8) [facility] Healthmonocytes as percent of blood yvqdaipogp5398-55-46 11:07:00 Test Item Value Reference Range Interpretation Comments monocytes as percent of blood 8 % leukocytes (test code = 5905-5) Counts Include [facility] Hospitallymphocytes as percent of blood kofpqhdnlj3974-69-51 11:07:00 Test Item Value Reference Range Interpretation Comments lymphocytes as percent of blood 27 % leukocytes (test code = 736-9) Counts Include [facility] Hospitalneutrophils as percent of blood mabjctjkfd4497-41-29 11:07:00 Test Item Value Reference Range Interpretation Comments neutrophils as percent of blood 61 % leukocytes (test code = 770-8) Counts [facility] Hospitalplatelet aubxj5518-94-74 11:07:00 Test Item Value Reference Range Interpretation Comments platelet count (test code = 325 X10E3/UL 150-450 777-3) Counts [facility] Hospitalred blood cell distribution esxzz8924-08-99 11:07:00 Test Item Value Reference Range Interpretation Comments red blood cell distribution width 15.0 % 11.6-15.4 (test code = 788-0) [facility] corpuscular hemoglobin concentration, [id number] 11:07:00 Test Item Value Reference Range Interpretation Comments mean corpuscular hemoglobin 33.7 G/DL 31.5-35.7 concentration, RBC (test code = 786-4) [facility] corpuscular hemoglobin, [id number] 11:07:00 Test Item Value Reference Range Interpretation Comments mean corpuscular hemoglobin, RBC 30.5 pg 26.6-33.0 (test code = 785-6) [facility] corpuscular volume, [id number] 11:07:00 Test Item Value Reference Range Interpretation Comments mean corpuscular volume, RBC (test code 91 fL 79-97 = 787-2) Counts [facility] Hospitalhematocrit, kzjuu3054-77-03 11:07:00 Test Item Value Reference Range Interpretation Comments hematocrit, blood (test code = 4544-3) 41.3 % 37.5-51.0 Counts Include [facility] Hospitalhemoglobin, quplk4998-94-38 11:07:00 Test Item Value Reference Range Interpretation Comments hemoglobin, blood (test code = 13.9 g/dL 13.0-17.7 718-7) Counts Include [facility] Hospitalerythrocyte (RBC) fyxqm8392-37-70 11:07:00 Test Item Value Reference Range Interpretation Comments erythrocyte (RBC) count (test 4.56 X10E6/UL 4.14-5.80 code = 789-8) Counts [facility] Hospitalleukocyte count, ozctq2737-73-30 11:07:00 Test Item Value Reference Range Interpretation Comments leukocyte count, blood (test 7.2 X10E3/UL 3.4-10.8 code = 6690-2) Counts Include [facility] HospitalCD4/CD8 jgddr3029-70-62 11:07:00 Test Item Value Reference Range Interpretation Comments CD4/CD8 ratio (test code 0.25 (unknown unit) 0.92-3.72 L = 19898) Counts Include [facility] HospitalT-suppressor cells (CD8) as percent of blood lymphocytes 2020-09-19 11:07:00 Test Item Value Reference Range Interpretation Comments T-suppressor cells (CD8) as percent of 60.7 % 12.0-35.5 H blood lymphocytes (test code = 3517) Counts Include [facility] Hospitalabsolute [id number] 11:07:00 Test Item Value Reference Range Interpretation Comments absolute CD8 (test code = 1153 (unknown unit) 109-897 H 99846) Counts Include [facility] HospitalT-helper cells (CD4) as percent of blood lymphocytes 2020-09-19 11:07:00 Test Item Value Reference Range Interpretation Comments T-helper cells (CD4) as percent of 15.4 % 30.8-58.5 L blood lymphocytes (test code = 8123-2) Counts Include [facility] HospitalT-helper cells (CD4) taqcx3765-99-42 11:07:00 Test Item Value Reference Range Interpretation Comments T-helper cells (CD4) count (test code 293 /UL 359-1519 L = 73236-8) Counts Include [facility] HospitalNon-nucleotide Reverse Transcriptase Stempsfgil2588-82-85 08:25:54 Test Item Value Reference Range Interpretation Comments Non-nucleotide Reverse Transcriptase none Inhibitors (test code = 612325) Counts [facility] HospitalNon-nucleotide Reverse Transcriptase Oqfryvlmgt3648-95-58 08:25:54 Test Item Value Reference Range Interpretation Comments Non-nucleotide Reverse Transcriptase none Inhibitors (test code = 685024) Counts [facility] HospitalNucleotide Reverse transcriptase ckdpgynzw6968-71-96 08:25:54 Test Item Value Reference Range Interpretation Comments Nucleotide Reverse transcriptase none inhibitor (test code = 334502) Counts [facility] Hospitalbilirubin, serum, ltzhus7450-56-22 12:23:00 Test Item Value Reference Range Interpretation Comments bilirubin, serum, direct (test 0.09 mg/dL 0.00-0.40 code = 1968-7) Counts Include [facility] Hospitalrapid plasma reagin antibody, zugda1792-04-85 12:23:00 Test Item Value Reference Range Interpretation Comments rapid plasma reagin antibody, Non Reactive Non Reactive serum (test code = 5291-0) Counts Include [facility] Hospitalhepatitis C antibody, hzsmk4628-64-07 12:23:00 Test Item Value Reference Range Interpretation Comments hepatitis C antibody, 1.2 (unknown unit) 0.0-0.9 H serum (test code = 5199-5) Counts Include [facility] HospitalQuantiferon Gold TB blood test for tuberculosis screening 2020-05-10 12:23:00 Test Item Value Reference Range Interpretation Comments Quantiferon Gold TB blood test for Negative Negative tuberculosis screening (test code = 61947-8) Counts [facility] Hospitalcreatinine, random, wgvzb2606-87-29 12:23:00 Test Item Value Reference Range Interpretation Comments creatinine, random, urine (test 165.0 mg/dL code = 2161-8) Counts Include [facility] HospitalNeisseria gonorrhoeae DNA sfgzu3869-38-98 12:23:00 Test Item Value Reference Range Interpretation Comments Neisseria gonorrhoeae DNA probe Negative Negative (test code = 39897-7) Counts [facility] Hospitalchlamydia DNA [id number] 12:23:00 Test Item Value Reference Range Interpretation Comments chlamydia DNA probe (test code = Negative Negative 61377-6) Counts Include [facility] HospitalLDL cholesterol, ramss1490-75-63 12:23:00 Test Item Value Reference Range Interpretation Comments LDL cholesterol, serum (test code = 167 mg/dL 0-99 H 2088-07) Counts Include [facility] Hospitalvery low density dustsrsqmfdn4744-99-69 12:23:00 Test Item Value Reference Range Interpretation Comments very low density lipoproteins (test 42 mg/dL 5-40 H code = 2090-7) Counts Include [facility] HospitalHDL cholesterol, cwpba5228-62-27 12:23:00 Test Item Value Reference Range Interpretation Comments HDL cholesterol, serum (test code = 45 mg/dL >39 2084-) Counts Include [facility] Hospitaltriglyceride, serum, kpuqxdc4745-71-17 12:23:00 Test Item Value Reference Range Interpretation Comments triglyceride, serum, fasting (test 226 mg/dL 0-149 H code = 2571-8) Counts Include [facility] Hospitalcholesterol, [id number] 12:23:00 Test Item Value Reference Range Interpretation Comments cholesterol, serum (test code = 254 mg/dL 100-199 H 2093-3) Counts Include [facility] Hospitalurinalysis, microscopic lnbvrrqhwyx9849-42-98 12:23:00 Test Item Value Reference Range Interpretation Comments urinalysis, microscopic examination MICNIP (test code = 08338-0) Counts Include [facility] Hospitalnitrate, ihabg0157-08-65 12:23:00 Test Item Value Reference Range Interpretation Comments nitrate, urine (test code = 76168-9) Negative Negative Counts Include [facility] Hospitalurobilinogen, urine, semiquantitative (dipstick) 2020-05-10 12:23:00 Test Item Value Reference Range Interpretation Comments urobilinogen, urine, 0.2 (unknown 0.2-1.0 semiquantitative (dipstick) unit) (test code = 5818-0) Counts [facility] Hospitalbilirubin, [id number] 12:23:00 Test Item Value Reference Range Interpretation Comments bilirubin, urine (test code = Negative Negative 5770-3) Counts Include [facility] Hospitalketones, urine, by test zmhvp1047-78-21 12:23:00 Test Item Value Reference Range Interpretation Comments ketones, urine, by test strip (test Negative Negative code = 5797-6) Counts Include [facility] Hospitalglucose, urine, jiflkwegbnpmiahc9038-18-46 12:23:00 Test Item Value Reference Range Interpretation Comments glucose, urine, semiquantitative Negative Negative (test code = 5792-7) Counts Include [facility] Hospitalprotein, urine, semiquantitative (dipstick)2020-05-10 12:23:00 Test Item Value Reference Range Interpretation Comments protein, urine, 13.5 (unknown semiquantitative (dipstick) unit) (test code = 1753-3) Counts Include [facility] Hospitalleukocyte esterase, urine, by dcojczkp6663-67-67 12:23:00 Test Item Value Reference Range Interpretation Comments leukocyte esterase, urine, by Negative Negative dipstick (test code = 5799-2) Counts [facility] Hospitalappearance, pjafk2372-59-14 12:23:00 Test Item Value Reference Range Interpretation Comments appearance, urine (test code = 5767-9) Clear Clear Counts [facility] Hospitalurine iibzw6623-88-13 12:23:00 Test Item Value Reference Range Interpretation Comments urine color (test code = 5778-6) Yellow Yellow Counts [facility] HospitalpH, urine, bxrbljgbbefnnkiu1913-23-66 12:23:00 Test Item Value Reference Range Interpretation Comments pH, urine, semiquantitative 5.0 (unknown 5.0-7.5 (test code = 5803-2) unit) Counts [facility] Hospitalspecific gravity, body [id number] 12:23:00 Test Item Value Reference Range Interpretation Comments specific gravity, body 1.025 (unknown unit) 1.005-1.030 fluid (test code = 2964-5) Counts Include [facility] Hospitalalanine aminotransferase (SGPT), zadvk3532-28-05 12:23:00 Test Item Value Reference Range Interpretation Comments alanine aminotransferase (SGPT), serum 10 1/L 0-44 (test code = 1742-6) Counts [facility] Hospitalaspartate aminotransferase (SGOT), wulhp6542-25-15 12:23:00 Test Item Value Reference Range Interpretation Comments aspartate aminotransferase (SGOT), 15 1/L 0-40 serum (test code = 1920-8) Counts Include [facility] Hospitalalkaline phosphatase, cqtbk8025-84-56 12:23:00 Test Item Value Reference Range Interpretation Comments alkaline phosphatase, serum (test 109 1/L 39-117 code = 1783-0) Counts [facility] Hospitalbilirubin, serum, [id number] 12:23:00 Test Item Value Reference Range Interpretation Comments bilirubin, serum, total (test code 0.3 mg/dL 0.0-1.2 = 1975-2) Counts [facility] Hospitalalbumin/globulin ratio, iyruc8912-72-27 12:23:00 Test Item Value Reference Range Interpretation Comments albumin/globulin ratio, 1.4 (unknown unit) 1.2-2.2 serum (test code = 1759-0) Counts [facility] Hospitalglobulin, lwync6269-42-30 12:23:00 Test Item Value Reference Range Interpretation Comments globulin, serum (test code 3.5 (unknown unit) 1.5-4.5 = 2336-6) Counts Include [facility] Hospitalalbumin, mzhwm5498-60-22 12:23:00 Test Item Value Reference Range Interpretation Comments albumin, serum (test code = 1751-7) 4.9 g/dL 4.0-5.0 [facility] Healthprotein, total, [id number] 12:23:00 Test Item Value Reference Range Interpretation Comments protein, total, serum (test code = 8.4 g/dL 6.0-8.5 2885-2) Counts Include [facility] Hospitalcalcium, qjzll9522-07-82 12:23:00 Test Item Value Reference Range Interpretation Comments calcium, serum (test code = 10.0 mg/dL 8.7-10.2 1999-) Counts Include [facility] Hospitalcarbon dioxide, venous fwvqx1669-64-53 12:23:00 Test Item Value Reference Range Interpretation Comments carbon dioxide, venous blood (test 23 mmol/L code = 2027-1) Counts [facility] Hospitalchloride, dxawu5038-19-42 12:23:00 Test Item Value Reference Range Interpretation Comments chloride, serum (test code = 100 mmol/L 96-106 5-0) Counts [facility] Hospitalpotassium, vxcil2944-34-79 12:23:00 Test Item Value Reference Range Interpretation Comments potassium, serum (test code = 4.2 mmol/L 3.5-5.2 3-3) Counts [facility] Hospitalsodium, corwu1112-07-77 12:23:00 Test Item Value Reference Range Interpretation Comments sodium, serum (test code = 2951-2) 143 mmol/L 134-144 Counts Include [facility] Hospitalurea nitrogen/creatinine ratio, tdxzy6244-56-74 12:23:00 Test Item Value Reference Range Interpretation Comments urea nitrogen/creatinine 19 (unknown unit) 9-20 ratio, serum (test code = 3097-3) [facility] HealtheGFR if Sewelsba1146-59-41 12:23:00 Test Item Value Reference Range Interpretation Comments eGFR if 132 mL/min/{1.73 m2} >59 (test code = 85790-0) Counts Include [facility] HospitalEstimated Glomerular Filtration Rate (calc)2020-05-10 12:23:00 Test Item Value Reference Range Interpretation Comments Estimated Glomerular 114 mL/min/{1.73 m2} >59 Filtration Rate (calc) (test code = 13010-3) Counts [facility] Hospitalcreatinine, [id number] 12:23:00 Test Item Value Reference Range Interpretation Comments creatinine, serum (test code = 0.80 mg/dL 0.76-1.27 2160-0) Counts Include [facility] Hospitalurea nitrogen, cnfyk5689-56-17 12:23:00 Test Item Value Reference Range Interpretation Comments urea nitrogen, blood (test code = 15 mg/dL 6-20 3094-0) Counts [facility] Hospitalblood glucose, haxzhh6153-96-18 12:23:00 Test Item Value Reference Range Interpretation Comments blood glucose, random (test code = 88 mg/dL 65-99 2339-0) Counts Include [facility] Hospitalimmature granulocytes, percentage of total cells, blood 2020-05-10 12:23:00 Test Item Value Reference Range Interpretation Comments immature granulocytes, percentage of 0 % total cells, blood (test code = 89576-6) Counts [facility] Hospitalbasophil count, abdafpbm2032-04-43 12:23:00 Test Item Value Reference Range Interpretation Comments basophil count, absolute (test 0.0 x10E3/uL 0.0-0.2 code = 04120-8) Counts [facility] HospitalEosinophil Absolute Nkuub3589-99-05 12:23:00 Test Item Value Reference Range Interpretation Comments Eosinophil Absolute Count (test 0.2 X10E3/UL 0.0-0.4 code = 41223-9) Counts [facility] Hospitalmonocyte count, blood, sqxblzbgn4864-16-22 12:23:00 Test Item Value Reference Range Interpretation Comments monocyte count, blood, automated 0.6 X10E3/UL 0.1-0.9 (test code = 742-7) Counts Include [facility] Hospitallymphocyte count, blood, livcpmgmi3103-82-84 12:23:00 Test Item Value Reference Range Interpretation Comments lymphocyte count, blood, 2.4 X10E3/UL 0.7-3.1 automated (test code = 731-0) Counts Include [facility] HospitalAbsolute Uttkauqiecr9796-89-62 12:23:00 Test Item Value Reference Range Interpretation Comments Absolute Neutrophils (test code 4.2 X10E3/UL 1.4-7.0 = 44599-3) Counts Include [facility] Hospitalbasophils as percent of blood jozxptvadl0332-50-75 12:23:00 Test Item Value Reference Range Interpretation Comments basophils as percent of blood 1 % leukocytes (test code = 707-0) [facility] Healtheosinophils as percent of blood fhzmdjstwt7952-87-12 12:23:00 Test Item Value Reference Range Interpretation Comments eosinophils as percent of blood 2 % leukocytes (test code = 713-8) [facility] Healthmonocytes as percent of blood fmomrlxqfq2308-32-27 12:23:00 Test Item Value Reference Range Interpretation Comments monocytes as percent of blood 8 % leukocytes (test code = 5905-5) Counts [facility] Hospitallymphocytes as percent of blood tcuxufdlyl9605-83-15 12:23:00 Test Item Value Reference Range Interpretation Comments lymphocytes as percent of blood 32 % leukocytes (test code = 736-9) Counts [facility] Hospitalneutrophils as percent of blood ouneinhcvy5914-64-35 12:23:00 Test Item Value Reference Range Interpretation Comments neutrophils as percent of blood 57 % leukocytes (test code = 770-8) Counts [facility] Hospitalplatelet ebuoy5665-08-24 12:23:00 Test Item Value Reference Range Interpretation Comments platelet count (test code = 328 X10E3/UL 150-450 777-3) [facility] [id number] 12:23:00 Test Item Value Reference Range Interpretation Comments red blood cell distribution width 13.3 % 11.6-15.4 (test code = 788-0) [facility] corpuscular hemoglobin concentration, [id number] 12:23:00 Test Item Value Reference Range Interpretation Comments mean corpuscular hemoglobin 33.4 G/DL 31.5-35.7 concentration, RBC (test code = 786-4) [facility] corpuscular hemoglobin, [id number] 12:23:00 Test Item Value Reference Range Interpretation Comments mean corpuscular hemoglobin, RBC 30.7 pg 26.6-33.0 (test code = 785-6) [facility] corpuscular volume, [id number] 12:23:00 Test Item Value Reference Range Interpretation Comments mean corpuscular volume, RBC (test code 92 fL 79-97 = 787-2) Counts Include [facility] Hospitalhematocrit, [id number] 12:23:00 Test Item Value Reference Range Interpretation Comments hematocrit, blood (test code = 4544-3) 44.6 % 37.5-51.0 Counts Include [facility] Hospitalhemoglobin, [id number] 12:23:00 Test Item Value Reference Range Interpretation Comments hemoglobin, blood (test code = 14.9 g/dL 13.0-17.7 718-7) Counts Include [facility] Hospitalerythrocyte (RBC) [id number] 12:23:00 Test Item Value Reference Range Interpretation Comments erythrocyte (RBC) count (test 4.85 X10E6/UL 4.14-5.80 code = 789-8) Counts Include [facility]leukocyte count, [id number] 12:23:00 Test Item Value Reference Range Interpretation Comments leukocyte count, blood (test 7.4 X10E3/UL 3.4-10.8 code = 6690-2) Counts Include [facility] HospitalT-helper cells (CD4) as percent of blood lymphocytes 2020-05-10 12:23:00 Test Item Value Reference Range Interpretation Comments T-helper cells (CD4) as percent of 14.8 % 30.8-58.5 L blood lymphocytes (test code = 8123-2) Counts Include [facility] HospitalT-helper cells (CD4) [id number] 12:23:00 Test Item Value Reference Range Interpretation Comments T-helper cells (CD4) count (test code 355 /UL 359-1519 L = 97196-5) Counts Include [facility] HospitalT-suppressor cells (CD8) as percent of blood lymphocytes 2020-05-10 12:23:00 Test Item Value Reference Range Interpretation Comments T-suppressor cells (CD8) as percent of 64.0 % 12.0-35.5 H blood lymphocytes (test code = 3517) Counts Include [facility] Hospitalabsolute [id number] 12:23:00 Test Item Value Reference Range Interpretation Comments absolute CD8 (test code = 1536 (unknown unit) 109-897 H 30919) Counts Include [facility] Hospitalhepatitis A antibody, [id number] 12:23:00 Test Item Value Reference Range Interpretation Comments hepatitis A antibody, total (test Positive Negative A code = 36034-1) [facility], [id number] 12:23:00 Test Item Value Reference Range Interpretation Comments hepatitis B core antibody, total Positive Negative A (test code = 29549-6) Counts Include [facility] Hospitalhepatitis B surface [id number] 12:23:00 Test Item Value Reference Range Interpretation Comments hepatitis B surface antigen (test Negative Negative code = 28028-4) [facility] antibody, [id number] 12:23:00 Test Item Value Reference Range Interpretation Comments hepatitis C antibody, 1.2 (unknown unit) 0.0-0.9 H serum (test code = 91158-0) Counts Include [facility] HospitalHIV-2 antibodies, western [id number] 12:23:00 Test Item Value Reference Range Interpretation Comments HIV-2 antibodies, western blot (test Negative Negative code = 34472-1) Counts Include [facility] HospitalHIV-1/HIV-2 Ab, [id number] 12:23:00 Test Item Value Reference Range Interpretation Comments HIV-1/HIV-2 Ab, serum (test code = Positive Negative A 77358-5) [facility]Chem[facility] Immuno Assay) 2020-05-10 12:23:00 Test Item Value Reference Range Interpretation Comments HIV-CMIA (Chemiluminescent Reactive Non Reactive A Microparticle Immuno Assay) (test code = 24932-9) [facility] [id number] 12:23:00 Test Item Value Reference Range Interpretation Comments human leukocyte antigen B57 (test Negative code = 114979) Counts Include [facility] Hospitaltoxoplasma gondii antibody, [id number] 12:23:00 Test Item Value Reference Range Interpretation Comments toxoplasma gondii antibody, IgG (test <3.0 0.0-7.1 code = 5389-2) [facility] [id number] 12:23:00 Test Item Value Reference Range Interpretation Comments hepatitis B surface antibody (test Reactive code = 40440-4) Counts Include [facility] HospitalHIV genotype [id number] 12:23:00 Test Item Value Reference Range Interpretation Comments HIV genotype result (test code = GENRTI 09220-1) Counts Include [facility] HospitalHIV-1RNA, serum, by PCR, [id number] 12:23:00 Test Item Value Reference Range Interpretation Comments HIV-1RNA, serum, by PCR, 75346 /mL quantitative (test code = 54299-7) Counts Include [facility] HospitalOccult Blood, [id number] 12:23:00 Test Item Value Reference Range Interpretation Comments Occult Blood, urine (test code = Negative Negative ) Counts Include [facility] HospitalCD4/CD8 [id number] 12:23:00 Test Item Value Reference Range Interpretation Comments CD4/CD8 ratio (test code 0.23 (unknown unit) 0.92-3.72 L = 53983) Counts Include [facility] HospitalT-suppressor cells (CD8) as percent of blood lymphocytes 2020-05-10 12:23:00 Test Item Value Reference Range Interpretation Comments T-suppressor cells (CD8) as percent of 64.0 % 12.0-35.5 H blood lymphocytes (test code = 3517) Counts Include [facility] Hospitalabsolute [id number] 12:23:00 Test Item Value Reference Range Interpretation Comments absolute CD8 (test code = 1536 (unknown unit) 109-897 H 51240) Counts Include [facility] HospitalNeisseria gonorrhoeae DNA [id number] 12:23:00 Test Item Value Reference Range Interpretation Comments Neisseria gonorrhoeae DNA probe Negative Negative (test code = 60213-2) [facility], [id number] 12:23:00 Test Item Value Reference Range Interpretation Comments hepatitis A antibody, total (test Positive Negative A code = 75) [facility], [id number] 12:23:00 Test Item Value Reference Range Interpretation Comments hepatitis B core antibody, total Positive Negative A (test code = 77) [facility] surface [id number] 12:23:00 Test Item Value Reference Range Interpretation Comments hepatitis B surface antigen (test Negative Negative code = 79) Counts Include [facility] HospitalHIV-2 antibodies, western [id number] 12:23:00 Test Item Value Reference Range Interpretation Comments HIV-2 antibodies, western blot (test Negative Negative code = 56280) Counts Include [facility] HospitalHIV-1/HIV-2 Ab, [id number] 12:23:00 Test Item Value Reference Range Interpretation Comments HIV-1/HIV-2 Ab, serum (test code = Positive Negative A 9343) [facility] (Chemiluminescent Microparticle Immuno Assay) 2020-05-10 12:23:00 Test Item Value Reference Range Interpretation Comments HIV-CMIA (Chemiluminescent Reactive Non Reactive A Microparticle Immuno Assay) (test code = 603315) [facility] [id number] 12:23:00 Test Item Value Reference Range Interpretation Comments human leukocyte antigen B57 (test Negative code = 554092) Counts Include [facility] Hospitaltoxoplasma gondii antibody, [id number] 12:23:00 Test Item Value Reference Range Interpretation Comments toxoplasma gondii antibody, IgG (test <3.0 0.0-7.1 code = 2430) Counts Include [facility] Hospitalhepatitis B surface [id number] 12:23:00 Test Item Value Reference Range Interpretation Comments hepatitis B surface antibody (test Reactive code = 78) [facility] [id number] 12:23:00 Test Item Value Reference Range Interpretation Comments HIV genotype result (test code = GENRTI ) [facility], serum, by PCR, [id number] 12:23:00 Test Item Value Reference Range Interpretation Comments HIV-1RNA, serum, by PCR, 92475 /mL quantitative (test code = 37219) Counts Include [facility] HospitalCD4/CD8 [id number] 12:23:00 Test Item Value Reference Range Interpretation Comments CD4/CD8 ratio (test code 0.23 (unknown unit) 0.92-3.72 L = 46476) [facility] rapid test [id number] 11:53:50 Test Item Value Reference Range Interpretation Comments HIV rapid test results (test code = positive 84561) [facility] [id number] 11:53:50 Test Item Value Reference Range Interpretation Comments HIV rapid test results (test code = positive 11356-1) [facility] genotype [id number] 08:49:45 Test Item Value Reference Range Interpretation Comments HIV genotype result (test code = done 97094-3) [facility] [id number] 08:49:45 Test Item Value Reference Range Interpretation Comments HIV genotype result (test code = ) done Counts Include [facility] Notes Date/Time Note Provider Source 2023-02-01 14:02:00-00:00 [facility] ([facility]) EMERGENCY PROVIDER REPORT REPORT#:[id number] REPORT STATUS: Signed DATE:02/01/23 TIME:1401 PATIENT: MIHIR HURD UNIT #: [id number] ROOM/BED: : 83 AGE: 37 SEX: M PCP PHYS: Vik Reyes MD SERVICE AUTHOR: 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 Patient placed on vancomycin for evalu ation of diarrhea. Patient reports no fevers but feelin gs of rundown. Patient reports he still has abscess left mandible that appears to be growing in size . 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 General Confirmed Patient Yes Initial Greet Date/Time 02/01/23 1323 Presentation Chief Complaint Nausea, Diarrhea, Abd pain, cram ping, mandible abscess Review of Systems ROS Statements All systems rev neg except as marked. (see HPI) Past Medical History - Adult Stated Complaint NAUSEA, DIARRHEA, abscess Allergies Coded Allergies: No Known Allergies (11/24/21) Home Medications Active Scripts HYDROcodone/APAP (HYDROcodone/APAP 5/325) 1 TAB PO Q6H PRN PRN acute pain HYDROcodone/APAP (HYDROcodone/APAP 5/325) 1 TAB PO Q6H PRN PRN acute pain # 12 TABS Prov: 11/27/21 SULFAMETHOXAZOLE/TMP (BACTRIM DS 800/160 MG) 1 T AB PO Q12H SULFAMETHOXAZOLE/TMP (BACTRIM DS 800/160 MG) 1 TAB PO Q12H #14 TABS Prov: 01/15/23 DOXYCYCLINE HYCLATE (VIBRA-TAB) 100 MG PO Q12H DOXYCYCLINE HYCLATE (VIBRA-TAB) 100 MG PO Q12H #20 TABS Prov: 01/15/23 IBUPROFEN (MOTRIN) 800 MG PO TID PRN PRN PAIN IBUPROFEN (MOTRIN) 800 MG PO TID PRN PRN PAIN # 30 TABS Prov: 01/15/23 DOXYCYCLINE HYCLATE (VIBRA-TAB) 100 MG PO Q12H DOXYCYCLINE HYCLATE (VIBRA-TAB) 100 MG PO Q12H #14 TABS Prov: 12/03/22 AMOXICILLIN/CLAV K (AUGMENTIN 500/125 MG) 500 MG PO Q12H AMOXICILLIN/CLAV K (AUGMENTIN 500/125 MG) 500 M G PO Q12H #14 TABS Prov: 12/03/22 Reported Medications [TRIUMEQ] 600 MG PO BEDTIME Review of Nursing Notes Rev avail, and agree Physical Exam Vital Signs Vital Signs First Documented: Result Date Time Pulse Ox 96 02/01 1336 B/P 130/86 02/01 1336 B/P Mean 100 02/01 1336 O2 Delivery Room air 02/01 1336 Temp 36.5 02/01 1336 Pulse 71 02/01 1336 Resp 17 02/01 1336 Last Documented: Result Date Time Pulse Ox 98 02/01 1735 B/P 144/89 02/01 1735 B/P Mean 107 02/01 1735 O2 Delivery Room air 02/01 1735 Pulse 61 02/01 1735 Resp 16 02/01 1735 Temp 36.5 02/01 1336 Review of Vital Signs Reviewed, Vital signs norm al Basic Physical Exam Basic PE HEAD: Atraumatic/NC, EYES: PERRL, conj clear, ENT: Membranes moist, NECK: Supple, RESP: No resp distress, CV: Reg ra te rhythm, EXT: No gross abnormality, SKIN: No rashes, warm/dry, NEURO: a lert oriented, NEURO: gross movement NL, PSYCH: NL thought content Focused PE General/Const General/Const Awake, Alert, No acute distress, Cooperative Abdomen/GI Abdomen/GI Atraumatic, Soft Skin Skin Atraumatic, Color NL, No rash Neurologic Neurologic Oriented X3 Interpretation Diagnostics Lab Results Interpretation Results Laboratory Tests 02/01/23 1435: [Embedded Image Not Available] 02/01/23 1434: [Embedded Image Not Available] Laboratory Tests: 02/01 02/01 1436 1435 Chemistry Sodium (134 - 147 mmol/L) 136 Potassium (3.4 - 5.0 mmol/L) 4.0 Chloride (100 - 108 mmol/L) 107 Carbon Dioxide (21 - 32 mmol/L) 26 Anion Gap (4.0 - 15.0 GAP calc) 3.0 L BUN (7 - 18 MG/DL) 13 Creatinine (0.8 - 1.3 MG/DL) 0.7 L Glomerular Filtr Rate (>60 estGFR) >=60 max est imate Glucose (70 - 110 MG/DL) 90 Calcium (8.5 - 10.1 MG/DL) 9.2 Total Bilirubin (0.2 - 1.2 MG/DL) 0.70 Direct Bilirubin (0.00 - 0.30 MG/DL) < 0.10 Indirect Bilirubin (0.2 - 1.2 MG/DL) 0.60 AST (15 - 37 Unit/L) 25 ALT (12 - 78 Unit/L) 28 Total Alk Phosphatase (50 - 136 Unit/L) 86 Total Protein (6.4 - 8.2 G/DL) 8.1 Albumin (3.4 - 5.0 G/DL) 3.8 Lipase (114 - 286 Unit/L) 113 L Urines Urine Color (YEL/STRAW discript) STRAW Urine Appearance (CLEAR discript) CLEAR Urine pH (5.0 - 7.0 pH UNITS) 7.0 Ur Specific [place] (1.005 - 1.030 SG) 1.010 Urine Protein (NEG mg/dL) NEGATIVE Urine Glucose (UA) (NEG mg/dL) NEGATIVE Urine Ketones (NEG mg/dL) NEGATIVE Urine Blood (NEG mg/DL) NEGATIVE Urine Nitrite (NEG SCREEN) NEGATIVE Urine Bilirubin (NEG mg/dL) NEGATIVE Urine Urobilinogen (<2.0 mg/dL) 0.2 Ur Leukocyte Esterase (NEGATIVE Leuk/mcL) NEGAT ROSY 02/01 1434 Hematology WBC (3.5 - 11.0 K/mm3) 7.5 RBC (4.70 - 6.10 M/mm3) 4.44 L Hgb (12.3 - 15.9 G/DL) 14.0 Hct (35.8 - 46.7 %) 40.7 MCV (86.3 - 98.9 Fl) 91.7 MCH (28.9 - 34.4 pg) 31.5 MCHC (32.1 - 34.5 G/DL) 34.4 RDW (11.5 - 14.5 SD) 13.7 Plt Count (150 - 450 K/mm3) 319 MPV (7.0 - 9.6 fL) 10.00 H Neut % (Auto) (40 - 76 %) 67.1 Lymph % (Auto) (20.5 - 51.1 %) 21.7 Preston % (Auto) (1.7 - 9.3 %) 7.2 Eos % (Auto) (0.0 - 6.0 %) 2.9 Baso % (Auto) (0.0 - 2.0 %) 0.7 Neut # (Auto) (1.8 - 7.6 K/mm3) 5.0 Lymph # (Auto) (0.6 - 3.0 K/mm3) 1.6 Preston # (Auto) (0.2 - 1.5 K/mm3) 0.5 Eos # (Auto) (0.0 - 0.4 K/mm3) 0.2 Baso # (Auto) (0.0 - 0.2 K/mm3) 0.1 Abs Immat Gran (auto) (0.00 - 0.03 x10 3/uL) 0. 03 Add Manual Diff (CRITERIA DIFF/SCN) NO Immature Gran % (0.0 - 5.0 %) 0.4 Nucleated RBC % (0.0 - 1.0 /100WBC%) 0.0 Microbiology: Date/Time Procedure - Status Source Growth 02/01 1500 Wet Prep - CAN VAGINAL Cancelled: Cancelled via OE: Physician Decision 02/01 1401 Occult Blood - ORD STOOL 02/01 1401 Campylobacter Culture - ORD STOOL 02/01 1401 Escherichia coli 0157 Culture - ORD STOOL 02/01 1401 Stool Culture - ORD STOOL Recent Impressions: CAT SCAN - CT MAXIFAC W/CONTRAST 02/01 1614 Report Impression - Status: SIGNED Entered: 02/01/2023 1652 IMPRESSION: Left submandibular cellulitis without evidence o f abscess, slightly improved since 01/15/23 Impression By: [email or web address] - Marlee Smimons M.D. CAT SCAN - CT ABD PELVIS W/CONT 02/01 1618 Report Impression - Status: SIGNED Entered: 02/01/2023 1705 IMPRESSION: No evidence of acute intra-abdominal process. Impression By: [email or web address] - Niall Allen M.D. Lab Imaging Statement Laboratory radiographic studies reviewed and con sidered in the medical decision-making. ECG #1 Interpretation Date 02/01/23 Time 1356 Interpreted by and reviewed by me, ED physician NL ECG Interpretation Normal rate, Normal sinus rhythm, No acute ischemic changes, No STEMI, Normal QRS, Normal ST waves, Normal T waves, Normal axis, Normal intervals Rate 63 ECG Interpretation Note The ECG interpretation was done contemporaneousl y by me. This is an adequate tracing. There is no acute ischemia; the rhythm is normal sinus; VA does not demonstrate AV heart block; QRS does not demonstrate a bundle branch block; ST and T waves do not show any ST elevation to sugg est acute SC; see Baylis for details and measurements; agree with computer in terpretation. Re-Evaluation MDM ED Course Medication(s) Ordered Medication(s) Ordered: Diagnostic Agents Sig/Rip Start time Last Medication Dose Route Stop Time Status Admin Iopamidol 0 .STK-MED ONE 02/01 1607 DC 02/01 IV 1633 Iopamidol 0 .STK-MED ONE 02/01 1557 DC 02/01 IV 1632 Electrolytic, Caloric, And Harpal Sig/Rip Start time Last Medication Dose Route Stop Time Status Admin Sodium Chloride 50 ML .STK-MED ONE 02/01 1635 D C 02/01 IV 02/01 1636 1635 Sodium Chloride 1,000 ML X1ED STA 02/01 1341 DC 02/01 IV 02/01 1441 1441 Gastrointestinal Drugs Sig/Rip Start time Last Medication Dose Route Stop Time Status Admin Ondansetron HCl 4 MG X1ED PRN PRN 02/01 1345 DC 02/01 IV 02/02 1344 1441 Differential Diagnosis )( Differential Diagnosis Ac yordy gastroenteritis, Appendicitis, C. diff colitis, Crohn's disease, Enteritis, Food poisoning MDM-Complexity Severity/Chronicity Evaluation acute/ stable Patient Discharge Departure Vital Signs/Condition Vital Signs First Documented: Result Date Time Pulse Ox 96 02/01 1336 B/P 130/86 02/01 1336 B/P Mean 100 02/01 1336 O2 Delivery Room air 02/01 1336 Temp 36.5 02/01 1336 Pulse 71 02/01 1336 Resp 17 02/01 1336 Last Documented: Result Date Time Pulse Ox 98 02/01 1735 B/P 144/89 02/01 1735 B/P Mean 107 02/01 1735 O2 Delivery Room air 02/01 1735 Pulse 61 02/01 1735 Resp 16 02/01 173 Temp 36.5 02/01 1336 All vital signs available at the time of this en try have been reviewed. Condition Stable Clinical Impression Clinical Impression Primary Impression: Diarrhea Secondary Impressions: Facial cellulitis Disposition Decision Discharge )( Discharged to Home Yes )( Time 1725 )( Date 02/01/23 Discharge/Care Plan Counseled Regarding Diagnosi s, Lab results, Imaging studies, Prescriptions, Need for follow-up, When to return to ED (Auto) Prescriptions Current Visit Scripts LACTOBACILLUS ACIDOPHILUS (PROBIOTIC ACIDOPHILUS ) 1 CAP PO DAILY LACTOBACILLUS ACIDOPHILUS (PROBIOTIC ACIDOPHILU S) 1 CAP PO DAILY #30 CAPS Prescriptions Reviewed Risks, Benefits, Alternat rosy treatment Patient Instructions ED Gastroenteritis, Viral ( Adult) Additional Instructions Medications as prescribed Brat diet bananas rice apples toast no butter no mayonnaise Decrease amount of fat intake Increase hydration Follow-up with PCP in 1 week Continue with vancomycin as prescribed PCP. Return to the ER for worsening or concerning sym ptoms Discharge Note I have spoken with the patie nt and/or caregivers. I have explained the patient's condition, diagnoses and helga atment plan based on the information available to me at this time. I have answered the patient's and/ or caregiver's questions and addressed any concerns. The patient and/or careg lori have as good an understanding of the patient 's diagnosis, condition and treatment plan as can be expected at this point. The vital signs have bee n stable. The patient's condition is stable and appr opriate for discharge from the emergency department. The patient will pursue further outpatient evalu ation with the primary care physician or other designated or consulting phys ician as outlined in the discharge instructions. The patient and/or caregivers are agreeable to this plan of care and follow-up instructions have been exp lained in detail. The patient and/or caregivers have received these instructio ns in written format and have expressed an understanding of the discharge inst ructions. The patient and/or caregivers are aware that any significant change in condition or worsening of symptoms should prompt an immediate return to [facility] or the closest emergency department or a call to 911. Quality Measures Current Medications Attest: Medication review Eduardo Smith 02/01/23 1832: Patient Discharge Departure Supervising Physician Note MidLv Saw Pt Alone I have reviewed the PA/SALES PROGRAM MANAGER's note and plan of car e. I was available for consultation as needed at al l times during the patient's visit in the emergency department. I agree with the clinical impression , plan and disposition. at 1728 Electronically Signed by Eduardo Smith MD on 02/17 at 1832 RPT #: [id number] END OF REPORT 2023-02-01 13:56:00-00:00 [id number] [facility] [id number] [place] [id number] PATIENT NAME: MIHIR HURD ADMIT DATE: 02/01/23 ACCOUNT NO: [id number] ROOM NO: AGE: 38 REPORT TYPE: eELECTROCARDIOGRAM SEX: M ADMITTING PHYSICIAN: ATTENDING PHYSICIAN: Order: [id number] Test Reason : CP Test Date/Time Stamp: SatFeb 01 2023 13:56:25 Blood Pressure : / mmHG Vent. Rate : 063 BPM Atrial Rate : 063 BPM P-R Int : 146 ms QRS Dur : 092 ms QT Int : 418 ms P-R-T Axes : 068 011 045 degree s QTc Int : 427 ms Poor data quality, interpretation may be adv ersely affected Normal sinus rhythm Normal ECG When compared with ECG of 24-NOV-2021 13:29, No significant change was found Confirmed by LUCIEN SHEARER ([id number]) on 02/18/2023 9 :12:03 AM Referred By: Self Referred Confirmed by:LUCIEN SALDIVAR Electronically Signed by Lucien Shearer MD on at 0912 PATIENT NAME: MIHIR HURD 210 2023-01-15 18:50:00-00:00 [facility] ([facility]) EMERGENCY PROVIDER REPORT REPORT#:[id number] REPORT STATUS: Signed DATE:01/15/23 TIME:1849 PATIENT: MIHIR HURD UNIT #: [id number] ROOM/BED: : 83 AGE: 37 SEX: M PCP PHYS: Vik Reyes MD SERVICE AUTHOR: Daylin Alvarado * ALL edits or amendments must be made on the [employer]/computer document * Daylin Alvarado 01/15/23 1850: HPI-Rash/Abscess/Cellulitis Free Text HPI Notes Free Text HPI Notes 37-year-old male HIV positiv e on retroviral therapy and history of endocarditis and MRSA presents to ED with left chin abscess for 1 week. 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 He went to an urgent care 3 days ago where they repeated the I D and packed i t and switched him to clindamycin. His pain and swelling increased today and now has associated chills with subjective fevers and generalized malaise. No chest pain, s hortness of breath or dyspnea on exertion. Patient's last CD4 count was 6 week s ago was 300 his viral load was 500. However, he reports that his current HI V therapy is now no longer effective but they have not switched it yet. General Confirmed Patient Yes Initial Greet Date/Time 01/15/231834 Presentation Chief Complaint Abscess Hx Obtained From Patient Review of Systems ROS Statements All systems rev neg except as marked. Free Text ROS Notes Free Text ROS Notes Per HPI Past Medical History - Adult Stated Complaint INFECTED RUPTURED ABSCESSON LEF T CHIN Allergies Coded Allergies: No Known Allergies (11/24/21) Home Medications Active Scripts HYDROcodone/APAP (HYDROcodone/APAP 5/325) 1 TAB PO Q6H PRN PRN acute pain HYDROcodone/APAP (HYDROcodone/APAP 5/325) 1 TAB PO Q6H PRN PRN acute pain # 12 TABS Prov: 11/27/21 DOXYCYCLINE HYCLATE (VIBRA-TAB) 100 MG PO Q12H DOXYCYCLINE HYCLATE (VIBRA-TAB) 100 MG PO Q12H #14 TABS Prov: 12/03/22 AMOXICILLIN/CLAV K (AUGMENTIN 500/125 MG) 500 MG PO Q12H AMOXICILLIN/CLAV K (AUGMENTIN 500/125 MG) 500 M G PO Q12H #14 TABS Prov: 12/03/22 Reported Medications [TRIUMEQ] 600 MG PO BEDTIME Past Medical History: Reports: HIV. Additional Medical History Remote history of MRSA and endocarditis Physical Exam Vital Signs Vital Signs First Documented: Result Date Time Pulse Ox 98 01/15 1830 B/P 127/80 01/15 1830 B/P Mean 95 01/15 1830 O2 Delivery Room air 01/15 1830 Temp 36.8 01/15 1830 Pulse 77 01/15 1830 Resp 16 01/15 1830 Last Documented: Result Date Time Pulse Ox 95 01/15 2127 B/P 132/78 01/15 2127 B/P Mean 96 01/15 2127 O2 Delivery Room air 01/15 2127 Temp 35.9 01/15 2127 Pulse 69 01/15 2127 Resp 18 01/15 2127 Review of Vital Signs Reviewed Focused PE General/Const General/Const Awake, Alert Ears/Nose/Throat Ears/Nose/Throat Airway patent, Mucous membrane s moist, Pharynx NL, no trismus or dental pain, no stridor Resp/Chest Respiratory/Chest Breath sounds NL, Breath soun ds = bilat, No respiratory distress, No rales, No rhonchi, No wheezing Cardiovascular Cardiovascular Heart rate NL, Regular rhythm, H eart sounds NL, No gallop, No murmurs, No rubs Skin Skin left mandibular subcutaneous absce ss with large marble size abscess with expressible purulence. +surrounding erythema and induration. Interpretation Diagnostics Lab Results Interpretation Results Laboratory Tests 01/15/23 2004: [Embedded Image Not Available] 01/15/23 2003: [Embedded Image Not Available] Laboratory Tests: 01/15 Chemistry Sodium (134 - 147 mmol/L) 140 Potassium (3.4 - 5.0 mmol/L) 4.0 Chloride (100 - 108 mmol/L) 109 H Carbon Dioxide (21 - 32 mmol/L) 25 Anion Gap (4.0 - 15.0 GAP calc) 6.0 BUN (7 - 18 MG/DL) 16 Creatinine (0.8 - 1.3 MG/DL) 0.9 Glomerular Filtr Rate (>60 estGFR) >=60 max es timate Glucose (70 - 110 MG/DL) 95 Calcium (8.5 - 10.1 MG/DL) 8.9 Total Bilirubin (0.2 - 1.2 MG/DL) 0.40 AST (15 - 37 Unit/L) 15 ALT (12 - 78 Unit/L) 24 Total Alk Phosphatase (50 - 136 Unit/L) 78 Total Protein (6.4 - 8.2 G/DL) 7.5 Albumin (3.4 - 5.0 G/DL) 3.5 Globulin (GM/dL) 4.0 Albumin/Globulin Ratio (1.2 - 2.2 RATIO) 0.9 L Hematology WBC (3.5 - 11.0 K/mm3) 8.6 RBC (4.70 - 6.10 M/mm3) 4.35 L Hgb (12.3 - 15.9 G/DL) 13.9 Hct (35.8 - 46.7 %) 40.8 MCV (86.3 - 98.9 Fl) 93.8 MCH (28.9 - 34.4 pg) 32.0 MCHC (32.1 - 34.5 G/DL) 34.1 RDW (11.5 - 14.5 SD) 13.4 Plt Count (150 - 450 K/mm3) 342 MPV (7.0 - 9.6 fL) 9.90 H Neut % (Auto) (40 - 76 %) 60.6 Lymph % (Auto) (20.5 - 51.1 %) 26.1 Preston % (Auto) (1.7 - 9.3 %) 8.2 Eos % (Auto) (0.0 - 6.0 %) 3.9 Baso % (Auto) (0.0 - 2.0 %) 0.6 Neut # (Auto) (1.8 - 7.6 K/mm3) 5.2 Lymph # (Auto) (0.6 - 3.0 K/mm3) 2.2 Preston # (Auto) (0.2 - 1.5 K/mm3) 0.7 Eos # (Auto) (0.0 - 0.4 K/mm3) 0.3 Baso # (Auto) (0.0 - 0.2 K/mm3) 0.1 Abs Immat Gran (auto) (0.00 - 0.03 x10 3/uL) 0. 05 H Add Manual Diff (CRITERIA DIFF/SCN) NO Immature Gran % (0.0 - 5.0 %) 0.6 Nucleated RBC % (0.0 - 1.0 /100WBC%) 0.0 Microbiology: Date/Time Procedure - Status Source Growth 01/16 2004 Blood Culture - RECD BLOOD 01/16 2004 Blood Culture - RECD BLOOD Recent Impressions: CAT SCAN - CT MAXIFAC W/CONTRAST 01/16 2020 Report Impression - Status: SIGNED Entered: 01/15/20232105 IMPRESSION: Small subcutaneous phlegmon in the left submandi bular region. Reactive lymphadenopathy. Impression By: Malia Malone M.D. Procedures Incis Drainage Abscess #1 Time Spent (minutes) 5 Consent/Setup/Site Prep Verified correct patient Location of Abscess left side of chin Skin Preparation Agent Betadine Local Anesthesia Lidocaine 1%, 4 mL Incised Abscess with #11 scalpel Depth of Incision Subcutaneous Pus Drained Small, Purulent discharge, Abscess p robed, Loculations broken up, packed with 1/4 iodoform Irrigation Copious Post-Procedure/Complications Packing placed, Con dition improved, Tolerated procedure well, Patient stable Re-Evaluation MDM Re-Evaluation/Progress Re-Evaluation/Progress Text/Dict Note Reviewed imaging labs with patient. No leukocyto sis. Vitals are stable. No sepsis. Small phlegmon. Abscess was extended patti som and irrigated and repacked. We will switch patient to Bactrim and doxycycline with close PCP follow-up. Time of Re-Eval 2107 Re-Eval Status Unchanged ED Course Medication(s) Ordered Medication(s) Ordered: Anti-Infective Agents Sig/Rip Start time Last Medication Dose Route Stop Time Status Admin Doxycycline 100 MG X1ED STA 01/15 2115 DC 01/15 Monohydrate PO 01/15 Trimethoprim/ 1 TAB X1ED STA 01/15 2115 DC 12/28 0 Sulfamethoxazole PO 01/15 Vancomycin HCl 1,000 MG PREOP ONCE 01/15 1900 D Cr Sodium Chloride 250 ML IV 01/29 1859 Cardiovascular Drugs Sig/Rip Start time Last Medication Dose Route Stop Time Status Admin Lidocaine HCl 5 ML X1ED STA 01/15 2038 DC 01/15 LOCAL 01/15 2039 2100 Central Nervous System Agents Sig/Rip Start time Last Medication Dose Route Stop Time Status Admin Hydrocodone Bitart/ 1 TAB X1ED STA 01/15 1849 D C 01/15 Acetaminophen PO 01/15 1850 1957 Diagnostic Agents Sig/Rip Start time Last Medication Dose Route Stop Time Status Admin Iopamidol 0 .STK-MED ONE 01/15 1913 DC 01/15 .ROUTE 2029 Electrolytic, Caloric, And Harpal Sig/Rip Start time Last Medication Dose Route Stop Time Status Admin Sodium Chloride 50 ML .STK-MED ONE 01/15 2030 D C 01/15 IV 01/15 Differential Diagnosis Differential Diagnosis Abscess, AIDS/HIV, low co ncern for ludwigs angina or other deep space infection , no dental pain/abce ss MDM-Independent Interpretation My Other Test Interpretation CT maxillofacial interpretted by me: ?small SQ a bscess over let mandible MDM-Treatment/Evaluation Shared Decision-Making Spoke with patient regarding imaging and labs. G ave him the option for single dose of vancomycin or to start dual ther apy with p.o. Bactrim and doxycycline. Patient prefers to start with p.o. antib iotics and would like to go home. Will DC home with antibiotics after first dose. Medications Recommendations Bactrim, doxycycline, Motrin Patient Discharge Departure Vital Signs/Condition Vital Signs First Documented: Result Date Time Pulse Ox 98 01/15 1830 B/P 127/80 01/15 1830 B/P Mean 95 01/15 1830 O2 Delivery Room air 01/15 1830 Temp 36.8 01/15 1830 Pulse 77 01/15 1830 Resp 16 01/15 1830 Last Documented: Result Date Time Pulse Ox 95 01/15 2127 B/P 132/78 01/15 2127 B/P Mean 96 01/15 2127 O2 Delivery Room air 01/15 2127 Temp 35.9 01/15 2127 Pulse 69 01/15 2127 Resp 18 01/15 2127 All vital signs available at the time of this en try have been reviewed. Clinical Impression Clinical Impression Primary Impression: Facial abscess Secondary Impressions: HIV (human immunodeficien cy virus infection) Disposition Decision Discharge )( Discharged to Home Yes )( Time 2110 )( Date 01/15/23 Discharge/Care Plan Counseled Regarding Diagnosi s, Lab results, Imaging studies, Medication changes, Prescriptions, Need for follow-up, When to retur n to ED (Auto) Prescriptions Current Visit Scripts SULFAMETHOXAZOLE/TMP (BACTRIM DS 800/160 MG) 1 T AB PO Q12H SULFAMETHOXAZOLE/TMP (BACTRIM DS 800/160 MG) 1 TAB PO Q12H #14 TABS UNTIL FINISHED DOXYCYCLINE HYCLATE (VIBRA-TAB) 100 MG PO Q12H DOXYCYCLINE HYCLATE (VIBRA-TAB) 100 MG PO Q12H #20 TABS IBUPROFEN (MOTRIN) 800 MG PO TID PRN PRN PAIN IBUPROFEN (MOTRIN) 800 MG PO TID PRN PRN PAIN # 30 TABS Prescriptions Reviewed Risks, Benefits, Alternat rosy treatment Patient Instructions ED Abscess, Incision And Dr malagon Additional Instructions Take antibiotics as prescribed. Remove packing i n 48 hours. Follow-up with primary care doctor for close wound care. Return to the ER with worsening symptoms Discharge Note I have spoken with the patie nt and/or caregivers. I have explained the patient's condition, diagnoses and helga atment plan based on the information available to me at this time. I have answered the patient's and/ or caregiver's questions and addressed any concerns. The patient and/or careg lori have as good an understanding of the patient 's diagnosis, condition and treatment plan as can be expected at this point. The vital signs have bee n stable. The patient's condition is stable and appr opriate for discharge from the emergency department. The patient will pursue further outpatient evalu ation with the primary care physician or other designated or consulting phys ician as outlined in the discharge instructions. The patient and/or caregivers are agreeable to this plan of care and follow-up instructions have been exp lained in detail. The patient and/or caregivers have received these instructio ns in written format and have expressed an understanding of the discharge inst ructions. The patient and/or caregivers are aware that any significant change in condition or worsening of symptoms should prompt an immediate return to [facility] or the closest emergency department or a call to 1. Claritza Escalera 01/16/23 0700: Patient Discharge Departure Discharge/Care Plan Referrals Provider Referral: Jos Terry MD Address: [address] [place] [address] [address] [place] [address] Supervising Physician Note MidLv Saw Pt Alone I have reviewed the PA/SALES PROGRAM MANAGER's note and plan of car e. I was available for consultation as needed at al l times during the patient's visit in the emergency department. I agree with the clinical impression , plan and disposition. at 2115 at 0700 RPT #: [id number] END OF REPORT 2022-12-03 15:19:00-00:00 [facility] ([facility]) Discharge Summary REPORT#:[id number] REPORT STATUS: Signed DATE:12/03/22 TIME:1519 PATIENT: MIHIR HURD UNIT #: [id number] ROOM/BED: [place] [address] : 83 AGE: 37 SEX: M ATTEND: Alex Godoy MD ADM AUTHOR: Sallie Godoy MD * ALL edits or amendments must be made on the [employer]/computer document * General Information Discharge date: 12/03/22 Discharge diagnosis: Patient is a 37 years old male with past medical history of HIV and MRSA infection who presents to the ED with admitted f or Facial cellulitis - better with IV antibx - History of MRSA infectin - IV antibiotic therapy with IV Vancomyc in + Cefepime for MRSA and Pseudomonas aeruginosa infections respectively - rcvd IVF with NS+ 10 KCL @ 75cc/h - Lovenox for VTE prophylaxis Ok to dc home on PO doxy and augmentin HIV (human immunodeficiency virus infection) - resume home med therapy Hypokalemia - trend and replete PRN. DVT prophylaxis: SCDs+ Lovenox GI prophylaxis: pepcid Disposition Anticipated: Home with family suppor t. Code Status: Full code. Code status: full code Seen by ID and ok to dc on PO antibx Hospital course: Patient is a 37 years old male with past medical history of HIV and MRSA infection who presents to the ED with admitted f or Facial cellulitis - better with IV antibx - History of MRSA infectin - IV antibiotic therapy with IV Vancomyc in + Cefepime for MRSA and Pseudomonas aeruginosa infections respectively - rcvd IVF with NS+ 10 KCL @ 75cc/h - Lovenox for VTE prophylaxis Ok to dc home on PO doxy and augmentin HIV (human immunodeficiency virus infection) - resume home med therapy Hypokalemia - trend and replete PRN. DVT prophylaxis: SCDs+ Lovenox GI prophylaxis: pepcid Disposition Anticipated: Home with family suppor t. Code Status: Full code. Code status: full code Seen by ID and ok to dc on PO antibx Consultants: infectious disease Pt. condition on discharge: improved, stable Med Rec Med Rec Discharge meds: Stop taking the following medications: DOXYCYCLINE HYCLATE (VIBRAMYCIN) 100 MG CAP 100 MILLIGRAM ORAL EVERY 12 HOURS. Qty = 12 AMOXICILLIN (AMOXIL) 875 MG TAB 875 MILLIGRAM ORAL EVERY 12 HOURS. Qty = 12 Continue taking these medications: [TRIUMEQ] 600 MG TAB 600 MILLIGRAM ORAL BEDTIME. HYDROcodone/APAP (HYDROcodone/APAP 5/325) 1 TAB TAB 1 TABLET ORAL EVERY 6 HOURS NEEDED. as neede d for acute pain Qty = 12 Start taking the following new medications: DOXYCYCLINE HYCLATE (VIBRA-TAB) 100 MG TAB 100 MILLIGRAM ORAL EVERY 12 HOURS. Qty = 14 No Refills AMOXICILLIN/CLAV K (AUGMENTIN 500/125 MG) 500 MG -125 MG TAB 500 MILLIGRAM ORAL EVERY 12 HOURS. Qty = 14 No Refills Objective VS/I O Last Documented: Result Date Time Pulse Ox 95 / 1047 B/P 118/71 / 1047 B/P Mean 86.8 / 1047 O2 Delivery Room air / 1047 Temp 98.1 / 1047 Pulse 62 / 1047 Resp 14 / 1047 24 hour I O ending at 0700: /08 0700 / 1900 Intake Total Output Total 500 Balance -500 Number Voids 1 Output, Urine 500 Patient 180 lb Weight Weight Stated/Reported Measurement Method PATIENT WEIGHT: Weight (lb): Weight (oz): Weight (kg): 81.818 General appearance: awake ENT: normal nose Cardiovascular: regular rate rhythm GI: soft Discharge Instructions PCP PCP: PCP: Carol Reyes MD )( Discharge to: Home/Self Care Discharge Instructions Additional Discharge Routines: PCP Follow-Up )( Diet: Regular )( Activity: As Tolerated Prescriptions: e-prescribe Discharge management: greater than 30 mins Follow-up Appointments PCP follow up: PCP: Carol Reyes MD PCP follow up timeframe: In 1-2 weeks Consulting provider 1: Provider 1: Medardo Pratt MD Specialty: Infectious Disease Consult follow up timeframe: In 1-2 weeks Electronically Signed by Sallie Godoy MD on 0 12/03/22 at 1522 RPT #: [id number] END OF REPORT 2022-12-03 09:48:00-00:00 [facility] ([facility]) Pharmacy Prog.Note-Vancomycin REPORT#:[id number] REPORT STATUS: Signed DATE:12/03/22 TIME:947 PATIENT: MIHIR HURD UNIT #: [id number] ROOM/BED: [place] [address] : 83 AGE: 37 SEX: M ATTEND: Alex Godoy MD ADM AUTHOR: Skip Flores [facility] * ALL edits or amendments must be made on the [employer]/computer document * Vancomycin Vancomycin Medication Therapy Goal: AUC 400-600 mg*hr/L Indication for treatment: FACIAL CELLULITIS Site of infection: suspected, known Current therapy: VANC 750MG IV Q8HR Day of therapy: DAY 2 Weight: Actual weight (kg): 81.8 Labs: Laboratory Test : 12/03 12/03 12/02 0715 0550 2125 Chemistry BUN (7 - 18 MG/DL) 14 21 H Creatinine (0.8 - 1.3 MG/DL) 0.7 L 0.9 Hematology WBC (3.5 - 11.0 K/mm3) 5.5 8.3 Microbiology: 12/04 619 SKIN: Wound Culture - RECD 12/04 619 SKIN: Gram Stain - RECD 12/04 619 SKIN: Wound Culture - RECD 12/04 619 SKIN: Gram Stain - RECD 12/02 2325 NASAL: MRSA Screen - COMP 12/02 2124 BLOOD: Blood Culture - RECD 12/02 2114 BLOOD: Blood Culture - RECD Treatment plan: consult, initiation of therapy Regimen: DOSING VANC 750MG IV Q8HR DRAW PEAK AND TROUGH ON 12/04 @ 0900 1300 TO ELODIA CULATE AUC MONITOR RENAL FUNCTION Electronically Signed by Skip Flores [facility] on 3 at 0949 RPT #: [id number] END OF REPORT 2022-12-03 09:43:00-00:00 [facility] ([facility]) Infect Disease Consult Note REPORT#:[id number] REPORT STATUS: Signed DATE:12/03/22 TIME:942 PATIENT: MIHIR HURD UNIT #: [id number] ROOM[facility]BED: [facility] : 83 AGE: 37 SEX: M ATTEND: Alex Godoy MD ADM AUTHOR: Medardo Pratt MD * ALL edits or amendments must be made on the [employer]/computer document * History of Present Illness Chief complaint: Cellulitis HPI: 37-year-old male with h/o MRSA, HIV infection wh o presented to the ER with worsening constant two purul ent lesions on his face over 3 days associated with some swelling. Patient used methamphetamine early this week. He denied fever. He denied blisters. History - Adult longitudinal Additional family history: Reviewed NC Smoking status for patients 13 years old or olde r: Current every day smoker Date last smoked: 12/03/22 Packs per day: 10 Years smoked: 30 Pack years: 300 Allergies: Coded Allergies: No Known Allergies (11/24/21) Review of Systems Constitutional: Denies: chills, fever. Skin: Denies: rash. Allergy/Immun: Denies hives Eyes: Denies discharge ENT: Denies: sore throat, throat swelling. Respiratory: Denies: WELLS (dyspnea on exertion). Cardiovascular: Denies: chest pain. GI: Denies: abdominal pain. : Denies: dysuria, flank pain. Musculoskeletal: Denies: joint swelling. Objective General VS/I O: Vital Signs Date Temp Pulse Resp B/P B/P Mean Pulse Ox FiO2 12/02-12/03 36.4-36.7 59-102 14-18 108-139/68-8 1 83-100 93-100 Last Documented: Result Date Time Pulse Ox 95 12/03 1047 B/P 118/71 12/03 1047 B/P Mean 86.8 12/03 1047 O2 Delivery Room air 12/03 104 Temp 36.7 12/03 1047 Pulse 62 12/03 1047 Resp 14 12/03 1047 Vital Signs: Date Time Temp Pulse Resp B/P B/P Pulse O2 O2 F low FiO2 Mean Ox Delivery Rate 12/03 1046 36.7 62 14 118/71 86.8 95 Room air 12/03 0644 36.5 68 14 108/71 83.1 94 Room air 12/03 0536 36.6 59 15 111/71 84.3 94 12/02 2356 36.6 70 15 114/70 84.4 93 12/02 2310 81 17 139/81 100 95 Room air 12/02 2020 36.4 102 18 115/68 83 100 Room air 24 hour I O ending at 0700: 12/03 0700 12/02 1900 Intake Total Output Total Balance Patient 81.818 kg Weight Weight Stated/Reported Measurement Method PATIENT WEIGHT: Weight (lb): Weight (oz): Weight (kg): 81.818 Physical Exam General appearance: alert, a wake, oriented, conversational, mental status normal , no respiratory distress Head/Eyes: atraumatic, clear cornea, EOMI, antwan l conjunctiva/sclera, normal eyelids/periorb ENT: moist mucosal membranes, normal nose Neck: Pt has two small areas of erythema with so me drainage in the left cheek which are TTP. Eyes showed no erythema or edema. No periorbital edema. Cardiovascular: regular rate rhythm Respiratory: aerating well, symmetric expansion, no distress Abdomen: non-tender, normal bowel sounds, soft, no CVA tenderness, no distention , no guarding Genitourinary: no flank pain Extremities: no clubbing, no cyanosis Musculoskeletal: no joint swelling Neuro/UTILITY INSPECTOR: alert, oriented X 3, CNII-XII intact, normal speech Skin: normal turgor, no rash Psychiatry: normal affect, normal judgment/insig ht, normal mood Diagnosis, Assessment Plan Free Text DxA P Notes Free text DxA P notes: Laboratory Tests 12/03/22 0715: [Embedded Image Not Available] 12/03/22 0550: [Embedded Image Not Available] Imaging: CXR reviewed 12/02 Assessment: 1. Cellulitis of the face. MRSA screen positive. 2. HIV infection. CD4 288, V L 110 2021. Pt has been on Triumeq (he stopped it a week ago). 3. Methamphetamine dependence. 4. H/o thigh cellulitis. Plan: 1. Vancomycin (day 2). 2. Stop cefepime as GNR are a rare cause of cell ulitis. 3. If blood cxs are neg, will switch to a PO reg imen (e.g. doxycycline plus amoxicillin) to complete 7 days. 4. Monitor CBC and CMP. 5. Wound care. 6. F/u with his new infectious disease specialis t Dr. Terry in 1 week. Thank you for this consult. at 1159 RPT #: [id number] END OF REPORT 2022-12-02 23:47:00-00:00 [facility] ([facility]) Hospitalist History Physical REPORT#:[id number] REPORT STATUS: Signed DATE:12/02/22 TIME:2346 PATIENT: MIHIR HURD UNIT #: [id number] [address] : [birth year] AGE: 37 SEX: M ATTEND: Alex Godoy MD ADM AUTHOR: Yennifer Sales * ALL edits or amendments must be made on the [employer]/computer document * History of Present Illness HPI Chief complaint: FACIAL REDNESS PCP: PCP: Carol Reyes MD HPI: Patient is a 37-year-old mal e with a past medical history of MRSA, HIV compliant on medications presents to [facility] emergency department with a rash on his face over the past 3 days. Patient states 3 days a go he used methamphetamine noticed the rash the next day. Patient states he is complian t with his HIV meds which decreases his viral load however he states his C D4 is still low. He states he last checked his CD4 about a month and a half ago was 380. Patient denies fever , vomiting, headache, recent illness, kn own sick contacts. Patient denies sore throat, throat swelling difficulty breat klarissa or swallowing. Patient states the areas it first itched but now do not but it is d raining yellow discharge. Informant/historian: patient History Past Medical Surgical Hx Patient History: 1. Facial cellulitis 2. History of MRSA infection 3. Hypokalemia 4. HIV (human immunodeficiency virus infection) Social History Smoking status for patients 13 years old or olde r: Current every day smoker Medication/Allergy-Vaccine Hx Allergies: Coded Allergies: No Known Allergies (11/24/21) Review of Systems Skin: Reports: ecchymosis, rash, other (Facial redness and tenderness). All systems rev neg: except as noted OBJECTIVE VS/I O: Vital Signs Date Temp Pulse Resp B/P B/P Mean Pulse Ox FiO2 12/02 97.5 81-102 17-18 115-139/68-81 83-100 95 -100 Last Documented: Result Date Time Pulse Ox 95 12/02 2310 B/P 139/81 / 2310 B/P Mean 100 / 2310 O2 Delivery Room air 12/02 2310 Pulse 81 12/02 2310 Resp 17 12/02 2310 Temp 97.5 12/02 2020 Patient Weight and BMI Weight (kg): 81.818 BMI: 25.9 Medications: Active Meds + DC'd Last 24 Hrs Potassium Chloride (K-DUR 20 mEq) [address] A PO (DC) Ceftriaxone Sodium (ROCEPHIN) 1,000 MG X1ED STA IV Sterile Water (WATER FOR INJECTION) 10 ML Vancomycin HCl (VANCOMYCIN HCL) 1,[address] A IV (DC) Sodium Chloride (0.9% Sodium Chloride) 250 ML Acetaminophen (TYLENOL EXTRA STRENGTH) 1,000 MG X1ED STA PO (DC) Sodium Chloride (0.9% Sodium Chloride) 1,000 ML X1ED STA IV (DC) General appearance: alert, awake, oriented, no a cute distress, mental status normal, no respiratory distress Head/Eyes: atraumatic, normocephalic, PERRL, Fac ial redness that is worse on right side of face. Open skin with discharge not ed underneath gauze dressing. ENT: moist mucosal membranes Neck: full range of motion, no JVD Cardiovascular: normal capillary refill, normal heart sounds, regular rate rhythm, no murmur, no rub Respiratory: aerating well, clear to auscultatio n, symmetric expansion, no distress Abdomen: non-tender, normal bowel sounds, soft, no distention Genitourinary: no bladder distention, no flank p ain Extremities: moves all Vascular pulse assessment: palpated: R dorsalis pedis, L dorsalis pedis, R radial, L radial. Musculoskeletal: normal inspection, no CVA tende rness Neuro/UTILITY INSPECTOR: alert, oriented X 3, CNII-XII intact, normal speech, no motor deficits, no sensory deficits Skin: dry, intact, normal color, normal temperat ure, no rash Psychiatry: normal affect, normal judgment/insig ht, normal mood Results Findings/Data: Laboratory Tests: 12/02 Chemistry Lactic Acid (0.4 - 2.0 mmol/L) 1.4 Urines Urine Color (YEL/STRAW discript) YELLOW Urine Appearance (CLEAR discript) CLEAR Urine pH (5.0 - 7.0 pH UNITS) 6.0 Ur Specific [place] (1.005 - 1.030 SG) 1.025 Urine Protein (NEG mg/dL) TRACE H Urine Glucose (UA) (NEG mg/dL) NEGATIVE Urine Ketones (NEG mg/dL) 1+ Urine Blood (NEG mg/DL) TRACE Urine Nitrite (NEG SCREEN) NEGATIVE Urine Bilirubin (NEG mg/dL) 1+ H Urine Urobilinogen (<2.0 mg/dL) 1.0 Ur Leukocyte Esterase (NEGATIVE Leuk/mcL) NEGAT ROSY 12/02 2124 Chemistry Sodium (134 - 147 mmol/L) 135 Potassium (3.4 - 5.0 mmol/L) 3.0 L Chloride (100 - 108 mmol/L) 102 Carbon Dioxide (21 - 32 mmol/L) 27 Anion Gap (4.0 - 15.0 GAP calc) 6.0 BUN (7 - 18 MG/DL) 21 H Creatinine (0.8 - 1.3 MG/DL) 0.9 Glomerular Filtr Rate (>60 estGFR) >=60 max est imate Glucose (70 - 110 MG/DL) 113 H Calcium (8.5 - 10.1 MG/DL) 9.0 Total Bilirubin (0.2 - 1.2 MG/DL) 0.40 Direct Bilirubin (0.00 - 0.30 MG/DL) 0.10 Indirect Bilirubin (0.2 - 1.2 MG/DL) 0.30 AST (15 - 37 Unit/L) 25 ALT (12 - 78 Unit/L) 34 Total Alk Phosphatase (50 - 136 Unit/L) 96 Troponin I High Sens (0 - 78 ng/L) < 3.0 Total Protein (6.4 - 8.2 G/DL) 7.8 Albumin (3.4 - 5.0 G/DL) 3.4 Hematology WBC (3.5 - 11.0 K/mm3) 8.3 RBC (4.70 - 6.10 M/mm3) 4.44 L Hgb (12.3 - 15.9 G/DL) 14.6 Hct (35.8 - 46.7 %) 42.2 MCV (86.3 - 98.9 Fl) 95.0 MCH (28.9 - 34.4 pg) 32.9 MCHC (32.1 - 34.5 G/DL) 34.6 H RDW (11.5 - 14.5 SD) 12.3 Plt Count (150 - 450 K/mm3) 298 MPV (7.0 - 9.6 fL) 10.10 H Neut % (Auto) (40 - 76 %) 62.1 Lymph % (Auto) (20.5 - 51.1 %) 21.3 Preston % (Auto) (1.7 - 9.3 %) 10.2 H Eos % (Auto) (0.0 - 6.0 %) 5.3 Baso % (Auto) (0.0 - 2.0 %) 0.7 Neut # (Auto) (1.8 - 7.6 K/mm3) 5.2 Lymph # (Auto) (0.6 - 3.0 K/mm3) 1.8 Preston # (Auto) (0.2 - 1.5 K/mm3) 0.9 Eos # (Auto) (0.0 - 0.4 K/mm3) 0.4 Baso # (Auto) (0.0 - 0.2 K/mm3) 0.1 Abs Immat Gran (auto) (0.00 - 0.03 x10 3/uL) 0. 03 Add Manual Diff (CRITERIA DIFF/SCN) NO Immature Gran % (0.0 - 5.0 %) 0.4 Nucleated RBC % (0.0 - 1.0 /100WBC%) 0.0 Laboratory Tests 12/02/222124: [Embedded Image Not Available] Radiology data: Recent Impressions: RADIOLOGY - XR CHEST 1 V 12/02 2029 Report Impression - Status: SIGNED Entered: 12/02/20222047 IMPRESSION: No acute cardiopulmonary abnormality. Impression By: Ap2 - BHAVNA BYERS M.D. Results: labs reviewed, vital signs reviewed, vi angelia signs stable Diagnosis, Assessment Plan Problem List/A P: 1. Facial cellulitis 2. HIV (human immunodeficiency virus infection) 3. Hypokalemia 4. History of MRSA infection Free Text A P: Patient is a 37 years old male with past medical history of HIV and MRSA infection who presents to the ED with admitted f or Facial cellulitis - History of MRSA infectin - start IV antibiotic therapy with IV Vancomycin + Cefepime for MRSA and Pseudomonas aeruginosa infections respectively - IVF with NS+ 10 KCL @ 75cc/h - Lovenox for VTE prophylaxis HIV (human immunodeficiency virus infection) - resume home med therapy - check CD4 count at AM Hypokalemia - trend and replete PRN. DVT prophylaxis: SCDs+ Lovenox GI prophylaxis: pepcid Disposition Anticipated: Home with family suppor t. Time Spent on Patient Care, Coordination and Cou nselin min. Code Status: Full code. Yennifer Sales APRN Plan discussed with: patient Time spent: Time spent on patient care (minutes): 45 Code status: full code Electronically Signed by Yennifer Sales o n 12/03/22 at 0754 Electronically Signed by Sallie Godoy MD on 0 12/03/22 at 1610 RPT #: [id number] END OF REPORT 2022-12-02 20:34:00-00:00 [facility] ([facility]) EMERGENCY PROVIDER REPORT REPORT#:[id number] REPORT STATUS: Signed DATE:12/02/22 TIME:2033 PATIENT: MIHIR HURD UNIT #: [id number] ROOM/BED: .OBS1-1 : 83 AGE: 37 SEX: M PCP PHYS: Vik Reyes MD SERVICE AUTHOR: Ravindra Salamanca MD * ALL edits or amendments must be made on the el ectronic/computer document * HPI-Rash/Abscess/Cellulitis Free Text HPI Notes Free Text HPI Notes 37-year-old male with a past medical history of MRSA, HIV compliant on medications presents to the emergency department with a rash on his face over the past 3 days. Patient states 3 days a go he used methamphetamine noticed the rash the next day. Patient states he is complian t with his HIV meds which decreases his viral load however he states his C D4 is still low. He states he last checked his CD4 about a month and a half ago was 380. Patient denies fever , vomiting, headache, recent illness, known sick contacts. Patient denies sore throat, throat swelling difficulty breat klarissa or swallowing. Patient states the areas it first itched but now do not but it is d raining yellow discharge. General Initial Greet Date/Time 12/02/222021 Presentation Chief Complaint Rash, Skin peeling Hx Obtained From Patient Review of Systems ROS Statements All systems rev neg except as marked. Focused Review of Systems Constitutional Denies: Chills, Fever. Eyes Denies: Eye pain bilat, Redness bilat, Visual lo ss bilat. Ears/Nose/Throat Denies: Nasal congestion, Sore throat, Throat pa in. Respiratory Denies: Cough, non-productive, Cough, productive , Shortness of breath. Cardiovascular Denies: Chest pain, Syncope. GI Denies: Abdominal pain, Diarrhea, Nausea, Vomiti ng. Musculoskeletal Denies: Back pain, Extremity pain. Skin Reports: Erythema, Rash, Swelling. Allergy/Immun Denies: Hives, Itching. Past Medical History - Adult Stated Complaint POSSIBLE SKIN INFECTION, SCABS ON FACE AND SWELLIN Allergies Coded Allergies: No Known Allergies (11/24/21) Home Medications Active Scripts DOXYCYCLINE HYCLATE (VIBRAMYCIN) 100 MG PO Q12H DOXYCYCLINE HYCLATE (VIBRAMYCIN) 100 MG PO Q12H #12 CAPS Prov: 11/27/21 AMOXICILLIN (AMOXIL) 875 MG PO Q12HR AMOXICILLIN (AMOXIL) 875 MG PO Q12HR #12 TABS Prov: 11/27/21 HYDROcodone/APAP (HYDROcodone/APAP 5/325) 1 TAB PO Q6H PRN PRN acute pain HYDROcodone/APAP (HYDROcodone/APAP 5/325) 1 TAB PO Q6H PRN PRN acute pain # 12 TABS Prov: 11/27/21 Reported Medications [TRIUMEQ] 600 MG PO BEDTIME Calculated Suicide Risk (nurs) No risk Smoking status for patients 13 years old or olde r: Current every day smoker Physical Exam Vital Signs Vital Signs First Documented: Result Date Time Pulse Ox 100 12/02 2020 B/P 115/68 12/02 2020 B/P Mean 83 12/02 2020 O2 Delivery Room air 12/02 2020 Temp 36.4 12/02 2020 Pulse 102 12/02 2020 Resp 18 12/02 2020 Last Documented: Result Date Time Pulse Ox 100 12/02 2020 B/P 115/68 12/02 2020 B/P Mean 83 12/02 2020 O2 Delivery Room air 12/02 2020 Temp 36.4 12/02 2020 Pulse 102 12/02 2020 Resp 18 12/02 2020 Review of Vital Signs Reviewed Focused PE General/Const General/Const Awake, Alert, Well appearing Ears/Nose/Throat Ears/Nose/Throat Airway patent, Mucous membrane s moist, Pharynx NL, No peritonsillar abscess, No po oling of secretions, No trismus, Tympanic membs NL, Ext aud canal NL, Mastoid area NL, Nose exam NL, No sinus tenderness Resp/Chest Respiratory/Chest Breath sounds NL, Breath soun ds = bilat, No respiratory distress, No rales, No rhonchi, No wheezing Cardiovascular Cardiovascular Heart rate NL, Regular rhythm, H eart sounds NL, Peripheral circulation NL MS Upper Extrem Upper Extremity/MS Inspection NL, No swelling, Non-tender, No erythema MS Lower Extrem Lower Ext/Pelvis/MS Inspection NL, No swelling, Non-tender, No erythema, Vascular intact, No edema Skin Skin Warm, Dry, Intact, Turgor NL Text/Dict Notes Overlying the left cheek just under the left eye as well as adjacent to the angle of the mandible on the left there are 2 erythematous lesions with scaling skin and purulent drainage. Overlying the left c heek there is some marked swelling Neurologic Neurologic Oriented X3, Speech NL, No motor def icits, No sensory deficits, Gait NL Interpretation Diagnostics Lab Results Interpretation Results Laboratory Tests 12/02/222124: [Embedded Image Not Available] Laboratory Tests: 12/02 Chemistry Lactic Acid (0.4 - 2.0 mmol/L) 1.4 Urines Urine Color (YEL/STRAW discript) YELLOW Urine Appearance (CLEAR discript) CLEAR Urine pH (5.0 - 7.0 pH UNITS) 6.0 Ur Specific [place] (1.005 - 1.030 SG) 1.025 Urine Protein (NEG mg/dL) TRACE H Urine Glucose (UA) (NEG mg/dL) NEGATIVE Urine Ketones (NEG mg/dL) 1+ Urine Blood (NEG mg/DL) TRACE Urine Nitrite (NEG SCREEN) NEGATIVE Urine Bilirubin (NEG mg/dL) 1+ H Urine Urobilinogen (<2.0 mg/dL) 1.0 Ur Leukocyte Esterase (NEGATIVE Leuk/mcL) NEGA TIVE 12/025 Chemistry Sodium (134 - 147 mmol/L) 135 Potassium (3.4 - 5.0 mmol/L) 3.0 L Chloride (100 - 108 mmol/L) 102 Carbon Dioxide (21 - 32 mmol/L) 27 Anion Gap (4.0 - 15.0 GAP calc) 6.0 BUN (7 - 18 MG/DL) 21 H Creatinine (0.8 - 1.3 MG/DL) 0.9 Glomerular Filtr Rate (>60 estGFR) >=60 max est imate Glucose (70 - 110 MG/DL) 113 H Calcium (8.5 - 10.1 MG/DL) 9.0 Total Bilirubin (0.2 - 1.2 MG/DL) 0.40 Direct Bilirubin (0.00 - 0.30 MG/DL) 0.10 Indirect Bilirubin (0.2 - 1.2 MG/DL) 0.30 AST (15 - 37 Unit/L) 25 ALT (12 - 78 Unit/L) 34 Total Alk Phosphatase (50 - 136 Unit/L) 96 Troponin I High Sens (0 - 78 ng/L) < 3.0 Total Protein (6.4 - 8.2 G/DL) 7.8 Albumin (3.4 - 5.0 G/DL) 3.4 Hematology WBC (3.5 - 11.0 K/mm3) 8.3 RBC (4.70 - 6.10 M/mm3) 4.44 L Hgb (12.3 - 15.9 G/DL) 14.6 Hct (35.8 - 46.7 %) 42.2 MCV (86.3 - 98.9 Fl) 95.0 MCH (28.9 - 34.4 pg) 32.9 MCHC (32.1 - 34.5 G/DL) 34.6 H RDW (11.5 - 14.5 SD) 12.3 Plt Count (150 - 450 K/mm3) 298 MPV (7.0 - 9.6 fL) 10.10 H Neut % (Auto) (40 - 76 %) 62.1 Lymph % (Auto) (20.5 - 51.1 %) 21.3 Preston % (Auto) (1.7 - 9.3 %) 10.2 H Eos % (Auto) (0.0 - 6.0 %) 5.3 Baso % (Auto) (0.0 - 2.0 %) 0.7 Neut # (Auto) (1.8 - 7.6 K/mm3) 5.2 Lymph # (Auto) (0.6 - 3.0 K/mm3) 1.8 Preston # (Auto) (0.2 - 1.5 K/mm3) 0.9 Eos # (Auto) (0.0 - 0.4 K/mm3) 0.4 Baso # (Auto) (0.0 - 0.2 K/mm3) 0.1 Abs Immat Gran (auto) (0.00 - 0.03 x10 3/uL) 0. 03 Add Manual Diff (CRITERIA DIFF/SCN) NO Immature Gran % (0.0 - 5.0 %) 0.4 Nucleated RBC % (0.0 - 1.0 /100WBC%) 0.0 Microbiology: Date/Time Procedure - Status Source Growth 12/02 2124 Blood Culture - RECD BLOOD 12/02 2114 Blood Culture - RECD BLOOD Recent Impressions: RADIOLOGY - XR CHEST 1 V 12/02 2029 Report Impression - Status: SIGNED Entered: 12/02/20222047 IMPRESSION: No acute cardiopulmonary abnormality. Impression By: [email or web address] - BHAVNA BYERS M.D. Re-Evaluation MDM Free Text MDM Notes Free Text MDM Notes Differential diagnosis cellulitis, contusion, ab scess, among others. Labs and imaging independently review ed and discussed with the patient. Given history of HIV and recent history of re ported low CD4 counts as well as history of MRSA IV antibiotics given in ED will admit for further m onitoring and management. Discussed with hospitalist team who agree with justyn perla and plan. Patient stable prior to admission. Re-Evaluation/Progress Re-Evaluation/Progress Time of Re-Eval 2202 Re-Eval Status stable ED Course Medication(s) Ordered Medication(s) Ordered: Anti-Infective Agents Sig/Rip Start time Last Medication Dose Route Stop Time Status Admin Ceftriaxone Sodium 1,000 MG X1ED STA 12/03 2031 AC 12/02 Sterile Water 10 ML IV 12/03 Vancomycin HCl 1,000 MG X1ED STA 12/03 2031 DC 12/02 Sodium Chloride 250 ML IV 12/02 Central Nervous System Agents Sig/Rip Start time Last Medication Dose Route Stop Time Status Admin Acetaminophen 1,000 MG X1ED STA 12/02 2030 DC 0 12/02 PO 12/02 Electrolytic, Caloric, And Harpal Sig/Rip Start time Last Medication Dose Route Stop Time Status Admin Potassium Chloride 40 MEQ X1ED STA 12/02 2209 D C 12/02 PO 12/02 Sodium Chloride 1,000 ML X1ED STA 12/02 2030 DC 12/02 IV 12/02 Patient Discharge Departure Vital Signs/Condition Vital Signs First Documented: Result Date Time Pulse Ox 100 12/02 2020 B/P 115/68 12/02 2020 B/P Mean 83 12/02 2020 O2 Delivery Room air 12/02 2020 Temp 36.4 12/02 2020 Pulse 102 12/02 2020 Resp 18 12/02 2020 Last Documented: Result Date Time Pulse Ox 100 12/02 2020 B/P 115/68 12/02 2020 B/P Mean 83 12/02 2020 O2 Delivery Room air 12/02 2020 Temp 36.4 12/02 2020 Pulse 102 12/02 2020 Resp 18 12/02 2020 All vital signs available at the time of this en try have been reviewed. Condition Stable Clinical Impression Clinical Impression Primary Impression: Facial cellulitis Secondary Impressions: History of HIV infection, History of MRSA infection, Hypokalemia Disposition Decision Admit Admit Physician Name Sallie Godoy MD Admit Physician Hospitalist Request Time 2203 Request Date 12/02/22 )( Admission Accepts Yes )( Accepted Time 2203 )( Accepted Date 12/02/22 Discharge/Care Plan Counseled Regarding Diagnosi s, Lab results, Imaging studies, Need for admission Admit Note I have spoken with the patie nt and/or caregivers. I have explained the patient's condition, diagnoses and helga atment plan based on the information available to me at this time. I have answered the patient's and/ or caregiver's questions and addressed any concerns. The patient and/or careg lori have as good an understanding of the patient 's diagnosis, condition and treatment plan as can be expected at this point. The patient has been stabilized within the capability of the emergency department. The patient wi ll be transported for further care and management or will be moved to an observation or inpatient service. I have communicated with the staff or medical p ractitioner taking over this patient's care. Electronically Signed by Ravindra Salamanca MD on 03/20 at 0129 RPT #: [id number] END OF REPORT 2021-11-28 01:09:00-00:00 [facility] ([facility]) EMERGENCY PROVIDER REPORT REPORT#:[id number] REPORT STATUS: Signed DATE:11/28/21 TIME:0109 PATIENT: MIHIR HURD UNIT #: [id number] ROOM/BED: : 83 AGE: 36 SEX: M PCP PHYS: No Primar y or Family Physician SERVICE AUTHOR: Ravindra Salamanca MD * ALL edits or amendments must be made on the el [employer]/computer document * HPI-Extremity Prob Lower Free Text HPI Notes Free Text HPI Notes 36-year-old male presents to the emergency department with postop bleeding from a abscess I D that was performed yesterday while in the hospital. Patient states he had an abscess and was admitted for IV antibiotics 3 days ago. He states yesterday the surgeon performed I D. He s tates he got home yesterday after being discharged and started bleeding from the wound. He states he has had 2 rapid dressing 3 times to the wound. Patie nt denies fever, chills, lightheadedness, chest pain, shortness of breath , other pain or injury. General Initial Greet Date/Time 11/28/21 0033 Presentation Chief Complaint Leg problem R Hx Obtained From Patient Review of Systems ROS Statements All systems rev neg except as marked. Focused Review of Systems Constitutional Denies: Chills, Fever, Lethargy. Musculoskeletal Reports: Extremity pain. Skin Denies: Diaphoresis, Rash. Neurologic Denies: Dizziness, Focal weakness, Lightheaded, Numbness. Additional Review of Systems Respiratory Denies: Shortness of breath. Cardiovascular Denies: Chest pain, Palpitations. Hematologic Reports: Bleeding. Past Medical History - Adult Stated Complaint R LEG LACERATION Allergies Coded Allergies: No Known Allergies (11/24/21) Home Medications Active Scripts DOXYCYCLINE HYCLATE (VIBRAMYCIN) 100 MG PO Q12H DOXYCYCLINE HYCLATE (VIBRAMYCIN) 100 MG PO Q12H #12 CAPS Prov: 11/27/21 AMOXICILLIN (AMOXIL) 875 MG PO Q12HR AMOXICILLIN (AMOXIL) 875 MG PO Q12HR #12 TABS Prov: 11/27/21 HYDROcodone/APAP (NORCO 5/325) 1 TAB PO Q6H PRN PRN acute pain HYDROcodone/APAP (NORCO 5/325) 1 TAB PO Q6H PRN PRN acute pain #12 TABS Prov: 11/27/21 Reported Medications [TRIUMEQ] 600 MG PO BEDTIME Calculated Suicide Risk (nurs) No risk Smoking status: Smoking status for patients 13 years old or old er: Current every day smoker Physical Exam Vital Signs Vital Signs First Documented: Result Date Time Pulse Ox 98 11/28 0059 B/P 121/72 11/28 0059 B/P Mean 88 11/28 0059 O2 Delivery Room air 11/28 0059 Temp 37.1 11/28 0059 Pulse 89 11/28 0059 Resp 20 11/28 0059 Last Documented: Result Date Time Pulse Ox 99 11/28 0235 B/P 132/65 11/28 0235 B/P Mean 87 11/28 0235 O2 Delivery Room air 11/28 0235 Temp 36.7 11/28 0235 Pulse 88 11/28 0235 Resp 16 11/28 0235 Review of Vital Signs Reviewed Focused PE General/Const General/Const Awake, Alert, Well appearing Resp/Chest Respiratory/Chest Breath sounds NL, Breath soun ds = bilat, No respiratory distress, No rales, No rhonchi, No wheezing Cardiovascular Cardiovascular Heart rate NL, Regular rhythm, H eart sounds NL, Peripheral circulation NL MS Lower Extrem Lower Ext/Pelvis/MS Full range of motion, No sw elling, No erythema, No deformity, Neurologic intact, Vascular intact, N o edema Text/Dict Notes dressing removed from I D si te. packing in place, oozing from site. no purulent drainage, no surrounding erythema. no flucutance or induration. MS Ankle/Foot Ankle/Foot Atraumatic, Inspection NL, Full rang e of motion, No swelling, No erythema, Non-tender, No def ormity, Neurologic intact, Vascular intact, No edema Skin Skin Color NL, Warm, Dry, Intact, Turgor NL, No swelling Neurologic Neurologic Oriented X3, Speech NL, No motor def icits, No sensory deficits, Gait NL Re-Evaluation MDM Free Text MDM Notes Free Text MDM Notes lidocaine with epi applied t o area, with cessation of oozing/bleeding. repacked and dressed. Consult - Dr. Reddy, agrees with pl an. wound care instructions given. rp given. pt ua to plan. Re-Evaluation/Progress Re-Evaluation/Progress Time of Re-Eval 229 Re-Eval Status Improved ED Course Medication(s) Ordered Medication(s) Ordered: Local Anesthetics (Parenteral) Sig/Rip Start time Last Medication Dose Route Stop Time Status Admin Undefined Medication 20 ML X1ED STA 11/28 0133 DC 11/28 LOCAL 11/284 0149 Consultation Consultation Referral/Consult Name Doris Reddy MD Resin Mixer Called Surgeon Call Returned Call returned Resin Mixer Will see in office, Agrees with eval , Agrees with plan Patient Discharge Departure Vital Signs/Condition Vital Signs First Documented: Result Date Time Pulse Ox 98 11/28 0059 B/P 121/72 11/28 0059 B/P Mean 88 11/28 0059 O2 Delivery Room air 11/28 58 Temp 37.1 11/28 005 Pulse 89 11/28 0059 Resp 20 11/28 0059 Last Documented: Result Date Time Pulse Ox 99 11/28 0235 B/P 132/65 11/28 023 B/P Mean 87 11/28 023 O2 Delivery Room air 11/28 234 Temp 36.7 11/28 023 Pulse 88 11/28 023 Resp 16 11/28 0235 All vital signs available at the time of this en try have been reviewed. Condition Stable, Improved Clinical Impression Clinical Impression Primary Impression: Postoperative bleeding from incision Disposition Decision Discharge )( Discharged to Home Yes )( Time 0230 )( Date 11/28/21 Discharge/Care Plan Counseled Regarding Diagnosis, Need for follow-u p, When to return to ED Patient Instructions ED Post Op Wound Check, Ble eding, ED Wound Care Referrals Referral: Your pcp and surgeon Follow-Up: Call for appointment Discharge Note I have spoken with the patie nt and/or caregivers. I have explained the patient's condition, diagnoses and helga atment plan based on the information available to me at this time. I have answered the patient's and/ or caregiver's questions and addressed any concerns. The patient and/or careg lori have as good an understanding of the patient 's diagnosis, condition and treatment plan as can be expected at this point. The vital signs have bee n stable. The patient's condition is stable and appr opriate for discharge from the emergency department. The patient will pursue further outpatient evalu ation with the primary care physician or other designated or consulting phys ician as outlined in the discharge instructions. The patient and/or caregivers are agreeable to this plan of care and follow-up instructions have been exp lained in detail. The patient and/or caregivers have received these instructio ns in written format and have expressed an understanding of the discharge inst ructions. The patient and/or caregivers are aware that any significant change in condition or worsening of symptoms should prompt an immediate return to [facility] or the closest emergency department or a call to 911. Electronically Signed by Ravindra Salamanca MD on 12/17 at 1103 RPT #: [id number] END OF REPORT 2021-11-27 17:43:00-00:00 [facility] ([facility]) Hospitalist Discharge Summary REPORT#:[id number] REPORT STATUS: Signed DATE:11/27/21 TIME:1743 PATIENT: MIHIR HURD UNIT #: [id number] ROOM/BED: [address] : [address] AGE: 36 SEX: M ATTEND: Iggy Roy MD ADM AUTHOR: Shaji Roy MD * ALL edits or amendments must be made on the el ectronic/computer document * General Information Date of admission: Observation Start Date: 11/24/21 Date of admission: 11/25/21 Discharge date: 11/27/21 Hospital course: admitting diagnosis: right thigh abscess/cellulitis failed outpatient treatment. HIV on HAART discharge diagnosis: same as above Hospital course: this is 36 year old gentleman who came in with n on healing right thigh cellulitis vs abscess. please refer to admission h and p for further details. patient was started on antibiotics. ID evaluated was continue don his HAART. initial impression was of ce llulitis and drainaing abscess as he had his bascess drained by his pcp, but it conitnued to drain. w ound care also evaluated and surgery also evaluated and p erformed bedside I and D. post-procedure patient was feeling better, so was discharged home as he was cleared by subspecialties. Consultants: burn/wound, infectious disease, paul porter Med Rec Med Rec Discharge meds: Continue taking these medications: [TRIUMEQ] 600 MG TAB 600 MILLIGRAM ORAL BEDTIME. Start taking the following new medications: DOXYCYCLINE HYCLATE (VIBRAMYCIN) 100 MG CAP 100 MILLIGRAM ORAL EVERY 12 HOURS. Qty = 12 No Refills AMOXICILLIN (AMOXIL) 875 MG TAB 875 MILLIGRAM ORAL EVERY 12 HOURS. Qty = 12 No Refills HYDROcodone/APAP (NORCO 5/325) 1 TAB TAB 1 TABLET ORAL EVERY 6 HOURS NEEDED. as neede d for acute pain Qty = 12 No Refills Objective VS/I O Last Documented: Result Date Time Pulse Ox 91 11/27 1740 B/P 132/79 11/27 1740 B/P Mean 97.0 11/27 1740 O2 Delivery Room air 11/27 1740 Temp 98.6 11/27 1740 Pulse 68 11/27 1740 Resp 16 11/27 1740 Results Findings/Data: Laboratory Tests Test Result Date Time Chemistry Sodium (134 - 147 mmol/L) 138 11/24 1025 Potassium (3.4 - 5.0 mmol/L) 3.9 11/24 1025 Chloride (100 - 108 mmol/L) 108 11/24 1025 Carbon Dioxide (21 - 32 mmol/L) 25 11/24 1025 Anion Gap (4.0 - 15.0 GAP calc) 5.0 11/24 1025 BUN (7 - 18 MG/DL) 16 11/24 1025 Creatinine (0.8 - 1.3 MG/DL) 0.9 11/24 1025 Glomerular Filtr Rate (>60 estGFR) >=60 max est imate 11/24 1025 Glucose (70 - 110 MG/DL) 105 11/24 1025 Lactic Acid (0.4 - 2.0 mmol/L) 0.7 11/24 1025 Calcium (8.5 - 10.1 MG/DL) 9.4 11/24 1025 Total Bilirubin (0.2 - 1.2 MG/DL) 0.40 11/24 10 25 Direct Bilirubin (0.00 - 0.30 MG/DL) < 0.10 1025 Indirect Bilirubin (0.2 - 1.2 MG/DL) 0.30 11/24 1025 AST (15 - 37 Unit/L) 13 L 11/24 1025 ALT (12 - 78 Unit/L) 22 11/24 1025 Total Alk Phosphatase (50 - 136 Unit/L) 106 1025 Troponin I High Sens (0 - 54 ng/L) 3.6 11/25 05 05 Total Protein (6.4 - 8.2 G/DL) 7.8 11/24 1025 Albumin (3.4 - 5.0 G/DL) 3.8 11/24 1025 Hematology WBC (3.5 - 11.0 K/mm3) 5.6 11/26 0818 RBC (4.70 - 6.10 M/mm3) 4.21 L 11/26 917 Hgb (12.3 - 15.9 G/DL) 13.5 11/26 0818 Hct (35.8 - 46.7 %) 39.8 11/26 0818 MCV (86.3 - 98.9 Fl) 94.5 11/26 0818 MCH (28.9 - 34.4 pg) 32.1 11/26 0818 MCHC (32.1 - 34.5 G/DL) 33.9 11/26 0818 RDW (11.5 - 14.5 SD) 13.7 11/26 917 Plt Count (150 - 450 K/mm3) 297 11/26 917 MPV (7.0 - 9.6 fL) 10.00 H 11/26 917 Neut % (Auto) (40 - 76 %) 59.1 11/26 917 Lymph % (Auto) (20.5 - 51.1 %) 26.4 11/26 917 Preston % (Auto) (1.7 - 9.3 %) 6.7 11/26 917 Eos % (Auto) (0.0 - 6.0 %) 6.4 H 11/26 917 Baso % (Auto) (0.0 - 2.0 %) 0.9 11/26 917 Neut # (Auto) (1.8 - 7.6 K/mm3) 3.3 11/26 0818 Lymph # (Auto) (0.6 - 3.0 K/mm3) 1.5 11/26 917 Preston # (Auto) (0.2 - 1.5 K/mm3) 0.4 11/26 917 Eos # (Auto) (0.0 - 0.4 K/mm3) 0.4 11/26 917 Baso # (Auto) (0.0 - 0.2 K/mm3) 0.1 11/26 917 Abs Immat Gran (auto) (0.00 - 0.03 x10 3/uL) 0. 03 11/26 917 Add Manual Diff (CRITERIA DIFF/SCN) NO 11/26 Immature Gran % (0.0 - 5.0 %) 0.5 11/26 917 Seg Neutrophils % (Not Estab. %) 56 04 0530 Lymphocytes % (Not Estab. %) 29 / 0530 Monocytes % (Not Estab. %) 10 / 0530 Eosinophils % (Not Estab. %) 4 11/25 0530 Basophils % (Not Estab. %) 1 11/25 0530 Nucleated RBC % (0.0 - 1.0 /100WBC%) 0.0 11/26 917 Seg Neutrophils # (1.4 - 7.0 x10E3/uL) 3.1 / 0530 Lymphocytes # (0.7 - 3.1 x10E3/uL) 1.6 04/ 05 30 Monocytes # (0.1 - 0.9 x10E3/uL) 0.6 / 0530 Eosinophils # (0.0 - 0.4 x10E3/uL) 0.2 11/25 05 30 Basophils # (0.0 - 0.2 x10E3/uL) 0.0 11/25 0530 PUBS WBC (3.4 - 10.8 x10E3/uL) 5.5 11/25 529 PUBS RBC (4.14 - 5.80 x10E6/uL) 4.04 L 11/25 PUBS RDW (11.6 - 15.4 %) 13.1 11/25 529 Immunology % Hobbs Cells (30.8 - 58.5 %) 18.0 L 11/25 053 0 Absolute CD4 Count (359 - 1519 /uL) 288 L 11/25 529 Serology SARS-CoV-2 Ag (Rapid) (Negative) NEGATIVE 11/24 102 Toxicology Random Vancomycin (5 - 40 mcG/ML) 15.4 11/25 05 05 Urine Opiates Screen (<300 NG/ML SCcutoff) NEGA TIVE 11/24 1045 Urine Methadone Screen (<300 NG/ML SCcutoff) NE GATIVE 11/24 1045 Urine Barbiturates (<200 NG/ML SCcutoff) NEGATI VE 11/24 1045 Ur Phencyclidine Scrn (<25 NG/ML SCcutoff) NEGA TIVE 11/24 1045 Ur Amphetamines Screen (<1000 NG/ML SCcutoff) N EGATIVE 11/24 1045 U Benzodiazepines Scrn (<200 NG/ML SCcutoff) NE GATIVE 11/24 1045 Urine Cocaine Screen (<300 NG/ML SCcutoff) NEGA TIVE 11/24 1045 Urine Cannabinoids (<50 NG/ML SCcutoff) NEGATIV E 11/24 104 Urines Urine Color (YEL/STRAW discript) YELLOW 11/24 1 045 Urine Appearance (CLEAR discript) CLEAR 11/24 1 045 Urine pH (5.0 - 7.0 pH UNITS) 6.0 11/24 104 Ur Specific [place] (1.005 - 1.030 SG) >=1.030 H 11/24 1044 Urine Protein (NEG mg/dL) NEGATIVE 11/24 1044 Urine Glucose (UA) (NEG mg/dL) NEGATIVE 11/24 1044 Urine Ketones (NEG mg/dL) NEGATIVE 11/24 1044 Urine Blood (NEG mg/DL) TRACE 11/24 1044 Urine Nitrite (NEG SCREEN) NEGATIVE 11/24 1044 Urine Bilirubin (NEG mg/dL) NEGATIVE 11/24 1044 Urine Urobilinogen (<2.0 mg/dL) 0.2 04/29 1045 Ur Leukocyte Esterase (NEGATIVE Leuk/mcL) NEGAT ROSY 11/24 1045 Recent Impressions: RADIOLOGY - XR CHEST 1 V 11/24 1016 Report Impression - Status: SIGNED Entered: 11/24/2021 1037 IMPRESSION: Negative chest x-ray Impression By: [email or web address] - Collin Canada M.D. ULTRASOUND - US EXTREM NON VASC COMP 11/24 1113 Report Impression - Status: SIGNED Entered: 11/24/2021 1231 IMPRESSION: Targeted high resolution real-time ultrasonograp hic evaluation of right upper medial thigh was performed for clini elodia indication of abscess/infection. No sonographically evident fo elodia drainable collection appreciated in the region. Focal skin defect is appreciated in the region with echogenic foci/air. Impression By: [email or web address] - Katrin Allen M.D. Discharge Instructions PCP PCP follow-up: PCP: No Primary or Family Physician Discharge to: Home/Self Care Additional Discharge Routines: Resin Mixer Follow -Up, Add. instructions Additional instructions: finish antibiotics f/u with surgery and ocnitnue wound care. f/u with pcp for routine healthcare maintainence Discharge management: greater than 30 mins Time spent: >50% spent on counseling/coordination of care: yes Follow-up Appointments Consulting provider 1: Provider 1: Doris Reddy MD Treatments Procedures Treatments Procedures: bed side I and D of right thigh Electronically Signed by Shaji Roy MD on at 2228 RPT #: [id number] END OF REPORT 2021-11-27 17:33:00-00:00 [facility] ([facility]) Full Op Note REPORT#:[id number] REPORT STATUS: Signed DATE:11/27/21 TIME:1733 PATIENT: MIHIR HURD UNIT #: [id number] ROOM/BED: [address] : 83 AGE: 36 SEX: M ATTEND: Toney Roy ed, MD ADM AUTHOR: Doris Reddy MD * ALL edits or amendments must be made on the el [employer]/computer document * Operative Report Start date: 11/27/21 Start time: 05 Pre-procedure diagnosis: Right thigh abscess Post-procedure diagnosis: Same Procedures performed: Incision and drainage of right thigh abscess Technique/Procedure: N/A Primary Surgeon: Dominguez Reddy Marketing Trainee(s): none Anesthesia: local anesthesia Operative findings: Superficial abscess cavity Complications: none Estimated blood loss in ml's: Minimal Specimens removed/altered: none Implant(s): none Free Text Op Notes Free Text Op Notes: After informed consent was o btained the right thigh was prepped and draped. 7 cc of 0.25% marcaine was inject ed into the skin. An 11 blade was used to extend the incision 1 cm in both direction. Some pus and sl ough were irrigated from the wound. It was packed with io doform gauze and dressed with 4x4s adn ABD pads. The patient tolerated the procedure well. at 1738 RPT #: [id number] END OF REPORT 2021-11-27 15:52:00-00:00 [facility] ([facility]) Infectious Dis. Progress Note REPORT#:[id number] REPORT STATUS: Signed DATE:11/27/21 TIME:155 PATIENT: MIHIR HURD UNIT #: [id number] ROOM/BED: [facility]14-1 : 83 AGE: 36 SEX: M ATTEND: Iggy Roy MD ADM AUTHOR: Priyanka Dixon * ALL edits or amendments must be made on the el [employer]/computer document * Priyanka Dixon 11/27/21 1552: Subjective Chief complaint: HIV HPI: Patient afebrile. Vitals sta ble. Ultrasound ruled out abscess. Reports wound is still very painful but he wa nts to discharge so he can return to work. Wound has purulent drainage today; surround area with less erythema and edema. Review of Systems Constitutional: Denies: chills, fatigue, fever. Objective General VS/I O: Last Documented: Result Date Time Pulse Ox 95 11/27 1140 B/P 128/78 11/27 1140 B/P Mean 95.0 05/02 1140 O2 Delivery Room air 11/27 1140 Temp 36.8 11/27 1140 Pulse 54 05 1140 Resp 16 11/27 1140 Vital Signs Date Temp Pulse Resp B/P B/P Mean Pulse Ox FiO 2 11/26-11/27 36.4-36.8 52-59 16 107-128/63-78 77 .3-95.0 93-95 PATIENT WEIGHT: Weight (lb): Weight (oz): Weight (kg): 81.818 Physical Exam General appearance: alert, awake, oriented, plea yamini Head/Eyes: atraumatic, EOMI, normal conjunctiva/sclera, normal eyelids/periorb, normocephalic Cardiovascular: regular rate rhythm, pulses 2/4 equal bilaterally Respiratory: aerating well, symmetric expansion, no distress Extremities: no clubbing, no cyanosis, Right inn er thigh circular ulcer w/ purulent drainage, no malodor. Neuro/UTILITY INSPECTOR: alert, oriented X 3, normal speech Skin: normal turgor, no rash Diagnosis, Assessment Plan Free Text A P: Laboratory Tests 11/24/21 1025: [Embedded Image Not Available] 11/24 MRSA POS 11/24 Blood cx neg Imaging: CXR no consolidation 11/24 Assessment: 1. HIV infection. Reports his last CD4 was above 300. 2. Infected right thigh wound. Pt did not improv e with Bactrim as outpatient. 3. H/o staph infections. Plan: 1. Vancomycin (day 4). 2. Surgery consulted for wound debridement, foll ow up recs. 3. Patient can most likely g o on PO doxycycline plus amoxicillin to complete 10 days. 4. Continue Triumeq. 5. Monitor CBC and kidney function. Magdi Pratt 11/27/21 6529: Attestations Physician Attestation Agree w/findings plan: I evaluated the pt with DEBRA Dixon. I confirm th e essential components of the progress note. Pt with HIV infection and right t high cellulitis. Pt can be discharged on oral antibiotics to complete 10 da ys. I discussed the case with the hospitalist. Electronically Signed by Priyanka Dixon on 0 11/27/21 at 1603 at 0001 RPT #: [id number] END OF REPORT 2021-11-27 13:36:00-00:00 [id number] [facility] [address] [place] [address] PATIENT NAME: MIHIR HURD ADMIT DATE: 11/25/21 ACCOUNT NO: [id number] ROOM NO: [facility] AGE: 36 REPORT TYPE: CONSULTATION SEX: M ADMITTING PHYSICIAN: Shaji Roy MD ATTENDING PHYSICIAN: Shaji Roy MD CONSULTATION DATE: 11/27/2021 CONSULTING PHYSICIAN: Doris Reddy MD SURGERY CONSULTATION REASON FOR CONSULTATION: Right thigh abscess. HISTORY OF PRESENT ILLNESS: This is a 36-year-ol d man with a history of HIV, who was admitted 2 days ago secondary to right t high pain, swelling, and drainage. 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 He continued to worsen, which prompted him to come to the ER. He has had improvement with the surrounding cellulitis on IV antibiotics but he reports there is still an area that is hard and painful near the previous incis ion. PAST MEDICAL HISTORY: HIV, precancerous colon lesions requiring multiple colon resections. PAST SURGICAL HISTORY: Multiple colonoscopies, m ultiple I and D's for skin infections. MEDICATIONS: Please see med list. ALLERGIES: NO KNOWN DRUG ALLERGIES. FAMILY HISTORY: Noncontributory. SOCIAL HISTORY: Positive for tobacco use. Denies alcohol use. REVIEW OF SYSTEMS: As per HPI. Twelve-point revi ew of systems is otherwise negative. PHYSICAL EXAMINATION: VITAL SIGNS: Temperature 98.2, pulse 54, respira tory rate 16, and blood pressure 128/78. GENERAL: The patient is awake, alert, and in no apparent distress. HEENT: Normocephalic and atraumatic. CHEST: Symmetric chest wall movement bilaterally . ABDOMEN: Soft, nontender, and nondistended. EXTREMITIES: Right thigh: There is an ap proximately 1 cm incision on the right thigh with some slough and a mild amount of purulent drainage. There is an area PATIENT NAME: MIHIR HURD 420 of induration superior to this incision that is tender to palpation. There is only mild surrounding erythema and the remainder of the thigh appears normal. LABORATORY DATA: Reviewed. ASSESSMENT AND PLAN: This is a 36-year-old man w ith a right thigh abscess, status post incision and drainage. There appears to be a small undrained area at the superior aspect of th e incision. I will plan to do a bedside I and D and make a larger incision to co mpletely clean out the cavity. I do not think there is any indication for repeat imaging at this steve e as it appears superficial. The patient is in agreement with this plan. Once that was drained, it is okay for him to be discharged from the surgery's [facility]. Dictated By: Doris Reddy MD WT: CON:LTHERESA/CHRISTELLE/JOHNNIE Conf#: [id number]/DID#: [id number] Authenticated by Doris Reddy MD On 10:37:01 AM at 1037 PATIENT NAME: MIHIR HURD 420 2021-11-27 12:07:00-00:00 [facility] ([facility]) Wound Care Progress Note REPORT#:[id number] REPORT STATUS: Signed DATE:11/27/21 TIME:1207 PATIENT: MIHIR HURD UNIT #: [id number] ROOM/BED: [place] [address] : 83 AGE: 36 SEX: M ATTEND: Iggy Roy MD ADM AUTHOR: Ramakrishna Head MD * ALL edits or amendments must be made on the el [employer]/computer document * Subjective Chief complaint: Wound Care HPI: Discussed wound care with Dr. Roy Patient reports: Yes: able to communicate. No: decreased sensatio n. Objective General VS: Last Documented: Result Date Time Pulse Ox 95 11/27 1140 B/P 128/78 11/27 1140 B/P Mean 95.0 11/27 1140 O2 Delivery Room air 11/27 1140 Temp 98.2 11/27 1140 Pulse 54 11/27 1140 Resp 16 11/27 1140 PATIENT WEIGHT: Weight (lb): Weight (oz): Weight (kg): 81.818 Medications: Active Meds + DC'd Last 24 Hrs Bacitracin (BACITRACIN 0.9 GM-UD OINTMENT) 1 CINTIA LIC Q12H TOPICAL Ketorolac Tromethamine (TORADOL 30 MG) 30 MG Q6H R PRN IV Patient Own Medication (PATIENT'S OWN MEDICATION ) TRIUMEQ 600MG BEDTIME PO Morphine Sulfate (morphine Sulfate) 2 MG Q4H PRN PRN IV Vancomycin HCl (VANCOMYCIN HCL) 1,000 MG Q8HR IV Sodium Chloride (0.9% Sodium Chloride) 250 ML Miscellaneous Information (VANCOMYCIN PHARMACY T O DOSE) 1 EACH ASDIR IV Enoxaparin Sodium (lovENOX) 40 MG Q24H SUBQ Hydrocodone Bitart/Acetaminophen (NORCO 10/325) 1 TAB Q6H PRN PRN PO Ondansetron HCl (ZOFRAN ODT) 4 MG Q4H PRN PRN PO Tramadol HCl (ULTRAM) 50 MG Q6H PRN PRN PO Nutrition assessment: The data set between the solid lines has been im ported from the dietitian's assessment. Any exceptions have been noted under Provider comments. BMI Calculated: 25.9 Nutrition related diagnosis: Nutrition diagnosis details: Nutrition problem: Nutrition etiology: Nutrition signs and symptoms: Nutrition prescription: Dietitian name: Assessment completed: Provider comments on imported dietitian assessme nt: Physical Exam General appearance: chronically ill appearing Respiratory: no distress Abdomen: non-tender Extremities: no edema Wound Assessment Wound Assessment 1: Type/cause: bacterial Wound location: lower extremity (right thigh) Tissue layers: limited to skin breakdown Site condition: drainage, no ecchymosis, no danilo thema Length (cm): 2 Width (cm): 1.6 Depth (cm): 1.0 Diagnosis, Assessment Plan Problem List/A P: 1. Unspecified open wound, right thigh, initial encounter stable, ordered zinc sulfate daily. Consult paul porter. Cont the following cleanse the wound with alcohol wipe apply bacitracin ointment leave open to air carry this out once every RN shift. 2. Abscess of right thigh 3. Anxiety 4. HIV (human immunodeficiency virus infection) Consultants: infectious disease Electronically Signed by Ramakrishna Head MD on 09/19 at 1210 RPT #: [id number] END OF REPORT 2021-11-27 11:19:00-00:00 [facility]) Hospitalist Progress Note REPORT#:[id number] REPORT STATUS: Signed DATE:11/27/21 TIME:1119 PATIENT: MIHIR HURD UNIT #: [id number] ROOM/BED: [place] [address] : 83 AGE: 36 SEX: M ATTEND: Iggy Roy MD ADM AUTHOR: Shaji Roy MD * ALL edits or amendments must be made on the [employer]/computer document * Subjective Chief complaint: Right thigh wound Comments: Patient lying on the bed still complains of pain still the wound is draining. Objective General VS/I O: Vital Signs: Date Time Temp Pulse Resp B/P B/P Pulse O2 O2 F low FiO2 Mean Ox Delivery Rate 11/27 0716 97.5 59 16 111/68 82.6 93 Room air 11/27 0411 97.5 53 16 111/68 82.3 93 11/26 2312 98.1 59 16 107/63 77.3 93 11/26 1922 98.2 59 16 124/77 92.7 93 11/26 1654 98.1 52 16 126/77 93.2 94 11/26 1210 97.7 53 16 122/79 93.2 94 PATIENT WEIGHT: Weight (lb): Weight (oz): Weight (kg): 81.818 Medications: Active Meds + DC'd Last 24 Hrs Bacitracin (BACITRACIN 0.9 GM-UD OINTMENT) 1 CINTIA LIC Q12H TOPICAL Ketorolac Tromethamine (TORADOL 30 MG) 30 MG Q6H R PRN IV Patient Own Medication (PATIENT'S OWN MEDICATION ) TRIUMEQ 600MG BEDTIME PO Morphine Sulfate (morphine Sulfate) 2 MG Q4H PRN PRN IV Vancomycin HCl (VANCOMYCIN HCL) 1,000 MG Q8HR IV Sodium Chloride (0.9% Sodium Chloride) 250 ML Miscellaneous Information (VANCOMYCIN PHARMACY T O DOSE) 1 EACH ASDIR IV Enoxaparin Sodium (lovENOX) 40 MG Q24H SUBQ Hydrocodone Bitart/Acetaminophen (NORCO 10/325) 1 TAB Q6H PRN PRN PO Ondansetron HCl (ZOFRAN ODT) 4 MG Q4H PRN PRN PO Tramadol HCl (ULTRAM) 50 MG Q6H PRN PRN PO Results Results: current med profile rev'd Free Text Obj Notes Free Text Obj Notes: Physical examination Patient is a pleasant person lying on the bed does not appear to be in distress HEENT pupils equal round reactive light and acco mmodating normocephalic/ atraumatic skull normal oral mucosa Neck supple no JVD Chest clear bilateral entry no wheeze or crackle s CVS S1-S2 no murmur rubs or gallop Abdomen soft nontender bowel sounds positive Extremities no pedal edema pulses palpable Right thigh open wound drain ing purulent secretion mixed with blood surrounding erythema improved a lot. Has some small indurati on around the wound UTILITY INSPECTOR alert oriented x3 moving all 4 extremities n o focal deficit identified Diagnosis, Assessment Plan Consultants: infectious disease Free Text DxA P Notes Free text DxA P notes: Right thigh cellulitis not responding to outpati ent antibiotics Even though do not think that there is any drain able abscess and in any case patient got I D Discussed with wound care physician who recommen ded getting surgical input as the wound continues to drain might need further I D or there might be some deeper infection even though ultrasound was nega tive. Continue with IV vancomycin Infectious disease on board Monitor hemodynamic status closely Follow infectious work-up HIV We will resume patient's HAART, will ask pharmac y to restart it DVT prophylaxis Patient is full code Patient was explained the pl an in detail all medication effect side effects were discussed all questions answered he agreed with the plan Possible DC next 24 hours if seen by surgeon and no plans for surgical intervention. Electronically Signed by Sahji Roy MD on at 1120 RPT #: [id number] END OF REPORT 2021-11-26 21:37:00-00:00 [facility] ([facility]) Wound Care Consultation Note REPORT#:[id number] REPORT STATUS: Signed DATE:11/26/21 TIME:2136 PATIENT: MIHIR HURD UNIT #: [id number] ROOM/BED: [place] [address] : 83 AGE: 36 SEX: M ATTEND: Iggy Roy MD ADM AUTHOR: Ramakrishna Head MD * ALL edits or amendments must be made on the [employer]/computer document * History of Present Illness Requesting Clinician: Shaji Roy MD Reason for consult: Wound Care HPI: Mr. Mihir Hurd is a 36 ye ar old man with hx of HIV, Staph and its associated complications who was admitted for right thigh w ound. Mr Hurd had a small blister on his right thigh w hich started on Saturday. 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 On the next day it starte d getting worse again; the redness and swelling spread around it ev en though the wound still draining bloody secretions History Past History Past medical history: staph infections Past surgical history: I D Past social history: employed Medications: Home Medications: Medication Dose/Rte/Freq Days Qty Entered Last Max Daily Dose Reviewed [TRIUMEQ] 600 MG PO BEDTIME 11/24/21 Strength: 600 MG TAB 1234 Current Hospital Medications: 08:00 Sig/Rip Start time Last Medication Dose Route Stop Time Status Admin Miscellaneous 1 EACH ASDIR 11/24 1330 AC Information IV 12/24 1329 (VANCOMYCIN PHARMACY TO DOSE) Anti-Infective Agents Sig/Rip Start time Last Medication Dose Route Stop Time Status Admin Bacitracin 1 APPLIC Q12H 11/26 2200 AC (BACITRACIN 0.9 GM- TOPICAL 12/10 2158 UD OINTMENT) Vancomycin HCl 1,000 MG Q8HR 11/24 1400 AC 05/0 1 (VANCOMYCIN HCL) IV 12/08 1359 1439 Sodium Chloride 250 ML (0.9% Sodium Chloride) Blood Formation,Coagulation Sig/Rip Start time Last Medication Dose Route Stop Time Status Admin Enoxaparin Sodium 40 MG Q24H 11/24 1315 AC 05/0 1 (lovENOX) SUBQ 12/08 1314 1327 Central Nervous System Agents Sig/Rip Start time Last Medication Dose Route Stop Time Status Admin Ketorolac 30 MG Q6HR PRN 11/26 2045 AC Tromethamine IV 12/02 2043 (TORADOL 30 MG) Morphine Sulfate 2 MG Q4H PRN PRN 11/24 2199 AC 11/26 (morphine Sulfate) IV 12/04 215 1830 Hydrocodone Bitart/ 1 TAB Q6H PRN PRN 11/24 131 5 AC 11/24 Acetaminophen PO 12/04 131 205 (NORCO 10/325) Tramadol HCl 50 MG Q6H PRN PRN 11/24 1315 AC (ULTRAM) PO 12/04 1314 1423 Gastrointestinal Drugs Sig/Rip Start time Last Medication Dose Route Stop Time Status Admin Ondansetron HCl 4 MG Q4H PRN PRN 11/24 1315 AC (ZOFRAN ODT) PO 12/24 1314 Other Sig/Rip Start time Last Medication Dose Route Stop Time Status Admin Patient Own See Dose BEDTIME 11/25 2100 AC 1 Medication Insts (1) PO 12/25 (PATIENT'S OWN MEDICATION) Dose Instructions: (1)Patient Own Medication (PATIENT'S OWN MEDICAT ION): TRIUMEQ 600MG Allergies: Coded Allergies: No Known Allergies (11/24/21) Review of Systems Constitutional: Reports: generalized weakness. Skin: Reports: rash. Objective VS/I O: Last Documented: Result Date Time Pulse Ox 93 11/26 1921 B/P 124/77 11/26 1921 B/P Mean 92.7 11/26 1921 Temp 98.2 11/26 1921 Pulse 59 11/26 1921 Resp 16 11/26 1921 O2 Delivery Room air 11/26 0410 24 hour I O ending at 0700: 11/26 0700 11/25 190 Intake Total Output Total 1900 1000 Balance -1900 -1000 Output, Urine 1899 1000 General appearance: responsiveness Head/Eyes: atraumatic Neck: no JVD Cardiovascular: no rub Abdomen: soft, non-tender Genitourinary: no mae Extremities: no edema Neuro/UTILITY INSPECTOR: alert, oriented X 3 Wound Assessment Wound Assessment 1: Type/cause: bacterial Wound location: lower extremity (right thigh) Tissue layers: limited to skin breakdown Site condition: drainage, no ecchymosis, no danilo thema Length (cm): 2 Width (cm): 1.6 Depth (cm): 1.0 Diagnosis, Assessment Plan Problem List/A P: 1. 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 2. Abscess of right thigh 3. Anxiety 4. HIV (human immunodeficiency virus infection) Electronically Signed by Ramakrishna Head MD on 08/19 at 2210 RPT #: [id number] END OF REPORT 2021-11-26 11:36:00-00:00 [facility] ([facility]) Hospitalist Progress Note REPORT#:[id number] REPORT STATUS: Signed DATE:11/26/21 TIME:1136 PATIENT: MIHIR HURD UNIT #: [id number] ROOM/BED: [place] [address] : 83 AGE: 36 SEX: M ATTEND: Iggy Roy MD ADM AUTHOR: Shaji Roy MD * ALL edits or amendments must be made on the el [employer]/computer document * Subjective Chief complaint: Right thigh wound Comments: Patient lying on the bed sti ll complaining of pain and drainage from the wound. Even though the redness around the wound is impr oving. Afebrile Objective General VS/I O: Vital Signs: Date Time Temp Pulse Resp B/P B/P Pulse O2 O2 F low FiO2 Mean Ox Delivery Rate 11/27 723 97.5 54 14 121/75 90.6 94 0501 0410 97.7 60 15 107/69 81.7 92 Room air 11/26 0011 97.7 64 16 118/71 87.1 92 Room air 11/25 1941 98.1 67 16 117/72 87.1 94 Room air 11/25 1651 97.7 63 18 127/80 95.7 95 11/25 1242 97.9 58 16 110/70 83.2 94 24 hour I O ending at 0700: 11/26 0700 11/25 1900 Intake Total Output Total 1900 1000 Balance -1900 -1000 Output, Urine 1900 1000 PATIENT WEIGHT: Weight (lb): Weight (oz): Weight (kg): 81.818 Medications: Active Meds + DC'd Last 24 Hrs Patient Own Medication (PATIENT'S OWN MEDICATION ) TRIUMEQ 600MG BEDTIME PO Morphine Sulfate (morphine Sulfate) 2 MG Q4H PRN PRN IV Vancomycin HCl (VANCOMYCIN HCL) 1,000 MG Q8HR IV Sodium Chloride (0.9% Sodium Chloride) 250 ML Miscellaneous Information (VANCOMYCIN PHARMACY T O DOSE) 1 EACH ASDIR IV Enoxaparin Sodium (lovENOX) 40 MG Q24H SUBQ Hydrocodone Bitart/Acetaminophen (NORCO 10/325) 1 TAB Q6H PRN PRN PO Ondansetron HCl (ZOFRAN ODT) 4 MG Q4H PRN PRN PO Tramadol HCl (ULTRAM) 50 MG Q6H PRN PRN PO Results Findings/Data: Laboratory Tests 11/26 0918 Hematology WBC (3.5 - 11.0 K/mm3) 5.6 RBC (4.70 - 6.10 M/mm3) 4.21 L Hgb (12.3 - 15.9 G/DL) 13.5 Hct (35.8 - 46.7 %) 39.8 MCV (86.3 - 98.9 Fl) 94.5 MCH (28.9 - 34.4 pg) 32.1 MCHC (32.1 - 34.5 G/DL) 33.9 RDW (11.5 - 14.5 SD) 13.7 Plt Count (150 - 450 K/mm3) 297 MPV (7.0 - 9.6 fL) 10.00 H Neut % (Auto) (40 - 76 %) 59.1 Lymph % (Auto) (20.5 - 51.1 %) 26.4 Preston % (Auto) (1.7 - 9.3 %) 6.7 Eos % (Auto) (0.0 - 6.0 %) 6.4 H Baso % (Auto) (0.0 - 2.0 %) 0.9 Neut # (Auto) (1.8 - 7.6 K/mm3) 3.3 Lymph # (Auto) (0.6 - 3.0 K/mm3) 1.5 Preston # (Auto) (0.2 - 1.5 K/mm3) 0.4 Eos # (Auto) (0.0 - 0.4 K/mm3) 0.4 Baso # (Auto) (0.0 - 0.2 K/mm3) 0.1 Abs Immat Gran (auto) (0.00 - 0.03 x10 3/uL) 0. 03 Add Manual Diff (CRITERIA DIFF/SCN) NO Immature Gran % (0.0 - 5.0 %) 0.5 Nucleated RBC % (0.0 - 1.0 /100WBC%) 0.0 Results: labs reviewed, current med profile rev' d Free Text Obj Notes Free Text Obj Notes: Physical examination Patient is a pleasant person lying on the bed does not appear to be in distress HEENT pupils equal round reactive light and acco mmodating normocephalic/ atraumatic skull normal oral mucosa Neck supple no JVD Chest clear bilateral entry no wheeze or crackle s CVS S1-S2 no murmur rubs or gallop Abdomen soft nontender bowel sounds positive Extremities no pedal edema pulses palpable Right thigh open wound drain ing purulent secretion mixed with blood surrounding erythema improved a lot. 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 Continue with IV vancomycin Infectious disease on board Monitor hemodynamic status closely Follow infectious work-up Advanced wound care to see if needs further stephanie monterroso even though the wound overall looks better. HIV We will resume patient's HAART, will ask pharmac y to restart it DVT prophylaxis Patient is full code Patient was explained the pl an in detail all medication effect side effects were discussed all questions answered he agreed with the plan Electronically Signed by Shaji Roy MD on at 1138 RPT #: [id number] END OF REPORT 2021-11-25 12:04:00-00:00 [facility] Hospitalist Progress Note REPORT#:[id number] REPORT STATUS: Signed DATE:11/25/21 TIME:1204 PATIENT: MIHIR HURD UNIT #: [id number] ROOM/BED: [place] [address] : 83 AGE: 36 SEX: M ATTEND: Iggy Roy MD ADM AUTHOR: Shaji Roy MD * ALL edits or amendments must be made on the [employer]/computer document * Subjective Chief complaint: Right thigh wound Comments: Patient lying on the bed den ies any active complaints except for the pain in the right thigh. The erythema has slightly extended beyond the marked lines. Objective General VS/I O: Vital Signs: Date Time Temp Pulse Resp B/P B/P Pulse O2 O2 F low FiO2 Mean Ox Delivery Rate 11/25 0819 36.5 65 18 110/70 83.2 93 11/25 0448 36.6 65 18 100/62 74.7 95 11/25 0431 36.5 54 16 98/59 72.1 94 11/25 0014 36.4 58 16 102/57 71.8 94 11/24 1945 36.5 65 16 148/84 105.0 94 11/24 1713 36.6 62 16 126/80 95.3 97 Room air 11/24 1330 66 22 125/72 89 96 Room air 11/24 1230 67 17 138/63 88 98 Room air 24 hour I O ending at 0700: 11/25 0700 11/24 1900 Intake Total Output Total Balance Patient 81.818 kg Weight Weight Stated/Reported Measurement Method PATIENT WEIGHT: Weight (lb): Weight (oz): Weight (kg): 81.818 Medications: Active Meds + DC'd Last 24 Hrs Morphine Sulfate (morphine Sulfate) 2 MG Q4H PRN PRN IV Vancomycin HCl (VANCOMYCIN HCL) 1,000 MG Q8HR I V Sodium Chloride (0.9% Sodium Chloride) 250 ML Miscellaneous Information (VANCOMYCIN PHARMACY T O DOSE) 1 EACH ASDIR IV Enoxaparin Sodium (lovENOX) 40 MG Q24H SUBQ Hydrocodone Bitart/Acetaminophen (NORCO 10/325) 1 TAB Q6H PRN PRN PO Ondansetron HCl (ZOFRAN ODT) 4 MG Q4H PRN PRN PO Tramadol HCl (ULTRAM) 50 MG Q6H PRN PRN PO Sodium Chloride (0.9% Sodium Chloride) 1,000 ML .[id number] IV (DC) Results Findings/Data: Laboratory Tests 11/25 11/24 0505 1327 Chemistry Troponin I High Sens (0 - 54 ng/L) 3.6 3.1 Laboratory Tests 11/25 0505 Toxicology Random Vancomycin (5 - 40 mcG/ML) 15.4 Microbiology Date/Time Procedure - Status Source Growth 11/24 1245 MRSA Screen - COMP NASAL Results: labs reviewed, current med profile rev' d Free Text Obj Notes Free Text Obj Notes: Physical examination Patient is a pleasant person lying on the bed does not appear to be in distress HEENT pupils equal round reactive light and acco mmodating normocephalic/ atraumatic skull normal oral mucosa Neck supple no JVD Chest clear bilateral entry no wheeze or crackle s CVS S1-S2 no murmur rubs or gallop Abdomen soft nontender bowel sounds positive Extremities no pedal edema pulses palpable Right thigh open wound drain ing purulent secretion mixed with blood surrounding erythema around 5 x 5 cm no induration appears t dara, erythema slightly extending out of drawn margins 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 Continue with IV vancomycin Have asked infectious disease to evaluat e considering patient's prior repeated infections and HIV status Monitor hemodynamic status closely Follow infectious work-up Symptomatic HIV We will resume patient's HAART, will ask pharmac y to restart it DVT prophylaxis Patient is full code Patient was explained the pl an in detail all medication effect side effects were discussed all questions answered he agreed with the plan Electronically Signed by Shaji Roy MD on at 1214 RPT #: [id number] END OF REPORT 2021-11-25 10:19:00-00:00 [facility] ([facility]) Infectious Dis. Progress Note REPORT#:[id number] REPORT STATUS: Signed DATE:11/25/21 TIME:1019 PATIENT: MIHIR HURD UNIT #: [id number] ROOM/BED: [place] [address] : 83 AGE: 36 SEX: M ATTEND: Iggy Roy MD ADM AUTHOR: Medardo Pratt MD * ALL edits or amendments must be made on the [employer]/computer document * Subjective Chief complaint: HIV HPI: WBC was normal. Blood cxs pending. Review of Systems Constitutional: Denies: fever. Objective General VS/I O: Last Documented: Result Date Time Pulse Ox 93 11/25 0819 B/P 110/70 11/25 0819 B/P Mean 83.2 11/25 0819 Temp 36.5 11/25 0819 Pulse 65 11/25 0819 Resp 18 11/25 0819 O2 Delivery Room air 11/24 1713 Vital Signs Date Temp Pulse Resp B/P B/P Mean Pulse Ox FiO 2 11/24-11/25 36.4-36.6 54-67 16-22 98-148/57-84 71.8-105.0 93-98 24 hour I O ending at 0700: 11/25 0700 11/24 1900 Intake Total Output Total Balance Patient 81.818 kg Weight Weight Stated/Reported Measurement Method PATIENT WEIGHT: Weight (lb): Weight (oz): Weight (kg): 81.818 Physical Exam General appearance: awake Head/Eyes: atraumatic, normal conjunctiva/sclera , normal eyelids/periorb, normocephalic Cardiovascular: regular rate rhythm Respiratory: aerating well, symmetric expansion, no distress Abdomen: non-tender, normal bowel sounds, soft, no CVA tenderness, no distention , no guarding, no mass/organomegaly, no rebound Genitourinary: no flank pain Extremities: no clubbing, no cyanosis, Right thi gh wound with drainage Neuro/UTILITY INSPECTOR: alert, oriented X 3, CNII-XII intact, normal speech Skin: normal turgor, no rash Diagnosis, Assessment Plan Free Text A P: Laboratory Tests 11/24/21 1025: [Embedded Image Not Available] Imaging: CXR no consolidation 11/24 Assessment: 1. HIV infection. 2. Infected right thigh wound. Pt did not improv e with Bactrim as outpatient. 3. H/o staph infections. Plan: 1. Vancomycin (day 2). 2. F/u blood cxs. 3. MRSA screening. 4. Monitor CBC and kidney function. 5. HIV viral load and CD4 count pending. 6. If blood cxs are neg, will switch to a PO reg imen (e.g. doxycycline plus amoxicillin) to complete 7-10 days. 7. Continue Triumeq. at 1213 RPT #: [id number] END OF REPORT 2021-11-24 15:08:00-00:00 [facility] ([facility]) Infect Disease Consult Note REPORT#:[id number] REPORT STATUS: Signed DATE:11/24/21 TIME:1508 PATIENT: MIHIR HURD UNIT #: [id number] ROOM/BED: [place] [address] : 83 AGE: 36 SEX: M ATTEND: Iggy Roy MD ADM AUTHOR: Medardo Pratt MD * ALL edits or amendments must be made on the [employer]/computer document * History of Present Illness Reason for consult: HIV infection HPI: 36 yo male with h/o HIV infection on Triumeq who presented with worsening persistent right thigh wound for 7 days associat ed with drainage. S/p I D in clinic 2 days ago. Pt was gi dulce Bactrim without improvement. Pt has had multiple staph infections in the past, including endocarditis and scrotal infection per pt. History - Adult longitudinal Additional medical history: HIV/AIDS on HAART, viral load was 15,000 and CD4 count was 393 as per patient 1 month ago Also has probably precancerous lesions in the c olon and has had multiple resections. 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 Skin: Denies: rash. Allergy/Immun: Denies hives Eyes: Denies discharge ENT: Denies: sore throat. Respiratory: Denies: non productive cough. Cardiovascular: Denies: chest pain. GI: Denies: abdominal pain. : Denies: dysuria. Musculoskeletal: Denies: joint swelling. Objective General VS/I O: Last Documented: Result Date Time Pulse Ox 94 11/24 1944 B/P 148/84 11/24 1944 B/P Mean 105.0 11/24 1944 Temp 36.5 11/24 1944 Pulse 65 11/24 1944 Resp 16 11/24 1944 O2 Delivery Room air 11/24 1713 Vital Signs Date Temp Pulse Resp B/P B/P Mean Pulse Ox FiO2 11/24 36.5-36.8 62-103 16- 125-148/63-84 88-1 05.0 94-98 PATIENT WEIGHT: Weight (lb): Weight (oz): Weight (kg): 81.818 Physical Exam General appearance: alert, awake, oriented, no a cute distress, no respiratory distress Head/Eyes: atraumatic, clear cornea, EOMI, antwan l conjunctiva/sclera, normal eyelids/periorb, normocephalic ENT: moist mucosal membranes, normal nose, antwan l pharynx Neck: full range of motion, non-tender, supple/n o meningismus, no masses or swelling Cardiovascular: regular rate rhythm Respiratory: aerating well, symmetric expansion, no distress Abdomen: non-tender, normal bowel sounds, soft, no CVA tenderness, no distention , no guarding, no mass/organomegaly, no rebound Genitourinary: no flank pain Extremities: no clubbing, no cyanosis, Right thi gh wound with drainage Musculoskeletal: no joint swelling Neuro/UTILITY INSPECTOR: alert, oriented X 3, CNII-XII intact, normal speech Skin: normal turgor, no rash Psychiatry: normal affect, normal judgment/insig ht, normal mood Diagnosis, Assessment Plan Free Text DxA P Notes Free text DxA P notes: Laboratory Tests 11/24/21 1025: [Embedded Image Not Available] Imaging: CXR no consolidation 11/24 Assessment: 1. HIV infection. Last CD4 >300 per pt. Viral lo ad was >1000 per pt. 2. Infected right thigh wound. Pt did not improv e with Bactrim as outpatient. 3. H/o staph infections. Plan: 1. Agree with vancomycin (day 1). 2. F/u blood cxs. 3. MRSA screening. 4. Monitor CBC and kidney function. 5. HIV viral load and CD4 count. 6. If blood cxs are neg, will switch to a PO reg imen (e.g. doxycycline plus amoxicillin) to complete 7-10 days. 7. Continue Triumeq. Thank you for this consult. at 1212 RPT #: [id number] END OF REPORT 2021-11-24 13:49:00-00:00 [facility] ([facility]) Pharmacy Prog.Note-Vancomycin REPORT#:[id number] REPORT STATUS: Signed DATE:11/24/21 TIME:1349 PATIENT: MIHIR HURD UNIT #: [id number] ROOM/BED: [place] [address] : 83 AGE: 36 SEX: M ATTEND: Iggy Roy MD ADM AUTHOR: Yoana Kumar [facility] * ALL edits or amendments must be made on the [employer]/computer document * Vancomycin Vancomycin Medication Therapy Goal: trough 10-15 mcg/mL Indication for treatment: SSTI Current therapy: VANCOMYCIN 1G X 1 (ER) Weight: Actual weight (kg): 81.818 Labs: Laboratory Test : 11/24 1025 Chemistry BUN (7 - 18 MG/DL) 16 Creatinine (0.8 - 1.3 MG/DL) 0.9 Hematology WBC (3.5 - 11.0 K/mm3) 10.7 Microbiology: 11/24 1245 NASAL: MRSA Screen - RECD 11/24 1025 BLOOD: Blood Culture - RECD 11/24 1025 BLOOD: Blood Culture - RECD Treatment plan: consult, initiation of therapy Regimen: LOADING DOSE VANCOMYCIN 2G; MAINTENANCE VANCOMYC IN 1G Q8HR; TROUGH 11/25 1300 Electronically Signed by Yoana Kumar [facility] on 0 11/24/21 at 1356 RPT #: [id number] END OF REPORT 2021-11-24 13:21:00-00:00 [facility] ([facility]) Hospitalist History Physical REPORT#:[id number] REPORT STATUS: Signed DATE:11/24/21 TIME:1321 PATIENT: MIHIR HURD UNIT #: [id number] ROOM/BED: [place] [address] : 83 AGE: 36 SEX: M ATTEND: Iggy Roy MD ADM AUTHOR: Shaji Roy MD * ALL edits or amendments must be made on the [employer]/computer document * History of Present Illness HPI Chief complaint: Right thigh wound PCP: PCP: No Primary or Family Physician HPI: This is 36-year-old gentleman who surgic ally did staph infections came in with complains of right thigh wound. 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 but the next day it started getting worse again the redness and swelling spread around it even though the wound sti ll draining bloody secretions and has to change the dressing twice a day but the pain erythema and swelling got worse so decided to come to the ER Denies any fever headache so re throat cough chest pain palpitation shortness of breath abdominal pain diarrhea constipation any problem in the urine any numbness of hands or feet or any focal weakness He states that he has had multiple staph infecti ons last infection was 1-1/2 years ago when he had some t esticular infection and was sent home on PICC line. Also has history of endocarditis cellulitis of h is face. History Past Medical Surgical Hx Additional medical history: HIV/AIDS on HAART, viral miranda d was 15,000 and CD4 count was 393 as per patient 1 month ago Also has probably precancerous lesions in the co ayo and has had multiple resections. 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) Smoking status: Smoking status for patients 13 years old or old er: Current every day smoker Medication/Allergy-Vaccine Hx Medications: Home Medications: [TRIUMEQ] 600 MG PO BEDTIME Allergies: Coded Allergies: No Known Allergies (11/24/21) Review of Systems All systems rev neg: except as noted Physical Exam VS/I O: Vital Signs Date Temp Pulse Resp B/P B/P Mean Pulse Ox FiO2 11/24 36.8 67-103 17 129-138/63-83 88-98 97-98 Last Documented: Result Date Time Pulse Ox 98 11/24 1230 B/P 138/63 11/24 1230 B/P Mean 88 11/24 1230 O2 Delivery Room air 11/24 1230 Pulse 67 11/24 1230 Resp 17 11/24 1230 Temp 36.8 11/24 0954 Patient Weight and BMI Weight (kg): 81.818 BMI: 25.9 Results Findings/Data: Laboratory Tests: 11/24 11/24 1045 1025 Chemistry Lactic Acid (0.4 - 2.0 mmol/L) 0.7 Urines Urine Color (YEL/STRAW discript) YELLOW Urine Appearance (CLEAR discript) CLEAR Urine pH (5.0 - 7.0 pH UNITS) 6.0 Ur Specific [place] (1.005 - 1.030 SG) >=1.030 H Urine Protein (NEG mg/dL) NEGATIVE Urine Glucose (UA) (NEG mg/dL) NEGATIVE Urine Ketones (NEG mg/dL) NEGATIVE Urine Blood (NEG mg/DL) TRACE Urine Nitrite (NEG SCREEN) NEGATIVE Urine Bilirubin (NEG mg/dL) NEGATIVE Urine Urobilinogen (<2.0 mg/dL) 0.2 Ur Leukocyte Esterase (NEGATIVE Leuk/mcL) NEGAT ROSY 11/24 1025 Chemistry Sodium (134 - 147 mmol/L) 138 Potassium (3.4 - 5.0 mmol/L) 3.9 Chloride (100 - 108 mmol/L) 108 Carbon Dioxide (21 - 32 mmol/L) 25 Anion Gap (4.0 - 15.0 GAP calc) 5.0 BUN (7 - 18 MG/DL) 16 Creatinine (0.8 - 1.3 MG/DL) 0.9 Glomerular Filtr Rate (>60 estGFR) >=60 max est imate Glucose (70 - 110 MG/DL) 105 Calcium (8.5 - 10.1 MG/DL) 9.4 Total Bilirubin (0.2 - 1.2 MG/DL) 0.40 Direct Bilirubin (0.00 - 0.30 MG/DL) < 0.10 Indirect Bilirubin (0.2 - 1.2 MG/DL) 0.30 AST (15 - 37 Unit/L) 13 L ALT (12 - 78 Unit/L) 22 Total Alk Phosphatase (50 - 136 Unit/L) 106 Troponin I High Sens (0 - 54 ng/L) < 3.0 Total Protein (6.4 - 8.2 G/DL) 7.8 Albumin (3.4 - 5.0 G/DL) 3.8 Hematology WBC (3.5 - 11.0 K/mm3) 10.7 RBC (4.70 - 6.10 M/mm3) 4.61 L Hgb (12.3 - 15.9 G/DL) 14.9 Hct (35.8 - 46.7 %) 43.5 MCV (86.3 - 98.9 Fl) 94.4 MCH (28.9 - 34.4 pg) 32.3 MCHC (32.1 - 34.5 G/DL) 34.3 RDW (11.5 - 14.5 SD) 13.6 Plt Count (150 - 450 K/mm3) 352 MPV (7.0 - 9.6 fL) 9.90 H Neut % (Auto) (40 - 76 %) 67.6 Lymph % (Auto) (20.5 - 51.1 %) 20.9 Preston % (Auto) (1.7 - 9.3 %) 8.3 Eos % (Auto) (0.0 - 6.0 %) 2.2 Baso % (Auto) (0.0 - 2.0 %) 0.5 Neut # (Auto) (1.8 - 7.6 K/mm3) 7.2 Lymph # (Auto) (0.6 - 3.0 K/mm3) 2.2 Preston # (Auto) (0.2 - 1.5 K/mm3) 0.9 Eos # (Auto) (0.0 - 0.4 K/mm3) 0.2 Baso # (Auto) (0.0 - 0.2 K/mm3) 0.1 Abs Immat Gran (auto) (0.00 - 0.03 x10 3/uL) 0. 05 H Add Manual Diff (CRITERIA DIFF/SCN) NO Immature Gran % (0.0 - 5.0 %) 0.5 Nucleated RBC % (0.0 - 1.0 /100WBC%) 0.0 Serology SARS-CoV-2 Ag (Rapid) (Negative) NEGATIVE Laboratory Tests 11/24/21 1025: [Embedded Image Not Available] Radiology data: Recent Impressions: RADIOLOGY - XR CHEST 1 V 11/24 1016 Report Impression - Status: SIGNED Entered: 11/24/2021 1037 IMPRESSION: Negative chest x-ray Impression By: [email or web address] - Collin Canada M.D. ULTRASOUND - US EXTREM NON VASC COMP 11/24 1113 Report Impression - Status: SIGNED Entered: 11/24/2021 1231 IMPRESSION: Targeted high resolution real-time ultrasonograp hic evaluation of right upper medial thigh was performed for clini elodia indication of abscess/infection. No sonographically evident fo elodia drainable collection appreciated in the region. Focal skin defect is appreciated in the region with echogenic foci/air. Impression By: [email or web address] Navneet Allen M.D. Results: labs reviewed, US results reviewed, cur rent med profile rev'd Free Text PE Notes Free Text PE Notes: Physical examination Patient is a pleasant person lying on the bed does not appear to be in distress HEENT pupils equal round reactive light and acco mmodating normocephalic/ atraumatic skull normal oral mucosa Neck supple no JVD Chest clear bilateral entry no wheeze or crackle s CVS S1-S2 no murmur rubs or gallop Abdomen soft nontender bowel sounds positive Extremities no pedal edema pulses palpable Right thigh open wound drain ing purulent secretion mixed with blood surrounding erythema around 5 x 5 cm no induration appears t 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 Continue with IV vancomycin Have asked infectious disease to evaluat e considering patient's prior repeated infections and HIV status Monitor hemodynamic status closely Follow infectious work-up Symptomatic HIV We will resume patient's HAART as we do not have it available in our pharmacy will need to bring it from home DVT prophylaxis Patient is full code Patient was explained the pl an in detail all medication effect side effects were discussed all questions answered he agreed with the plan Consultants: infectious disease Electronically Signed by Shaji Roy MD on at 1331 RPT #: [id number] END OF REPORT 2021-11-24 10:06:00-00:00 [facility] ([facility]) EMERGENCY PROVIDER REPORT REPORT#:[id number] REPORT STATUS: Signed DATE:11/24/21 TIME:100 PATIENT: MIHIR HURD UNIT #: [id number] ROOM/BED: [place] [address] : 83 AGE: 36 SEX: M PCP PHYS: No Primar y or Family Physician SERVICE AUTHOR: Sushma Escalear * ALL edits or amendments must be made on the [employer]/computer document * Sushma Escalera 11/24/21 1006: HPI-Puncture Wound Free Text HPI Notes Free Text HPI Notes 36-year-old male presents to the for chief complaint of a right abscess wound infection and x1 week. Patie nt states he had incision and drainage on Saturday at his [facility]. States the rednes s and swelling has increased. States that it was repacked today but hi s job told him to come here. States he has had this before and has had to get a dmitted. States pain is 6 out of 10 in nature and that he can even walk. Denies any oth er symptoms or complaints General Confirmed Patient Yes Patient Type New patient Initial Greet Date/Time 11/24/21952 Presentation Chief Complaint right thigh wound, drained absce ss Hx Obtained From Patient Onset Occurred Gradual Symptom Duration Waxes and wanes Location Lower extremity, right thigh Quality Aching, Painful Radiation Does not radiate Severity: Onset Moderate Severity: Current Moderate Context Immunization Status General All up to date Review of Systems ROS Statements All systems rev neg except as marked. Complete sys rev neg except as marked. Basic Review of Systems Basic ROS EYES: No redness, ENT: No sore throat, RESP: No SOB, CV: No chest pain , GI: No abd pain/vomiting, : No dysuria/frequency, HEM: No bleeding/bruising, NEURO: No change MS, NEURO: No focal deficit, PS YCH: NL thought content Focused Review of Systems Constitutional Denies: Chills, Fatigue, Fever, Lethargy, Malais e, Recent wt loss, Weakness - generalized. Musculoskeletal Denies: Back pain, Extremity pain, Extremity swe lling, Joint pain, Joint swelling, Lumbar pain, Myalgia, Neck pain, Thora cic pain. Skin Reports: Abscess, Erythema, Swelling. Past Medical History - Adult Stated Complaint RIGHT UPPER THIGH INFECTION, CA NNOT WALK Allergies Coded Allergies: No Known Allergies (11/24/21) Home Medications Reported Medications [TRIUMEQ] 600 MG PO BEDTIME Review of Nursing Notes Rev avail, and agree Pt reports no significant: Family history, Socia l history Smoking status: Smoking status for patients 13 years old or old er: Current every day smoker Physical Exam Vital Signs Vital Signs First Documented: Result Date Time Pulse Ox 97 11/24 0954 B/P 129/83 11/24 0954 B/P Mean 98 11/24 953 O2 Delivery Room air 11/24 953 Temp 98.3 11/24 953 Pulse 103 11/24 09 Resp 11/24 Last Documented: Result Date Time Pulse Ox 97 11/24 0954 B/P 129/83 11/24 0854 B/P Mean 98 11/24 953 O2 Delivery Room air 11/24 953 Temp 98.3 11/24 953 Pulse 103 11/24 09 Resp 11/24 Review of Vital Signs Reviewed, Vital signs norm al Basic Physical Exam Basic PE GEN: Well appearing /NAD, HEAD: Atraumatic/NC, EYES: PERRL, conj clear, ENT: Membranes moist, NECK: Supple, RESP: No res p distress, CV: Reg rate rhythm, ABD: Soft/non-tender, EXT: No gr oss abnormality, NEURO: alert oriented , NEURO: gross movement NL, PSYCH: NL thought co ntent Focused PE General/Const General/Const Awake, Alert, No acute distress Lymphatic Lymphatic No gross adenopathy MS Upper Extrem Upper Extremity/MS Atraumatic, Inspection NL, F ull range of motion MS Wrist/Hand Wrist/Hand Atraumatic, Inspection NL, Full rang e of motion, No swelling MS Lower Extrem Right Thigh Swelling present, Tenderness present, Ecchymosi s present. MS Ankle/Foot Ankle/Foot Atraumatic, Inspection NL, Full rang e of motion Skin Abscess Notes 2 x 2 cm swelling/erythema in the middle of righ t thigh Neurologic Neurologic Oriented X3, Speech NL, No motor def icits Interpretation Diagnostics Lab Results Interpretation Results Laboratory Tests 11/24/21 1025: [Embedded Image Not Available] Laboratory Tests: 11/24 11/24 1045 1025 Chemistry Lactic Acid (0.4 - 2.0 mmol/L) 0.7 Urines Urine Color (YEL/STRAW discript) YELLOW Urine Appearance (CLEAR discript) CLEAR Urine pH (5.0 - 7.0 pH UNITS) 6.0 Ur Specific [place] (1.005 - 1.030 SG) >=1.030 H Urine Protein (NEG mg/dL) NEGATIVE Urine Glucose (UA) (NEG mg/dL) NEGATIVE Urine Ketones (NEG mg/dL) NEGATIVE Urine Blood (NEG mg/DL) TRACE Urine Nitrite (NEG SCREEN) NEGATIVE Urine Bilirubin (NEG mg/dL) NEGATIVE Urine Urobilinogen (<2.0 mg/dL) 0.2 Ur Leukocyte Esterase (NEGATIVE Leuk/mcL) NEGAT ROSY 11/24 1025 Chemistry Sodium (134 - 147 mmol/L) 138 Potassium (3.4 - 5.0 mmol/L) 3.9 Chloride (100 - 108 mmol/L) 108 Carbon Dioxide (21 - 32 mmol/L) 25 Anion Gap (4.0 - 15.0 GAP calc) 5.0 BUN (7 - 18 MG/DL) 16 Creatinine (0.8 - 1.3 MG/DL) 0.9 Glomerular Filtr Rate (>60 estGFR) >=60 max est imate Glucose (70 - 110 MG/DL) 105 Calcium (8.5 - 10.1 MG/DL) 9.4 Total Bilirubin (0.2 - 1.2 MG/DL) 0.40 Direct Bilirubin (0.00 - 0.30 MG/DL) < 0.10 Indirect Bilirubin (0.2 - 1.2 MG/DL) 0.30 AST (15 - 37 Unit/L) 13 L ALT (12 - 78 Unit/L) 22 Total Alk Phosphatase (50 - 136 Unit/L) 106 Troponin I High Sens (0 - 54 ng/L) < 3.0 Total Protein (6.4 - 8.2 G/DL) 7.8 Albumin (3.4 - 5.0 G/DL) 3.8 Hematology WBC (3.5 - 11.0 K/mm3) 10.7 RBC (4.70 - 6.10 M/mm3) 4.61 L Hgb (12.3 - 15.9 G/DL) 14.9 Hct (35.8 - 46.7 %) 43.5 MCV (86.3 - 98.9 Fl) 94.4 MCH (28.9 - 34.4 pg) 32.3 MCHC (32.1 - 34.5 G/DL) 34.3 RDW (11.5 - 14.5 SD) 13.6 Plt Count (150 - 450 K/mm3) 352 MPV (7.0 - 9.6 fL) 9.90 H Neut % (Auto) (40 - 76 %) 67.6 Lymph % (Auto) (20.5 - 51.1 %) 20.9 Preston % (Auto) (1.7 - 9.3 %) 8.3 Eos % (Auto) (0.0 - 6.0 %) 2.2 Baso % (Auto) (0.0 - 2.0 %) 0.5 Neut # (Auto) (1.8 - 7.6 K/mm3) 7.2 Lymph # (Auto) (0.6 - 3.0 K/mm3) 2.2 Preston # (Auto) (0.2 - 1.5 K/mm3) 0.9 Eos # (Auto) (0.0 - 0.4 K/mm3) 0.2 Baso # (Auto) (0.0 - 0.2 K/mm3) 0.1 Abs Immat Gran (auto) (0.00 - 0.03 x10 3/uL) 0. 05 H Add Manual Diff (CRITERIA DIFF/SCN) NO Immature Gran % (0.0 - 5.0 %) 0.5 Nucleated RBC % (0.0 - 1.0 /100WBC%) 0.0 Serology SARS-CoV-2 Ag (Rapid) (Negative) NEGATIVE Microbiology: Date/Time Procedure - Status Source Growth 11/24 102 Blood Culture - RECD BLOOD 11/24 1025 Blood Culture - RECD BLOOD Recent Impressions: RADIOLOGY - XR CHEST 1 V 11/24 1016 Report Impression - Status: SIGNED Entered: 11/24/2021 1037 IMPRESSION: Negative chest x-ray Impression By: [email or web address] - Collin Canada M.D. ULTRASOUND - US EXTREM NON VASC COMP 11/24 1113 Report Impression - Status: SIGNED Entered: 11/24/2021 1231 IMPRESSION: Targeted high resolution real-time ultrasonograp hic evaluation of right upper medial thigh was performed for clini elodia indication of abscess/infection. No sonographically evident fo elodia drainable collection appreciated in the region. Focal skin defect is appreciated in the region with echogenic foci/air. Impression By: [email or web address] - Katrin Allen M.D. Point of Care Testing Pulse Oximetry Pulse Ox % 97 On: Room air Interpretation Interpreted by me, Pulse oximetr y normal Time 0954 ECG #1 Interpretation ECG Documented in MUSE Yes Date 11/24/21 Time 1028 Interpreted by and reviewed by me, ED physician NL ECG Interpretation Normal rate, Normal sinus rhythm Rate 78 Re-Evaluation MDM Free Text MDM Notes Free Text MDM Notes Patient and or family updated on status of patient. Patient will be admitted. Patient/Family verbalized understanding and agre es to plan of care. Case discussed with hospitalist justyn laurent. Admission accepted. Admitting orders placed by admitting team. Code status while in ER was FULL CODE. Goals of care were discussed in the ED with eleanor ent and/or family and hospitalist updated on admission of code status in ER. Re-Evaluation/Progress Re-Evaluation/Progress Plan Post Re-Eval Plan admit Tissue Perfusion Reassessment Patient tissue perfusion reassessment completed. ED Course Medication(s) Ordered Medication(s) Ordered: Anti-Infective Agents Sig/Rip Start time Last Medication Dose Route Stop Time Status Admin Ceftriaxone Sodium 1,000 MG X1ED STA 11/24 1004 DC 11/24 Sodium Chloride 100 ML IV 11/24 1103 1041 Vancomycin HCl 1,000 MG X1ED STA 11/24 1004 DC 11/24 Sodium Chloride 250 ML IV 11/24 1133 1041 Central Nervous System Agents Sig/Rip Start time Last Medication Dose Route Stop Time Status Admin Ketorolac 30 MG X1ED STA 11/24 1153 DC 11/24 Tromethamine IV 11/24 1154 1203 Morphine Sulfate 4 MG X1ED STA 11/24 1004 DC IV 11/24 1005 1041 Electrolytic, Caloric, And Harpal Sig/Rip Start time Last Medication Dose Route Stop Time Status Admin Sodium Chloride 1,000 ML .[id number] 11/24 1200 AC 11/24 IV 11/25 1051 1230 Sodium Chloride 2,454.54 ML X1ED STA 11/24 1004 DC 11/24 IV 11/24 1005 1042 Patient Discharge Departure Vital Signs/Condition Vital Signs First Documented: Result Date Time Pulse Ox 97 11/24 0954 B/P 129/83 11/24 0954 B/P Mean 98 11/24 0954 O2 Delivery Room air 11/24 0954 Temp 98.3 11/24 0954 Pulse 103 / 0954 Resp 17 11/24 0954 Last Documented: Result Date Time Pulse Ox 97 11/24 0954 B/P 129/83 11/24 0954 B/P Mean 98 11/24 0954 O2 Delivery Room air 11/24 0954 Temp 98.3 11/24 0954 Pulse 103 11/24 0954 Resp 17 11/24 0954 All vital signs available at the time of this en try have been reviewed. Clinical Impression Clinical Impression Primary Impression: Abscess of right thigh Disposition Decision Admit Admit Physician Name Shaji Roy MD Admit Physician Hospitalist Request Time 1144 Request Date 11/24/21 )( Admission Accepts Yes )( Accepted Time 1144 )( Accepted Date 11/24/21 Call Information will see patient, agrees with eval, agrees with plan Discharge/Care Plan Admit Note I have spoken with the patie nt and/or caregivers. I have explained the patient's condition, diagnoses and helga atment plan based on the information available to me at this time. I have answered the patient's and/ or caregiver's questions and addressed any concerns. The patient and/or careg lori have as good an understanding of the patient 's diagnosis, condition and treatment plan as can be expected at this point. The patient has been stabilized within the capability of the emergency department. The patient wi ll be transported for further care and management or will be moved to an observation or inpatient service. I have communicated with the staff or medical p lyleer taking over this patient's care. Critical Care Time Spent (minutes): 75 Services Performed Patient management by me, Steve allison spent at bedside, Reviewing test results, Reviewing imaging, Discussing eleanor ent care, Documentation in record, Time with fam/surrogate Separately billable procedures excluded from steve allison. Patient was critically ill due to: needs multiple ABX My treatment and management were: admission, sepsis workup CC Note 1 Total critical care time [75 ] minutes. Total critical care time documented does not include time spent on separately billed proc edures or the services of residents, students, nurses or physician assista nts. I personally saw and examined the patient. I have reviewed all diagno stic interpretations and treatment plans as written. I was present for the julian portions of any procedures performed and the inclusive time noted in any critical care statement. Critical care time includes patient m anagement by me, time spent at the patients bedside, time to review lab and imaging results, discussing patient care, documentation in the medical record, and time spent with the f amily or caregiver. CC Note 2 The high probability of sudden, clinically signi ficant deterioration in the patient's condition required the highest level of my preparedness to intervene urgently. The services I provided to t his patient were to treat and/or prevent clinically significant deterioration that could result in s evere disability or . Services included the follow ing: chart data review, reviewing nursing notes and/ or old charts, documentation time, consu ltant collaboration regarding findings and treatment options, medic ation orders and management, direct patient care, re -evaluations, vital sign assessments and orderin g, interpreting and reviewing diagnostic studies/lab tests. Aggregate critical care time was [75] mi nutes, which includes only time during which I was engaged in work directly related to the patient's care, as described above, whether at the bedside or elsewhe re in the Emergency Department. It did not include time spent performing other reported procedures or the services of residents, students, nurses or physician assista nts. Georges Gorman 11/24/21 1359: Patient Discharge Departure Supervising Physician Note MidLv Saw Pt Alone I have reviewed the PA/SALES PROGRAM MANAGER's note and plan of car e. I was available for consultation as needed at al l times during the patient's visit in the emergency department. I agree with the clinical impression , plan and disposition. Electronically Signed by Sushma Escalera on at 1352 Electronically Signed by Georges Gorman DO on at 1400 RPT #: [id number] END OF REPORT
[2023-03-02] MEDS ORDERED: HYDROCODONE/APAP 5/325 MG TAB ONE (11:52)
[2023-03-02] MEDS ORDERED: ONDANSETRON 4 MG (ODT) TAB ONE (11:52)
--- NOTE | 2023-03-02 12:42 | RAD REPORT ---
EXAM DESCRIPTION: RAD - Femur Right - 03/02/2023 12:36 pm CLINICAL HISTORY: PAIN COMPARISON: No comparisons FINDINGS: No fracture or dislocation.
--- NOTE | 2023-03-02 12:43 | RAD REPORT ---
EXAM DESCRIPTION: RAD - Knee Right 3 View - 03/02/2023 12:36 pm CLINICAL HISTORY: PAIN COMPARISON: No comparisons FINDINGS: No fracture, dislocation or joint effusion.
--- NOTE | 2023-03-02 12:43 | RAD REPORT ---
EXAM DESCRIPTION: RAD - Hip Right 2 View - 03/02/2023 12:36 pm CLINICAL HISTORY: PAIN COMPARISON: <Comparisons> FINDINGS: Moderate right hip osteoarthritis. No fracture, dislocation or AVN.
--- NOTE | 2023-03-02 13:07 | EDPHYS ---
Physician Documentation [facility] Name: Leonard Hurd Age: 38 yrs Sex: Male : 1985 Arrival Date: 03/02/2023 Time: 11:20 Bed 16 Private MD: ED Physician Kandice Mejía HPI: 03/02 19:15 This 38 yrs old Male presents to ER via Wheelchair with complaints of Thigh Pain. cp3 11:37 The patient is a 38-year-old male with no significant past medical history who presents cp3 to the ED secondary to right hip, thigh and right knee pain. The patient was participating in a fundraising activity and upon stepping off to run and felt acute pain in the right knee, thigh, hip. Patient has been unable to bear weight since the incident. Patient describes the pain as sharp and throbbing pain rated at 10 out of 10. No numbness or tingling. The patient denies fever, chills, nausea, vomiting. Historical: - Allergies: 11:42 No Known Allergies; iw - Home Meds: 11:42 Triumeq 600-50-300 mg oral tablet daily [Active]; iw - PMHx: 11:42 cancer; HIV positive; iw - Immunization history:: Adult Immunizations up to date. - Social history:: Smoking status: Patient reports the use of cigarette tobacco products. ROS: 11:37 Constitutional: Negative for fever, chills, and weight loss, Neck: Negative for injury, cp3 pain, and swelling, Cardiovascular: Negative for chest pain, palpitations, and edema, Respiratory: Negative for shortness of breath, cough, wheezing, and pleuritic chest pain, Abdomen/GI: Negative for abdominal pain, nausea, vomiting, diarrhea, and constipation, Back: Negative for injury and pain, Skin: Negative for injury, rash, and discoloration, Neuro: Negative for headache, weakness, numbness, tingling, and seizure, Psych: Negative for depression, anxiety, suicide ideation, homicidal ideation, and hallucinations, Endocrine: Negative for neck swelling, polydipsia, polyuria, polyphagia, and marked weight changes, Hematologic/Lymphatic: Negative for swollen nodes, abnormal bleeding, and unusual bruising. 11:37 MS/extremity: Positive for pain, tenderness, Right knee, right thigh, right hip. Exam: 11:37 Constitutional: This is a well developed, well nourished patient who is awake, alert, cp3 and in no acute distress. Head/Face: Normocephalic, atraumatic. Chest/axilla: Normal chest wall appearance and motion. Nontender with no deformity. No lesions are appreciated. Cardiovascular: Regular rate and rhythm with a normal S1 and S2. No gallops, murmurs, or rubs. Normal PMI, no JVD. No pulse deficits. Respiratory: Lungs have equal breath sounds bilaterally, clear to auscultation and percussion. No rales, rhonchi or wheezes noted. No increased work of breathing, no retractions or nasal flaring. Abdomen/GI: Soft, non-tender, with normal bowel sounds. No distension or tympany. No guarding or rebound. No evidence of tenderness throughout. Back: No spinal tenderness. No costovertebral tenderness. Full range of motion. Skin: Warm, dry with normal turgor. Normal color with no rashes, no lesions, and no evidence of cellulitis. Neuro: Awake and alert, GCS 15, oriented to person, place, time, and situation. Cranial nerves II-XII grossly intact. Motor strength 5/5 in all extremities. Sensory grossly intact. Cerebellar exam normal. Normal gait. Psych: Awake, alert, with orientation to person, place and time. Behavior, mood, and affect are within normal limits. 11:37 Musculoskeletal/extremity: Extremities: Right hip, thigh, right knee with tenderness to palpation no gross deformity. Pain with range of motion. Patient unable to wear bear weight., Circulation is intact in all extremities. Sensation intact. Compartment Syndrome exam of affected extremity: is normal. Weight bearing: is unable to bear weight. Vital Signs: 11:38 BP 126 / 80; Pulse 82; Resp 16; Pulse Ox 97% on R/A; Weight 80.29 kg; Height 5 ft. 10 iw in. ; Pain 10/10; 13:10 BP 128 / 90; Pulse 70; Resp 17 S; Pulse Ox 94% on R/A; kc6 11:38 Body Mass Index 25.40 (80.29 kg, 177.8 cm) iw 11:38 Pain Scale: Adult iw Fitzhugh Coma Score: 11:37 Eye Response: spontaneous(4). Motor Response: obeys commands(6). Verbal Response: cp3 oriented(5). Total: 15. MDM: 11:29 Patient medically screened. cp3 11:37 Data reviewed: vital signs, nurses notes, radiologic studies, plain films. cp3 Consideration of Admission/Observation Escalation of care including admission/observation considered. 13:03 Differential diagnosis: dislocation, closed fracture, contusion, abrasion. I considered cp3 the following discharge prescriptions or medication management in the emergency department Medications were administered in the Emergency Department. See MAR. Independent interpretation of the following test(s) in the Emergency Department X-Ray: My interpretation is X-rays of the right femur, hip, knee interpreted by me and are negative acute for acute fracture. Patient with some DJD noted to the right hip. Historians other than the Patient: Friend: Endorses patient was playing dodgeball when the injury occurred. External Records Reviewed: PDMP reviewed and negative. Response to treatment: the patient's symptoms have mildly improved after treatment. ED course: Reviewed results with patient at bedside. Patient endorses that pain is improved but still having discomfort and difficulty with ambulation discussed need for close outpatient follow-up with orthopedics. Patient comfortable with plan of care and going home with crutches and supportive analgesia. 03/02 11:36 Order name: Knee Right 3 View XRAY; Complete Time: 12:50 cp3 03/02 11:36 Order name: Femur Right XRAY; Complete Time: 12:50 cp3 03/02 11:36 Order name: Hip Right 2 View XRAY; Complete Time: 12:50 cp3 03/02 13:03 Order name: Crutches; Complete Time: 13:22 cp3 Administered Medications: 11:43 Drug: HYDROcodone-acetaminophen PO 5 mg-325 mg 2 tabs Route: PO; kc6 13:09 Follow up: Response: No adverse reaction; RASS: Alert and Calm (0) kc6 11:43 Drug: Ondansetron PO 4 mg Route: PO; kc6 13:09 Follow up: Response: No adverse reaction kc6 Disposition Summary: 03/02/23 13:07 Discharge Ordered Location: Home cp3 Problem: new cp3 Symptoms: have improved cp3 Condition: Stable cp3 Diagnosis - Osteoarthritis of hip, unspecified cp3 - Pain in left thigh cp3 - Pain in left knee cp3 Followup: cp3 - With: Brody Johnson MD - When: As needed - Reason: Recheck today's complaints Discharge Instructions: - Discharge Summary Sheet cp3 - Joint Pain cp3 - Arthritis cp3 - Acute Knee Pain, Adult cp3 - How to Use Cold Therapy, Hzih-yi-Acum cp3 Forms: - Medication Reconciliation Form cp3 - Thank You Letter cp3 - Antibiotic Education cp3 - Prescription Opioid Use cp3 - Patient Portal Instructions cp3 Prescriptions: - Ibuprofen 600 mg Oral Tablet - take 1 tablet by ORAL route every 6 hours As needed take with food; 30 tablet; cp3 Refills: 0, Product Selection Permitted - Ultram 50 mg Oral Tablet - take 1 tablet by ORAL route every 6 hours As needed; 12 tablet; Refills: 0, cp3 Product Selection Permitted - Zanaflex 4 mg Oral Tablet - take 1 tablet by ORAL route every 8 hours As needed; 20 tablet; Refills: 0, cp3 Product Selection Permitted Signatures: Dispatcher [employer] Kandice Evans MD MD cp3 Rosemary Wells RN RN iw Shira Bass RN RN kc6
--- NOTE | 2023-03-02 13:07 | ER ---
Nurse's Notes [facility] Name: Leonard Hurd Age: 38 yrs Sex: Male : 1985 Arrival Date: 03/02/2023 Time: 11:20 Bed 16 Private MD: Diagnosis: Osteoarthritis of hip, unspecified;Pain in left thigh;Pain in left knee Presentation: 03/02 11:40 Chief complaint: Patient states: was playing dodgeball, running, felt a lot of pressure iw in his right thigh, can't bear weight on it now. Coronavirus screen: At this time, the client does not indicate any symptoms associated with coronavirus-19. Ebola Screen: Patient negative for fever greater than or equal to 101.5 degrees Fahrenheit, and additional compatible Ebola Virus Disease symptoms Patient denies exposure to infectious person. Patient denies travel to an Ebola-affected area in the 21 days before illness onset. No symptoms or risks identified at this time. Initial Sepsis Screen: Does the patient meet any 2 criteria? No. Patient's initial sepsis screen is negative. Does the patient have a suspected source of infection? No. Patient's initial sepsis screen is negative. Risk Assessment: Do you want to hurt yourself or someone else? Patient reports no desire to harm self or others. Onset of symptoms was March 02, 2023. 11:40 Method Of Arrival: Wheelchair iw 11:40 Acuity: DAGMAR 4 iw Historical: - Allergies: 11:42 No Known Allergies; iw - Home Meds: 11:42 Triumeq 600-50-300 mg oral tablet daily [Active]; iw - PMHx: 11:42 cancer; HIV positive; iw - Immunization history:: Adult Immunizations up to date. - Social history:: Smoking status: Patient reports the use of cigarette tobacco products. Screenin:43 [facility] ED Fall Risk Assessment (Adult) History of falling in the last 3 months, kc6 including since admission No falls in past 3 months (0 pts) Confusion or Disorientation No (0 pts) Intoxicated or Sedated No (0 pts) Impaired Gait No (0 pts) Mobility Assist Device Used No (0 pt) Altered Elimination No (0 pt) Score/Fall Risk Level 0 - 2 = Low Risk. Abuse screen: Denies threats or abuse. Denies injuries from another. Nutritional screening: No deficits noted. Tuberculosis screening: No symptoms or risk factors identified. Assessment: 11:45 General: Appears in no apparent distress. uncomfortable, Behavior is calm, cooperative, kc6 appropriate for age. Pain: Complains of pain in right quadriceps Pain began suddenly. Neuro: Level of Consciousness is awake, alert, obeys commands, Oriented to person, place, time, situation, Appropriate for age. Cardiovascular: Capillary refill < 3 seconds. Respiratory: Airway is patent Trachea midline Respiratory effort is even, unlabored, Respiratory pattern is regular, symmetrical. GI: No signs and/or symptoms were reported involving the gastrointestinal system. : No signs and/or symptoms were reported regarding the genitourinary system. EENT: No signs and/or symptoms were reported regarding the EENT system. Derm: No signs and/or symptoms reported regarding the dermatologic system. Skin is intact, is healthy with good turgor, Skin is pink, warm \T\ dry. Musculoskeletal: No signs and/or symptoms reported regarding the musculoskeletal system. Circulation, motion, and sensation intact. Capillary refill < 3 seconds, Range of motion: intact in all extremities. 12:45 Reassessment: Patient appears in no apparent distress at this time. No changes from kc6 previously documented assessment. Patient and/or family updated on plan of care and expected duration. Pain level reassessed. Patient is alert, oriented x 3, equal unlabored respirations, skin warm/dry/pink. Vital Signs: 11:38 BP 126 / 80; Pulse 82; Resp 16; Pulse Ox 97% on R/A; Weight 80.29 kg; Height 5 ft. 10 iw in. ; Pain 10/10; 13:10 BP 128 / 90; Pulse 70; Resp 17 S; Pulse Ox 94% on R/A; kc6 11:38 Body Mass Index 25.40 (80.29 kg, 177.8 cm) iw 11:38 Pain Scale: Adult iw Elizabeth Coma Score: 11:37 Eye Response: spontaneous(4). Motor Response: obeys commands(6). Verbal Response: cp3 oriented(5). Total: 15. ED Course: 11:23 Patient arrived in ED. mg5 11:24 Kandice Mejía MD is Attending Physician. cp3 11:38 Shira Bass RN is Primary Nurse. kc6 11:41 Triage completed. iw 11:43 Arm band placed on. iw 11:44 Patient has correct armband on for positive identification. Bed in low position. Call kc6 light in reach. Side rails up X2. Adult w/ patient. 12:38 Knee Right 3 View XRAY In Process Unspecified. EDMS 12:38 Femur Right XRAY In Process Unspecified. EDMS 12:38 Hip Right 2 View XRAY In Process Unspecified. EDMS 13:05 Brody Johnson MD is Referral Physician. cp3 13:26 No provider procedures requiring assistance completed. Patient did not have IV access kc6 during this emergency room visit. Administered Medications: 11:43 Drug: HYDROcodone-acetaminophen PO 5 mg-325 mg 2 tabs Route: PO; kc6 13:09 Follow up: Response: No adverse reaction; RASS: Alert and Calm (0) kc6 11:43 Drug: Ondansetron PO 4 mg Route: PO; kc6 13:09 Follow up: Response: No adverse reaction kc6 Medication: 13:26 VIS not applicable for this client. kc6 Outcome: 13:07 Discharge ordered by . cp3 13:26 Discharged to home with crutches, with friend. kc6 13:26 Condition: stable 13:26 Discharge instructions given to patient, Instructed on discharge instructions, follow up and referral plans. medication usage, crutch walking, Demonstrated understanding of instructions, follow-up care, medications, crutch walking, Prescriptions given X 3. 13:27 Patient left the ED. kc6 Signatures: Dispatcher [employer] Kandice Evans MD MD cp3 Rosemary Wells RN RN iw Shira Bass RN RN kc6 Destiny Richardson mg5 Corrections: (The following items were deleted from the chart) 11:43 11:38 80.29 kg; Height 5 ft. 10 in.; BMI: 25.4; kc6 iw
[2023-03-02 13:51] VITALS: BP 128/90; O2SAT 94
== END 2023-03-02 13:27 | disposition home or self-care (01) ==
LOC: ER 11:20
DX: M16.11 Unilateral primary osteoarthritis, right hip (principal); M79.651 Pain in right thigh; M25.561 Pain in right knee; Z72.0 Tobacco use; Z21 Asymptomatic human immunodeficiency virus [HIV] infection status
CPT/HCPCS: 73502; 73562; 73552; 99283; Q0162